=== PATIENT | male | born 1950 | race Caucasian/White ===

== ENCOUNTER 2024-08-02 10:38 | Outpatient (CLI) | payer MEDICARE, SELFPAY ==
--- NOTE | 2024-08-02 10:53 | ECG_ITS ---
Test Date: 2024-08-02 11:03:24 Measurements Intervals [place]io Rate: 77 P: 18 ID: 170 QRS: 19 QRSD: 101 T: 40 QT: 377 QTc: 427 Interpretive Statements SINUS RHYTHM WITH MARKED SINUS ARRHYTHMIA INCOMPLETE RIGHT BUNDLE BRANCH BLOCK BASELINE ARTIFACT- I, II, III, AVR, AVL, AVF BORDERLINE ECG No previous ECG available for comparison Electronically Signed On 08-02-2024 12:05:57 CONTACT LENS FLASHING PUNCHER by Reji Wei D.O.
[2024-08-02 11:31] LABS: Anion Gap 9 mmol/L (4-12); Blood Urea Nitrogen 23 mg/dL (9-20); Calcium 9.5 mg/dL (8.4-10.2); Carbon Dioxide 27 mmol/L (22-30); Chloride 102 mmol/L (98-107); Estimated Glomerular Filt Rate 54; Glucose 111 mg/dL (65-110); Potassium 4.4 mmol/L (3.4-5.0); Sodium 138 mmol/L (137-145)
== END 2024-08-02 10:39 | disposition home or self-care (01) ==
LOC: ANHSURGERY 10:43
PROVIDERS: Anesthesiology; PCP Internal Medicine; Visit Provider Surgery
DX: I10 Essential (primary) hypertension (principal); Z01.818 Encounter for other preprocedural examination; R94.31 Abnormal electrocardiogram [ECG] [EKG]
CPT/HCPCS: 36415; 80048; 93005

== ENCOUNTER 2024-08-08 00:28 | Day surgery (SDC) | payer MEDICARE, SELFPAY ==
--- NOTE | 2024-07-25 13:41 | PC.NURSE ---
Report to the Outpatient Waiting Room, entrance under the green pavilion located off [facility], at time __11 AM on date __08/08/24 . Planned Procedure Time: __1:00PM .? Time changes happen often and if your time is changed the preop area will call you the afternoon before. - You and your visitor will be asked to self-screen and do not enter if you have any COVID symptoms. Please call surgeon if you need to reschedule. - A mask is optional within the hospital at this time. MAY HAVE REGULAR DIET DAY BEFORE SURGERY. NOTHING TO EAT OR DRINK AFTER MIDNIGHT PER DR HOLDER Take only the following medications with a SIP of water on the morning of surgery: __GABAPENTIN,METOPROLOL DO NOT STOP ANY OF YOUR OTHER PRESCRIPTION MEDICATIONS PRIOR TO SURGERY EXCEPT THE FOLLOWING Medications to discontinue per physician __WIFE STATES HOLD PLAVIX 5 DAYS PRE OP PER DR HOLDER LAST DOSE 08/02/24 HOLD ALL VITAMINS 3 DAYS PRE OP .LAST DOSE08/04/24 MAY CONTINUE 81MG ASPIRIN PER DR HOLDER BUT DO NOT TAKE MORNING OF SURGERY Please no make-up, nail emirati, hairspray, perfume, deodorant, or body powder the day of surgery.? No jewelry (including any body piercings) or valuables the day of surgery, leave them at home.? Please take a shower or bath the night before, or the morning of, surgery with an antibacterial soap.? Wear comfortable, loose fitting clothing.? Children are encouraged to wear pajamas. - Jewelry must be removed prior to entering the operating room.? Rings and piercings that are not removed may be cut off. - The hospital will not accept responsibility for valuables.? - Please leave all valuables, including medications, at home the day of surgery. If you are going home after surgery, a licensed ice delivery driver must drive you home.? - NO public transportation without another adult if you receive anesthesia. - We recommend that an adult stay with you for 24 hours following discharge. - We also recommend that you do not drive, make important decision, drink alcoholic beverages, or take any drugs that were not prescribed by your health care provider for at least 24 hours after your discharge time. For Pediatric surgeries, we recommend two adults accompany the child home. Follow any additional instructions given to you from your surgeon. Telephone instructions given to __WIFE CONNIE and asked if any additional questions and then verbalized understanding. Patient advised to call surgeon office or pre surgery nurse liaison [phone] if any additional questions.
[2024-07-25 13:52] VITALS: BMI 27.4
[2024-08-08] VITALS (9 sets, daily range): BP systolic 124–158; BP diastolic 50–65; PULSE 54–78; RESP 12–18; TEMP 36.1–36.9; O2SAT 93–100; BMI 26.6
[2024-08-08] MEDS: ACETAMINOPHEN 500 MG TABLET 1000 MG PO (11:54)
[2024-08-08] MEDS: KETOROLAC 15 MG/ML VIAL (*BKC) IV PUSH (11:54)
--- NOTE | 2024-08-08 12:08 | WPDHPUPDATE1 ---
History and Physical Update Update Date/Time: 08/08/24 12:08 History and Physical has been reviewed, including an updated exam of the patient. There are NO changes in the patient's condition. Risks, benefits, and alternatives have been discussed and questions answered. Patient agrees to proceed with procedure.
--- NOTE | 2024-08-08 13:13 | WPDANESEPPF ---
Anes - Initial Pre Proc Eval Procedure: Operation Date: 08/08/24 13:00 Proposed Procedures p Rectal Examination Under Anesthesia, Internal and External Hemorrhoidectomy Times One Column - Gary Anderson DO Date/Time: 08/08/24 13:13 Surgeon: Gary Anderson DO Pre Op Diagnosis: grade 3 internal hemorrhoids Patient Data Age: 74 Gender: M Height: 1.7 m Weight: 77.2 kg Last Vital Signs Temp 36.9 C 08/08/24 11:05 Pulse 56 L 08/08/24 11:05 Resp 18 08/08/24 11:05 BP 133/55 L 08/08/24 11:05 Pulse Ox 96 08/08/24 11:05 O2 Del Method Room Air 08/08/24 11:05 Allergies Allergy/AdvReac Type Severity Reaction Status Date / Time adhesive tape Allergy Redness of Verified 08/08/24 09:10 Skin Home Medications Medication Instructions Recorded Confirmed Type aspirin 81 mg tablet,delayed 81 mg PO DAILY 07/15/24 07/25/24 History release atorvastatin 80 mg tablet 80 mg PO DAILY 07/15/24 07/25/24 History calcitriol 0.25 mcg capsule 0.25 mcg PO DAILY 07/15/24 07/25/24 History clopidogrel 75 mg tablet 75 mg PO DAILY 07/15/24 08/08/24 History furosemide 40 mg tablet 40 mg PO DAILY 07/15/24 07/25/24 History gabapentin 300 mg capsule 300 mg PO TID 07/15/24 07/25/24 History hydrocortisone 2.5 % topical cream 1 applic RECTAL DAILY PRN Itching 07/15/24 07/25/24 History with perineal applicator (Anusol-HC) losartan 50 mg tablet 50 mg PO DAILY 07/15/24 07/25/24 History metoprolol tartrate 25 mg tablet 12.5 mg PO BID 07/15/24 07/25/24 History trazodone 50 mg tablet 50 mg PO QHS PRN Insomnia 07/15/24 07/25/24 History acetaminophen 325 mg tablet 325 mg PO PRN PRN Pain 07/25/24 07/25/24 History (Tylenol) cyanocobalamin (vitamin B-12) 500 500 mcg PO DAILY 07/25/24 07/25/24 History mcg tablet ergocalciferol (vitamin D2) 1,250 50,000 unit PO WEEKLY 07/25/24 07/25/24 History mcg (50,000 unit) capsule Patient hx anesthesia problems: none Family hx anesthesia problems: none Results Review: All pre-operative results and documents have been reviewed as part of the pre-operative evaluation. [facility] Past Medical History Medical History (Updated 08/08/24 @ 13:14 by Freddie Castro MD) CAD (coronary artery disease) Grade III internal hemorrhoids Heart attack Hyperlipemia Hypertension Surgical History Surgical History Hx of coronary artery bypass graft 07/28/23 Dr French [facility] Family History Family History Sibling Cancer Heart disease Mother Hypertension Heart disease Father Heart disease Social History Social History Smoking packs per day: 2 Smoking cigarettes per day: 40.0 Years smoked: 40 Smoking pack-years: 80.00 Smoking status: Former smoker Tobacco type: cigarettes Smoking end date: 09/21/01 Alcohol intake: current Drinks per week: 1 Substance use: current Substance use type: marijuana Last use: 07/24/24 Current Housing: Decline to Answer Concerned About Future Housing: Decline to Answer Difficulty Paying Gas/Electric Bills: Decline to Answer Difficulty Paying for Meds: Decline to Answer Currently Unemployed: Decline to Answer Education: Decline to Answer Difficulty w/ Childcare or Family Care: Decline to Answer Living arrangements: with family Spiritual care concerns: No Anes - Eval Final PreProcedure Day of Procedure 08/08/24 13:13 Patient weight: normal Heart: regular rate and rhythm Lungs: clear to auscultation Airway: Mallampati scale class II and special considerations poor extension Neurological: alert and oriented Last oral intake: >/= 8 hours ASA classification: III Emergent: no Anesthetic plan: proceed Anesthesia type and monitoring: general LMA and standard monitoring Results Review: All pre-operative results and documents have been reviewed as part of the pre-operative evaluation. Informed Consent: The patient's anesthetic plan and its attendant risks and benefits were discussed with the patient/family/POA. Questions were solicited and answers provided to the satisfaction of the patient/family/POA.
[2024-08-08] MEDS: ceFAZolin 2 GM/D5W 50 ML 2 GM/50 ML BAG IVPB (13:35)
[2024-08-08] MEDS: BUPivacaine HCL 0.5% 10 ML AMP 30 ML INFILTRATE (14:07)
--- NOTE | 2024-08-08 14:31 | W.PM.PROC2 ---
Procedure Note - Detailed Date of Procedure 08/08/24 Pre-op Diagnosis grade 3 internal hemorrhoids Post-op Diagnosis Same Procedure Performed Internal and external hemorrhoidectomy x2 columns Surgeon Gary Anderson, DO Anesthesia General and Local (0.5% bupivacaine with epinephrine) Indications This is a 74-year-old man who presented with bleeding hemorrhoids. He had prolapsing hemorrhoids that were bleeding frequently. He had some mild external hemorrhoid tissue associated with prolapsing internal hemorrhoids. Discussions were made with the patient about treatment options and decision was made to proceed with internal and external hemorrhoidectomy. Findings Patient was found to have internal and external hemorrhoids in 2 locations. The left lateral location was the larger location that was identified initially in the office. He also had a right posterior internal and external hemorrhoid that was enlarged and prolapsing. Decision was made to proceed with internal and external hemorrhoidectomy x2 columns. The specimens were sent to the lab for pathology. Description of Procedure Procedure as well as risks, benefits, and alternatives were discussed with the patient. Written consent was obtained and placed in chart prior to procedure. Patient was brought back to surgical suite. He was placed supine on his hospital stretcher. Time-out was done to confirm patient and procedure. He was then intubated by the Anesthesia Department. He was then repositioned into prone marti-knife position. His perirectal area was prepped and draped in sterile fashion using Betadine prep. Digital rectal exam was initially performed. A Hill-Rodriguez anoscope was then inserted and the anal rectal canal was inspected. 0.5% bupivacaine with epinephrine was infiltrated locally around the perianal skin. Hemorrhoids were identified in the left lateral and right posterior positions. A Fansler anoscope was then inserted. The apex of the internal hemorrhoid bundle in the left lateral location was ligated initially using a 2 0 chromic [id number] suture. A triangular incision was then made on the anoderm including the external hemorrhoid using a 15 blade scalpel. The hemorrhoid tissue was carefully lifted free from the sphincter muscle using sharp dissection with a 15 blade scalpel. Electrocautery was then used for hemostasis. A curved Peon clamp was then placed across the hemorrhoid bundle and the hemorrhoid tissue was cut away using Metzenbaum scissors. The 2 0 chromic suture was then run across the rectal mucosa down to the anal verge across the clamp. The suture was then run back proximally to the apex stitch with running locking sutures and the stitch was then tied down in place. The area was then irrigated with sterile saline, and hemostasis along the anoderm was achieved with electrocautery. The anoderm was then reapproximated using 3 0 chromic simple interrupted sutures. I then repositioned the anoscope to the right posterior location. The apex of the internal hemorrhoid bundle in the right posterior location was ligated initially using a 2 0 chromic [id number] suture. A triangular incision was then made on the anoderm including the external hemorrhoid using a 15 blade scalpel. The hemorrhoid tissue was carefully lifted free from the sphincter muscle using sharp dissection with a 15 blade scalpel. Electrocautery was then used for hemostasis. A curved Peon clamp was then placed across the hemorrhoid bundle and the hemorrhoid tissue was cut away using Metzenbaum scissors. The 2 0 chromic suture was then run across the rectal mucosa down to the anal verge across the clamp. The suture was then run back proximally to the apex stitch with running locking sutures and the stitch was then tied down in place. The area was then irrigated with sterile saline, and hemostasis along the anoderm was achieved with electrocautery. The anoderm was then reapproximated using 3 0 chromic simple interrupted sutures. The Hill-Rodriguez anoscope was then reinserted and the anorectal canal was carefully inspected 1 more time circumferentially. No other abnormalities were identified, and hemostasis appeared adequate. Gelfoam gauze was then inserted into the anal canal. Fluff gauze, ABD pad, and mesh panties were applied. The patient was then awakened from anesthesia, extubated, and transferred to recovery. Estimated Blood Loss 10 Pathology Yes (Left lateral and right posterior hemorrhoids) Complications No immediate complications Condition Stable Disposition Same day [facility] Billing Surgery - Charge Forward: Surgery Billing
[2024-08-08] MEDS: LACTATED RINGERS 1,000 ML 30 ML IV CONT (14:34)
[2024-08-08] MEDS: oxyCODONE HCL (*CRX) 5 MG TAB IR PO (15:44)
== END 2024-08-08 16:32 | disposition home or self-care (01) ==
PROVIDERS: PCP Internal Medicine; Visit Provider Surgery
PROC: (CPT 46260; principal; 2024-08-08 13:00)
DX: K64.2 Third degree hemorrhoids (principal); K64.8 Other hemorrhoids; E78.5 Hyperlipidemia, unspecified; I10 Essential (primary) hypertension; I25.2 Old myocardial infarction; F12.90 Cannabis use, unspecified, uncomplicated; I25.10 Atherosclerotic heart disease of native coronary artery without angina pectoris; Z79.82 Long term (current) use of aspirin; Z79.02 Long term (current) use of antithrombotics/antiplatelets; Z98.890 Other specified postprocedural states; Z95.5 Presence of coronary angioplasty implant and graft; Z87.891 Personal history of nicotine dependence; Z80.9 Family history of malignant neoplasm, unspecified; Z82.49 Family history of ischemic heart disease and other diseases of the circulatory system
CPT/HCPCS: 46260; 88304; A9270; J0330; J0690; J1885; J2003; J2250; J2405; J2704; J3010; J7120

== ENCOUNTER 2024-09-23 08:43 | Outpatient (CLI) | payer MEDICARE, SELFPAY ==
[2024-09-23 09:31] LABS: Hematocrit 34.1 % (42.0-52.0); Hemoglobin 11.6 g/dL (14.0-18.0); Mean Corpuscular Hemoglobin 30.8 pg (26-34); Mean Corpuscular Volume 90.5 fl (80-100); Mean Platelet Volume 9.9 fl (7.4-10.4); Platelet Count Result 274 k/mm3 (150-375); Red Blood Count 3.77 M/mm3 (4.6-6.20); Red Cell Distribution Width 14.7 % (11.5-14.5); White Blood Count 9.7 K/mm3 (4.5-10.0)
[2024-09-23 10:04] LABS: Free T4 Free Thyroxine 1.05 ng/dL (0.78-2.19)
[2024-09-23 10:16] LABS: Alanine Aminotransferase 14 U/L (6-50); Albumin Level 4.6 g/dL (3.5-5.1); Alkaline Phosphatase 73 U/L (38-126); Anion Gap 7 mmol/L (4-12); Aspartate Amino Transferase 19 U/L (17-59); Bilirubin,Total 0.6 mg/dL (0.2-1.3); Blood Urea Nitrogen 23 mg/dL (9-20); Calcium 9.3 mg/dL (8.4-10.2); Carbon Dioxide 25 mmol/L (22-30); Chloride 105 mmol/L (98-107); Cholesterol 155 mg/dL (0-200); Estimated Glomerular Filt Rate 50; Glucose 97 mg/dL (65-110); HDL Direct 42 mg/dL; Potassium 4.6 mmol/L (3.4-5.0); Sodium 137 mmol/L (137-145); Triglycerides 103 mg/dL (<150)
[2024-09-23 10:18] LABS: Thyroid Stimulating Hormone Reflex 0.677 uIU/mL (0.465-4.68)
[2024-09-23 10:27] LABS: LDL Cholesterol Direct 71 mg/dL
[2024-09-23 10:56] LABS: Creatinine Urine 23.5 mg/dL
[2024-09-23 11:03] LABS: MALB Creatinine Ratio < 25.5 mg/g (0-30); Microalbumin Urine Random < 6.0 mg/L (0-16.7)
[2024-09-23 17:17] LABS: Hemoglobin A1C 6.1 % (<5.7)
== END 2024-09-23 08:44 | disposition home or self-care (01) ==
LOC: ANHLAB 08:45
PROVIDERS: PCP Internal Medicine; Visit Provider Internal Medicine
DX: R73.03 Prediabetes (principal); E78.5 Hyperlipidemia, unspecified
CPT/HCPCS: 36415; 80053; 80061; 82043; 83036; 84439; 84443; 85027

== ENCOUNTER 2024-11-29 08:25 | Outpatient (CLI) | payer MEDICARE, SELFPAY ==
--- OUTSIDE RECORDS SUMMARY | 2024-11-29 08:44 | XMS_ITS | Continuity of Care Document ---
Author Organization [facility] Address [address] [place] [address] [place] [address] Phone Care Team Providers Care Sales And Distribution Clerk Name Role Phone Modesto Jaimes DO Unavailable Unavailable Advance Directives Directive Yes / No Effective Date File Name No Information Encounters Encounter Description Practice Location Reason(s) For Visit Diagnoses Date Provider Providers Copied on Encounter [facility], [address], [place], [place], [id number], tel:[phone] [facility] ([facility]) No Information Fiona Dunne. [address] [place], [address], [place]. tel:[phone] Family History Family Member Type Diagnosis Age At Onset No Information Payers Payer name Insurance type Covered republican ID Authoriza tion(s) No Information Social History [...]
--- OUTSIDE RECORDS SUMMARY | 2024-11-29 08:44 | XMS_ITS | Data Portability ---
Author Organization [place] [facility], Main Office Address [address] [place] [address] Care Team Providers Care Commissioning Agent Name Role Phone DAPHNE LOCK Primary Care Provider KELLEE HOLDER General Surgeon DEEPIKA WU Seed Mill Superintendent MARCK MCKEE Neurosurgeon Assessment Encounter Date Assessment Date Assessment LastModified by Organization Details LastModified Time 09/01/2023 09/01/2023 12/23/2022: PSA 2.42 07/21/2023: Gluc 106, BUN 20, Alb 4.5, TP WNL LDL 116 HGB 12.9 Not available 09/01/2023 16:09:46 01/26/2024 01/26/2024 12/23/2022: PSA 2.42 07/21/2023: Gluc 106, BUN 20, Alb 4.5, TP WNL LDL 116 HGB 12.9 10/19/2023: BUN 22 Chol 248, TG 174, LDL 171 H/H 11.5/35.6 Not available 01/26/2024 16:42:28 06/16/2024 06/16/2024 12/23/2022: PSA 2.42 07/21/2023: Gluc 106, BUN 20, Alb 4.5, TP WNL LDL 116 HGB 12.9 10/19/2023: BUN 22 Chol 248, TG 174, LDL 171 H/H 11.5/35.6 01/27/2024: LDL 108 Dr Moore IJ BUN/Cr/GFR 21/1.48/47, Alb 4.6 H/H 11.2/34.3 A1C 6.4 Not available 06/16/2024 14:20:19 10/04/2024 10/04/2024 12/23/2022: PSA 2.42 07/21/2023: Gluc 106, BUN 20, Alb 4.5, TP WNL LDL 116 HGB 12.9 10/19/2023: BUN 22 Chol 248, TG 174, LDL 171 H/H 11.5/35.6 01/27/2024: LDL 108 Dr Oscar PEOPLES BUN/Cr/GFR 21/1.48/47, Alb 4.6 H/H 11.2/34.3 A1C 6.4 07/24/2025: A1C 6.1 BUN/Cr/GFR 23/1.40/50 H/H 11.6/34.1 09/23/2024: A1C 6.1 GFR 50 [email or web address] Not available 10/04/2024 10:15:01 Plan of Treatment Reminders Order Date Submit Date Provider Last Modified By Organization Details Last Modified Time Details Appointments Any 15 2024 09:45A Charles [email or web address] MD Not available Not available Not available Lab glycohemo globin, total, blood [email or web address] (Lab), [address] [place], [address], 10/04/2024 10:30:49 microalbu min, urine 2024 025 [email or web address] [facility] (Lab), [address] [place], [address], 10/17/2024 17:31:43 lipid panel, serum [email or web address] (Lab), [address] [place], [address], 10/04/2024 10:30:48 CBC w/ auto diff [email or web address] (Lab), [address] [place], [address], 10/04/2024 10:30:49 CMP, serum or plasma [address] (Lab), [address] [place], [address], 10/04/2024 10:30:49 TSH, serum or plasma [address] (Lab), [address] [place], [address], 10/04/2024 10:30:49 glycohemo globin, total, blood 2023 024 [facility] (Lab), [address] [place], [address], 06/20/2024 15:44:20 microalbu min, urine 2023 024 [facility] (Lab), [address] [place], [address], 06/20/2024 13:35:43 lipid panel, serum 2023 024 [facility] (Lab), [address] [place], [address], 06/20/2024 20:23:08 CBC w/ auto diff 2023 024 [facility] (Lab), [address] [place], [address], 06/20/2024 12:17:31 CMP, serum or plasma 2023 024 [facility] (Lab), [address] [place], [address], 06/20/2024 20:23:13 TSH, serum or plasma 2023 024 [facility] (Lab), [address] [place], [address], 06/20/2024 20:28:57 lipid panel, serum 2023 024 [facility] (Lab), [address] [place], [address], 01/27/2024 12:17:39 CBC w/ auto diff [email or web address] (Lab), [address] [place], [address], 07/28/2024 12:39:28 CMP, serum or plasma 2023 024 [facility] (Lab), [address] [place], [address], 01/28/2024 08:20:32 TSH, serum or plasma 2023 024 [facility] (Lab), [address] [place], [address], 01/27/2024 12:36:44 lipid panel, serum 2022 023 [facility] (Lab), [address] [place], [address], 10/19/2023 12:16:03 CBC w/ auto diff 2022 023 [facility] (Lab), [address] [place], [address], 10/19/2023 11:28:58 CMP, serum or plasma 2022 023 [facility] (Lab), [address] [place], [address], 10/19/2023 12:16:17 TSH, serum or plasma 2022 023 [facility] (Lab), [address] [place], [address], 10/19/2023 13:26:15 Referral diabetic ophthalmo logy referral - Please call patient to schedule. 2024 025 [email or web address] [facility], [address] , [place], [address], 11/10/2024 08:18:43 podiatris t referral - Please call patient to schedule. 2024 025 Stef FAUSTM, [address], [place], [address], 11/10/2024 08:18:43 cardiolog ist referral 2024 025 Deepika Wu MD, [address], [address], [place], [address], 10/04/2024 11:54:51 general surgeon referral - Please call patient to schedule. 2024 025 Kellee Holder DO, [address], [address], [place], [address], 10/04/2024 12:11:52 cardiolog ist referral 2023 024 [email or web address] Deepika Wu MD, [address], [address], [place], [address], 06/21/2024 08:10:40 diabetic ophthalmo logy referral - Please call patient to schedule. 2023 024 [email or web address] [facility], [address] , [place], [address], 10/04/2024 12:05:30 podiatris t referral - Please call patient to schedule. 2023 024 [email or web address] Stef Scruggs DPCharles, [address], [address], [place], [address], 10/04/2024 12:05:41 general surgeon referral - Please call patient to schedule. 2023 024 CHON Mejia MD, [address], [address], [place], [address], 07/17/2024 16:27:55 cardiolog ist referral 2023 024 cindy Wu MD, [address], [address], [place], [address], 02/24/2024 08:06:53 cardiolog ist referral 2022 023 cindy Wu MD, [address], [place], [address], 10/01/2023 12:11:35 Procedures None recorded. Surgeries None recorded. Imaging LDCT, chest, for lung cancer screening - Please call patient to schedule. To be performed on or around [address], [facility] [place] [address], [address], 10/05/2024 10:57:47 LDCT, chest, for lung cancer screening - Please call patient to schedule. To be performed on or around [address], [address], [address], 09/19/2024 15:29:11 US, abdominal aorta - no auth required 2023 024 [facility] ([facility]), [address], [place], [address], 07/28/2024 15:15:28 LDCT, chest, for lung cancer screening - no auth required 2022 023 [facility] ([facility]), [address] [place], [address], 09/09/2023 19:33:26 US, abdominal aorta - no auth required [email or web address] ([facility]), [address] [place], [address], 03/21/2024 08:12:45 Medication Orders Farxiga 5 mg tablet 2024 025 [email or web address] [facility] #[id number], [address], [place], [place], [id number], 10/19/2024 18:05:37 trazodone 50 mg tablet 2023 024 [id number], [address], [place], [place], [id number], 06/16/2024 14:21:09 Anusol-HC 2.5 % topical cream with perineal applicato r 2023 024 [facility][id number], [address], [place], [place], [id number], 06/16/2024 14:39:43 trazodone 50 mg tablet 2023 024 [facility][id number], [address], [place], [place], [id number], 01/26/2024 17:15:56 Patient TargetsNo targets recorded. Patient Instructions Encounter Date Encounter Id Patient Instructions Last Modified By Organization Details Last Modified Time 01/26/2024 [id number] dementia rating scale-2* [email or web address] 2 Not available 01/26/2024 18:18:26 Timed Up and Go test (TUG)* [email or web address] 2 Not available 01/26/2024 18:18:27 alcohol misuse* [email or web address] 2 Not available 01/26/2024 18:18:27 depression screening* [email or web address] 2 Not available 01/26/2024 18:18:27 multi-dimensiona l health assessment questionnaire* [email or web address] Not available 01/27/2024 13:52:09 advance care planning: care instructions [email or web address] 2 Not available 01/26/2024 18:18:27 advance directiv es: care instructions [email or web address] 2 Not available 01/26/2024 18:18:27 [place] Advance Directives [email or web address] 2 Not available 01/26/2024 18:18:27 Personalized a lt Plan and Screening Recommendations Advance Directives - Do you have one? No You have indicated that you are capable of preparing your advance care directive Advance Directives - Do we have your advance directive on file in your health record? Primary Prevention/Interven tion (prevents or decreases the chance of common diseases from occurring) Smoking Risk: Non Smoker Alcohol Misuse Screening: Negative Weight: Appropriate Overwei ght continue your current weight loss efforts try to lose 5% of your body weight Physical activity: Need more exercise/physical activity minimum of 10-20 minutes of activity that causes mild breathlessness/day Nutrition: Good Average Refer to attached handout Heart-Healthy Diet: After Your Visit Fall Risk (screened today): Low Refer to attached handout Preventing Falls: After your Visit Vaccines Pneumococcal: Ordered Recommended today Influenza: Your next one in the fall of this year Chronic Disease Risks Stroke: Low Risk Intermediate Risk Heart Attack: Low risk Intermediate Risk Clogging of the Arteries: Low risk Intermediate Risk Diabetes: Low Risk I have no recommendations Secondary Prevention/Interven tion (detects treatable diseases before they may cause symptoms, disability, or ) Prostate Cancer Screening: No PSA screening necessary Colon Cancer Screening: Colonoscopy Date Screening Last Performed: 06/25/2016 Eye Disease Screening: Ordered Recommended today Dementia Risk: Low I have no recommendations Depression Screening: Negative Not available 01/26/2024 17:48:05 11/23/2024 [id number] vocal cord dysfunction Not available 11/23/2024 12:09:24 the cords were clearly examined and both move normally. 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 Referring Physician: Daphne Lock Internal Medicine, Encounter Date: 06/16/2024 Hand Engraver Referral for Pred iabetes Please call patient to schedule. Referring Physician: Yakelin Flanagan Medicine, Encounter Date: 06/16/2024 General Surgeon Referral for Hemorrhoids Please call patient to schedule. 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 Referring Physician: Yakelin Flanagan, Encounter Date: 10/04/2024 Hand Engraver Referral for Pred iabetes Please call patient to schedule. Referring Physician: Yakelin Flanagan Medicine, Encounter Date: 10/04/2024 General Surgeon Referral for Hemorrhoids Please call patient to schedule. Referring Physician: Yakelin Flanagan Medicine, Encounter Date: 10/04/2024 Results Created Date Observation Date Name Description Value Unit Range Abnormal Flag Note LastModifiedBy Organization Detail LastModifiedTime 10/19/19 24 10/19/2023 CBC/C OMPLE TE BLD COUNT W/DIF F white blood cells 8.5 x10'3 /uL 4.2-10 .8 Not Available [facility] (Lab) [address] [place], [address], 10/19/2023 11:28:57 10/19/19 24 10/19/2023 CBC/C OMPLE TE BLD COUNT W/DIF F red blood cells 3.80 x10'6 /uL 4.10-5 .80 low Not Available [facility] (Lab) [address] [place], [address], 10/19/2023 11:28:57 10/19/19 24 10/19/2023 CBC/C OMPLE TE BLD COUNT W/DIF F hemoglobin 11.5 g/dL 13.2-1 7.0 low Not Available [facility] (Lab) [address] [place], [address], 10/19/2023 11:28:57 10/19/19 24 10/19/2023 CBC/C OMPLE TE BLD COUNT W/DIF F hematocrit 35.6 % 39.3-5 0.0 low Not Available [facility] (Lab) [address] [place], [address], 10/19/2023 11:28:57 10/19/19 24 10/19/2023 CBC/C OMPLE TE BLD COUNT W/DIF F mean red cell volume 93.7 fL 80.0-9 7.0 Not Available [facility] (Lab) [address] [place], [address], 10/19/2023 11:28:57 10/19/19 24 10/19/2023 CBC/C OMPLE TE BLD COUNT W/DIF F mean red cell hemoglobin 30.3 pg 27.0-3 3.0 Not Available [facility] (Lab) [address] [place], [address], 10/19/2023 11:28:57 10/19/19 24 10/19/2023 CBC/C OMPLE TE BLD COUNT W/DIF F mean RBC HGB concentratio n 32.3 g/dL 31.0-3 6.0 Not Available [facility] (Lab) [address] [place], [address], 10/19/2023 11:28:57 10/19/19 24 10/19/2023 CBC/C OMPLE TE BLD COUNT W/DIF F red cell distribution width 14.6 % 11.8-1 5.5 Not Available [facility] (Lab) [address] [place], [address], 10/19/2023 11:28:57 10/19/19 24 10/19/2023 CBC/C OMPLE TE BLD COUNT W/DIF F platelets 272 x10'3 /uL 150-40 0 Not Available [facility] (Lab) [address] [place], [address], 10/19/2023 11:28:57 10/19/19 24 10/19/2023 CBC/C OMPLE TE BLD COUNT W/DIF F mean platelet volume 10.0 fL 9.0-12 .4 Not Available [facility] (Lab) [address] [place], [address], 10/19/2023 11:28:57 10/19/19 24 10/19/2023 CBC/C OMPLE TE BLD COUNT W/DIF F neutrophils 51.8 % 39.0-7 2.0 Not Available [facility] (Lab) [address] [place], [address], 10/19/2023 11:28:57 10/19/19 24 10/19/2023 CBC/C OMPLE TE BLD COUNT W/DIF F lymphocytes 36.7 % 16.0-4 7.0 Not Available [facility] (Lab) [address] [place], [address], 10/19/2023 11:28:57 10/19/19 24 10/19/2023 CBC/C OMPLE TE BLD COUNT W/DIF F monocytes 8.0 % 5.0-12 .0 Not Available [facility] (Lab) [address] [place], [address], 10/19/2023 11:28:57 10/19/19 24 10/19/2023 CBC/C OMPLE TE BLD COUNT W/DIF F eosinophils 2.4 % 1.0-7. 0 Not Available [facility] (Lab) [address] [place], [address], 10/19/2023 11:28:57 10/19/19 24 10/19/2023 CBC/C OMPLE TE BLD COUNT W/DIF F basophils 0.6 % 0.0-2. 0 Not Available [facility] (Lab) [address] [place], [address], 10/19/2023 11:28:57 10/19/19 24 10/19/2023 CBC/C OMPLE TE BLD COUNT W/DIF F immature granulocytes 0.5 % 0.00-0 .50 Not Available [facility] (Lab) [address] [place], [address], 10/19/2023 11:28:57 10/19/19 24 10/19/2023 CBC/C OMPLE TE BLD COUNT W/DIF F neutrophils, absolute count 4.38 x10'3 /uL 1.5-8. 0 Not Available [facility] (Lab) [address] [place], [address], 10/19/2023 11:28:57 10/19/19 24 10/19/2023 CBC/C OMPLE TE BLD COUNT W/DIF F lymphocytes, absolute count 3.10 x10'3 /uL 1.07-3 .43 Not Available [facility] (Lab) [address] [place], [address], 10/19/2023 11:28:57 10/19/19 24 10/19/2023 CBC/C OMPLE TE BLD COUNT W/DIF F monocytes, absolute count 0.68 x10'3 /uL 0.29-0 .99 Not Available [facility] (Lab) [address] [place], [address], 10/19/2023 11:28:57 10/19/19 24 10/19/2023 CBC/C OMPLE TE BLD COUNT W/DIF F eosinophils, absolute count 0.20 x10'3 /uL 0.02-0 .53 Not Available [facility] (Lab) [address] [place], [address], 10/19/2023 11:28:57 10/19/19 24 10/19/2023 CBC/C OMPLE TE BLD COUNT W/DIF F basophils, absolute count 0.05 x10'3 /uL 0.01-0 .08 Not Available [facility] (Lab) [address] [place], [address], 10/19/2023 11:28:57 10/19/19 24 10/19/2023 CBC/C OMPLE TE BLD COUNT W/DIF F immature granulocytes ,absolute 0.04 x10'3 /uL 0.00-0 .05 Not Available [facility] (Lab) [address] [place], [address], 10/19/2023 11:28:57 10/19/19 24 10/19/2023 CBC/C OMPLE TE BLD COUNT W/DIF F nucleated red blood cells 0.0 % -0 Not Available [facility] (Lab) [address] [place], [address], 10/19/2023 11:28:57 10/19/19 24 10/19/2023 CBC/C OMPLE TE BLD COUNT W/DIF F NRBC# 0.00 x10'3 /uL Not Available [facility] (Lab) [address] [place], [address], 10/19/2023 11:28:57 10/19/1910/19/2023 LIPID PANEL cholesterol 248 mg/dL 140-19 9 high NIH JASON NSUS RECOM MENDA TION FOR TERENCE STERO L: ADULT CHILD LOW RISK: <200 <170 BORDE RLINE : <200- 239 ----- HIGH RISK: >240 >200 Not Available [facility] (Lab) [address] [place], [address], 10/19/2023 12:16:03 10/19/1910/19/2023 LIPID PANEL triglyceride s 174 mg/dL 0-150 high NIH JASON NSUS REPOR T RECOM MENDA TION FOR TRIGL YCERI BOGDAN: ADULT CHILD LOW RISK: <150 ----- BODER LINE: 150-1 99 ----- HIGH RISK: >200 ----- Not Available [facility] (Lab) [address] [place], [address], 10/19/2023 12:16:03 10/19/1910/19/2023 LIPID PANEL HDL cholesterol 42 mg/dL 40- Not Available [facility] (Lab) [address] [place], [address], 10/19/2023 12:16:03 10/19/19 24 10/19/2023 LIPID PANEL LDL cholesterol, calculated 171 mg/dL 0-130 high NIH JASON NSUS REPOR T RECOM MENDA TIONS FOR LDL: ADULT CHILD LOW RISK <130 <110 (OPTI MAL LDL) <100 ----- BORDE RLINE : 130-1 59 ----- HIGH RISK: >160 >130 A TRIGL YCERI DE RESUL T >400 INVAL IDATE S THE CALCU LATIO N FOR LDL FRACT IONAT ION - THE LDL RESUL T WILL NOT BE REPOR MIKE. Not Available [facility] (Lab) [address] [place], [address], 10/19/2023 12:16:03 10/19/19 24 10/19/2023 COMPR EHENS RODY METAB OLIC PANEL sodium 138 mmol/ L 137-14 5 Not Available [facility] (Lab) [address] [place], [address], 10/19/2023 12:16:17 10/19/19 24 10/19/2023 COMPR EHENS RODY METAB OLIC PANEL potassium 4.8 mmol/ L 3.5-5. 1 Not Available [facility] (Lab) [address] [place], [address], 10/19/2023 12:16:17 10/19/19 24 10/19/2023 COMPR EHENS RODY METAB OLIC PANEL chloride 104 mmol/ L 98-107 Not Available [facility] (Lab) [address] [place], [address], 10/19/2023 12:16:17 10/19/19 24 10/19/2023 COMPR EHENS RODY METAB OLIC PANEL carbon dioxide 26 mmol/ L 22-30 Not Available [facility] (Lab) [address] [place], [address], 10/19/2023 12:16:17 10/19/19 24 10/19/2023 COMPR EHENS RODY METAB OLIC PANEL anion gap 12.8 mmol/ L 14-22 low Not Available [facility] (Lab) [address] [place], [address], 10/19/2023 12:16:17 10/19/19 24 10/19/2023 COMPR EHENS RODY METAB OLIC PANEL glucose 97 mg/dL 70-99 Not Available [facility] (Lab) [address] [place], [address], 10/19/2023 12:16:17 10/19/19 24 10/19/2023 COMPR EHENS RODY METAB OLIC PANEL BUN 22 mg/dL 8-19 high Not Available [facility] (Lab) [address] [place], [address], 10/19/2023 12:16:17 10/19/1910/19/2023 COMPR EHENS RODY METAB OLIC PANEL creatinine 1.19 mg/dL 0.66-1 .25 Not Available [facility] (Lab) [address] [place], [address], 10/19/2023 12:16:17 10/19/19 24 10/19/2023 COMPR EHENS RODY METAB OLIC PANEL GFR 60 Refer ence Range : [place] ge GFR Healt hy Adult : >60 mL/mi n/1.7 3 m2 Chron ic Kidne y Disea se: 15-60 mL/mi n/1.7 3 m2 Kidne y Failu re: <15/m L/min /1.73 m2 www.n iddk. nih.g ov The MDRD study equat ion has not been valid ated in child leo <18 years of age; pregn ant women ; the elder ly >85 years of age; or in some racia l or ethni c subgr oups, such as Hiswa nics. Outsi de the valid ated vinicio eters , estim ated GFR is less accur ate, requi ring clini rabia judgm ent on a case- by-ca se basis . Clini rabia inter preta tion for other races and ages must be made by the clini ciara. The MDRD study equat ion has not been valid ated for the evalu ation of serum creat inine relat ed to nutri ben l statu s or medic ation usage . For perso ns <18 years of age, a pedia tric GFR calcu lator is avail able on the NKF websi te: https ://alexandria gamez.shawnee reza/pr dru roseal s/kdo qi/gf r_cal culat or Not Available [facility] (Lab) [address] [place], [address], 10/19/2023 12:16:17 10/19/19 24 10/19/2023 COMPR EHENS RODY METAB OLIC PANEL alkaline phosphatase 62 U/L 38-126 Not Available [facility] (Lab) [address] [place], [address], 10/19/2023 12:16:17 10/19/19 24 10/19/2023 COMPR EHENS RODY METAB OLIC PANEL alanine aminotransfe rase 11 U/L 0-50 Not Available [facility] (Lab) [address] [place], [address], 10/19/2023 12:16:17 10/19/19 24 10/19/2023 COMPR EHENS RODY METAB OLIC PANEL aspartate aminotransfe rase 20 U/L 15-46 Not Available [facility] (Lab) [address] [place], [address], 10/19/2023 12:16:17 10/19/19 24 10/19/2023 COMPR EHENS RODY METAB OLIC PANEL bilirubin, total 0.20 mg/dL 0.20-1 .30 Not Available [facility] (Lab) [address] [facility] [place], [address], 10/19/2023 12:16:17 10/19/19 24 10/19/2023 COMPR EHENS RODY METAB OLIC PANEL calcium 9.3 mg/dL 8.4-10 .2 Not Available [facility] (Lab) [address] [place], [address], 10/19/2023 12:16:17 10/19/19 24 10/19/2023 COMPR EHENS RODY METAB OLIC PANEL total protein 7.0 g/dL 6.3-8. 2 Not Available [facility] (Lab) [address] [facility] [place], [address], 10/19/2023 12:16:17 10/19/19 24 10/19/2023 COMPR EHENS RODY METAB OLIC PANEL albumin 4.2 g/dL 3.0-4. 4 Not Available [facility] (Lab) [address] [place], [address], 10/19/2023 12:16:17 10/19/19 24 10/19/2023 COMPR EHENS RODY METAB OLIC PANEL globulin 2.8 g/dL 2.6-4. 2 Not Available [facility] (Lab) [address] [place], [address], 10/19/2023 12:16:17 10/19/19 24 10/19/2023 COMPR EHENS RODY METAB OLIC PANEL A/G ratio 1.5 ratio 1.0-2. 0 Not Available [facility] (Lab) [address] [place], [address], 10/19/2023 12:16:17 10/19/19 24 10/19/2023 TSH W/REF SHAQUILLE FT4 TSH with reflex free T4 0.799 uIU/m L 0.465- 4.680 Not Available [facility] (Lab) [address] [place], [address], 10/19/2023 13:26:15 01/27/20 24 01/27/2024 LIPID PANEL cholesterol 176 mg/dL 140-19 9 NIH JASON NSUS RECOM MENDA TION FOR TERENCE STERO L: ADULT CHILD LOW RISK: <200 <170 BORDE RLINE : <200- 239 ----- HIGH RISK: >240 >200 Not Available [facility] (Lab) [address] [place], [address], 01/27/2024 12:17:39 01/27/20 24 01/27/2024 LIPID PANEL triglyceride s 142 mg/dL 0-150 NIH JASON NSUS REPOR T RECOM MENDA TION FOR TRIGL YCERI BOGDAN: ADULT CHILD LOW RISK: <150 ----- BODER LINE: 150-1 99 ----- HIGH RISK: >200 ----- Not Available [facility] (Lab) [address] [place], [address], 01/27/2024 12:17:39 01/27/20 24 01/27/2024 LIPID PANEL HDL cholesterol 40 mg/dL 40- Not Available [facility] (Lab) [address] [place], [address], 01/27/2024 12:17:39 01/27/20 24 01/27/2024 LIPID PANEL LDL cholesterol, calculated 108 mg/dL 0-130 NIH JASON NSUS REPOR T RECOM MENDA TIONS FOR LDL: ADULT CHILD LOW RISK <130 <110 (OPTI MAL LDL) <100 ----- BORDE RLINE : 130-1 59 ----- HIGH RISK: >160 >130 A TRIGL YCERI DE RESUL T >400 INVAL IDATE S THE CALCU LATIO N FOR LDL FRACT IONAT ION - THE LDL RESUL T WILL NOT BE REPOR MIKE. Not Available [facility] (Lab) [address] [place], [address], 01/27/2024 12:17:39 01/27/20 24 01/27/2024 TSH W/REF SHAQUILLE FT4 TSH with reflex free T4 0.542 uIU/m L 0.465- 4.680 Not Available [facility] (Lab) [address] [place], [address], 01/27/2024 12:36:44 06/20/20 24 06/20/2024 CBC/C OMPLE TE BLD COUNT W/DIF F white blood cells 8.1 x10'3 /uL 4.2-10 .8 Not Available [facility] (Lab) [address] [place], [address], 06/20/2024 12:17:31 06/20/20 24 06/20/2024 CBC/C OMPLE TE BLD COUNT W/DIF F red blood cells 3.75 x10'6 /uL 4.10-5 .80 low Not Available [facility] (Lab) [address] [place], [address], 06/20/2024 12:17:31 06/20/20 24 06/20/2024 CBC/C OMPLE TE BLD COUNT W/DIF F hemoglobin 11.7 g/dL 13.2-1 7.0 low Not Available [facility] (Lab) [address] [place], [address], 06/20/2024 12:17:31 06/20/20 24 06/20/2024 CBC/C OMPLE TE BLD COUNT W/DIF F hematocrit 34.4 % 39.3-5 0.0 low Not Available [facility] (Lab) [address] [place], [address], 06/20/2024 12:17:31 06/20/20 24 06/20/2024 CBC/C OMPLE TE BLD COUNT W/DIF F mean red cell volume 91.7 fL 80.0-9 7.0 Not Available [facility] (Lab) [address] [place], [address], 06/20/2024 12:17:31 06/20/20 24 06/20/2024 CBC/C OMPLE TE BLD COUNT W/DIF F mean red cell hemoglobin 31.2 pg 27.0-3 3.0 Not Available [facility] (Lab) [address] [place], [address], 06/20/2024 12:17:31 06/20/20 24 06/20/2024 CBC/C OMPLE TE BLD COUNT W/DIF F mean RBC HGB concentratio n 34.0 g/dL 31.0-3 6.0 Not Available [facility] (Lab) [address] [place], [address], 06/20/2024 12:17:31 06/20/20 24 06/20/2024 CBC/C OMPLE TE BLD COUNT W/DIF F red cell distribution width 13.8 % 11.8-1 5.5 Not Available [facility] (Lab) [address] [place], [address], 06/20/2024 12:17:31 06/20/20 24 06/20/2024 CBC/C OMPLE TE BLD COUNT W/DIF F platelets 275 x10'3 /uL 150-40 0 Not Available [facility] (Lab) [address] [place], [address], 06/20/2024 12:17:31 06/20/20 24 06/20/2024 CBC/C OMPLE TE BLD COUNT W/DIF F mean platelet volume 10.3 fL 9.0-12 .4 Not Available [facility] (Lab) [address] [place], [address], 06/20/2024 12:17:31 06/20/20 24 06/20/2024 CBC/C OMPLE TE BLD COUNT W/DIF F neutrophils 57.7 % 39.0-7 2.0 Not Available [facility] (Lab) [address] [place], [address], 06/20/2024 12:17:31 06/20/20 24 06/20/2024 CBC/C OMPLE TE BLD COUNT W/DIF F lymphocytes 29.5 % 16.0-4 7.0 Not Available [facility] (Lab) [address] [place], [address], 06/20/2024 12:17:31 06/20/20 24 06/20/2024 CBC/C OMPLE TE BLD COUNT W/DIF F monocytes 9.9 % 5.0-12 .0 Not Available [facility] (Lab) [address] [place], [address], 06/20/2024 12:17:31 06/20/20 24 06/20/2024 CBC/C OMPLE TE BLD COUNT W/DIF F eosinophils 2.2 % 1.0-7. 0 Not Available [facility] (Lab) [address] [place], [address], 06/20/2024 12:17:31 06/20/20 24 06/20/2024 CBC/C OMPLE TE BLD COUNT W/DIF F basophils 0.5 % 0.0-2. 0 Not Available [facility] (Lab) [address] [place], [address], 06/20/2024 12:17:31 06/20/20 24 06/20/2024 CBC/C OMPLE TE BLD COUNT W/DIF F immature granulocytes 0.2 % 0.00-0 .50 Not Available [facility] (Lab) [address] [place], [address], 06/20/2024 12:17:31 06/20/20 24 06/20/2024 CBC/C OMPLE TE BLD COUNT W/DIF F neutrophils, absolute count 4.66 x10'3 /uL 1.5-8. 0 Not Available [facility] (Lab) [address] [place], [address], 06/20/2024 12:17:31 06/20/20 24 06/20/2024 CBC/C OMPLE TE BLD COUNT W/DIF F lymphocytes, absolute count 2.39 x10'3 /uL 1.07-3 .43 Not Available [facility] (Lab) [address] [place], [address], 06/20/2024 12:17:31 06/20/20 24 06/20/2024 CBC/C OMPLE TE BLD COUNT W/DIF F monocytes, absolute count 0.80 x10'3 /uL 0.29-0 .99 Not Available [facility] (Lab) [address] [place], [address], 06/20/2024 12:17:31 06/20/20 24 06/20/2024 CBC/C OMPLE TE BLD COUNT W/DIF F eosinophils, absolute count 0.18 x10'3 /uL 0.02-0 .53 Not Available [facility] (Lab) [address] [place], [address], 06/20/2024 12:17:31 06/20/20 24 06/20/2024 CBC/C OMPLE TE BLD COUNT W/DIF F basophils, absolute count 0.04 x10'3 /uL 0.01-0 .08 Not Available [facility] (Lab) [address] [place], [address], 06/20/2024 12:17:31 06/20/20 24 06/20/2024 CBC/C OMPLE TE BLD COUNT W/DIF F immature granulocytes ,absolute 0.02 x10'3 /uL 0.00-0 .05 Not Available [facility] (Lab) [address] [place], [address], 06/20/2024 12:17:31 06/20/20 24 06/20/2024 CBC/C OMPLE TE BLD COUNT W/DIF F nucleated red blood cells 0.0 % -0 Not Available [facility] (Lab) [address] [place], [address], 06/20/2024 12:17:31 06/20/20 24 06/20/2024 CBC/C OMPLE TE BLD COUNT W/DIF F NRBC# 0.00 x10'3 /uL Not Available [facility] (Lab) [address] [place], [address], 06/20/2024 12:17:31 06/20/20 24 06/20/2024 MICRO ALBUM IN RANDO M URINE microalbumin , urine <6.0 mg/L 0.0-16 .6 Not Available [facility] (Lab) [address] [place], [address], 06/20/2024 13:35:43 06/20/20 06/20/2024 HEMOG LOBIN A1C HA1C 5.7 % 4.0-6. 0 Diabe nolvia Jimboe royer Crite nancy: <5.7% Consi stent with absen ce of diabe nolvia 5.7-6 .4% Consi stent with incre ased risk for diabe nolvia (pred iabet es) >OR=6 .5% Consi stent with diabe nolvia REFER ENCE: Diabe nolvia Care 2016, 39(Newsome ppl.1 ):s13 -s22 Not Available [facility] (Lab) [address] [place], [address], 06/20/2024 15:44:20 06/20/20 24 06/20/2024 LIPID PANEL cholesterol 138 mg/dL 140-19 9 low NIH JASON NSUS RECOM MENDA TION FOR TERENCE STERO L: ADULT CHILD LOW RISK: <200 <170 BORDE RLINE : <200- 239 ----- HIGH RISK: >240 >200 Not Available [facility] (Lab) [address] [place], [address], 06/20/2024 20:23:08 06/20/2006/20/2024 LIPID PANEL triglyceride s 138 mg/dL 0-150 NIH JASON NSUS REPOR T RECOM MENDA TION FOR TRIGL YCERI BOGDAN: ADULT CHILD LOW RISK: <150 ----- BODER LINE: 150-1 99 ----- HIGH RISK: >200 ----- Not Available [facility] (Lab) [address] [place], [address], 06/20/2024 20:23:08 06/20/20 24 06/20/2024 LIPID PANEL HDL cholesterol 33 mg/dL 40- low Not Available [facility] (Lab) [address] [place], [address], 06/20/2024 20:23:08 06/20/20 24 06/20/2024 LIPID PANEL LDL cholesterol, calculated 77 mg/dL 0-130 NIH JASON NSUS REPOR T RECOM MENDA TIONS FOR LDL: ADULT CHILD LOW RISK <130 <110 (OPTI MAL LDL) <100 ----- BORDE RLINE : 130-1 59 ----- HIGH RISK: >160 >130 A TRIGL YCERI DE RESUL T >400 INVAL IDATE S THE CALCU LATIO N FOR LDL FRACT IONAT ION - THE LDL RESUL T WILL NOT BE REPOR MIKE. Not Available [facility] (Lab) [address] [place], [address], 06/20/2024 20:23:08 06/20/20 24 06/20/2024 COMPR EHENS RODY METAB OLIC PANEL sodium 138 mmol/ L 137-14 5 Not Available [facility] (Lab) [address] [place], [address], 06/20/2024 20:23:13 06/20/20 24 06/20/2024 COMPR EHENS RODY METAB OLIC PANEL potassium 4.2 mmol/ L 3.5-5. 1 Not Available [facility] (Lab) [address] [place], [address], 06/20/2024 20:23:13 06/20/20 24 06/20/2024 COMPR EHENS RODY METAB OLIC PANEL chloride 104 mmol/ L 98-107 Not Available [facility] (Lab) [address] [place], [address], 06/20/2024 20:23:13 06/20/20 24 06/20/2024 COMPR EHENS RODY METAB OLIC PANEL carbon dioxide 25 mmol/ L 22-30 Not Available [facility] (Lab) [address] [place], [address], 06/20/2024 20:23:13 06/20/20 24 06/20/2024 COMPR EHENS RODY METAB OLIC PANEL anion gap 13.2 mmol/ L 14-22 low Not Available [facility] (Lab) [address] [place], [address], 06/20/2024 20:23:13 06/20/20 24 06/20/2024 COMPR EHENS RODY METAB OLIC PANEL glucose 84 mg/dL 70-99 Not Available [facility] (Lab) [address] [place], [address], 06/20/2024 20:23:13 06/20/20 24 06/20/2024 COMPR EHENS RODY METAB OLIC PANEL BUN 22 mg/dL 8-19 high Not Available [facility] (Lab) [address] [place], [address], 06/20/2024 20:23:13 06/20/20 24 06/20/2024 COMPR EHENS RODY METAB OLIC PANEL creatinine 1.29 mg/dL 0.66-1 .25 high Not Available [facility] (Lab) [address] [place], [address], 06/20/2024 20:23:13 06/20/20 24 06/20/2024 COMPR EHENS RODY METAB OLIC PANEL GFR 54 Refer ence Range : [place] ge GFR Healt hy Adult : >60 mL/mi n/1.7 3 m2 Chron ic Kidne y Disea se: 15-60 mL/mi n/1.7 3 m2 Kidne y Failu re: <15/m L/min /1.73 m2 www.n iddk. nih.g ov The MDRD study equat ion has not been valid ated in child leo <18 years of age; pregn ant women ; the elder ly >85 years of age; or in some racia l or ethni c subgr oups, such as Hispa nics. Outsi de the valid ated vinicio eters , estim ated GFR is less accur ate, requi ring clini rabia judgm ent on a case- by-ca se basis . Clini rabia inter preta tion for other races and ages must be made by the clini ciara. The MDRD study equat ion has not been valid ated for the evalu ation of serum creat inine relat ed to nutri ben l statu s or medic ation usage . For perso ns <18 years of age, a pedia tric GFR calcu lator is avail able on the [facility] websi te: https ://alexandria gamez.shawnee reza/naya roseal s/kdo qi/gf r_cal culat or Not Available [facility] (Lab) [address] [place], [address], 06/20/2024 20:23:13 06/20/20 24 06/20/2024 COMPR EHENS RODY METAB OLIC PANEL alkaline phosphatase 69 U/L 38-126 Not Available [facility] (Lab) [address] [place], [address], 06/20/2024 20:23:13 06/20/20 24 06/20/2024 COMPR EHENS RODY METAB OLIC PANEL alanine aminotransfe rase 19 U/L 0-50 Not Available [facility] (Lab) [address] [place], [address], 06/20/2024 20:23:13 06/20/20 24 06/20/2024 COMPR EHENS RODY METAB OLIC PANEL aspartate aminotransfe rase 23 U/L 15-46 Not Available [facility] (Lab) [address] [place], [address], 06/20/2024 20:23:13 06/20/20 24 06/20/2024 COMPR EHENS RODY METAB OLIC PANEL bilirubin, total 0.40 mg/dL 0.20-1 .30 Not Available [facility] (Lab) [address] [place], [address], 06/20/2024 20:23:13 06/20/20 24 06/20/2024 COMPR EHENS RODY METAB OLIC PANEL calcium 9.8 mg/dL 8.4-10 .2 Not Available [facility] (Lab) [address] [place], [address], 06/20/2024 20:23:13 06/20/20 24 06/20/2024 COMPR EHENS RODY METAB OLIC PANEL total protein 6.8 g/dL 6.3-8. 2 Not Available [facility] (Lab) [address] [place], [address], 06/20/2024 20:23:13 06/20/20 24 06/20/2024 COMPR EHENS RODY METAB OLIC PANEL albumin 4.4 g/dL 3.0-4. 4 Not Available [facility] (Lab) [address] [place], [address], 06/20/2024 20:23:13 06/20/20 24 06/20/2024 COMPR EHENS RODY METAB OLIC PANEL globulin 2.4 g/dL 2.6-4. 2 low Not Available [facility] (Lab) [address] [place], [address], 06/20/2024 20:23:13 06/20/20 24 06/20/2024 COMPR EHENS RODY METAB OLIC PANEL A/G ratio 1.8 ratio 1.0-2. 0 Not Available [facility] (Lab) [address] [place], [address], 06/20/2024 20:23:13 06/20/20 24 06/20/2024 TSH W/REF SHAQUILLE FT4 TSH with reflex free T4 0.970 uIU/m L 0.465- 4.680 Not Available [facility] (Lab) [address] [place], [address], 06/20/2024 20:28:57 09/09/20 23 09/09/2023 LDCT, chest , for lung cance r scree royer [facility] [address] [place] [address] Patien t Name: JULIO CESAR APODACA [facility] ion #: [id number] Sex: M : 1949 0 Dictat ed By: Niraj gillis Evans Attend ing Physic berenice: KRISHAN DIAZ Orderi Physic berenice: KRISHAN DIAZ Exam Date: 2022 14:39 PM Exam Name: CT LOW DOSE CNCR SCREEN ING Admitt ing Diagno sis(es ): CT Chest withou t intrav enous contra st INDICA TION: nicoti ne depend ence lung cancer screen ing TECHNI QUE: Multid etecto r spiral CT of the chest was perfor med from the lung apices to the upper abdome n. Axial, kent l and sagitt al multip lanar reform ats were perfor med. Radiat ion Dose : 1. Chest: CTDI volume is 1.7 mGy. Dose-l ength produc t is 67.2 mGy*cm The dose indica tors for CT are the volume Comput ed Tomogr aphy (CT) Dose Index (CTDIv ol) and the Dose Length Produc t (DLP), and are measur ed in units of mGy and mGy-cm , respec tively . These indica tors are not patien t dose, but values genera mike from the CT scanne r acquis ition factor s. The report includ es radiat ion exposu re data for exposu res receiv ed during this examin ation. ? Compar anne: None Findin gs: Lower neck: Unrema rkable Lungs: No airspa ce consol idatio n. No suspic ious pulmon joel nodule . Heart/ Vascul ar Struct ures: Cardio megaly . Kent ry artery calcif icatio ns. Vascul ar opacif icatio ns of the aorta. Lymph Nodes: No adenop athy Pleura : No pleura l effusi on or pneumo thorax Page 1 [facility] [address] [address] Patien t Name: JULIO CESAR APODACA Access ion #: [id number] Sex: M : 1949 0 Dictat ed By: Niraj gillis Evans Attend ing Physic berenice: STACIE PAYNE Physic berenice: KUNALKRISHAN DAWSON Exam Date: 2022 14:39 PM Exam Name: CT LOW DOSE CNCR SCREEN ING Admitt ing Diagno sis(es ): Muscul oskele eulogio: Degene rative change s of the spine Body wall: Sterno jerry Upper abdome n: Unrema rkable IMPRES RONNIE: No suspic ious pulmon joel nodule . Lung-R ADS Catego ry 1: Contin ue annual screen ing with LDCT Electr onical ly Signed by: Niraj Evans at 2022 18:32: 12 PM Page 2 [email or web address] [facility] (Imaging) [address] [place], [address], 10/05/2023 16:25:19 09/09/20 23 09/09/2023 LDCT, chest , for lung cance r scree royer No observ ation record ed. [email or web address] [facility] [address] [place], [address], 10/05/2023 16:25:20 02/16/20 24 02/16/2024 US, abdom inal aorta [facility] [address] [place] [address] Patien t Name: JULIO CESAR APODACA Access ion #: [id number] Sex: M : 1949 0 Dictat ed By: Vanessa coles Attend ing Physic berenice: KRISHAN DIAZ Orderpedro naik Physic berenice: KUNALKRISHAN DAWSON Exam Date: 2023 07:34 AM Exam Name: US AORTA Admitt ing Diagno sis(es ): CLINIC AL INFORM ATION: Screen ing for abdomi nal aortic aneury sm. 40 year histor y of smokin g. Quit smokin g many years ago. TECHNI QUE: Graysc mariano sonogr aphic imagin g of the abdomi nal aorta and common iliac arteri es was perfor med, assist ed by color Dopple r techni que. COMPAR ANNE: None. FINDIN GS: The proxim al aorta measur es 2.2 x 2.6 cm. The mid aorta measur es 1.7 x 2.0 cm. The distal aorta measur es 1.8 x 1.4 cm. The right common iliac artery measur es 0.7 x 1.0 cm. The left common iliac artery measur es 0.9 x 0.9 cm. There is modera te calcif ied plaque throug hout the abdomi nal aorta and common iliac arteri es. IMPRES RONNIE: No abdomi nal aortic aneury sm. Electr onical ly Signed by: Vanessa coles at 2023 09:10: 22 AM Page 1 [email or web address] [facility] ([facility]) [address] [place], [address], 07/28/2024 15:15:28 02/16/20 24 02/16/2024 imagi ng/di agnos tic resul t No observ ation record ed. [facility] [address] [place], [address], 02/16/2024 10:33:58 03/15/20 24 03/15/2024 imagi ng/di agnos tic resul t No observ ation record ed. [facility] [address], [place], [address], 03/15/2024 15:33:20 03/15/20 24 03/15/2024 imagi ng/di agnos tic resul t No observ ation record ed. [facility] [address], [place], [address], 03/15/2024 15:36:00 10/11/19 25 10/11/2024 imagi ng/di agnos tic resul t No observ ation record ed. [facility] [address], [place], [address], 10/11/2024 15:56:51 Result Notes None recorded. Problems Name Problem SNOMED Code Status Onset Date Resolution Date Notes Provider Name and Address Organization Details Recorded Time Periphera l arterial occlusive disease 275266208 Active 2022 Not Available [facility] 4 21:46:36 Cigarette smoker 73422610 Active 2022 Not Available [facility] 4 21:46:36 Hyperlipi demia 41209007 Active 2022 Not Available [facility] 4 21:46:36 Essential hypertens ion 47568094 Active 2022 Not Available [facility] 4 21:46:36 Neuropath y 195217326 Active 2022 Not Available [facility] 4 21:46:36 Anemia 655831653 Active 2022 Not Available [facility] 4 21:46:36 Gastroeso phageal reflux disease without esophagit is 107572605 Active 2022 Not Available [facility] 4 21:46:36 Coronary arteriosc lerosis 88751222 Active 2022 Not Available [facility] 4 21:46:36 Insomnia 911453007 Active 2023 Daphne gillis MD [address] [address], [place], [address] , [facility] [employer] [facility] 4 17:14:59 Erectile dysfuncti on 869830883 Active 2023 Daphne gillis MD [address] [address], [place], [address] , [employer] [place] [facility] [facility] 4 17:16:03 Prediabet es 881941492 Active 2023 Daphne gillis MD [address] [facility] [address], [place], [address] , [facility] [employer] [facility] [employer] [facility] 4 14:20:06 Spinal enthesopa thy 95053013 Active Not Available [facility] 4 21:46:36 Cervical spondylos is without myelopath y 423537550 Active Not Available [facility] 4 21:46:36 Low back pain 381468598 Active Not Available [employer] 4 21:46:36 Dyslipide jorge 512053830 Active 2017 Not Available [facility] 4 21:46:36 Hypertens rody disorder 49103915 Active 2019 Not Available [facility] 4 21:46:36 Foot pain 03224683 Active Not Available [facility] 4 21:46:36 Bleeding hemorrhoi ds 69221830 Active Not Available [facility] 4 21:46:36 Hemorrhoi ds 43168778 Active Not Available [facility] 4 21:46:36 Degenerat ion of intervert ebral disc 45453461 Active Not Available [facility] 4 21:46:36 Neck pain 38335113 Active 2021 Not Available [facility] 4 21:46:36 Periphera l arterial disease 157218933 Active 2020 fem-pop bypass [facility] Not Available [facility] 4 21:46:36 Vocal cord dysfuncti on 534912060 Active 2024 FRIEDA Carroll [employer] 5 15:48:54 Sensorine ural hearing loss 45745977 Active 2024 Douglas Eduardo MD [address] [place] [address], [address] , [employer] 5 12:09:22 Problem Notes None recorded. Procedures Surgical History Date Name Laterality Status Provider Name and Address Organization Details Recorded Time 024 Medicare Wellness CPT Code, subsequent completed Kennedy Moss LPN [employer] 01/26/2024 17:38:09 024 Advanced Care Planning completed Kennedy Moss LPN [employer] 01/26/2024 17:42:53 023 coronary artery bypass grafts x 3 completed FRIEDA Carroll [employer] 09/01/2023 16:00:42 Shoulder completed Not Available [facility] 11/19/2022 03:20:17 Back Surgeries completed Not Available [facility] 11/19/2022 03:20:17 Knee arthroscopy/surgery completed Not Available [facility] 11/19/2022 03:20:17 Skin Graft completed Not Available [facility] 11/19/2022 03:20:17 Neck Surgeries completed Not Available [facility] 11/19/2022 03:20:17 Excisions - Specify completed Not Available [facility] 11/19/2022 03:20:17 insertion of stent into femoral artery completed Not Available [facility] 11/19/2022 03:20:17 other completed Not Available [facility] 11/19/2022 03:20:17 Hemorrhoidectomy completed Aimee Thompson, [facility] [employer] 10/04/2024 09:51:16 Imaging Results Imaging Date Name Status LastModified by Organiz ation Details LastModified Time 09/09/2023 LDCT, chest, for lung cancer screening completed [address] (Imaging) [address] [place], [address], 10/05/2023 16:25:19 09/09/2023 LDCT, chest, for lung cancer screening completed [address] [place], [address], 10/05/2023 16:25:20 02/16/2024 US, abdominal aorta active [address] ([facility]) [address] [place], [address], 07/28/2024 15:15:28 02/16/2024 imaging/diagno stic result active [facility] [address] [place], [address], 02/16/2024 10:33:58 03/15/2024 imaging/diagno stic result active [facility] [address], [place], [address], 03/15/2024 15:33:20 03/15/2024 imaging/diagno stic result active [facility] [address], [place], [address], 03/15/2024 15:36:00 10/11/2024 imaging/diagno stic result active [facility] [address], [place], [address], 10/11/2024 15:56:51 Procedure Notes None recorded. Medical Equipment None Reported. Allergies Allergen ID Allergen Name Allergen Category Reaction Reaction Severity Criticality Documentation Date Start Date Code Code System Note Provider Name and Address Organization Details Recorded Time 6453 adhesive tape environme nt,medica tion rash Not available Not available 11/19/2022 61096 UNK Not Available formerly [facility] 03:39:21 Medications Name Sig Start Date Stop Date Status Note LastModified by Organization Details LastModified Time losartan 50 mg tablet Take 1 tablet every day by oral route for 90 days. active Not Available Not Available No t Available cyclobenz aprine 10 mg tablet 12/25 completed Not Available Not Available Not Available furosemid e 40 mg tablet Take 1 tablet every day by oral route for 90 days. active Not Available Not Available No t Available atorvasta tin 40 mg tablet TAKE 1 TABLET BY MOUTH EVERY DAY 01/25 completed Not Available Not Available Not Available atorvasta tin 80 mg tablet TAKE 1 TABLET BY MOUTH EVERY DAY active Not Available Not Available No t Available atorvasta tin 20 mg tablet TAKE 1 TABLET BY MOUTH EVERY DAY active Not Available Not Available No t Available trazodone 50 mg tablet Take 1 tablet every day by oral route as needed for 30 days. active Not Available Not Available No t Available atorvasta tin 10 mg tablet active Not Available Not Available Not Available amiodaron e 200 mg tablet Take 2 tablets every day by oral route for 27 days. 01/25 completed Not Available Not Available Not Available hydrocodo ne 5 mg-acetam inophen 325 mg tablet 08/21 completed Not Available Not Available Not Available meloxicam 15 mg tablet TAKE 1 TABLET BY MOUTH EVERY DAY 09/01 completed Not Available Not Available Not Available clopidogr el 75 mg tablet Take 1 tablet every day by oral route for 30 days. active Not Available Not Available No t Available hydrocodo ne 10 mg-acetam inophen 325 mg tablet 07/27 completed Not Available Not Available Not Available peg-elect rolyte solution 420 gram oral solution 04/26 completed Not Available Not Available Not Available aspirin 81 mg tablet,de layed release Take 1 tablet every day by oral route. 2021 active Not Available Not Available Not Avai lable tramadol 50 mg tablet 03/26 completed Not Available Not Available Not Available hydrocort isone 2.5 % topical cream with perineal applicato r APPLY A THIN LAYER TO THE AFFECTED AREA(S) BY TOPICAL ROUTE 2-4 TIMESDAI LY active Not Available Not Available No t Available potassium chloride ER 20 mEq tablet,ex tended release(p art/cryst ) Take 1 tablet every day by oral route for 30 days. 01/25 completed Not Available Not Available Not Available hydrocodo ne 7.5 mg-acetam inophen 325 mg tablet 06/25 completed Not Available Not Available Not Available lisinopri l 10 mg tablet TAKE 1 TABLET BY MOUTH EVERY DAY 10/[address] Moore started losartan Not Available Not Available Not Available promethaz ine 25 mg tablet 04/26 completed Not Available Not Available Not Available losartan 25 mg tablet 01/25 completed Not Available Not Available Not Available gabapenti n 300 mg capsule TAKE 1 CAPSULE BY MOUTH THREE TIMES DAILY 2023 active Not Available Not Available Not Avai lable omeprazol e 20 mg capsule,d elayed release Take 1 capsule every day by oral route as needed for 90 days. 01/25 completed Not Available Not Available Not Available etodolac 400 mg tablet Take 1 tablet twice a day by oral route. 05/27 completed Not Available Not Available Not Available lisinopri l 5 mg tablet Take 1 tablet every day by oral route. 07/26 completed Not Available Not Available Not Available ergocalci ferol (vitamin D2) 1,250 mcg (50,000 unit) capsule Take 1 capsule every week by oral route for 91 days. active Not Available Not Available No t Available Tylenol-C odeine #3 300 mg-30 mg tablet Take 1 tablet 3 times a day by oral route as needed. 04/26 completed Not Available Not Available Not Available lisinopri l 10 mg-hydroc hlorothia zide 12.5 mg tablet Take 1 tablet every day by oral route. active Not Available Not Available No t Available calcitrio l 0.25 mcg capsule Take 1 capsule every other day by oral route for 90 days. active Not Available Not Available No t Available Poly-Iron 150 Forte 150 mg-25 mcg-1 mg capsule Take 1 capsule every day by oral route. 06/25 completed Not Available Not Available Not Available cyclobenz aprine 5 mg tablet 03/23 completed Not Available Not Available Not Available metoprolo l tartrate 25 mg tablet Take 0.5 tablets twice a day by oral route for 90 days. active Not Available Not Available No t Available calcium 06/24 completed Not Available Not Available Not Available Vitamin D 2000 IU qd 08/21 completed Not Available Not Available Not Available Vitamin D3 one qd 06/16 completed Not Available Not Available Not Available Poly-Iron 150 Forte 08/21 completed Not Available Not Available Not Available hydrochlo rothiazid e 12.5 mg tablet active Not Available Not Available Not Available oxycodone 10 mg tablet 09/01 completed Not Available Not Available Not Available B12 10/09 completed Not Available Not Available Not Available Farxiga 5 mg tablet Take 1 tablet every day by oral route for 90 days. 10/04 completed Not Available Not Available Not Available Vitamin B12 one qd active Not Available Not Available Not Available ergocalci ferol (vitamin D2) 50 mcg (2,000 unit) capsule Take 1 capsule every day by oral route. 10/09 completed Not Available Not Available Not Available Vitals Date Recorded Body height Body mass index (BMI) Body weight Body temperature Heart rate Systolic blood pressure Diastolic blood pressure Provider Name and Address Organization Details Last Updated DateTime 3 170.18 cm 26.6 kg/m2 02715.7 g 97.5 [degF] 72 /min 120 mm[Hg] 60 mm[Hg] FRIEDA Carroll [place] - [facility] 3 16:06:31 Date Recorded Body height Body mass index (BMI) Body weight Body temperature Heart rate Systolic blood pressure Diastolic blood pressure Provider Name and Address Organization Details Last Updated DateTime 4 170.18 cm 28.2 kg/m2 62440.6 3 g 97.8 [degF] 72 /min 120 mm[Hg] 60 mm[Hg] Aimee Thompson Ziggy [facility] 4 16:26:43 Date Recorded Pain severity - 0-10 verbal numeric rating [Score] - Reported Provider Name and Address Organization Details Last Updated DateTime 01/26/2024 2 Kennedy Moss LPN [facility] 01/26/2024 17:38:27 Date Recorded Body height Body mass index (BMI) Body weight Body temperature Heart rate Oxygen saturation Oxygen saturation in Arterial blood by Pulse oximetry Systolic blood pressure Diastolic blood pressure Provider Name and Address Organization Details Last Updated DateTime 4 170.18 cm 26.9 kg/m2 34259.8 9 g 97.9 [degF] 59 /min 91 % 91 % 124 mm[Hg] 56 mm[Hg] Isamar Jacob MA [facility] 4 14:11:58 Date Recorded Body height Body mass index (BMI) Body weight Body temperature Heart rate Systolic blood pressure Diastolic blood pressure Provider Name and Address Organization Details Last Updated DateTime 5 170.18 cm 26.3 kg/m2 84549.5 2 g 97.3 [degF] 60 /min 122 mm[Hg] 60 mm[Hg] Aimee Thompson Ziggy [facility] 5 09:52:48 Date Recorded Body height Body mass index (BMI) Body weight Body temperature Provider Name and Address Organization Details Last Updated DateTime 11/23/2024 170.18 cm 26.1 kg/m2 41406.49 g 97.5 [degF] Deja Jackson RN [facility] 11/23/2024 11:56:50 Social History Question Answer Notes LastModified by Organization Details LastModified Time Tobacco Smoking Status Former Smoker quit November 2017 Not Available [facility] 11/19/2022 03:11:44 Do You Have An Advance Directive? No MIGRATION.0301 [id number] Information not available 11/19/2022 What Is Your Level Of Alcohol Consumption? Occasional MIGRATION.0301 101138 Information not available 11/19/2022 Are You Blind Or Do You Have Difficulty Seeing? No MIGRATION.0301 916750 Information not available 11/19/2022 What Is Your Level Of Caffeine Consumption? Moderate MIGRATION.0301 311109 Information not available 11/19/2022 How Much Tobacco Do You Chew? None MIGRATION.030 510973 Information not available 11/19/2022 In The 14 Days Before Symptom Onset, Have You Had Close Contact With A Laboratory-confi rmed COVID-19 While That Case Was Ill? No MIGRATION.030 352305 Information not available 11/19/2022 In The 14 Days Before Symptom Onset, Have You Had Close Contact With A Person Who Is Under Investigation For COVID-19 While That Person Was Ill? No MIGRATION.030 182510 Information not available 11/19/2022 Are You Currently Employed? No [email or web address] Information not available 01/26/2024 Are You Deaf Or Do You Have Serious Difficulty Hearing? Yes Hearing Loss Right Ear [email or web address] Information not available 01/26/2024 What Type Of Diet Are You Following? REGULAR MIGRATION.030 401387 Information not available 11/19/2022 Which Illicit Or Recreational Drugs Have You Used? Marijuana MIGRATION.030 734285 Information not available 11/19/2022 Do You Or Have You Ever Used E-cigarettes Or Vape? Never Used Electronic Cigarettes MIGRATION.030 458075 Information not available 11/19/2022 What Is The Highest Grade Or Level Of School You Have Completed Or The Highest Degree You Have Received? PA08614-3 MIGRATION.030 370681 Information not available 11/19/2022 What Is Your Occupation? Retired MIGRATION.030 300150 Information not available 11/19/2022 Have There Been Any Changes To Your Family Or Social Situation? No MIGRATION.030 763645 Information not available 11/19/2022 What Is The Fluoride Status Of Your Home? Unknown MIGRATION.030 114279 Information not available 11/19/2022 When Did You Quit Smoking? 1-5yearssincelastc igarette MIGRATION.030 001585 Information not available 11/19/2022 Are There Any Guns Present In Your Home? No MIGRATION.0301 455361 Information not available 11/19/2022 Do You Use Insect Repellent Routinely? No MIGRATION.0301 954163 Information not available 11/19/2022 Where Do You Live? SingleLevelHouse MIGRATION.0301 721466 Information not available 11/19/2022 Presence Of Domestic Violence No [email or web address] Information not available 01/26/2024 Guns Present In The Home? No [email or web address] Information not available 01/26/2024 Are You Able To Care For Yourself? Yes [email or web address] Information not available 01/26/2024 Are You Blind Or Do Yo Have Difficulty Seeing? No [email or web address] Information not available 01/26/2024 Are You Deaf Or Do You Have Serious Difficulty Hearing? Yes Hearing Loss Right Ear [email or web address] Information not available 01/26/2024 General Stress Level? Low Information not available 01/26/2024 Live Alone Of With Others? With Others Information not available 01/26/2024 Do You Have A Medical Power Of Trailer Body Assembler? No MIGRATION.0301 [id number] Information not available 11/19/2022 What Was The Date Of Your Most Recent Tobacco Screening? 06/16/2024 Information not available 06/16/2024 How Many Children Do You Have? 1 Information not available 06/16/2024 Have You Ever Been Counseled For Unhealthy Alcohol Use? No MIGRATION.0301 352229 Information not available 11/19/2022 Do You Have Any Pets? No MIGRATION.0301 770393 Information not available 11/19/2022 What Is Your Relationship Status? MIGRATION.0301 012102 Information not available 11/19/2022 Do You Use Your Seat Belt Or Car Seat Routinely? Yes MIGRATION.0301 689433 Information not available 11/19/2022 Do You Have Smoke And Carbon Monoxide Detectors In Your Home? Yes MIGRATION.0301 815002 Information not available 11/19/2022 Are You Passively Exposed To Smoke? No MIGRATION.0301 420328 Information not available 11/19/2022 Do You Or Have You Ever Used Smokeless Tobacco? Never Used Smokeless Tobacco MIGRATION.0301 319617 Information not available 11/19/2022 Are There Any Smokers In Your House? No MIGRATION.0301 718546 Information not available 11/19/2022 How Much Tobacco Do You Smoke? No MIGRATION.0301 967612 Information not available 11/19/2022 What Types Of Sporting Activities Do You Participate In? None MIGRATION.0301 916841 Information not available 11/19/2022 Do You Feel Stressed (tense, Restless, Nervous, Or Anxious, Or Unable To Sleep At Night)? [id number] MIGRATION.0301 962526 Information not available 11/19/2022 Do You Use Any Illicit Or Recreational Drugs? Yes MIGRATION.0301 806115 Information not available 11/19/2022 Do You Use Sunscreen Routinely? No MIGRATION.0301 994174 Information not available 11/19/2022 Has Tobacco Cessation Counseling Been Provided? No MIGRATION.0301 322119 Information not available 11/19/2022 Have You Recently Traveled Abroad? No MIGRATION.0301 158891 Information not available 11/19/2022 Have You Used IV Drugs? No MIGRATION.0301 318680 Information not available 11/19/2022 Do You Have Any Dietary Restrictions? No MIGRATION.0301 943559 Information not available 11/19/2022 Do You Or Have You Ever Used Any Other Forms Of Tobacco Or Nicotine? No MIGRATION.0301 427175 Information not available 11/19/2022 Sex: Male Functional Status Question Answer Note LastModified by [employer] Details LastModified Time Do you have difficulty walking or climbing stairs? Yes MIGRATION.8545752 026 Information not available 11/19/2022 Do you have transportation difficulties? No MIGRATION.8643571 026 Information not available 11/19/2022 Are you able to walk? YESWOREST MIGRATION.4024579 026 Information not available 11/19/2022 Do you have difficulty doing errands alone? No MIGRATION.1362864 026 Information not available 11/19/2022 Are you able to care for yourself? Yes MIGRATION.6702562 026 Information not available 11/19/2022 Do you have difficulty dressing or bathing? No MIGRATION.1399774 026 Information not available 11/19/2022 What is your exercise level? Occasional MIGRATION.1029674 026 Information not available 11/19/2022 Mental Status Question Answer Note LastModified by Organizat ion Details LastModified Time Do you have difficulty concentrating, remembering or making decisions? No MIGRATION.[id number] 6 Information not available 11/19/2022 Family History Relationship Description Onset Age of this Age Resolved Age Notes LastModified by Organization Details LastModified Time Mother Heart disease 71 MIGRATION.888 [id number] Not available 11/19/2022 03:20:21 Father Heart disease 56 MIGRATION.460 [id number] Not available 11/19/2022 03:20:21 Brother Suicide 65 MIGRATION.961 [id number] Not available 11/19/2022 03:20:21 Notes:NO ENT Medical History Condition Response NERVE DISEASE Y BLINDNESS N RHEUMATIC FEVER N KIDNEY STONES N BLADDER PROBLEMS N MRSA N OTHER # 1 N POLIO N LUNG DISEASE/DISORDER N COPD N RADIATION / CHEMOTHERAPY N Other # 2 N BLOOD DISEASES N SURGERY N EAR OR HEARING PROBLEMS N MUMPS N BOWEL PROBLEMS Y DEPRESSION (INCLUDING POST ) N STROKE/TIA N ULCERS N BENIGN PROSTATIC HYPERPLASIA N MEASLES N MYOCARDIAL INFARCTION N OBESITY N GERD/NAUSEA N ANEURYSM N URINARY/BLADDER/KIDNEY PROBLEMS N CORONARY ARTERY DISEASE (CAD) N ADDICTION CONCERNS N ENDOMETRIOSIS N Impotence N USE OF BLOOD THINNERS N SKIN PROBLEMS N GASTROINTESTINAL DISORDER N PERIPHERAL VASCULAR DISEASE N MUSCLE,JOINT OR BONE PROBLEMS N GASTROINTESTINAL BLEEDING N BLOOD CLOTS N ASTHMA N CATARACTS N ERECTILE DYSFUNCTION N VARICOSITIES N GI PROBLEMS N Low Testosterone N INFERTILITY N AIDS/HIV N CHEMOTHERAPY / RADIATION N LIVER DISEASE N MALE HYPOGONADISM N HYPERTENSION N Deficiency N ANXIETY DISORDER N BLOOD TRANSFUSION N ANEMIA/BLOOD DISORDER N CHRONIC EAR INFECTIONS N BRONCHITIS N TUBERCULOSIS N GLAUCOMA N FOOT PROBLEM N DIVERTICULITIS N SLEEP APNEA N CHICKENPOX N INFECTIOUS DISEASE N HEART ARRHYTHMIA N PROSTATE N INSOMNIA N HIGH CHOLESTEROL / HYPERLIPIDEMIA Y HYPERTHYROIDISM N EYE PROBLEMS N NEUROLOGICAL PROBLEMS N EDEMA N CHRONIC PAIN SYNDROME N HYPOTHYROIDISM N CAROTID BLOCKAGE N CONSTIPATION N BACK / NECK PROBLEMS Y ATHEROSCLEROSIS N BREAST PROBLEMS N DIALYSIS N ECZEMA N OSTEOPOROSIS N ARTHRITIS N APPENDICITIS N DIABETES, TYPE N BAD TEETH N ENT N HEARTBURN / REFLUX N AUTISM SPECTRUM DISORDER (ASD) N HEPATITIS / LIVER DISEASE N GOUT N SLEEP DISORDER N ALZHEIMER'S DISEASE N Brain Problems N HERPES N DEMENTIA N HEADACHES/MIGRAINES N SEIZURES/EPILEPSY N VASCULAR DISEASE N PACEMAKER N Blood Disorder N DIZZINESS N HEART DISEASE/HEART PROBLEMS N KIDNEY DISEASE N MULTIPLE SCLEROSIS N CARDIAC ARRHYTHMIA N CANCER: SPECIFY N ATRIAL FIBRILLATION N Gall Stones N PULMONARY EMBOLISM N AUTOIMMUNE DISEASE N Immunizations Vaccine Type Date Status Note Provider Nam e and Address Organization Details Recorded Time COVID-19, mRNA, LNP-S, PF, 100 mcg/0.5mL dose or 50 mcg/0.25mL dose 1 completed Not Available formerly [facility] 11/11/2023 21:46:37 COVID-19, mRNA, LNP-S, PF, 100 mcg/0.5mL dose or 50 mcg/0.25mL dose 1 completed Not Available formerly [facility] 11/11/2023 21:46:37 COVID-19, mRNA, LNP-S, PF, 100 mcg/0.5mL dose or 50 mcg/0.25mL dose 1 completed Not Available formerly [facility] 11/11/2023 21:46:37 Pneumococcal conjugate PCV20, polysaccharide [id number] conjugate, adjuvant, PF 3 completed Daphne Lock MD [address], [address], [place], [address], [employer] 07/21/2023 14:05:14 Influenza, high-dose, trivalent, PF 4 completed Daphne Lock MD [address], [address], [place], [address], [employer] 06/20/2024 18:23:04 Past Encounters Encounter ID Performer Location Encounter Start Date Encounter Closed Date Diagnosis/Indication Diagnosis SNOMED-CT Code Diagnosis ICD10 Code Diagnosis Note [id number] [facility] [address] [facility] [address] [place] [address] 12/25/2020 00:00:00 01/06/2021 10:46:34 [id number] [facility] [place] [address] [facility] [address] [place] [address] 06/25/2021 00:00:00 06/25/2021 21:51:49 [id number] [facility] [place] [address] [address] 12/24/2021 00:00:00 01/05/2022 15:40:27 [id number] [facility] Internal [facility] [address] [address] 06/24/2022 00:00:00 06/24/2022 14:32:13 [id number] Titus Torres MD [facility] [address] [facility] [address] [address] 12/23/2022 15:19:23 12/23/2022 15:55:59 Hypertensive disorder 06258239 I10 Screening for malignant neoplasm of prostate 701224986 Z12.5 Dyslipidemia 658443462 E 78.5 Peripheral arterial occlusive disease 237113629 I73.9 [id number] Daphne gillis MD [facility] [address] [facility] [address] 07/21/2023 11:58:33 07/21/2023 13:25:25 Screening - NAD 469593334 Z13.9 C-scope: Get this done, states that Dr Porras did do this and was told he needs another in 5 years, get the report Get yearly flu shotGet Tdap if not doneGet shingrix vaccine Declined the above, agreeable to do PCV #20Can do RSV vaccine RTC in 3 months, do labs, ER if worse, he did verbalize her understand ing of the above Cigarette smoker 2253901 7 F17.210 Quit in 2018Does wellGet LDCTGet [place] AAA Hyperlipidemia 40371368 E78.5 On ASAOn atorvastat in 40mg dailyGet labs Essential hypertension 64438306 I10 On lisinopril 10mg dailyGet labs Neuropathy 318044492 G62 .9 On gabapentin 300mg daily, does well on this Anemia 357159243 D64.9 Get labs Peripheral arterial occlusive disease 461730232 I73.[address] Robison in [place] Will refer to Dr Jazmin HAMILTON whom he has seen in the past Gastroesop hageal reflux disease without esophagitis 224669852 K21.9 Get on PPI, but take it only as needed, if not better will need to do EGD Administra tion of pneumococcal vaccine 38568273 Z23 [id number] MD IRMA [facility] [address] [facility] [facility] [address] [place] [address] 09/01/2023 15:56:30 09/01/2023 16:26:32 Screening - NAD 075848472 Z13.9 C-scope: Dr Porras 06/25/2016 , next in 10 years Get yearly flu shotGet Tdap if not doneGet shingrix vaccine Declined the above, agreeable to do PCV #20Can do RSV vaccine RTC in 3 months, do labs, ER if worse, he did verbalize her understand ing of the above Cigarette smoker 6708025 7 F17.210 Quit in 2018Does wellGet LDCTGet [place] AAA Hyperlipidemia 16250389 E78.5 On ASAOn atorvastat in 40mg dailyGet labs Essential hypertension 95822722 I10 On lisinopril 10mg dailyGet labs Neuropathy 965235752 G62 .9 On gabapentin 300mg daily, does well on this Anemia 896993979 D64.9 Get labs Peripheral arterial occlusive disease 585673960 I73.[address] Robison in [place] Will refer to Dr Jazmin MILLAN whom he has seen in the past Gastroesop hageal reflux disease without esophagitis 725617390 K21.9 Get on PPI, but take it only as needed, if not better will need to do EGD Coronary arteriosclerosis 19197532 I25.10 S/p CABGOn ASAOn amiodarone 200mg daily, will need to get TSH and FT4On plavixOn lasix 40mg dailyOn lisinopril 10mg dailyOn metoprolol 25mg 1/2 tab dailyOn K Er 20meq dailyKeep apt with JOY and he will see Dr French this 09/03/2023 [id number] Daphne gillis MD [facility] [address] [facility] [address] [place] [address] 01/26/2024 15:53:34 01/26/2024 17:17:55 Screening - NAD 322380154 Z13.9 C-scope: Dr Porras 06/25/2016 , next in 10 years Get yearly flu shotGet Tdap if not doneGet shingrix vaccineDec lined the above, agreeable to do PCV #20Can do RSV vaccine RTC in 3 months, do labs, ER if worse, he did verbalize her understand ing of the above Cigarette smoker 1995384 7 F17.210 LDCT 09/09/2023 : CAD, next in one year Quit in 2018Does well Get [place] AAA Hyperlipidemia 56585764 E78.5 On ASAOn atorvastat in 40mg dailyGet labs Essential hypertension 54428751 I10 Not on lisinopril 10mg dailyOn losartan 50mg dailyGet labs Neuropathy 457110127 G62 .9 On gabapentin 300mg daily, does well on this Anemia 174877728 D64.9 Get labs Peripheral arterial occlusive disease 151147569 I73.[address] Robison in [place] Will refer to Dr Jazmin MILLAN whom he has seen in the past [facility] Dr Wu 10/30/2023 : Next in 3 months Gastroesop hageal reflux disease without esophagitis 926738310 K21.9 Get on PPI, but take it only as needed, if not better will need to do EGD Coronary arteriosclerosis 15677818 I25.10 S/p CABGOn ASAOn amiodarone 200mg daily, will need to get TSH and FT4On plavixOn lasix 40mg dailyOn lisinopril 10mg dailyOn metoprolol 25mg 1/2 tab dailyOn K Er 20meq dailyKeep apt with [facility] and he will see Dr Manolo olivera 09/03/2023 Dr Wu 10/30/2023 : F/u in 3 months Insomnia 971367648 G47.0 0 Will get on trazodone 50mg daily PRNAll side effects explained to him and his wifeSleep hygeine explained to him Erectile dysfunction 860 085058 F52.[address] Wu if he can be on viagra Adult heal th examination 087543055 Z00.00 Screening for disorder 929975074 Z13.9 [id number] MD FERNANDO [facility] [address] [facility] [place] [address] 06/16/2024 13:52:12 06/16/2024 14:53:55 Screening - NAD 392995891 Z13.9 C-scope: Dr Porras 06/25/2016 , next in 10 years Get yearly flu shotGet Tdap if not doneGet shingrix vaccineDec lined the above, agreeable to do PCV #20Can do RSV vaccine RTC in 3 months, do labs, ER if worse, he did verbalize her understand ing of the above Cigarette smoker 4409969 7 F17.210 LDCT 09/09/2023 : CAD, next in one yearUS AAA: 02/16/2024 : NegQuit in 2018Does well Hyperlipidemia 30513369 E78.5 On ASAOn atorvastat in 40mg dailyGet labs Essential hypertension 19697288 I10 Not on lisinopril 10mg dailyOn losartan 50mg dailyGet labs Neuropathy 483691514 G62 .9 On gabapentin 300mg daily, does well on this Anemia 889723366 D64.9 Get labs Peripheral arterial occlusive disease 659136766 I73.9 [place] Carotid 03/15/2024 ECHO 03/15/2024 : Has seen Dr Robison in [place] Will refer to Dr Wu [facility] whom he has seen in the past [facility] Dr Wu 10/30/2023 : Next in 3 months Gastroesop hageal reflux disease without esophagitis 333217045 K21.9 Get on PPI, but take it only as needed, if not better will need to do EGD Coronary arteriosclerosis 01029224 I25.10 S/p CABGOn ASANot on amiodarone 200mg dailyOn plavixOn lasix 40mg dailyNot on lisinopril 10mg dailyOn losartan 50mg dailyOn metoprolol 25mg 1/2 tab dailyOn K Er 20meq dailyKeep apt with [facility] and he will see Dr Manolo olivera 09/03/2023 Dr Wu 10/30/2023 : F/u in 3 months Insomnia 025048233 G47.0 0 On trazodone 50mg daily PRNAll side effects explained to him and his wifeSleep hygeine explained to him Erectile dysfunction 860 580294 F52.[address] Wu if he can be on viagra Prediabetes 110555676 R7 3.03 Not on any medsGet labs Hemorrhoids 45218432 K64 .9 Can do anusol, also sitz baths with epsom salts, take fiber to prevent constipati on, refer to G surgery Administra tion of influenza vaccine 40056809 Z23 [id number] Daphne gillis MD [facility] [place] [address] [facility] [place] [address] 10/04/2024 09:36:39 10/04/2024 10:31:31 Screening - NAD 301830076 Z13.9 C-scope: Dr Porras 06/25/2016 , next in 10 years Get yearly flu shotGet Tdap if not doneGet shingrix vaccineDec lined the above, agreeable to do PCV #20Can do RSV vaccine RTC in 3 months, do labs, ER if worse, he did verbalize her understand ing of the above Cigarette smoker 2543957 7 F17.210 LDCT 09/09/2023 : CAD, next in one yearUS AAA: 02/16/2024 : NegQuit in 2018Does well Hyperlipidemia 91937991 E78.5 On ASAOn atorvastat in 40mg dailyGet labs Essential hypertension 37565350 I10 Not on lisinopril 10mg dailyOn losartan 50mg dailyOn metoprolol 25mg dailyGet labs Neuropathy 691577615 G62 .9 On gabapentin 300mg daily tid, does well on this Anemia 982588453 D64.9 Get labsMore iron Peripheral arterial occlusive disease 236620625 I73.9 [place] Carotid 03/15/2024 ECHO 03/15/2024 : Has seen Dr Robison in [place] Will refer to Dr Wu [facility] whom he has seen in the past [facility] Dr Wu next visit 01/2025 as per his history Gastroesop hageal reflux disease without esophagitis 193259970 K21.9 Get on PPI, but take it only as needed, if not better will need to do EGD Coronary arteriosclerosis 91092766 I25.10 S/p CABGOn ASANot on amiodarone 200mg dailyOn plavixOn lasix 40mg dailyNot on lisinopril 10mg dailyOn losartan 50mg dailyOn metoprolol 25mg 1/2 tab dailyOn K Er 20meq dailyKeep apt with [facility] and he will see Dr Manolo olivera 09/03/2023 Dr Wu 10/30/2023 : F/u in 3 months Insomnia 206685194 G47.0 0 On trazodone 50mg daily PRNAll side effects explained to him and his wifeStalya mocke explained to him Erectile dysfunction 860 521712 F52.[address] Wu if he can be on viagra Prediabetes 981606509 R7 3.03 Get on Farxiga 5mg daily, as has CKD so no metforminG et labs Hemorrhoids 30539778 K64 .9 Can do anusol, also sitz baths with epsom salts, take fiber to prevent constipati on, refer to G surgery [id number] Douglas Eduardo MD [facility] [place] [address] [place] [address] 11/23/2024 11:43:09 11/24/2024 15:45:05 Sensorineural hearing loss 34292107 H90.5 Health Concerns Section Related Observation LastModified by Organization Detai ls LastModified Time None Recorded Concern Status LastModified by Organization Details LastModified Time None Recorded Advance Directives Directive N: Payers Encounter Date Sequence Insurance Name Policy Number Policy [place] Covered Member ID [place] Member ID Guarantor Name 09/01/2023 1 [facility] (MEDICARE REPLACEMENT/A DVANTAGE - HMO) [id number] Julio Cesar Holcomb [id number] Julio Cesar Holcomb 01/26/2024 1 [facility] (MEDICARE REPLACEMENT/A DVANTAGE - HMO) [id number] Julio Cesar Holcomb [id number] Julio Cesar Holcomb 06/16/2024 1 [facility] (MEDICARE REPLACEMENT/A DVANTAGE - HMO) [id number] Julio Cesar Holcomb [id number] Julio Cesar Holcomb 10/04/2024 1 [facility] (MEDICARE REPLACEMENT/A DVANTAGE - HMO) [id number] Julio Cesar Holcomb [id number] Julio Cesar Holcomb 11/23/2024 1 [facility] (MEDICARE REPLACEMENT/A DVANTAGE - HMO) [id number] Julio Cesar Holcomb [id number] Julio Cesar Holcomb Notes Date Note Type Note Provider Name and Address Organization Details Recorded Time 09/01/2023 text/html OV 07/21/2023:Here to establish carePast PCP: Dr Torres Past Hx:HTNHLDPADNeuro pathyEx Smoker Reviewed social family and surgical history Here to discuss above and also get labs, he is here with his Violeta, he has noted some GERD like symptoms since he has been working out OV 09/01/2023: Here for his f/u apt, he is s/p CABG, now is doing very well, labs done on 07/21/2023, here with his Daphne Lock MD [address], [address], [place], [address], [employer] 09/01/2023 16:28:43 01/26/2024 text/html OV 07/21/2023:Here to establish carePast PCP: Dr Torres Past Hx:HTNHLChel pathyEx Smoker Reviewed social family and surgical history Here to discuss above and also get labs, he is here with his Violeta, he has noted some GERD like symptoms since he has been working out OV 09/01/2023: Here for his f/u apt, he is s/p CABG, now is doing very well, labs done on 07/21/2023, here with his OV 01/26/2024: Here for his routine apt, he is doing very well, here with his , needs to do labs, he is going to see Dr Oscar PEOPLES and is wanting ot do labs with his labs, he would like to get on a sleep aid and also has noted ED Daphne Lock MD [address], [address], [place], [address], [employer] 01/26/2024 18:19:13 06/16/2024 text/html OV 07/21/2023:Here to establish carePast PCP: Dr Torres Past Hx:HTNHLDPADNeuro pathyEx Smoker Reviewed social family and surgical history Here to discuss above and also get labs, he is here with his Violeta, he has noted some GERD like symptoms since he has been working out OV 09/01/2023: Here for his f/u apt, he is s/p CABG, now is doing very well, labs done on 07/21/2023, here with his OV 01/26/2024: Here for his routine apt, he is doing very well, here with his , needs to do labs, he is going to see Dr Oscar PEOPLES and is wanting ot do labs with his labs, he would like to get on a sleep aid and also has noted ED OV 06/16/2024: Here for his f/u apt, he is here with his and is doing well Daphne Lock MD [address], [address], [place], [address], [employer] 06/20/2024 18:24:55 10/04/2024 text/html OV 07/21/2023:Here to establish carePast PCP: Dr Torres Past Hx:HTNHLDPADNeuro pathyEx Smoker Reviewed social family and surgical history Here to discuss above and also get labs, he is here with his Violeta, he has noted some GERD like symptoms since he has been working out OV 09/01/2023: Here for his f/u apt, he is s/p CABG, now is doing very well, labs done on 07/21/2023, here with his OV 01/26/2024: Here for his routine apt, he is doing very well, here with his , needs to do labs, he is going to see Dr Oscar PEOPLES and is wanting ot do labs with his labs, he would like to get on a sleep aid and also has noted ED OV 06/16/2024: Here for his f/u apt, he is here with his and is doing well OV 10/04/2024: Here for his routine apt, he is doing well, is here with his Daphne Lock MD [address], [address], [place], [address], [employer] 10/19/2024 18:06:01 11/23/2024 text/html this patient has had anterior and posterior spinal fusion and is about to have a right carotid endarterectomy. He is here for vocal cord check. There is no history of hoarseness after his spinal surgery. Douglas Eduardo MD [address] [facility], [facility] [address], [place], [address], [place] [facility] 11/23/2024 12:09:57
--- OUTSIDE RECORDS SUMMARY | 2024-11-29 08:44 | XMS_ITS ---
Author Organization [facility] Address [address] [place] [address] Care Team Providers Care Sourcing Analyst Name Role Phone Shakir Moore Unavailable [phone] MEDICATIONS Medication SIG (Take, Route, Frequency, Duration) Notes Start Date End Date Status Losartan Potassium 25 MG 1 tablet Orally Once a day for 90 day(s) 09/11/2023 Active Vitamin D (Ergocalciferol) 1.25 MG (72650 UT) TAKE 1 CAPSULE BY MOUTH 1 TIME A WEEK for 91 Active Losartan Potassium 50 MG 1 tablet Orally Once a day for 90 11/20/2023 Active Lasix 40 MG 1 tablet Orally Once a day for 90 days Active Calcitriol 0.25 MCG TAKE ONE CAPSULE BY MOUTH EVERY OTHER DAY for 90 Active Encounters Encounter Location Date Provider Diagnosis [facility] [address] [facility] [address] [place] [address] 08/31/2024 Shakir Moore Chronic kidney disea se, stage 3a N18.31 ; Type 2 diabetes mellitus with hyperglycemia E11.65 ; Anxiety disorder, unspecified F41.9 ; Essential (primary) hypertension I10 ; Hyperlipidemia, unspecified E78.5 ; Heart failure, unspecified I50.9 and Atherosclerosis of renal artery I70.1 ASSESSMENTS Encounter Date Diagnosis Assessment Notes Treatment Notes Treatment Clinical Notes Section Notes 08/31/2024 Chronic kidney disease, stage 3a (ICD-10 - N18.31) 08/31/2024 Type 2 diabetes mellitus with hyperglycemia (ICD-10 - E11.65) 08/31/2024 Anxiety disorder, unspecified (ICD-10 - F41.9) 08/31/2024 Essential (primary) hypertension (ICD-10 - I10) 08/31/2024 Hyperlipidemia, unspecified (ICD-10 - E78.5) 08/31/2024 Heart failure, unspecified (ICD-10 - I50.9) 08/31/2024 Atherosclerosis of renal artery (ICD-10 - I70.1) PLAN OF TREATMENT Next Appt Details Provider Name:Shakir Oscar , 12/07/2024 02:00:00 PM, [address] [facility] [address], [place], [address], Progress Notes * Julio Cesar CAMPADOB:1950 (74 yo M)Acc No.[id number]:08/31/2024 Progress Notes Patient: Julio Cesar CAMPA Provider: MD MOLINA, F.A.C.P, F.A.S.N. :1950 Age:74 Y Sex:Male Date:08/31/2024 Address:[address] [place] [address] Subjective: * Chief Complaints: * * Medical History: * Medications: Taking Losartan Potassium 25 MG Tablet 1 tablet Orally Once a day , Taking Losartan Potassium 50 MG Tablet 1 tablet Orally Once a day , Taking Vitamin D (Ergocalciferol) 1.25 MG (71463 UT) Capsule TAKE 1 CAPSULE BY MOUTH 1 TIME A WEEK , Taking Calcitriol 0.25 MCG Capsule TAKE ONE CAPSULE BY MOUTH EVERY OTHER DAY , Taking Lasix 40 MG Tablet 1 tablet Orally Once a day Objective: Assessment: * Assessment: 1. Chronic kidney disease, stage 3a - N18.31 (Primary) 2. Type 2 diabetes mellitus with hyperglycemia - E11.65 3. Anxiety disorder, unspecified - F41.9 4. Essential (primary) hypertension - I10 5. Hyperlipidemia, unspecified - E78.5 6. Heart failure, unspecified - I50.9 7. Atherosclerosis of renal artery - I70.1 Plan: * Treatment: * Billing Information: * Visit Code: [id number] Office Visit, Est Pt., Level 4. * Procedure Codes: * Sign off status: Pending * Provider: MD MOLINA, Nikki.A.C.P, F.A.S.N. Date: 08/31/2024
--- OUTSIDE RECORDS SUMMARY | 2024-11-29 08:44 | XMS_ITS | CONTINUITY OF CARE DOCUMENT ---
Author Name missy louis Address Unknown Organization [facility] Address [address] [place] [address] Phone [phone] Care Team Providers Care Director Clinical Pharmacology Name Role Phone Jazmin GAONA, Kortney Glez Unavailable [phone] DAPHNE ALFONSO MD Unavailable DAPHNE ALFONSO MD Unavailable [phone] PROBLEMS Condition Status Date Provider Notes Carotid artery stenosis active Jennifer del real Preoperative cardiovascular evaluation active Sandra Claire Cardiology examination active Nisha Esteban i, NP CAD -s/p CABG active Kortney Wu MD Back pain active Kortney Wu MD Peripheral artery disease active Kortney Wu MD Tobacco abuse active Kortney Wu MD EKG active Kortney Wu MD Hypercholesterolemia active Kortney gillis MD ENCOUNTERS Date Type Provider Location Encounter Diag nosis - In-person encounter Office Visit Kortney Wu MD [facility] - In-person encounter Office Visit Kortney Wu MD [facility] Cardiology examination - In-person encounter Office Visit Kortney Wu MD [facility] - In-person encounter Office Visit Kortney Wu MD [facility] CAD -s/p CABG - In-person encounter Office Visit Kortney Wu MD [facility] EKGTobacco abusePeripheral artery diseaseBack pain - In-person encounter Office Visit Kortney Wu MD [facility] - In-person encounter Office Visit Kortney Wu MD [facility] Hypercholesterolemia VITAL SIGNS Date Observation Value Provider Body Mass Index (Ratio) 26.94 kg/m2 Nunu Wu MD blood pressure, diastolic 81 mm[Hg] Paige bergmanfloyd Rogers blood pressure, systolic 145 mm[Hg] [facility] saturation, oximetry 95 % Elizabethfloyd Rogers respiratory rate E&M 14 /min [facility] pulse rate 56 /min [facility] weight E&M 172 [lb_av] Elizabeth Rogers height E&M 67 [in_i] [facility] blood pressure, cuff size regular An reza Rogers Body Mass Index (Ratio) 27.69 kg/m2 Nunu Wu MD blood pressure, diastolic 82 mm[Hg] Fern nkLog blood pressure, systolic 158 mm[Hg] Sri kLog blood pressure, cuff size regular Odin bityara [place] blood pressure, diastolic 82 mm[Hg] Ta bitha [place] blood pressure, systolic 158 mm[Hg] Tab itha Issac oxygen saturation, oximetry 96 % Ameriac [place] respiratory rate E&M 12 /min America [place] pulse rate 85 /min America [place] weight E&M 176.8 [lb_av] America [place] height E&M 67 [in_i] America [place] Body Mass Index (Ratio) 28.35 kg/m2 Rosales ann [place] blood pressure, diastolic 76 mm[Hg] Li nkLogic blood pressure, systolic 158 mm[Hg] Sri kLogic blood pressure, cuff size regular Ja rret blood pressure, diastolic 76 mm[Hg] Ja rret blood pressure, systolic 158 mm[Hg] Jar ret pulse rate 60 /min Ivan y respiratory rate E&M 12 /min Ivan oxygen saturation, oximetry 96 % Ivan weight E&M 181 [lb_av] Ivan y height E&M 67 [in_i] Ivan y Body Mass Index (Ratio) 26.47 kg/m2 Nunu Wu MD blood pressure, diastolic 57 mm[Hg] Li nkLogic blood pressure, systolic 106 mm[Hg] Sri kLogic weight E&M 169 [lb_av] [facility] blood pressure, diastolic 57 mm[Hg] Victor Manuel [facility] blood pressure, systolic 106 mm[Hg] [facility], [facility]xim[facility] 95 % [facility] respiratory rate E&M 15 /min Julia Charles parmar pulse rate 51 /min [facility] height E&M 67 [in_i] [facility] Body Mass Index (Ratio) 29.44 kg/m2 Osman Fournier blood pressure, resting Yes Tons livingston Young oxygen saturation, oximetry 98 % Tonsha Young blood pressure, diastolic 94 mm[Hg] To nsha Young blood pressure, systolic 190 mm[Hg] Ton sha Young respiratory rate E&M 16 /min Tonsha Young pulse rate 64 /min [facility] weight E&M 188 [lb_av] [facility] height E&M 67 [in_i] [facility] Body [facility] Index (Ratio) 29.29 kg/m2 Nunu Wu MD weight E&M 187 [lb_av] Arely Varnerby blood pressure, diastolic 80 mm[Hg] Roger malik [place] blood pressure, systolic 150 mm[Hg] Rogeri stjigna Varnerby oxygen saturation, oximetry 96 % Arely Varnerby temperature site 76 Arely Varnerb y respiratory rate E&M 17 /min Arely [place] blood pressure, cuff size regular Roger Varnerby height E&M 67 [in_i] Arely Bonnie Body Mass Index (Ratio) 26.78 kg/m2 Jordan Plurad blood pressure, diastolic 86 mm[Hg] Da tyesha William blood pressure, systolic 148 mm[Hg] Dac ia William oxygen saturation, oximetry 97 % Lorene William respiratory rate E&M 16 /min Lorene V oss pulse rate 63 /min Lorene Wililam weight E&M 171 [lb_av] Lorene William height E&M 67 [in_i] Lorene William ALLERGIES Allergy Name Onset Date Reaction Criticality Status ADHESIVE TAPE High Criticality activ e HISTORY OF MEDICATION USE Medication Status Instructions Dates Provider Indications Com ments aspirin 81 mg tablet,delayed release (DR/EC) active Take 1 tablet by mouth once a day Nisha Santa NP furosemide 40 mg tablet active Take 1 tablet by mouth once a day Nisha Santa NP calcitriol 0.25 mcg capsule active Take 1 capsule once a week Kortney Wu MD losartan 25 mg tablet active TAKE 1 TABLET BY MOUTH EVERY DAY Shahla Hazel RN metoprolol tartrate 25 mg tablet active Take 1/2 tablet by mouth twice a day Shahla Hazel RN Plavix 75 mg tablet active TAKE 1 TABLET BY MOUTH EVERY DAY Shahla Hazel RN gabapentin 300 mg capsule active Take 1 tablet by mouth as needed Dulce Edward #60, 30 days supply, Filled 10/12/2018 atorvastatin 80 mg tablet active Take 1 tablet by mouth every evening Kortney Wu MD MELOXICAM 15 MG ORAL TABLET completed take one daily - Arely Nicole TRAMADOL HCL 50 MG ORAL TABLET completed take one every 12 hours as needed - Arely Nicole cyclobenzaprine 5 mg tablet completed Take 1 tablet by mouth as needed - Nisha Santa NP SOCIAL HISTORY Date Observation Value Provider personal history of marijuana use yes Kortney Wu MD drug use no Kortney gillis MD alcohol use, average drinks per day social Kortney Wu MD alcohol use yes Kortney gillis MD smoking, year quit 5 Kortney Wu MD number of years as a smoker 35 a Kortney Wu MD smoking history, tot al pack/day 1 Kortney Wu MD cigarette use yes Kortney murdock MD smoking status Former smoker Kortney aly MD personal history of marijuana use yes Nisha Santa NP drug use no Nisha Minerri MILADY alcohol use, average drinks per day social Nisha Santa NP alcohol use yes Nisha Santa NP smoking, year quit 5 Nisha Keith NP number of years as a smoker 35 a Nisha Santa NP smoking history, tot al pack/day 1 Nisha Santa NP cigarette use yes Nisha Santa NP smoking status Former smoker Nisha Isidra shepherd [employer] alcohol use, average drinks per day social Kortney Wu MD alcohol use yes Kortney gillis MD smoking, year quit 5 Kortney Wu MD number of years as a smoker 35 a Kortney Wu MD smoking history, tot al pack/day 1 Kortney Wu MD cigarette use yes Kortney murdock MD smoking status Former smoker Kortney aly MD smoking, year quit 5 [facility] alcohol use, average drinks per day social [facility] alcohol use yes [facility] smoking/tobacco cess ation, patient education and counseling yes [facility] number of years as a smoker 35 a [facility] smoking history, tot al pack/day 1 [facility] cigarette use yes [facility] smoking status Former smoker [facility] smoking/tobacco cess ation, patient education and counseling yes Kortney Wu MD smoking status Current every day smoker S elias Wu MD social history E&M S moking History: P atient currently smokes every day. P atient has been counseled to quit. Kortney Wu MD social history reviewed E&M revi ewed - no changes required Kortney Wu MD number of years as a smoker [facility], tot al pack/day 1 Tons Young cigarette use yes Tonsyara Young social history E&M S moking History: P atient currently smokes every day. P atient has been counseled to quit. Kortney Wu MD social history reviewed E&M revi ewed - no changes required Kortney Wu MD alcohol use, average drinks per day social Arely Nicole smoking/tobacco cess ation, patient education and counseling yes Arely Nicole alcohol use yes Arely Nicole number of years as a smoker 35 a Arely Nicole smoking history, tot al pack/day 1 Arely Nicole cigarette use yes Arely Nicole smoking status Current every day smoker Charlie Nicole number of grandchildren Kortney Wu MD smoking/tobacco cess ation, patient education and counseling yes Kortney Wu MD social history reviewed E&M revi ewed - no changes required Kortney Wu MD social history E&M S moking History: P son currently smokes every day. P atandi has been counseled to quit. Jordan Plurad alcohol use, average drinks per day social Lorene William alcohol use yes Lorene William number of years as a smoker 35 a Lorene William smoking history, tot al pack/day 1 Lorene William cigarette use yes Lorene William smoking status Current every day smoker D ackehinde William FUNCTIONAL STATUS Date Observation Value Provider HRA, CV Assess/Plan, Angina (inactive) Management Plan continue current therapy Nisha Santa NP HRA, CV Assess/Plan, Angina (inactive) Management Plan continue current therapy Kortney Wu MD HRA, CV Assess/Plan, Angina (inactive) Management Plan continue current therapy Kortney Wu MD FAMILY HISTORY Family Member Condition First Degree Blood Relative No Known Fam aurora History INSURANCE PROVIDERS Payer name Policy type / Coverage type [place] [employer] green party ID AARP MEDICARE ADVANTAGE HMO-POS HMO [id number] ADVANCE DIRECTIVES Name Date DISCUSSED - NO DECISION MADE TREATMENT PLAN Date Name Performer Cardiology:CONCLUSIO NS: 1 . 50 - 69% stenosis of the right ICA. 2 . <50% stenosis of the left ICA. [email or web address] CAROTID Study Dt:03-15-2024 Page 2 3 . Vertebral flow is antegrade bilaterally. Getting CT angio of neck Echo 03/15/24 CONCLUSIONS: 1 . Normal left ventricular systolic function. Normal left ventricular size. Mild concentric left ventricular hypertrophy. There is E to A wave reversal consistent with impaired LV relaxation. E/E': 5.6. Left ventricular ejection fraction is measured at 64 %. 2 . Normal right ventricular size. Normal right ventricular systolic function. 3 . There is non-specific thickening of the mitral valve leaflets. Mild mitral valve regurgitation. The MVA is 3.8 cm2. 4 . There is aortic valve sclerosis. Tri-leaflet aortic valve. Velocities, as well as gradients across the aortic valve are normal. No e vidence of aortic insufficiency. The BRO is 2.6 cm2. 5 . Normal appearing tricuspid valve leaflets. There is mild tricuspid regurgitation. The RA pressure is estimated at 5.0 mmHg. E stimated peak pulmonary artery systolic pressure is 30.0 mmHg. 6 . Technically difficult study, secondary to poor acoustic windows. E lectronically signed by Kortney Wu MD on 03/25/2024 at 5:13 PM Kortney Wu MD Cardiology: S TOPPED CIGS C ONTINUES WITH RUTHANN Kortney Wu MD Cardiology:Needs lip ids and LFTs at some point H is updated medication list for this problem includes: Atorvastatin 80 Mg Tablet (Atorvastatin) ..... Take 1 tablet by mouth every evening Kortney Wu MD Cardiology: L ast ov O n Amio post-op afib and Lopressor 12.5mg bid H e had Coronary artery bypass grafting x 3 (SNEED to LAD, saphenous vein graft sequential to ramus and distal obtuse m arginal branches) February 10, 2024 O VERALL DOING BETTER SINCE SURGERY Kortney Wu MD Cardiology: T his visit has been a part of the consistent, comprehensive, and ongoing management of the chronic medical condition(s) listed above for the patient. Last ov B ilateral iliofemoral disease, will need to be adressed in future GETS RIGHT LEG DISCOMFORT WITH LOWER BACK PAIN AND LEG PAIN ASSOC W/ NERVE DAMAGE C heck JAYY Kortney Wu MD Cardiology:STOPPED C IGS C ONTINUES WITH MARAJUANA Horacefranky Reyesmumtaz HENNING Cardiology: s /p c3-c6 laminetomy fusion. N oted improvement post spine surgery for lower back and back of neck. October 30, 2023 H e is having CP, reproducable tenderness. Get a CT to evaluate for rib fractures February 10, 2024 c ontinues to have off and on back pain Horacefranky Santa NP Cardiology: H is updated medication list for this problem includes: Atorvastatin 80 Mg Tablet (Atorvastatin) ..... Take 1 tablet by mouth every evening Horacefranky Santa NP Cardiology:Last ov O n Amio post-op afib and Lopressor 12.5mg bid H e had Coronary artery bypass grafting x 3 (SNEED to LAD, saphenous vein graft sequential to ramus and distal obtuse m arginal branches) February 10, 2024 O MADELIN DOING BETTER SINCE SURGERY Nisha Arina HENNING Cardiology: L ast ov B ilateral iliofemoral disease, will need to be adressed in future GETS RIGHT LEG DISCOMFORT WITH LOWER BACK PAIN AND LEG PAIN ASSOC W/ NERVE DAMAGE Nisha Santa NP Cardiology:Check lip id panel H is updated medication list for this problem includes: Atorvastatin 80 Mg Tablet (Atorvastatin) ..... Take 1 tablet by mouth every evening Kortney Wu MD Cardiology Kortney Wu MD Cardiology: O n Amio post-op afib and Lopressor 12.5mg bid H e had Coronary artery bypass grafting x 3 (SNEED to LAD, saphenous vein graft sequential to ramus and distal obtuse m arginal branches) Kortney Wu MD Cardiology: s /p c3-c6 laminetomy fusion. N oted improvement post spine surgery for lower back and back of neck. October 30, 2023 H e is having CP, reproducable tenderness. Get a CT to evaluate for rib fractures Kortney Wu MD Cardiology:Bilateral iliofemoral disease, will need to be adressed in future Kortney Wu MD Cardiology:Not smoking Kortney Wu MD Cardiology:Lipitor 40 Kortney Wu MD Cardiology:On Amio p ost-op afib and Lopressor 12.5mg bid H e had Coronary artery bypass grafting x 3 (SNEED to LAD, saphenous vein graft sequential to ramus and distal obtuse m arginal branches) Kortney Wu MD Cardiology:s/p c3-c6 laminetomy fusion. N oted improvement post spine surgery for lower back and back of neck. Kortney Wu MD Cardiology: H is updated medication list for this problem includes: Atorvastatin Calcium 20 Mg Oral Tablet (Atorvastatin calcium) ..... Take one daily Kortney Wu MD Cardiology:The patie nt denies episodes of chest pain nausea vomiting diaphoresis shortness of breath or [place] or pounding/palpitations or loss of consciousness or presyncopal events. EKG demonstrated no significant change compared to prior. We reviewed patient's prior noninvasive testing. Planning on having B/L vascular surgery. Will do pre op eval. Schedule for nuclear stress test and echocardiogram. Has not had any Carotid Eval. Kortney Wu MD Cardiology:Quit 2 years ago. Matt Wu MD Cardiology: P t. had nuclear stress test done, no ischemia. 05/11/18 Summary 1 . Normal myocardial perfusion imaging after vasodilator stress with Regadenoson. 2 . Normal left ventricular systolic function with a calculated ejection fraction of 68%. 3 . No obvious significant scintigraphic evidence of myocardial ischemia or scar. DEMETRA VENCES Study Dt:05/19/2018 Echo Conclusions: 1 . Normal left ventricular systolic function. Normal left ventricular size. Normal left ventricular wall t hickness. There is E to A wave reversal consistent with impaired LV relaxation. Left ventricular e jection fraction is estimated at 60 %. 2 . Normal right ventricular size. Normal right ventricular systolic function. 3 . The tricuspid valve is normal in appearance and function. There is trace physiologic tricuspid valve r egurgitation. IVC is normal in size with normal respiratory response. The RA pressure is estimated at 3 .0 mmHg. Unable to adequately assess the RVSP. 4 . There is non-specific thickening of the mitral valve leaflets. There is trace physiologic mitral valve r egurgitation. Upon review of noninvasive testing and recent exam the patient is an acceptable candidate for the planned surgical procedure recommend to maintain his blood pressure range of 110 to 140 mmHg and a heart rate of 60-80 B p.m.. It is okay to use IV beta blockers calcium channel blockers nitrates and afterload reducing agents to maintain the aforementioned hemodynamics parameters. Tele monitoring and EKG should be done if the patient has arrhythmia during procedure. Kortney Wu MD Cardiology follow up : H is updated medication list for this problem includes: Atorvastatin Calcium 20 Mg Oral Tablet (Atorvastatin calcium) ..... Take one daily Kortney Wu MD Cardiology follow up :Pt. had nuclear stress test done, no ischemia. Will obtain 2D echo today. O rders: E KG ([id number]) [phone] HIGH Complex ([id number]) Kortney Wu MD Date Name CT Angio, Carotids Carotid Duplex Bilat eral Complete Echo LIPID PANEL COMPREHENSIVE METABO LIC PANEL, W/EGFR CT Chest without con trast Complete Echo Cardiac Rehab Phase II, home based outpatient EKG Carotid Duplex Bilat eral Complete Echo Stress Regadenoson Complete Echo HISTORY OF PROCEDURES Procedure Date Procedure Name Provider Procedure Notes S tatus Complex e/m visit add on Kortney Wu MD completed EKG Kortney Wu MD compl eted EKG Kortney Wu MD compl eted Regadenoson, 4 units Kortney Wu MD completed Cardiolite, 2 units Kortney Wu MD completed SPECT Images Kortney Wu MD com pleted Stress EKG Kortney Wu MD compl eted EKG Kortney Wu MD compl eted EKG Kortney Wu MD compl eted EKG Kortney Wu MD compl eted Regadenoson, 4 units Hi Perla MD completed Cardiolite, 2 units Hi Perla MD completed SPECT Images Andres Moore MD complet ed Stress EKG Jayden Gilliland MD complete d
--- OUTSIDE RECORDS SUMMARY | 2024-11-29 08:44 | XMS_ITS ---
Author Organization [facility] Address [address] [place] [address] [place] [address] Care Team Providers Care Fire Management Specialist Name Role Phone Shakir Moore Unavailable [phone] MEDICATIONS Medication SIG (Take, Route, Frequency, Duration) Notes Start Date End Date Status Losartan Potassium 25 MG 1 tablet Orally Once a day for 90 day(s) 09/11/2023 Active Losartan Potassium 50 MG 1 tablet Orally Once a day for 90 11/20/2023 Active Calcitriol 0.25 MCG 1 capsule Orally radha ry other day for 90 09/11/2023 06/07/2024 Active Lasix 40 MG 1 tablet Orally Once a day for 90 days 11/20/2023 Active Vitamin D (Ergocalciferol) 1.25 MG (90496 UT) TAKE 1 CAPSULE BY MOUTH 1 TIME A WEEK for 91 Active Encounters Encounter Location Date Provider Diagnosis [facility] [address] [facility] [address] [place] [address] 05/04/2024 Shakir Moore Chronic kidney disea se, [...] PLAN OF TREATMENT Next Appt Details Provider Name:Shakirgary Moore , 12/07/2024 02:00:00 PM, [address], [place], [address], Progress Notes * Julio Cesar CAMPADOB:1950 (74 yo M)Acc No.[id number]:05/04/2024 Progress Notes Patient: Julio Cesar CAMPA Provider: MD MOLINA, Nikki.A.C.P, F.A.S.N. :1950 Age:74 Y Sex:Male Date:05/04/2024 Address:[address] [place] [address] Subjective: * Chief Complaints: * * Medical History: * Medications: Taking Calcitriol 0.25 MCG Capsule 1 capsule Orally every other day , stop date 06/07/2024, Taking Losartan Potassium 25 MG Tablet 1 tablet Orally Once a day , Taking Losartan Potassium 50 MG Tablet 1 tablet Orally Once a day , Taking Lasix 40 MG Tablet 1 tablet Orally Once a day , Taking Vitamin D (Ergocalciferol) 1.25 MG (34699 UT) Capsule TAKE 1 CAPSULE BY MOUTH 1 TIME A WEEK Objective: Assessment: * Assessment: 1. Chronic kidney disease, stage 3a - N18.31 (Primary) 2. Type 2 diabetes mellitus with hyperglycemia - E11.65 3. Anxiety disorder, unspecified - F41.9 4. Essential (primary) hypertension - I10 5. Hyperlipidemia, unspecified - E78.5 6. Heart failure, unspecified - I50.9 7. Atherosclerosis of renal artery - I70.1 Plan: * Treatment: * Billing Information: * Visit Code: 75253 Office Visit, Est Pt., Level 4. * Procedure Codes: * Sign off status: Pending * Provider: MD MOLINA, Nikki.Ziggy.C.P, F.A.S.N. Date: 05/04/2024
--- OUTSIDE RECORDS SUMMARY | 2024-11-29 08:44 | XMS_ITS | Patient Health Record ---
Author Organization [facility] Address [address] [place] [address] Care Team Providers Care Contract Sheltered Workshop Supervisor Name Role Phone Shakir Moore Unavailable [phone] REASON FOR REFERRAL No Information MEDICATIONS Medication SIG (Take, Route, Frequency, Duration) Notes Start Date End Date Status Losartan Potassium 25 MG 1 tablet Orally Once a day for 90 day(s) 09/11/2023 Active Calcitriol 0.25 MCG TAKE 1 CAPSULE BY [place] UTH EVERY OTHER DAY for 90 Active Vitamin D (Ergocalciferol) 1.25 MG (15060 UT) TAKE 1 CAPSULE BY MOUTH 1 TIME A WEEK for Active Losartan Potassium 50 MG 1 tablet Orally Once a day for 90 11/20/2023 Active Lasix 40 MG 1 tablet Orally Once a day for 90 days Active PROBLEMS Problem Type ICD Code Onset Dates Problem Status W/U Status Risk SNOMED Code Notes Problem Type 2 diabetes mellitus with hyperglycemia (E11.65) Active confirmed Hyperglycemia d ue to type 2 diabetes mellitus (910959810920032) Problem Hyperlipidemia, unspecified (E78.5) Active confirmed Hyperlipidemia (57608963) Problem Anxiety disorder, unspecified (F41.9) Active confirmed Anxiety disorde r (088644696) Problem Essential (primary) hypertension (I10) Active confirmed Essential hypertension (06900657) Problem Heart failure, unspecified (I50.9) Active confirmed Heart failure (43015475) Problem Atherosclerosis of renal artery (I70.1) Active confirmed Atherosclerosis of renal artery (38378228) Problem Chronic kidney disease, stage 3a (N18.31) Active confirmed Chronic kidney disease stage 3A (disorder) (475050288) Encounters Encounter Location Date Provider Diagnosis [place] [facility] [address] [facility] [address] [place] [address] 02/03/2024 Shakir Moore Chronic kidney disea se, stage 3a N18.31 ; Type 2 diabetes mellitus with hyperglycemia E11.65 ; Anxiety disorder, unspecified F41.9 ; Essential (primary) hypertension I10 ; Hyperlipidemia, unspecified E78.5 ; Heart failure, unspecified I50.9 and Atherosclerosis of renal artery I70.1 [facility] [address] [address] 05/04/2024 Shakir Moore Chronic kidney disea se, stage 3a N18.31 ; Type 2 diabetes mellitus with hyperglycemia E11.65 ; Anxiety disorder, unspecified F41.9 ; Essential (primary) hypertension I10 ; Hyperlipidemia, unspecified E78.5 ; Heart failure, unspecified I50.9 and Atherosclerosis of renal artery I70.1 [place] [facility] [address] [address] 08/03/2024 Shakir Moore [facility] [address] [address] 08/31/2024 Shakir Moore Chronic kidney disea se, stage 3a N18.31 ; Type 2 diabetes mellitus with hyperglycemia E11.65 ; Anxiety disorder, unspecified F41.9 ; Essential (primary) hypertension I10 ; Hyperlipidemia, unspecified E78.5 ; Heart failure, unspecified I50.9 and Atherosclerosis of renal artery I70.1 [facility] [address] [place] [address] 02/04/2024 Shakir Moore ASSESSMENTS Encounter Date Diagnosis Assessment Notes Treatment Notes Treatment Clinical Notes Section Notes 02/03/2024 Chronic kidney disease, stage 3a (ICD-10 - N18.31) 05/04/2024 Chronic kidney disease, stage 3a (ICD-10 - N18.31) 08/31/2024 Chronic kidney disease, stage 3a (ICD-10 - N18.31) 08/31/2024 Type 2 diabetes mellitus with hyperglycemia (ICD-10 - E11.65) 05/04/2024 Type 2 diabetes mellitus with hyperglycemia (ICD-10 - E11.65) 02/03/2024 Type 2 diabetes mellitus with hyperglycemia (ICD-10 - E11.65) 02/03/2024 Anxiety disorder, unspecified (ICD-10 - F41.9) 05/04/2024 Anxiety disorder, unspecified (ICD-10 - F41.9) 08/31/2024 Anxiety disorder, unspecified (ICD-10 - F41.9) 08/31/2024 Essential (primary) hypertension (ICD-10 - I10) 05/04/2024 Essential (primary) hypertension (ICD-10 - I10) 02/03/2024 Essential (primary) hypertension (ICD-10 - I10) 02/03/2024 Hyperlipidemia, unspecified (ICD-10 - E78.5) 05/04/2024 Hyperlipidemia, unspecified (ICD-10 - E78.5) 08/31/2024 Hyperlipidemia, unspecified (ICD-10 - E78.5) 05/04/2024 Heart failure, unspecified (ICD-10 - I50.9) 02/03/2024 Heart failure, unspecified (ICD-10 - I50.9) 08/31/2024 Heart failure, unspecified (ICD-10 - I50.9) 08/31/2024 Atherosclerosis of renal artery (ICD-10 - I70.1) 02/03/2024 Atherosclerosis of renal artery (ICD-10 - I70.1) 05/04/2024 Atherosclerosis of renal artery (ICD-10 - I70.1) PLAN OF TREATMENT Next Appt Details Provider Name:Shakir Moore , 12/07/2024 02:00:00 PM, [address], [facility] 15, [place], [address],
--- OUTSIDE RECORDS SUMMARY | 2024-11-29 08:44 | XMS_ITS ---
Author Organization [facility] Address [address] [place] [address] Care Team Providers Care Orthotist Or Prosthetist Name Role Phone Moore Shakir Unavailable [phone] Encounters Encounter Location Date Provider Diagnosis [place] [facility] 2043 [facility] 15 [place] [address] 08/03/2024 Shakir Moore PLAN OF TREATMENT Next Appt Details Provider Name:Shakir Moore , 12/07/2024 02:00:00 PM, [address]43 [facility], [facility] 15, [place], [address], Progress Notes * Julio Cesar CAMPADOB:1950 (74 yo M)Acc No.[id number]:08/03/2024 Progress Notes Patient: Julio Cesar CAMPA Provider: MD MOLINA, Nikki.Ziggy.C.P, F.A.S.N. :1950 Age:74 Y Sex:Male Date:08/03/2024 Address:[address] [place] [address] Subjective: * Chief Complaints: * * Medical History: Objective: Assessment: Plan: * Treatment: * Billing Information: * Visit Code: * Procedure Codes: * Sign off status: Pending * Provider: MD MOLINA, Nikki.Ziggy.C.P, F.A.S.N. Date: 08/03/2024
[2024-11-29 09:50] LABS: Alanine Aminotransferase 16 U/L (6-50); Albumin Level 4.8 g/dL (3.5-5.1); Alkaline Phosphatase 79 U/L (38-126); Anion Gap 13 mmol/L (4-12); Aspartate Amino Transferase 20 U/L (17-59); Bilirubin,Total 0.5 mg/dL (0.2-1.3); Blood Urea Nitrogen 29 mg/dL (9-20); Calcium 9.4 mg/dL (8.4-10.2); Carbon Dioxide 20 mmol/L (22-30); Chloride 106 mmol/L (98-107); Estimated Glomerular Filt Rate 56; Glucose 97 mg/dL (65-110); Potassium 4.1 mmol/L (3.4-5.0); Sodium 139 mmol/L (137-145); Uric Acid 7.9 mg/dL (3.5-8.5)
[2024-11-29 09:56] LABS: Add Urine Microscopic? NO; Appearance Urine Clear (Clear); Bilirubin Urine Negative (Negative); Blood Urine Negative (Negative); Color Urine Yellow (Yellow); Glucose Urine UA Negative (Negative); Ketones Urine Negative (Negative); Leukocyte Esterase Ur Negative LEU/UL (Negative); Nitrate Urine Negative (Negative); Protein Urine Negative (Negative); Specific Grav Ur 1.007 (1.001-1.035); Urobilinogen Urine 0.2 mg/dL (<2.0); pH Urine 6.5 (5.0-9.0)
[2024-11-29 10:00] LABS: Parathyroid Intact 41.8 pg/mL (14.5-75.2)
[2024-11-29 10:05] LABS: Creatinine Urine 18.6 mg/dL
[2024-11-29 10:18] LABS: Vitamin D 25 Hydroxy 75.9 ng/mL
[2024-11-29 10:20] LABS: Thyroid Stimulating Hormone 0.727 uIU/mL (0.465-4.680)
[2024-11-29 10:25] LABS: MALB Creatinine Ratio < 32.3 mg/g (0-30); Microalbumin Urine Random < 6.0 mg/L (0-16.7)
== END 2024-11-29 08:26 | disposition home or self-care (01) ==
PROVIDERS: PCP Internal Medicine; Visit Provider Specialist
DX: I12.9 Hypertensive chronic kidney disease with stage 1 through stage 4 chronic kidney disease, or unspecified chronic kidney disease (principal); N18.4 Chronic kidney disease, stage 4 (severe); E55.9 Vitamin D deficiency, unspecified; N39.0 Urinary tract infection, site not specified; R35.0 Frequency of micturition; R73.09 Other abnormal glucose; E78.41 Elevated Lipoprotein(a); E21.3 Hyperparathyroidism, unspecified; R94.6 Abnormal results of thyroid function studies
CPT/HCPCS: 36415; 80053; 81003; 82043; 82306; 83036; 83970; 84443; 84550

== ENCOUNTER 2025-02-07 10:30 | Outpatient (CLI) | payer MEDICARE, SELFPAY ==
--- OUTSIDE RECORDS SUMMARY | 2025-02-07 10:45 | XMS_ITS ---
Author Organization [facility] Address [address] [place] [address] Care Team Providers Care Landscape Management Technician Name Role Phone Moore Shakir Unavailable [phone] Encounters Encounter Location Date Provider Diagnosis [place] [facility] 2043 [facility] [address] [place] [id number] 08/03/2024 Shakir Moore PLAN OF TREATMENT Next Appt Details Provider Name:Shakir Moore , 03/15/2025 02:15:00 PM, 2043 [facility], [address], [place], [address], Progress Notes * Julio Cesar CAMPADOB:1950 (74 yo M)Acc No.[id number]:08/03/2024 Progress Notes Patient: Julio Cesar CAMPA Provider: MD MOLINA, Nikki.Ziggy.C.P, F.A.S.N. :1950 Age:74 Y Sex:Male Date:08/03/2024 Address:[address] [place] [address] Subjective: * Chief Complaints: * * Medical History: Objective: Assessment: Plan: * Treatment: * Billing Information: * Visit Code: * Procedure Codes: * Sign off status: Pending * Provider: MD MOLINA, Nikki.Ziggy.C.P, F.A.S.N. Date: 08/03/2024
--- OUTSIDE RECORDS SUMMARY | 2025-02-07 10:46 | XMS_ITS | Encounter Summary ---
Author Organization [facility] Healthcare Address [address] [place] [address] Care Team Providers Care Career Development Director Name Role Phone Titus Torres MD Primary Care Provider + [phone] Titus Torres MD Primary Care Provider + [phone] Irais oLck MD Primary Care Provide r Kortney Wu MD Unavailable [phone] Encounter Details Date Type Department Care Team (Late st Contact Info) Description 03/08/2020 Telephone [facility] [address] [place] [address] Annel Friedman, EDWARD Social History Tobacco Use Types Packs/Day Years Used Date Smoking Tobacco: Never Smokeless Tobacco: Never Sex and Gender Information Value Date Recorded Sex Assigned at Not on file 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
--- OUTSIDE RECORDS SUMMARY | 2025-02-07 10:46 | XMS_ITS ---
Author Organization [facility] Address [address] [place] [address] Care Team Providers Care Risk Control Representative Name Role Phone Shakir Moore Unavailable [phone] MEDICATIONS Medication SIG (Take, Route, Frequency, Duration) Notes Start Date End Date Status Losartan Potassium 25 MG 1 tablet Orally Once a day for 90 day(s) 09/11/2023 Active Vitamin D (Ergocalciferol) 1.25 MG (15651 UT) TAKE 1 CAPSULE BY MOUTH 1 TIME A WEEK for 91 Active Losartan Potassium 50 MG 1 tablet Orally Once a day for 90 11/20/2023 Active Lasix 40 MG 1 tablet Orally Once a day for 90 days Active Calcitriol 0.25 MCG TAKE ONE CAPSULE BY MOUTH EVERY OTHER DAY for 90 Active Encounters Encounter Location Date Provider Diagnosis [place] [facility] [address]43 [facility] 15 [place] [address] 08/31/2024 Shakir Moore Chronic kidney disea se, [...] Next Appt Details Provider Name:Shakir Oscar , 03/15/2025 02:15:00 PM, 2043 [facility] 15, [place], [place], [facility], Progress Notes * Julio Cesar CAMPADOB:1950 (74 yo M)Acc No.[id number]:08/31/2024 Progress Notes Patient: Julio Cesar CAMPA Provider: MD MOLINA, F.A.C.P, F.A.S.N. :1950 Age:74 Y Sex:Male Date:08/31/2024 Address:[address] [place] [address] Subjective: * Chief Complaints: * * Medical History: * Medications: Taking Losartan Potassium 25 MG Tablet 1 tablet Orally Once a day , Taking Losartan Potassium 50 MG Tablet 1 tablet Orally Once a day , Taking Vitamin D (Ergocalciferol) 1.25 MG (48704 UT) Capsule TAKE 1 CAPSULE BY MOUTH [...] Treatment: * Billing Information: * Visit Code: 25918 Office Visit, Est Pt., Level 4. * Procedure Codes: * Sign off status: Pending * Provider: MD MOLINA, Nikki.A.C.P, F.A.S.N. Date: 08/31/2024
--- OUTSIDE RECORDS SUMMARY | 2025-02-07 10:46 | XMS_ITS | Clinical Summary ---
Author Organization [facility] Address [address] [place] [address] Care Team Providers Care Wheel Filler Name Role Phone Irais Lock MD Primary Care Provide r Kortney Wu MD Unavailable [phone] Allergies Active Allergy Reactions Criticality Noted Date Comments Adhesive Rash Medium 03/13/2020 Medications gabapentin (NEURONTIN) 300 mg capsuleIndicati ons:Neuropathic Pain Take 1 capsule (300 mg total) by mouth nightly 0 Active aspirin 81 mg enteric coated tablet Take 1 tablet (81 mg total) by mouth every morning Active acetaminophen (TYLENOL) 325 mg tablet Take 2 tablets (650 mg total) by mouth every 6 (six) hours 3 Active clopidogreL (PLAVIX) 75 mg tablet Take 1 tablet (75 mg total) by mouth daily 30 tablet 1 3 Active Additional Information Patient taking differently:75 mg oralDaily with dinner, Reported on 12/30/2024 atorvastatin (LIPITOR) 80 mg tablet Take 1 tablet (80 mg total) by mouth daily with dinner 5 Active traZODone (DESYREL) 50 mg tablet Take 1 tablet (50 mg total) by mouth nightly as needed Active furosemide (LASIX) 40 mg tablet Take 1 tablet (40 mg total) by mouth every morning Active ergocalciferol (VITAMIN D) 50,000 unit capsule Take 1 capsule (50,000 Units total) by mouth once a week Active calcitRIOL (ROCALTROL) 0.25 mcg capsule Take 1 capsule (0.25 mcg total) by mouth every morning Active Active Problems Problem Noted Date Diagnosed Date Carotid stenosis, bilateral 11/16/2024 Carotid artery stenosis 09/30/2024 Prediabetes 06/16/2024 Insomnia 01/26/2024 Erectile dysfunction 01/26/2024 Coronary arteriosclerosis 08/31/2023 Atherosclerosis of coronary artery bypass graft(s) without angina pectoris 08/28/2023 Myocardial infarction acute 07/27/2023 Hyperlipidemia 07/21/2023 Neuropathy 07/21/2023 Gastroesophageal reflux disease without esophagi tis 07/21/2023 Anemia 07/21/2023 PVD (peripheral vascular disease) 07/31/2022 Assessment & Plan (07/31/2022 4:33 PM SIGNAL CIRCUIT DESIGNER): A patent bilateral common femoral artery to popliteal artery bypasses with normal ABIs. Continue ongoing surveillance and risk factor modification with ASA, Plavix, statin therapy. Will follow-up in 6 months with repeat duplex. Neck pain 12/24/2021 Hypertensive disorder 07/01/2020 Assessment & Plan (02/12/2023 4:25 PM CDT): Impression: Chronic stable hypertension. Plan: Continue lisinopril 10 mg. Assessment & Plan (07/31/2022 4:33 PM SIGNAL CIRCUIT DESIGNER): Lisinopril Assessment & Plan (07/22/2021 8:35 AM CDT): Followed by his PCP and controlled on his current medications. Assessment & Plan (12/19/2020 3:23 PM CDT): Impression: Stable chronic hypertension. Plan: Medications reviewed and recommend continuing daily antihypertensive regimen as directed by patient's primary care physician. Encounter for screening for cardiovascular disor ders 05/04/2020 Tobacco abuse 05/04/2020 Atherosclerosis of [place] of both lower extremities with intermittent claudication 04/20/2020 Assessment & Plan (02/12/2023 4:27 PM CDT): Impression: Patient is status post bilateral femoral popliteal bypass graft and stent placement to the left external iliac artery and left common femoral artery. Patient has stable non disabling claudication to bilateral lower extremities. He denies any ischemic rest pain or ulcerations to his lower extremity. Lower extremity arterial duplex reveals a patent bypass graft. Plan: Continue ongoing risk factor modifications. Patient to follow-up in 6 months for re-evaluation with lower extremity arterial duplex. Assessment & Plan (07/22/2021 8:41 AM CDT): Patient is doing well since his of bilateral lower extremity bypasses with no issues at this time. He is able to walk as far as he would like to go without any claudication symptoms. He said at times if he is doing a lot of work he will have some back pain but he knows he has degenerative disc disease and knows that it is from that. I will have him follow up in 1 year with repeat imaging. He can call sooner if there are any issues. Assessment & Plan (12/19/2020 3:49 PM CDT): Impression: Stable nondisabling claudication both lower extremities. Arterial duplex surveillance revealed widely patent bilateral fem-pop bypass with no progressive stenosis either lower extremity. No ischemic ulcerations or ischemic rest pain. Plan: Recommend ongoing risk factor modifications and follow-up in 6 months for re-evaluation and repeat lower extremity arterial duplex surveillance. Assessment & Plan (08/15/2020 2:08 PM SIGNAL CIRCUIT DESIGNER): Impression: Patient recover well status post bilateral fem-pop bypasses. Surgical incisions healed. His rest pain and disabling claudication has resolved. Plan: Patient follow-up in 1 month for re-evaluation and baseline bilateral lower extremity arterial duplex studies. Assessment & Plan (06/21/2020 10:23 AM CDT): Patient did well after his right lower extremity fem-pop bypass. He has no complaints on the right leg at this time. He is only complaining of short distance claudication of the left leg. Plan will be for left lower extremity femoral to popliteal artery bypass. Assessment & Plan (05/17/2020 10:16 AM CDT): Patient has SFA occlusions with reconstitution of the popliteal arteries bilaterally. He has very short distance claudication is not able to complete his activities of daily living. He has stopped smoking. He is going to undergo staged bilateral lower extremity bypasses. He seems to at least have a good enough vein on the right for bypass but will look the day of surgery to make sure. Plan will be for right lower extremity bypass 1st. Assessment & Plan (04/20/2020 9:44 AM CDT): Patient has peripheral arterial disease now with very short distance claudication and the inability to complete his activities of daily living. Given his low ABIs and short distance claudication plan will be for stage angiograms. His right leg is bothering him more than the left so we will start with the right leg angiogram with possible intervention. I discussed with him the risks, benefits and alternatives of the procedure which include but are not limited to: Bleeding, infection, damage to the vein, artery or nerve, need for larger procedure to repair a damage to vessel, possible kidney injury with the contrast given, and any risk with anesthesia. He understands and is willing to proceed. Spinal enthesopathy 04/17/2020 Low back pain 04/17/2020 Assessment & Plan (07/22/2021 8:41 AM CDT): Patient has chronic stable lower back pain. He says mostly it is controlled but if he is doing too much work then it starts bothering him. Assessment & Plan (05/17/2020 10:17 AM CDT): Patient does have low back pain from degenerative disc disease. He does however complain of very short distance claudication from his arterial disease. Assessment & Plan (04/20/2020 9:42 AM CDT): Patient has chronic low back pain and has had multiple surgeries for this however the pain in his legs is very likely due to his peripheral arterial disease. Degeneration of intervertebral disc 04/17/2020 Cervical spondylosis without myelopathy 04/17/20 20 Assessment & Plan (05/17/2020 10:16 AM CDT): Previously underwent cervical spine surgery and is doing well from that. Assessment & Plan (04/20/2020 9:42 AM CDT): Patient has had multiple procedures on his spine. Bleeding hemorrhoids 04/17/2020 Pain in both lower extremities 02/02/2020 Assessment & Plan (04/20/2020 9:41 AM CDT): The pain in his bilateral lower extremities is due to atherosclerosis. Plantar fasciitis 02/02/2020 Assessment & Plan (05/17/2020 10:17 AM CDT): Patient has plantar fasciitis but he says as long as he stretches and walks it does feel better. Hypercholesterolemia 05/19/2018 Assessment & Plan (07/31/2022 4:33 PM SIGNAL CIRCUIT DESIGNER): Lipitor Dyslipidemia 05/02/2018 Assessment & Plan (02/12/2023 4:25 PM CDT): Impression: Chronic stable dyslipidemia. Plan: Continue Lipitor 40 mg. Assessment & Plan (07/22/2021 8:41 AM CDT): Followed by his PCP and maintained on a statin. Assessment & Plan (12/19/2020 3:23 PM CDT): .Impression: Stable chronic hyperlipidemia. Plan: Medications reviewed I recommend continuing daily statin regimen as directed by patient's primary care physician. Assessment & Plan (05/17/2020 10:16 AM CDT): Followed by his PCP and currently maintained on a statin. Assessment & Plan (04/20/2020 9:42 AM CDT): Followed by his PCP and on a statin at this time. Resolved Problems Problem Noted Date Diagnosed Date Resolved Date Peripheral arterial occlusive disease 05/04/2020 12/19/2020 Assessment & Plan (09/13/2020 10:57 AM SIGNAL CIRCUIT DESIGNER): Patient is status post bilateral lower extremity bypasses and doing well from them. Incisions are well healed and his feet are warm and well perfused and he no longer has claudication symptoms. Plan will be for him to follow up in 3 months with repeat ABIs and duplex. Encounters Date Type Department Care Team Description 12/30/2024 7:34 AM CDT Anesthesia Event [facility] Operating Room [address] [place] [id number] Lorie Dillard Jr., MD Eldin, Ali S., MD 12/30/2024 7:30 AM CDT - 12/30/2024 11:00 AM CDT Surgery [facility] Operating Room [address] [place] [id number] Benny Hassan MD RIGHT CAROTID ENDARTERECTOMY 12/30/2024 5:52 AM CDT - 01/01/2025 1:31 PM CDT Hospital Encounter [facility] Cardiac Intensive [facility] [address] [place] [id number] Benny Hassan MD Bradycardia (Primary Dx); Carotid stenosis, bilateral Discharge Disposition: Discharge to home or self care 12/22/2024 Telephone [facility] [address] [place] [id number] ShannanRosina walker Shabbir 12/21/2024 9:45 AM CDT Pre-Admission Testing [facility] Pre Anesthesia Testing [address] [place] [id number] Preop testing (Primary Dx) from Last 3 Months Surgical History Surgery Date Site/Laterality Comments NECK SURGERY 2 rods and 10 screws posterior; 6 screws anterior; BACK SURGERY x3 VASCULAR SURGERY 04/26/2020 Left aif arteriogram, ext. iliac balloon lithotripsy and stent, common iliac artery stent FEMORAL ARTERY - POPLITEAL ARTERY BYPASS GRAFT 08/01/2020 Left LAMINECTOMY THORACIC SPINE W/ PLACEMENT SPINAL CORD STIMULATOR and then removed NASAL SINUS SURGERY x 2 HEMORRHOID SURGERY 09/21/2024 - 09/20/2025 Medical History Medical History Date Comments Dyslipidemia Coronary artery disease Hypertension Myocardial infarction (HCC) GERD (gastroesophageal reflux disease) ED (erectile dysfunction) Chronic low back pain Insomnia Carotid artery stenosis [employer] (hard of hearing) Hyperlipidemia Arthritis Family History Medical History Relation Name Comments Heart disease Father Heart disease Mother Relation Name Status Comments Father Mother Social History Tobacco Use Types Packs/Day Years Used Date Smoking Tobacco: Former Cigarettes 1 45 Q uit: 09/21/2017 Smokeless Tobacco: Never OASIS D0700: Social Isolation Answer Da te Recorded Frequency of experiencing loneliness or isolatio n Never 09/08/2023 OASIS A1250: Transportation Answer Date Recorded Lack of Transportation (Medical) No 09/08/2023 Lack of Transportation (Non-Medical) No 09/08/2023 Patient Unable or Declines to Respond No 09/08/2023 OASIS B1300: Health Literacy Answer Neftali e Recorded Frequency of needing help to read materials from doctor or pharmacy Never 09/08/2023 [facility] Utilities Answer Date Recorded In the past 12 months has th e electric, gas, oil, or water company threatened to shut off services in your home? No 07/28/2023 Social Connection and Isolat ion Panel [NHANES] Answer Date Recorded In a typical week, how many times do you talk on the phone with family, friends, or neighbors? More than three times a week 07/28/2023 How often do you get togethe r with friends or relatives? More than three times a week 07/28/2023 How often do you attend chur ch or synagogue services? Never 07/28/2023 Do you belong to any clubs o r organizations such as alevism groups, unions, fraternal or athletic groups, or school groups? No 07/28/2023 How often do you attend meet ings of the clubs or organizations you belong to? Never 07/28/2023 Are you , , di vorced, , never , or living with a partner? 07/28/2023 Overall Financial Resource Strain (CARDIA) Answe r Date Recorded How hard is it for you to pa y for the very basics like food, housing, medical care, and heating? Not very hard 07/28/2023 PHQ-2 Answer Date Recorded PHQ-2 Total Score 0 07/29/2023 Hunger Vital Sign Answer Date Recorded Within the past 12 months, y ou worried that your food would run out before you got the money to buy more. Never true 07/28/20 23 Within the past 12 months, t he food you bought just didn't last and you didn't have money to get more. Never true 07/28/2023 PRAPARE - Transportation Answer Date Re corded In the past 12 months, has l ack of transportation kept you from medical appointments or from getting medications? No 03/2023 In the past 12 months, has l ack of transportation kept you from meetings, work, or from getting things needed for daily living? No 07/28/2023 Housing Stability Vital Sign Answer Neftali e Recorded In the last 12 months, was t here a time when you were not able to pay the mortgage or rent on time? No 07/28/2023 In the last 12 months, how many places have you lived? 1 07/28/2023 In the last 12 months, was t here a time when you did not have a steady place to sleep or slept in a senior care (including now)? No 07/28/2023 Personal Safety Answer Date Recorded Have you ever been in or are you currently in a harmful physical or emotional relationship or is someone making you feel afraid or unsafe? Denies 12/30/2024 Sex and Gender Information Value Date Recorded Sex Assigned at Not on file Legal Sex Male 8:24 PM SIGNAL CIRCUIT DESIGNER Gender Identity Not on file Sexual Orientation Not on file Obstetrics History Last Filed Vital Signs Vital Sign Reading Time Taken Comments Blood Pressure 118/52 01/01/2025 12:00 PM CDT Pulse 49 01/01/2025 12:00 PM CDT Temperature 37.1 C (98.7 F) 01/01/2025 12:00 PM CDT Respiratory Rate 14 01/01/2025 12:00 PM CDT Oxygen Saturation 92% 01/01/2025 12:00 PM CDT Inhaled Oxygen Concentration - - Weight 76 kg (167 lb 8.8 oz) 01/01/2025 5:00 AM CDT Height 170.2 cm (5' 7.01 ) 12/31/2024 1:45 PM CD T Body Mass Index 26.24 12/31/2024 1:45 PM CDT Plan of Treatment Health Maintenance Due Date Last Done Comments Colon Cancer Screening-Colonoscopy 1950 Hepatitis C Screening 1950 DTaP/Tdap/Td Vaccine (1 - Tdap) 1961 Hepatitis B Screening 1968 Pneumococcal vaccine 65+ (1 of 2 - PCV) 1969 Zoster Vaccine (1 of 2) 2000 Abdominal Aortic Aneurysm (A AA) Screen 2015 Well Visit 65+ 2015 Covid-19 Vaccine ( season) 2024 07/30/2021, 01/22/2021, 12/25/2020 Depression Screening 07/27/2024 07/27/2023, 07/27/20 Lung Cancer Screening 10/12/2025 10/11/2024 Fall Risk Assessment 01/01/2026 01/01/2025 Influenza Vaccine Completed 06/16/2024 Medical Devices Implanted Type Area Film Vault Supervisor Device Identifier Shelf Expiration Date Model / Serial / Lot [employer] Distal Marker Radiology Stainless Steel Sterile Amgm-D - [id number] Implanted:Qty: 1 on 07/28/2023 by Joe French MD at [facility] N/A: Heart [employer] [id number] 12/20/2025 AMGM-D / / [employer] Distal Marker Radiology Stainless Steel Sterile Amgm-D - [id number] Implanted:Qty: 1 on 07/28/2023 by Joe French MD at [facility] N/A: Heart [employer] [id number] 12/20/2025 AMGM-D / / Description:Graft marker Procedures Procedure Name Priority Date/Time Associated Diagnosis Comments CRITICAL CARE Routine 01/01/2025 1:31 PM CDT Bradycardia EGFR Routine 01/01/2025 5:20 AM CDT DIFFERENTIAL AUTO Routine 01/01/2025 5:2 0 AM CDT BASIC METABOLIC PANEL Routine 01/01/2025 5:20 AM CDT CBC WITH AUTO DIFFERENTIAL Routine 01/01/2025 5:20 AM CDT EGFR STAT 12/31/2024 9:46 PM CDT RENAL FUNCTION PANEL STAT 12/31/2024 9:46 PM CDT MAGNESIUM STAT 12/31/2024 9:46 PM CDT CALCIUM,IONIZED, WHOLE BLOOD STAT 12/31/2024 9:46 PM CDT CRITICAL CARE Routine 12/31/2024 9:42 PM CDT Carotid stenosis, bilateral Bradycardia CRITICAL CARE Routine 12/31/2024 9:58 AM CDT Bradycardia ECG 12-LEAD STAT 12/31/2024 7:45 AM CDT EGFR Routine 12/31/2024 5:24 AM CDT BASIC METABOLIC PANEL Routine 12/31/2024 5:24 AM CDT DIFFERENTIAL AUTO Routine 12/31/2024 5:2 2 AM CDT CBC WITH AUTO DIFFERENTIAL Routine 12/31/2024 5:22 AM CDT CRITICAL CARE Routine 12/30/2024 8:17 PM CDT Carotid stenosis, bilateral CRITICAL CARE Routine 12/30/2024 5:39 PM CDT Bradycardia ECG 12-LEAD STAT 12/30/2024 2:02 PM CDT EGFR Routine 12/30/2024 1:58 PM CDT DIFFERENTIAL AUTO Routine 12/30/2024 1:5 8 PM CDT TYPE AND SCREEN STAT 12/30/2024 1:58 PM CDT LACTATE STAT 12/30/2024 1:58 PM CDT APTT STAT 12/30/2024 1:58 PM CDT PROTIME-INR STAT 12/30/2024 1:58 PM CDT BASIC METABOLIC PANEL Routine 12/30/2024 1:58 PM CDT CBC WITH AUTO DIFFERENTIAL Routine 12/30/2024 1:58 PM CDT POCT GLUCOSE DEVICE Routine 12/30/2024 1 :05 PM CDT SURGICAL PATHOLOGY Routine 12/30/2024 11 :56 AM CDT Carotid stenosis, bilateral VASCULAR SURGERY PROCEDURE Routine 12/30/2024 10:58 AM CDT Carotid stenosis, bilateral ANESTHESIA ARTERIAL LINE PLACEMENT Routine 12/30/2024 8:49 AM CDT PERIPHERAL LINE Routine 12/30/2024 8:48 AM CDT XR SPINE CERVICAL 1 VIEW IP Routine 12/30/2024 8:24 AM CDT FL FLUOROSCOPY < 1 HOUR IP Routine 12/30/2024 8:24 AM CDT POTASSIUM, WHOLE BLOOD STAT 12/30/2024 6:07 AM CDT EGFR Routine 12/21/2024 11:48 AM CDT Preop testing DIFFERENTIAL AUTO Routine 12/21/2024 11: 48 AM CDT Preop testing BASIC METABOLIC PANEL Routine 12/21/2024 11:48 AM CDT Preop testing CBC WITH AUTO DIFFERENTIAL Routine 12/21/2024 11:48 AM CDT Preop testing TYPE AND SCREEN Routine 12/21/2024 11:28 AM CDT Preop testing URINALYSIS AND REFLEX TO MICROSCOPIC AND CULTURE Routine 12/21/2024 11:28 AM CDT Preop testing ECG 12-LEAD Routine 12/21/2024 11:12 AM CDT Preop testing [address] LUNG CANCER SCREENING Schedule Routine, Read Routine (OP Routine) 10/11/2024 12:51 PM SIGNAL CIRCUIT DESIGNER Nicotine dependence, cigarettes, uncomplicated from Last 3 Months or Most Recently Relevant to Health Maintenance Results * Critical Care (01/01/2025 1:31 PM CDT) Narrative Satish Alvarado MD - 01/01/2025 1:31 PM CDT Satish Alvarado MD 01/01/2025 4:29 PM Critical Care Performed by: Satish Alvarado MD Authorized by: Satish Alvarado MD CRITICAL CARE: Team: NASRIN Shift: AM Level of Billing: Subsequent Hospital Visit Level 2 My time spent with this patient was 45 minutes: Critical Provider Statement: I have seen and examined the patient on this day of service. I have reviewed and confirmed the history, physical exam, laboratory, and radiographic data as documented in the ICU note. I have reviewed and discussed my treatment plan with the patient's team and other medical/market research consultant staff. This time was in addition to and separate from care provided by other practitioners on this day of service. Satish Alvarado MD IN CLINIC/BEDSIDE ORDER RALPH Final Result * (ABNORMAL) eGFR (01/01/2025 5:20 AM CDT) eGFR 59(L) >=60 mL/min/1. 73 m2 Comment: Interpretive Data Reference Interval Normal >/= 90 mL/min/1.73m2 Mildly decreased* 60 - 89 mL/min/1.73m2 Mildly to moderately decreased 45 - 59 mL/min/1.73m2 Moderately to severely decreased 30 - 44 mL/min/1.73m2 Severely decreased 15 - 29 mL/min/1.73m2 Kidney Failure < 15 mL/min/1.73m2 *Relative to young adult level Estimated glomerular filtration rate is determined by the 2020 CKD-EPI equation recommended by the National Kidney Foundation (A Unifying Approach to GFR Estimation: Recommendations of the NKF-ASK Task Force on Reassessing the Inclusion of Race in Diagnosing Kidney Disease, JASN 2020). The CKD-EPI equation should not be used for patients with unstable renal function and has not been validated in children and those over 70. Current interpretive data was last reviewed 2021. Blood 01/01/2025 5:20 AM CDT 01/01/2025 5:47 AM CDT us Benny Hassan MD LAB BLOOD ORDERABLES Final Res ult [facility] [id number] [address] Department [place] [address] * (ABNORMAL) Differential, auto (01/01/2025 5:20 AM CDT) Neutrophil abs 5.82 1.50 - 6.50 K/cumm Imm gran abs 0.04 0.00 - 0.10 K/cumm [facility] Lymphocyte abs 1.99 0.80 - 3.30 K/cumm [facility] Monocyte abs 1.02(H) 0.20 - 0.80 K/cumm [facility] Eosinophil abs 0.17 0.00 - 0.50 K/cumm [facility] Basophil abs 0.05 0.00 - 0.10 K/cumm [facility] Neutrophil pct 64.0 % [facility] Comment: Interpretive Data Percent cell count reference ranges are not reported, since discordance with absolute values may lead to misinterpretation of CBC data. Current Interpretive Data was last revised on 2017. Imm gran pct 0.4 % [facility] Comment: Interpretive Data Percent cell count reference ranges are not reported, since discordance with absolute values may lead to misinterpretation of CBC data. Current Interpretive Data was last revised on 2017. Lymphocyte pct 21.9 % [facility] Comment: Interpretive Data Percent cell count reference ranges are not reported, since discordance with absolute values may lead to misinterpretation of CBC data. Current Interpretive Data was last revised on 2017. Monocyte pct 11.2 % [facility] Comment: Interpretive Data Percent cell count reference ranges are not reported, since discordance with absolute values may lead to misinterpretation of CBC data. Current Interpretive Data was last revised on 2017. Eosinophil pct 1.9 % [facility] Comment: Interpretive Data Percent cell count reference ranges are not reported, since discordance with absolute values may lead to misinterpretation of CBC data. Current Interpretive Data was last revised on 2017. Basophil pct 0.6 % [facility] Comment: Interpretive Data Percent cell count reference ranges are not reported, since discordance with absolute values may lead to misinterpretation of CBC data. Current Interpretive Data was last revised on 2017. Blood 01/01/2025 5:20 AM CDT 01/01/2025 5:45 AM CDT us Benny Hassan MD LAB BLOOD ORDERABLES [facility] [id number] [address] Department [place] [address] * (ABNORMAL) CBC with auto differential (01/01/2025 5:20 AM CDT) WBC 9.09 3.80 - 9.90 K/cumm Hgb 8.6(L) 13.0 - 17.5 g/dL [facility] Hct 27.1(L) 38.9 - 50.3 % [facility] Plt 195 150 - 400 K/cumm [facility] MPV 10.5 9.1 - 12.3 fL [facility] RBC 2.91(L) 4.30 - 5.80 M/cumm [facility] MCV 93.1 81.3 - 96.4 fL [facility] MCH 29.6 27.1 - 33.3 pg [facility] MCHC 31.7(L) 32.3 - 35.7 g/dL [facility] RDW CV 14.8 11.1 - 14.9 % [facility] RDW SD 50.1(H) 35.7 - 48.1 fL [facility] NRBC abs 0.00 0.00 - 0.01 K/cumm [facility] Blood 01/01/2025 5:20 AM CDT 01/01/2025 5:45 AM CDT us Benny Hassan MD LAB BLOOD ORDERABLES Final Res ult [facility] [id number] [address] Department [place] [address] * Basic metabolic panel (01/01/2025 5:20 AM CDT) Sodium 139 135 - 145 mmol/L Potassium, pl 4.2 3.3 - 4.9 mmol/L [facility] Chloride 109 97 - 110 mmol/L [facility] CO2 23 22 - 32 mmol/L [facility] Anion gap 7 2 - 15 mmol/L [facility] BUN 22 6 - 25 mg/dL [facility] Creatinine 1.28 0.80 - 1.30 mg/dL [facility] Glucose 80 70 - 199 mg/dL [facility] Comment: Interpretive Data Fasting glucose >/= 126 mg/dl is diagnostic for diabetes. Fasting is defined as no caloric intake for at least 8 hours. Fasting glucose between 100 mg/dl to 125 mg/dl is diagnostic of prediabetes. In a patient with classic symptoms of hyperglycemia or hyperglycemic crisis, a random glucose >/= 200 mg/dl is diagnostic for diabetes. In the absence of unequivocal hyperglycemia, results should be confirmed by repeat testing. The classification and Diagnosis of Diabetes Diabetes Care 2021; 46: S19-S40. Current interpretive data was last revised 2022. Calcium 8.5 8.5 - 10.3 mg/dL [facility] Blood 01/01/2025 5:20 AM CDT 01/01/2025 5:47 AM CDT Benny Hassan MD LAB BLOOD ORDERABLES Final Res ult Performing Organization Address City/[facility]/ZIP Co de Phone Number DAO ROSENBERG [address] Department [place] [address] * (ABNORMAL) Calcium, ionized, whole blood (12/31/2024 9:46 PM CDT) Ca, ionized, bld 4.46(L) 4.50 - 5.10 mg/dL Blood 12/31/2024 9:46 PM CDT 12/31/2024 9:49 PM CDT Stephany Isabel MD LAB BLOOD ORDERABLES Brinda l Result Performing Organization Address City/[facility]/ZIP Co de Phone Number DAO ROSENBERG [address] [address] * (ABNORMAL) eGFR (12/31/2024 9:46 PM CDT) eGFR 59(L) >=60 mL/min/1. 73 m2 Comment: Interpretive Data Reference Interval Normal >/= 90 mL/min/1.73m2 Mildly decreased* 60 - 89 mL/min/1.73m2 Mildly to moderately decreased 45 - 59 mL/min/1.73m2 Moderately to severely decreased 30 - 44 mL/min/1.73m2 Severely decreased 15 - 29 mL/min/1.73m2 Kidney Failure < 15 mL/min/1.73m2 *Relative to young adult level Estimated glomerular filtration rate is determined by the 2020 CKD-EPI equation recommended by the National Kidney Foundation (A Unifying Approach to GFR Estimation: Recommendations of the NKF-ASK Task Force on Reassessing the Inclusion of Race in Diagnosing Kidney Disease, JASN 2020). The CKD-EPI equation should not be used for patients with unstable renal function and has not been validated in children and those over 70. Current interpretive data was last reviewed 2021. Blood 12/31/2024 9:46 PM CDT 12/31/2024 9:50 PM CDT Stephany Isabel MD LAB BLOOD ORDERABLES Brinda l Result DAO ROSENBERG [address] Department of [employer] [place], [place] [phone] * Magnesium (12/31/2024 9:46 PM CDT) Magnesium 2.2 1.4 - 2.5 mg/dL Blood 12/31/2024 9:46 PM CDT 12/31/2024 9:50 PM CDT Stephany Isabel MD LAB BLOOD ORDERABLES Brinda l Result Performing Organization Address City/[facility]/ZIP Co de Phone Number DAO ROSENBERG [address] [place] [address] * (ABNORMAL) Renal function panel (12/31/2024 9:46 PM CDT) Sodium 140 135 - 145 mmol/L Potassium, pl 4.8 3.3 - 4.9 mmol/L [facility] Comment:Hemolysis present. R esults may be affected. Chloride 108 97 - 110 mmol/L [facility] CO2 23 22 - 32 mmol/L [facility] Anion gap 9 2 - 15 mmol/L [facility] BUN 24 6 - 25 mg/dL [facility] Creatinine 1.27 0.80 - 1.30 mg/dL [facility] Glucose 92 70 - 199 mg/dL [facility] Comment: Interpretive Data Fasting glucose >/= 126 mg/dl is diagnostic for diabetes. Fasting is defined as no caloric intake for at least 8 hours. Fasting glucose between 100 mg/dl to 125 mg/dl is diagnostic of prediabetes. In a patient with classic symptoms of hyperglycemia or hyperglycemic crisis, a random glucose >/= 200 mg/dl is diagnostic for diabetes. In the absence of unequivocal hyperglycemia, results should be confirmed by repeat testing. The classification and Diagnosis of Diabetes Diabetes Care 2021; 46: S19-S40. Current interpretive data was last revised 2022. Calcium 8.4(L) 8.5 - 10.3 mg/dL [facility] Phosphorus, pl 3.2 2.3 - 4.5 mg/dL [facility] Albumin 3.4(L) 3.5 - 5.0 g/dL [facility] Blood 12/31/2024 9:46 PM CDT 12/31/2024 9:50 PM CDT Stephany Isabel MD LAB BLOOD ORDERABLES Brinda l Result Performing Organization Address City/[facility]/ZIP Co de Phone Number DAO ROSENBERG [address] [facility] [place], [place] [phone] * Critical Care (12/31/2024 9:42 PM CDT) Narrative Stephany Isabel MD - 12/31/2024 9:42 PM CDT Stephany Isabel MD 01/01/2025 6:06 AM Critical Care Performed by: Stephany Isabel MD Authorized by: Stephany Isabel MD CRITICAL CARE: Team: CHNE Shift: PM Level of Billing: Subsequent Hospital Visit Level 3 My time spent with this patient was 25 minutes: Critical Provider Statement: I have seen and examined the patient on this day of service. I have reviewed and confirmed the history, physical exam, laboratory, and radiographic data as documented in the ICU note. I have reviewed and discussed my treatment plan with the patient's team and other medical/market research consultant staff. This time was in addition to and separate from care provided by other practitioners on this day of service. Tachy/kandi arrhythmic event Acute electrolyte derangement This time was spent by me doing the following: Active repletion of electrolytes I spent time reviewing and interpreting data from bedside monitors, laboratory results, and imaging, I spent time discussing the management of this critically ill patient with consultants and the medical staff and I spent time documenting in the medical record Stephany Isabel MD IN CLINIC/BEDSIDE ORDERAB LES Final Result * Critical Care (12/31/2024 9:58 AM CDT) Narrative Satish Alvarado MD - 12/31/2024 9:58 AM CDT Satish Alvarado MD 01/01/2025 10:00 AM Critical Care Performed by: Satish lAvarado MD Authorized by: Satish Alvarado MD CRITICAL CARE: Team: MAYRA Shift: AM Level of Billing: Critical Care My time spent with this patient was 35 minutes: Critical Provider Statement: I have seen and examined the patient on this day of service. I have reviewed and confirmed the history, physical exam, laboratory and radiologic data as documented in the signed ICU note. I have reviewed and discussed my treatment plan with the ICU team and other medical/market research consultant staff, making frequent assessments and decisions regarding this patient's complex medical care. Critical Care time was exclusive of time spent performing separately billed procedures, treating other patients, and teaching. This time was in addition to and separate from critical care provided by other practitioners in my group on this day of service. Critical Care was necessary to treat or prevent imminent or life-threatening deterioration of the following conditions: Acute pain/acute postoperative pain Tachy/kandi arrhythmic event and Undifferentiated shock This time was spent by me doing the following: Serial bedside patient exams Acute pain control Initiation/active titration of vasoactive medications I spent time reviewing and interpreting data from bedside monitors, laboratory results, and imaging, I spent time discussing the management of this critically ill patient with consultants and the medical staff and I spent time documenting in the medical record Satish Alvarado MD IN CLINIC/BEDSIDE ORDER RALPH Final Result * ECG 12 lead (12/31/2024 7:45 AM CDT) 12/31/2024 7:45 AM CDT Narrative [facility] - 12/31/2024 9:27 AM CDT Vent Rate: 40 bpm RR Interval: 1481 msec ND Interval: 149 msec QRS Duration: 102 msec QT Interval: 507 msec QTC Interval: 439 msec P-R-T [place]: 137 - 144 - 131 degrees IMPRESSION: ECTOPIC ATRIAL BRADYCARDIA INCOMPLETE RIGHT BUNDLE BRANCH BLOCK [90+ ms QRS DURATION, TERMINAL R IN V1/V2, 40+ ms S IN I/aVL/V4/V5/V6] POSSIBLE RIGHT VENTRICULAR HYPERTROPHY [SOME/ALL OF: PROMINENT R IN V1, LATE TRANSITION, RAD, SIDRA, SSS] MINIMAL ST DEPRESSION [0.025+ mV ST DEPRESSION] CRITICAL TEST RESULT INTERPRETATION BASED ON A DEFAULT AGE OF 40 YEARS Electronically Signed By: Dr. Janene Moore [facility] Satish Alvarado MD ECG ORDERABLES Edited Result - Final [facility] * (ABNORMAL) eGFR (12/31/2024 5:24 AM CDT) eGFR 49(L) >=60 mL/min/1. 73 m2 Comment: Interpretive Data Reference Interval Normal >/= 90 mL/min/1.73m2 Mildly decreased* 60 - 89 mL/min/1.73m2 Mildly to moderately decreased 45 - 59 mL/min/1.73m2 Moderately to severely decreased 30 - 44 mL/min/1.73m2 Severely decreased 15 - 29 mL/min/1.73m2 Kidney Failure < 15 mL/min/1.73m2 *Relative to young adult level Estimated glomerular filtration rate is determined by the 2020 CKD-EPI equation recommended by the National Kidney Foundation (A Unifying Approach to GFR Estimation: Recommendations of the NKF-ASK Task Force on Reassessing the Inclusion of Race in Diagnosing Kidney Disease, JASN 2020). The CKD-EPI equation should not be used for patients with unstable renal function and has not been validated in children and those over 70. Current interpretive data was last reviewed 2021. Blood 12/31/2024 5:24 AM CDT 12/31/2024 5:24 AM CDT us Benny Hassan MD LAB BLOOD ORDERABLES Final Res ult [facility] [address] Department [place] [address] * (ABNORMAL) Basic metabolic panel (12/31/2024 5:24 AM CDT) Sodium 139 135 - 145 mmol/L Potassium, pl 4.3 3.3 - 4.9 mmol/L [facility] Chloride 108 97 - 110 mmol/L [facility] CO2 21(L) 22 - 32 mmol/L [facility] Anion gap 10 2 - 15 mmol/L [facility] BUN 25 6 - 25 mg/dL [facility] Creatinine 1.49(H) 0.80 - 1.30 mg/dL [facility] Glucose 121 70 - 199 mg/dL [facility] Comment: Interpretive Data Fasting glucose >/= 126 mg/dl is diagnostic for diabetes. Fasting is defined as no caloric intake for at least 8 hours. Fasting glucose between 100 mg/dl to 125 mg/dl is diagnostic of prediabetes. In a patient with classic symptoms of hyperglycemia or hyperglycemic crisis, a random glucose >/= 200 mg/dl is diagnostic for diabetes. In the absence of unequivocal hyperglycemia, results should be confirmed by repeat testing. The classification and Diagnosis of Diabetes Diabetes Care 202; 46: S19-S40. Current interpretive data was last revised 2022. Calcium 8.2(L) 8.5 - 10.3 mg/dL [facility] Blood 12/31/2024 5:24 AM CDT 12/31/2024 5:24 AM CDT us Benny Hassan MD LAB BLOOD ORDERABLES Final Res ult [facility] [address] Department [place] [address] * (ABNORMAL) Differential, auto (12/31/2024 5:22 AM CDT) Neutrophil abs 9.47(H) 1.50 - 6.50 K/cumm Imm gran abs 0.06 0.00 - 0.10 K/cumm [facility] Lymphocyte abs 2.45 0.80 - 3.30 K/cumm [facility] Monocyte abs 1.66(H) 0.20 - 0.80 K/cumm [facility] Eosinophil abs 0.03 0.00 - 0.50 K/cumm [facility] Basophil abs 0.04 0.00 - 0.10 K/cumm [facility] Neutrophil pct 69.1 % [facility] Comment: Interpretive Data Percent cell count reference ranges are not reported, since discordance with absolute values may lead to misinterpretation of CBC data. Current Interpretive Data was last revised on 2017. Imm gran pct 0.4 % [facility] Comment: Interpretive Data Percent cell count reference ranges are not reported, since discordance with absolute values may lead to misinterpretation of CBC data. Current Interpretive Data was last revised on 2017. Lymphocyte pct 17.9 % [facility] Comment: Interpretive Data Percent cell count reference ranges are not reported, since discordance with absolute values may lead to misinterpretation of CBC data. Current Interpretive Data was last revised on 2017. Monocyte pct 12.1 % [facility] Comment: Interpretive Data Percent cell count reference ranges are not reported, since discordance with absolute values may lead to misinterpretation of CBC data. Current Interpretive Data was last revised on 2017. Eosinophil pct 0.2 % [facility] Comment: Interpretive Data Percent cell count reference ranges are not reported, since discordance with absolute values may lead to misinterpretation of CBC data. Current Interpretive Data was last revised on 2017. Basophil pct 0.3 % [facility] Comment: Interpretive Data Percent cell count reference ranges are not reported, since discordance with absolute values may lead to misinterpretation of CBC data. Current Interpretive Data was last revised on 2017. Blood 12/31/2024 5:22 AM CDT 12/31/2024 5:22 AM CDT Benny Hassan MD LAB BLOOD ORDERABLES Final Res ult [facility] [address] Department [place] [address] * (ABNORMAL) CBC with auto differential (12/31/2024 5:22 AM CDT) WBC 13.71(H) 3.80 - 9.90 K/cumm Hgb 8.8(L) 13.0 - 17.5 g/dL [facility] Hct 26.9(L) 38.9 - 50.3 % [facility] Plt 206 150 - 400 K/cumm [facility] MPV 10.3 9.1 - 12.3 fL [facility] RBC 2.90(L) 4.30 - 5.80 M/cumm [facility] MCV 92.8 81.3 - 96.4 fL [facility] MCH 30.3 27.1 - 33.3 pg [facility] MCHC 32.7 32.3 - 35.7 g/dL [facility] RDW CV 14.7 11.1 - 14.9 % [facility] RDW SD 50.0(H) 35.7 - 48.1 fL [facility] NRBC abs 0.00 0.00 - 0.01 K/cumm [facility] Blood 12/31/2024 5:22 AM CDT 12/31/2024 5:22 AM CDT Benny Hassan MD LAB [place]LO[place] [address] [facility] Department [place] [address] * Critical Care (12/30/2024 8:17 PM CDT) Narrative Satish Alvarado MD - 12/30/2024 8:17 PM CDT Satish Alvarado MD 12/30/2024 11:07 PM Critical Care Performed by: Satish Alvarado MD Authorized by: Satish Alvarado MD CRITICAL CARE: Team: NASRIN Shift: PM Level of Billing: Critical Care My time spent with this patient was 45 minutes: Critical Provider Statement: I have seen and examined the patient on this day of service. I have reviewed and confirmed the history, physical exam, laboratory and radiologic data as documented in the signed ICU note. I have reviewed and discussed my treatment plan with the ICU team and other medical/market research consultant staff, making frequent assessments and decisions regarding this patient's complex medical care. Critical Care time was exclusive of time spent performing separately billed procedures, treating other patients, and teaching. This time was in addition to and separate from critical care provided by other practitioners in my group on this day of service. Critical Care was necessary to treat or prevent imminent or life-threatening deterioration of the following conditions: Acute pain/acute postoperative pain Vasoplegic shock and Tachy/kandi arrhythmic event This time was spent by me doing the following: Serial bedside patient exams and Resuscitation with fluids Initiation/active titration of vasoactive medications I spent time reviewing and interpreting data from bedside monitors, laboratory results, and imaging, I spent time discussing the management of this critically ill patient with consultants and the medical staff and I spent time documenting in the medical record Satish Alvarado MD IN CLINIC/BEDSIDE ORDER RALPH Edited Result - Final * Critical Care (12/30/2024 5:39 PM CDT) Narrative Titus Grant MD - 12/30/2024 5:39 PM CDT Titus Grant MD 01/01/2025 6:14 PM Critical Care Performed by: Titus Grant MD Authorized by: Titus Grant MD CRITICAL CARE: Team: NASRIN Shift: AM Level of Billing: Critical Care My time spent with this patient was 60 minutes: Critical Provider Statement: I have seen and examined the patient on this day of service. I have reviewed and confirmed the history, physical exam, laboratory and radiologic data as documented in the signed ICU note. I have reviewed and discussed my treatment plan with the ICU team and other medical/market research consultant staff, making frequent assessments and decisions regarding this patient's complex medical care. Critical Care time was exclusive of time spent performing separately billed procedures, treating other patients, and teaching. This time was in addition to and separate from critical care provided by other practitioners in my group on this day of service. Critical Care was necessary to treat or prevent imminent or life-threatening deterioration of the following conditions: Acute pain/acute postoperative pain Vasoplegic shock and Tachy/kandi arrhythmic event Acute electrolyte derangement This time was spent by me doing the following: Resuscitation with fluids, Serial bedside patient exams and Serial laboratory checks Frequent neurologic exams Initiation/active titration of vasoactive medications Active and frequent reassessment of respiratory status and oxygen requirements Active repletion of electrolytes I spent time reviewing and interpreting data from bedside monitors, laboratory results, and imaging and I spent time discussing the management of this critically ill patient with consultants and the medical staff Titus Grant MD IN CLINIC/BEDSIDE ORDERABLES Final Result * ECG 12 lead (12/30/2024 2:02 PM CDT) 12/30/2024 2:02 PM CDT Narrative [facility] - 12/30/2024 3:57 PM CDT Vent Rate: 46 bpm RR Interval: 1302 msec ND Interval: 156 msec QRS Duration: 93 msec QT Interval: 493 msec QTC Interval: 450 msec P-R-T [place]: 51 - 31 - 60 degrees IMPRESSION: SINUS BRADYCARDIA BORDERLINE ECG Electronically Signed By: Dr. Godfrey Darby us Benny Hassan MD ECG ORDERABLES Final Result [facility] * Lactate (12/30/2024 1:58 PM CDT) Lactate 1.1 0.7 - 2.0 mmol/L Blood 12/30/2024 1:58 PM CDT 12/30/2024 2:21 PM CDT us Benny Hassan MD LAB BLOOD ORDERABLES Final Res ult Performing Organization Address [facility] Co de Phone Number DAO ROSENBERG [address] [place] [address] * (ABNORMAL) eGFR (12/30/2024 1:58 PM CDT) eGFR 56(L) >=60 mL/min/1. 73 m2 Comment: Interpretive Data Reference Interval Normal >/= 90 mL/min/1.73m2 Mildly decreased* 60 - 89 mL/min/1.73m2 Mildly to moderately decreased 45 - 59 mL/min/1.73m2 Moderately to severely decreased 30 - 44 mL/min/1.73m2 Severely decreased 15 - 29 mL/min/1.73m2 Kidney Failure < 15 mL/min/1.73m2 *Relative to young adult level Estimated glomerular filtration rate is determined by the 2020 CKD-EPI equation recommended by the National Kidney Foundation (A Unifying Approach to GFR Estimation: Recommendations of the NKF-ASK Task Force on Reassessing the Inclusion of Race in Diagnosing Kidney Disease, JASN 2020). The CKD-EPI equation should not be used for patients with unstable renal function and has not been validated in children and those over 70. Current interpretive data was last reviewed 2021. Blood 12/30/2024 1:58 PM CDT 12/30/2024 2:33 PM CDT us Benny Hassan MD LAB BLOOD ORDERABLES Final Res ult Performing Organization Address City/[facility]/ZIP Co de Phone Number DAO ROSENBERG [address] Department of [employer] [place], [place] [phone] * (ABNORMAL) Differential, auto (12/30/2024 1:58 PM CDT) Neutrophil abs 10.94(H) 1.50 - 6.50 K/cumm Imm gran abs 0.05 0.00 - 0.10 K/cumm [facility] Lymphocyte abs 1.07 0.80 - 3.30 K/cumm [facility] Monocyte abs 0.37 0.20 - 0.80 K/cumm [facility] Eosinophil abs 0.01 0.00 - 0.50 K/cumm [facility] Basophil abs 0.02 0.00 - 0.10 K/cumm [facility] Neutrophil pct 87.7 % [facility] Comment: Interpretive Data Percent cell count reference ranges are not reported, since discordance with absolute values may lead to misinterpretation of CBC data. Current Interpretive Data was last revised on 2017. Imm gran pct 0.4 % [facility] Comment: Interpretive Data Percent cell count reference ranges are not reported, since discordance with absolute values may lead to misinterpretation of CBC data. Current Interpretive Data was last revised on 2017. Lymphocyte pct 8.6 % [facility] Comment: Interpretive Data Percent cell count reference ranges are not reported, since discordance with absolute values may lead to misinterpretation of CBC data. Current Interpretive Data was last revised on 2017. Monocyte pct 3.0 % [facility] Comment: Interpretive Data Percent cell count reference ranges are not reported, since discordance with absolute values may lead to misinterpretation of CBC data. Current Interpretive Data was last revised on 2017. Eosinophil pct 0.1 % [facility] Comment: Interpretive Data Percent cell count reference ranges are not reported, since discordance with absolute values may lead to misinterpretation of CBC data. Current Interpretive Data was last revised on 2017. Basophil pct 0.2 % [facility] Comment: Interpretive Data Percent cell count reference ranges are not reported, since discordance with absolute values may lead to misinterpretation of CBC data. Current Interpretive Data was last revised on 2017. Blood 12/30/2024 1:58 PM CDT 12/30/2024 2:22 PM CDT us Benny Hassan MD LAB BLOOD ORDERABLES Final Res ult DAO ROSENBERG [address] Department [place] [address] * (ABNORMAL) CBC with auto differential (12/30/2024 1:58 PM CDT) Pathologist [facility] WBC 12.46(H) 3.80 - 9.90 K/cumm Hgb 9.3(L) 13.0 - 17.5 g/dL [facility] Hct 27.8(L) 38.9 - 50.3 % [facility] Plt 206 150 - 400 K/cumm [facility] MPV 9.8 9.1 - 12.3 fL [facility] RBC 3.03(L) 4.30 - 5.80 M/cumm [facility] MCV 91.7 81.3 - 96.4 fL [facility] MCH 30.7 27.1 - 33.3 pg [facility] MCHC 33.5 32.3 - 35.7 g/dL [facility] RDW CV 14.5 11.1 - 14.9 % [facility] RDW SD 48.8(H) 35.7 - 48.1 fL [facility] NRBC abs 0.00 0.00 - 0.01 K/cumm [facility] Blood 12/30/2024 1:58 PM CDT 12/30/2024 2:22 PM CDT us Benny Hassan MD LAB BLOOD ORDERABLES Final Res ult [facility] [address] Department [place] [address] * aPTT (12/30/2024 1:58 PM CDT) Pathologist [facility] aPTT 32 28 - 38 sec Comment: Interpretive Data Heparin therapeutic range: 66.0 - 100.0 seconds. Range based on correlation with therapeutic heparin activity range of 0.3 - 0.7 Units/mL. Current interpretive data was last revised on 2023. Blood 12/30/2024 1:58 PM CDT 12/30/2024 2:21 PM CDT us Benny Hassan MD LAB BLOOD ORDERABLES Final Res ult Performing Organization Address [facility] Co de Phone Number DAO ROSENBERG [address] [facility] [place] [address] * Protime-INR (12/30/2024 1:58 PM CDT) PT 11.8 9.7 - 13.0 sec INR 1.09 0.90 - 1.20 [facility] Comment: Interpretive data Oral anticoagulant therapeutic ranges: Venous thromboembolism prophylaxis or treatment: 2.0-3.0 CARDIOLOGY Standard range: 2.0-3.0 High-intensity range: 2.5-3.5 Refer to indication-specific guidelines for appropriate target ranges for prosthetic heart valve replacement. Current interpretive data was last revised on 2019. Blood 12/30/2024 1:58 PM CDT 12/30/2024 2:21 PM CDT Benny Hassan MD LAB BLOOD ORDERABLES Final Res ult Performing Organization Address [facility] [facility] Co de Phone Number DAO [address] [place] [address] * Type and screen (12/30/2024 1:58 PM CDT) David, indirect Negative ABO Rh O Positive [facility] Blood 12/30/2024 1:58 PM CDT 12/30/2024 2:29 PM CDT Narrative DAO - 12/30/2024 3:12 PM CDT Has the patient had Daratumumab or Isatuximab in the past 6 months?->Unknown Benny Hassan MD LAB BLOOD BANK TEST ORDERABLES Final Result Performing Organization Address City/[facility] Co de Phone Number DAO [address] [facility] [place], [place] [id number] * (ABNORMAL) Basic metabolic panel (12/30/2024 1:58 PM CDT) Sodium 142 135 - 145 mmol/L Potassium, pl 4.7 3.3 - 4.9 mmol/L [facility] Chloride 109 97 - 110 mmol/L [facility] CH CO2 21(L) 22 - 32 mmol/L [facility] CH Anion gap 12 2 - 15 mmol/L [facility] CH BUN 20 6 - 25 mg/dL [facility] Creatinine 1.34(H) 0.80 - 1.30 mg/dL [facility] CH Glucose 104 70 - 199 mg/dL [facility] CH Comment: Interpretive Data Fasting glucose >/= 126 mg/dl is diagnostic for diabetes. Fasting is defined as no caloric intake for at least 8 hours. Fasting glucose between 100 mg/dl to 125 mg/dl is diagnostic of prediabetes. In a patient with classic symptoms of hyperglycemia or hyperglycemic crisis, a random glucose >/= 200 mg/dl is diagnostic for diabetes. In the absence of unequivocal hyperglycemia, results should be confirmed by repeat testing. The classification and Diagnosis of Diabetes Diabetes Care 2021; 46: S19-S40. Current interpretive data was last revised 2022. Calcium 8.2(L) 8.5 - 10.3 mg/dL [facility] Blood 12/30/2024 1:58 PM CDT 12/30/2024 2:21 PM CDT us Benny Hassan MD LAB BLOOD ORDERABLES Final Res ult Performing Organization Address [facility]/ZIP Co de Phone Number DAO SHAKIRA [address] [place] [address] * POCT glucose (12/30/2024 1:05 PM CDT) Glucose, POC 108 70 - 199 mg/dL POC Performer [phone] [facility] Blood 12/30/2024 1:05 PM CDT 12/30/2024 1:05 PM CDT Benny Hassan MD LAB POCT ORDERABLES - DEVICE F inal Result Performing Organization Address [facility]/ZIP Co de Phone Number DAO ROSENBERG [address] [place] [place] [address] * Surgical pathology (12/30/2024 11:56 AM CDT) Tissue (Artery, plaque Atherosclerotic) 12/30/2024 9:51 AM CDT Narrative PATHOLOGY CH - 01/03/2025 4:09 PM CDT EPIC results best viewed via link to PDF [facility] Department of Pathology [address] [place] [id number] Note to Patients: This report may contain a detailed description of human tissue sent by a health care provider to the laboratory for pathologic evaluation. The content of this report is essential for diagnosis and may provide important critical findings. This information may be unfamiliar to patients to review without a medical professional present. It is advised that the patient review this report in the presence of a health care provider who can answer questions and explain the details. Final Report Patient Name: DEMETRA HOLCOMB Address: [address] [place] [address] Gender: M : 1950 (Age: 74) Service: Surgery [id number] Patient Type: [facility] Taken: 12/30/2024 Received: 12/30/2024 Accessioned: 12/30/2024 Reported: 01/03/2025 Physician(s):Brigette Carrera MD Diagnosis: Artery, right carotid, endarterectomy: - Atherosclerosis with high-grade luminal occlusion, clinically carotid stenosis. Greg Casanova M.D. Report Electronically Reviewed and Signed Out By Greg Casanova M.D. 01/03/2025 16:09:15 Specimen(s) Received: A: Right carotid plaque Microscopic Description: Microscopic examination of the decalcified right carotid shows marked atherosclerotic change with high-grade luminal occlusion. Clinical History: Carotid stenosis, bilateral Procedure: right carotid endarterectomy Gross Description: The specimen is submitted in a single formalin filled container labeled DEMETRA HOLCOMB and right carotid plaque . It is a tubular segment, 2.3 cm in length. Sectioning shows a atherosclerotic material in the lumen. [facility] sections are submitted in 1 cassette following decalcification. Heidi Herring/Greg Casanova M.D. REPORT IMAGES AND SCANNED DOCUMENTS, IF INCLUDED, ONLY VIEWABLE IN PDF VERSION OF REPORT The performance characteristics of some immunohistochemical stains, fluorescence in-situ hybridization tests and immunophenotyping by flow cytometry cited in this report (if any) were determined by the Surgical Pathology Department at [facility] as part of an ongoing quality assurance monitor final program and in compliance with federally mandated regulations drawn from the Clinical Laboratory Improvement Act of 1988 (CLIA '88). Some of these tests rely on the use of analyte specific reagents and are subject to specific labeling requirements by the US Food and Drug Administration. Such diagnostic tests may only be performed in a facility that is certified by the Department of Health and Human Services as a high complexity laboratory under CLIA '88. The FDA has determined that such clearance or approval is not necessary. This test is used for clinical purposes. It should not be regarded as investigational or for research. Nevertheless, federal rules concerning the medical use of analyte specific reagents require that the following disclaimer be attached to the report: This test was developed and its performance characteristics determined by the Surgical Pathology Department [facility]. It has not been cleared or approved by the U. S. Food and Drug Administration. Note for decalcified specimens: This assay has not been validated on decalcified tissues. Results should be interpreted with caution given the possibility of false negativity on decalcified specimens Benny Hassan MD LAB PATHOLOGY ORDERABLES Final Result PATHOLOGY [address] [place] [address] * ENDARTERECTOMY - CAROTID (12/30/2024 10:58 AM CDT) Anatomical Region Laterality Modality X-Ray Angiograph y Narrative 12/30/2024 1:13 PM CDT Please see OpNote for result. Benny Hassan MD CV CARDIAC CATH PROCEDURES Fin al Result * Arterial Line (12/30/2024 8:49 AM CDT) Narrative Courtney Clark CRNA - 12/30/2024 8:49 AM CDT Courtney Clark CRNA 12/30/2024 8:49 AM Arterial Line Patient location: OR Indication: continuous blood pressure monitoring Ultrasound assisted: yes Staff: Placed by: JEMAL: Courtney Clark CRNA Procedure prep: Prep solution: chlorhexadine/alcohol Prep: provider hat/mask Arterial line: Catheter size: 20 gauge Arterial line catheter length: 1 1\2 Catheter type: wire-guided catheter Seldinger technique: yes Laterality: right Site: radial artery Line secured: tape and Tegaderm Results: good waveform and good blood return Number of attempts: 1 Assessment: Events: patient tolerated procedure well with no complications Lorie Dillard Jr., MD ANESTHESIA ORDER RALPH Final Result * Peripheral IV Catheter (12/30/2024 8:48 AM CDT) Narrative Courtney Clark CRNA - 12/30/2024 8:48 AM CDT Courtney Clark CRNA 12/30/2024 8:49 AM Peripheral IV Catheter Patient location: OR Staff: Placed by: JEMAL: Courtney Clark CRNA Preprocedure prep: Prep solution: alcohol PPE: gloves and provider hat/mask PIV line: Laterality: left Site: hand Catheter size: 18 g Technique: anatomical landmarks, direct visualization and palpatation Procedure details: good blood return and occlusive dressing applied Number of attempts: 1 Assessment: Events: patient tolerated procedure well with no complications Lorie Dillard Jr., MD ANESTHESIA ORDER RALPH Final Result * XR Spine Cervical 1 View (12/30/2024 8:24 AM CDT) Anatomical Region Laterality Modality Spine N/A Computed Radiogr aphy 12/31/2024 11:1 5 AM CDT Impressions 12/31/2024 11:15 AM CDT Intraoperative radiograph during right carotid endarterectomy. Anterior and posterior spinal fusion. Electronically signed by: Celestine Avila M.D. Narrative 12/31/2024 11:15 AM CDT EXAMINATION: XR SPINE CERVICAL 1 VIEW HISTORY: Right Carotid Endarterectomy Procedure Note Celestine Avila MD - 12/31/2024 EXAMINATION: XR SPINE CERVICAL 1 VIEW HISTORY: Right Carotid Endarterectomy IMPRESSION: Intraoperative radiograph during right carotid endarterectomy. Anterior and posterior spinal fusion. Electronically signed by: Celestine Avila M.D. Benny Hassan MD IMG XR PROCEDURES Final Result * FL Fluoroscopy < 1 Hour (12/30/2024 8:24 AM CDT) Narrative RAD_PACS_CH - 12/30/2024 8:25 AM CDT The images from this study are not interpreted by Radiology. Please refer to the physician's procedure / OR operative note. Benny Hassan MD IMG FLUOROSCOPY PROCEDURES Fin al Result Performing Organization Address [facility] Co de Phone Number RAD_PACS_CH * Potassium, whole blood (12/30/2024 6:07 AM CDT) Potassium, bld 4.1 3.3 - 4.9 mmol/L Comment: Interpretive Data This method is not able to assess for hemolysis, which may falsely increase potassium concentrations. If further testing is needed to evaluate this result, consider in-laboratory plasma potassium. Current Interpretive Data was last revised on 2022. Blood 12/30/2024 6:07 AM CDT 12/30/2024 6:35 AM CDT Yosef Mora YARN EXAMINER LAB BLOOD ORDERABLES Final Result Performing Organization Address City/[facility]/ZIP Co de Phone Number DAO [address] [place] [address] * (ABNORMAL) eGFR (12/21/2024 11:48 AM CDT) eGFR 57(L) >=60 mL/min/1. 73 m2 Comment: Interpretive Data Reference Interval Normal >/= 90 mL/min/1.73m2 Mildly decreased* 60 - 89 mL/min/1.73m2 Mildly to moderately decreased 45 - 59 mL/min/1.73m2 Moderately to severely decreased 30 - 44 mL/min/1.73m2 Severely decreased 15 - 29 mL/min/1.73m2 Kidney Failure < 15 mL/min/1.73m2 *Relative to young adult level Estimated glomerular filtration rate is determined by the 2020 CKD-EPI equation recommended by the National Kidney Foundation (A Unifying Approach to GFR Estimation: Recommendations of the NKF-ASK Task Force on Reassessing the Inclusion of Race in Diagnosing Kidney Disease, JASN 2020). The CKD-EPI equation should not be used for patients with unstable renal function and has not been validated in children and those over 70. Current interpretive data was last reviewed 2021. Blood 12/21/2024 11:4 8 AM CDT 12/21/2024 11:48 AM CDT us Brittani Hurst YARN EXAMINER LAB BLOOD ORDERABLES Final Res ult [facility] [address] Department [place] [address] * Differential, auto (12/21/2024 11:48 AM CDT) Neutrophil abs 5.47 1.50 - 6.50 K/cumm Imm gran abs 0.02 0.00 - 0.10 K/cumm [facility] Lymphocyte abs 2.41 0.80 - 3.30 K/cumm [facility] Monocyte abs 0.75 0.20 - 0.80 K/cumm [facility] Eosinophil abs 0.17 0.00 - 0.50 K/cumm [facility] Basophil abs 0.08 0.00 - 0.10 K/cumm [facility] Neutrophil pct 61.5 % DAO Comment: Interpretive Data Percent cell count reference ranges are not reported, since discordance with absolute values may lead to misinterpretation of CBC data. Current Interpretive Data was last revised on 2017. Imm gran pct 0.2 % DAO Comment: Interpretive Data Percent cell count reference ranges are not reported, since discordance with absolute values may lead to misinterpretation of CBC data. Current Interpretive Data was last revised on 2017. Lymphocyte pct 27.1 % [facility] Comment: Interpretive Data Percent cell count reference ranges are not reported, since discordance with absolute values may lead to misinterpretation of CBC data. Current Interpretive Data was last revised on 2017. Monocyte pct 8.4 % [facility] Comment: Interpretive Data Percent cell count reference ranges are not reported, since discordance with absolute values may lead to misinterpretation of CBC data. Current Interpretive Data was last revised on 2017. Eosinophil pct 1.9 % [facility] Comment: Interpretive Data Percent cell count reference ranges are not reported, since discordance with absolute values may lead to misinterpretation of CBC data. Current Interpretive Data was last revised on 2017. Basophil pct 0.9 % [facility] Comment: Interpretive Data Percent cell count reference ranges are not reported, since discordance with absolute values may lead to misinterpretation of CBC data. Current Interpretive Data was last revised on 2017. Blood 12/21/2024 11:4 8 AM CDT 12/21/2024 11:48 AM CDT us Brittani Hurst YARN EXAMINER LAB BLOOD ORDERABLES Final Res ult [facility] [address] Department [place] [address] * (ABNORMAL) CBC with auto differential (12/21/2024 11:48 AM CDT) WBC 8.90 3.80 - 9.90 K/cumm Hgb 12.0(L) 13.0 - 17.5 g/dL [facility] Hct 36.2(L) 38.9 - 50.3 % [facility] Plt 282 150 - 400 K/cumm [facility] MPV 10.2 9.1 - 12.3 fL [facility] RBC 3.95(L) 4.30 - 5.80 M/cumm [facility] MCV 91.6 81.3 - 96.4 fL [facility] MCH 30.4 27.1 - 33.3 pg [facility] MCHC 33.1 32.3 - 35.7 g/dL [facility] CH RDW CV 14.3 11.1 - 14.9 % [facility] CH RDW SD 48.4(H) 35.7 - 48.1 fL [facility] CH NRBC abs 0.00 0.00 - 0.01 K/cumm [facility] CH Blood 12/21/2024 11:4 8 AM CDT 12/21/2024 11:48 AM CDT Brittani Hurst YARN EXAMINER LAB BLOOD ORDERABLES Final Res ult [facility] [address] [address] Department [place] [address] * (ABNORMAL) Basic metabolic panel (12/21/2024 11:48 AM CDT) Sodium 140 135 - 145 mmol/L Potassium, pl 5.1(H) 3.3 - 4.9 mmol/L [facility] Chlor[facility] 102 97 - 110 mmol/L [facility] CO2 27 22 - 32 mmol/L [facility] CH Anion gap 11 2 - 15 mmol/L [facility] BUN 22 6 - 25 mg/dL [facility] Creatinine 1.32(H) 0.80 - 1.30 mg/dL [facility] CH Glucose 98 70 - 199 mg/dL [facility] Comment: Interpretive Data Fasting glucose >/= 126 mg/dl is diagnostic for diabetes. Fasting is defined as no caloric intake for at least 8 hours. Fasting glucose between 100 mg/dl to 125 mg/dl is diagnostic of prediabetes. In a patient with classic symptoms of hyperglycemia or hyperglycemic crisis, a random glucose >/= 200 mg/dl is diagnostic for diabetes. In the absence of unequivocal hyperglycemia, results should be confirmed by repeat testing. The classification and Diagnosis of Diabetes Diabetes Care 202; 46: S19-S40. Current interpretive data was last revised 2022. Calcium 9.7 8.5 - 10.3 mg/dL [facility] Blood 12/21/2024 11:4 8 AM CDT 12/21/2024 11:48 AM CDT Brittani Hurst NP LAB BLOOD ORDERABLES Final Res ult Performing Organization Address [facility] Co de Phone Number DAO ROSENBERG [address] [address] Department [place] [address] * Urinalysis reflex to microscopic and culture Urine, clean voided (12/21/2024 11:28 AM CDT) Color, ur Straw Yellow Clarity, ur Clear Clear [facility] CH Specific gravity, ur 1.008 1.003 - 1.030 [facility] CH pH, urine 6.5 [facility] CH Comment: Interpretive Data U rine pH is affected by diet, medications, systemic acid-base disturbances, and renal tubular function. pH may affect urinary stone formation. For example, urine pH below 6.0 may help reduce the tendency for calcium phosphate stones and pH greater than 6.0 may reduce the tendency for uric acid stone formation. Source: [facility] E-Sign Current Interpretive Data was last revised on 2017 Protein, ur ql Negative Negative [facility] CH Glucose, ur ql Negative Negative [facility] CH Ketones, ur Negative Negative [facility] CH Bilirubin, ur Negative Negative [facility] CH Blood, ur Negative Negative [facility] CH Urobilinogen, ur <2.0 <2.0 mg/dL [facility] Nitrite, ur Negative Negative [facility] CH Leukocyte esterase, ur Negative Negative [facility] CH UA reflex comment Reflex conditions for microscopic UA and culture not met. [facility] CH Urine, clean voided 12/21/2024 11:28 AM CDT 12/21/2024 12:30 PM CDT Brittani Hurst NP LAB MICROBIOLOGY - GENERAL ORD ERABLES Final Result DAO ROSENBERG [address] Department [place] [address] * Type and screen (12/21/2024 11:28 AM CDT) David, indirect Negative ABO Rh O Positive [facility] CH Blood 12/21/2024 11:2 8 AM CDT 12/21/2024 11:50 AM CDT Narrative [facility] - 12/21/2024 12:36 PM CDT Is this test being ordered in advance for a procedure?->Yes Expected date of procedure:->12/30/24 Has the patient been transfused in the past 3 months?->Unknown Brittani Hurst NP LAB BLOOD BANK TEST ORDERABLES Final Result Performing Organization Address [facility] Co de Phone Number DAO [address] [address] Department [place] [address] * ECG 12 lead (12/21/2024 11:12 AM CDT) 12/21/2024 11:1 2 AM CDT Narrative [facility] - 12/21/2024 3:00 PM CDT Vent Rate: 54 bpm RR Interval: 1094 msec ND Interval: 160 msec QRS Duration: 98 msec QT Interval: 435 msec QTC Interval: 422 msec P-R-T [place]: 33 - 35 - 56 degrees IMPRESSION: SINUS BRADYCARDIA BORDERLINE ECG Electronically Signed By: Dr. Janene Moore [facility] Brittani Hurst YARN EXAMINER ECG ORDERABLES Final Result Performing Organization Address [facility] Phone Number [employer] * CT Lung Cancer Screening (10/11/2024 12:51 PM SIGNAL CIRCUIT DESIGNER) Anatomical Region Laterality Modality Chest N/A Computed Tomogra phy 10/11/2024 2:53 PM SIGNAL CIRCUIT DESIGNER Impressions 10/11/2024 2:53 PM SIGNAL CIRCUIT DESIGNER 1. LungRADS Category 1 (negative) . Recommend Low dose Screening CT of chest in 12 months. 2. There are mild emphysematous changes in the lungs. 3. Status post median sternotomy. 4. Coronary artery disease and aortic atherosclerosis. 5. No change from previous. LungRADS Categories: 1 - Negative (no nodules, or only benign calcified or fat-containing nodules) 2 - Benign Appearance or Behavior (nodules with very low likelihood of becoming a clinically active cancer due to size or lack of growth) 3 - Probably Benign (probably benign findings-short term follow up suggested; includes nodules with a low likelihood of becoming a clinically active cancer) 4A,4B,4X - Suspicious (category 3 or 4 nodules with findings for which additional diagnostic testing and/or tissue sampling is recommended) S - Other (clinically significant or potentially clinically significant findings (non-lung cancer) C - Prior Lung Cancer (modifier for patients with a prior diagnosis of lung cancer who return to screening) Electronically signed by: Freddie Morales M.D. Narrative 10/11/2024 2:53 PM SIGNAL CIRCUIT DESIGNER EXAMINATION: Lung cancer screening CT of the Chest without intravenous contrast HISTORY: Lung Cancer Screening TECHNIQUE: Low radiation dose chest protocol. No intravenous contrast. Reconstructed slice width 1.[address] Dose Index 2.29 mGy. Dose-length product 76.3 mGy-cm. COMPARISON: 11/06/2023 FINDINGS: Lung nodules or findings of lung cancer: None Smoking related lung disease: emphysema Other findings: There are postsurgical changes from a median sternotomy. There is coronary artery calcification. There are atherosclerotic changes in the thoracic aorta. Procedure Note Freddie Morales MD - 10/11/2024 EXAMINATION: Lung cancer screening CT of the Chest without intravenous contrast HISTORY: Lung Cancer Screening TECHNIQUE: Low radiation dose chest protocol. No intravenous contrast. Reconstructed slice width 1.[address] Dose Index 2.29 mGy. Dose-length product 76.3 mGy-cm. COMPARISON: 11/06/2023 FINDINGS: Lung nodules or findings of lung cancer: None Smoking related lung disease: emphysema Other findings: There are postsurgical changes from a median sternotomy. There is coronary artery calcification. There are atherosclerotic changes in the thoracic aorta. IMPRESSION: 1. LungRADS Category 1 (negative) . Recommend Low dose Screening CT of chest in 12 months. 2. There are mild emphysematous changes in the lungs. 3. Status post median sternotomy. 4. Coronary artery disease and aortic atherosclerosis. 5. No change from previous. LungRADS Categories: 1 - Negative (no nodules, or only benign calcified or fat-containing nodules) 2 - Benign Appearance or Behavior (nodules with very low likelihood of becoming a clinically active cancer due to size or lack of growth) 3 - Probably Benign (probably benign findings-short term follow up suggested; includes nodules with a low likelihood of becoming a clinically active cancer) 4A,4B,4X - Suspicious (category 3 or 4 nodules with findings for which additional diagnostic testing and/or tissue sampling is recommended) S - Other (clinically significant or potentially clinically significant findings (non-lung cancer) C - Prior Lung Cancer (modifier for patients with a prior diagnosis of lung cancer who return to screening) Electronically signed by: Freddie Morales M.D. Irais Lock MD IMG CT PROCEDURES Fin al Result from Last 3 Months or Most Recently Relevant to Health Maintenance Insurance [employer] MEDICARE ADVANTAGE [facility] MEDIC[facility] Address: [address] [phone] [employer]HC MEDICARE ADVANTAGE [facility] MED[facility] Address: [place] [id number] [place] [address] [employer] MEDICARE ADVANTAGE [facility] MEDIC[facility] Address: [address] [address] Advance Directives For more information, please contact: [phone] * Full Code (Latest Code Status on File) Date Activated Date Inactivated Comments 12/30/2024 1:35 PM 01/01/2025 5:36 PM * Full Code Date Activated Date Inactivated Comments 07/27/2023 2:03 PM 08/06/2023 12:02 AM Care Teams Wheel Filler Relationship Specialty Start Date End Date Irais Lock MD [address] [address] PCP - General Internal Medicine 07/28/23 Kortney Wu MD [address] [place] [address] Consulting Physician Cardiology 01/01/25
--- OUTSIDE RECORDS SUMMARY | 2025-02-07 10:46 | XMS_ITS | Patient Health Record ---
Author Organization [facility] Address [address] [place] [address] Care Team Providers Care In House Counsel Name Role Phone Shakir Moore Unavailable [phone] REASON FOR REFERRAL No Information MEDICATIONS Medication SIG (Take, Route, Frequency, Duration) Notes Start Date End Date Status Losartan Potassium 25 MG 1 tablet Orally Once a day for 90 day(s) 09/11/2023 Active Vitamin D (Ergocalciferol) 1.25 MG (50506 UT) TAKE 1 CAPSULE BY MOUTH 1 TIME A WEEK for 91 Active Losartan Potassium 50 MG 1 tablet Orally Once a day for 90 11/20/2023 Active Lasix 40 MG 1 tablet Orally Once a day for 90 days Active Calcitriol 0.25 MCG TAKE 1 CAPSULE BY MO UT EVERY OTHER DAY for 90 Active PROBLEMS Problem Type ICD Code Onset Dates Problem Status W/U Status Risk SNOMED Code Notes Problem Type 2 diabetes mellitus with hyperglycemia (E11.65) Active confirmed Hyperglycemia d ue to type 2 diabetes mellitus (863043440702001) Problem Hyperlipidemia, unspecified (E78.5) Active confirmed Hyperlip idemia (73874375) Problem Disorder of mineral metabolism, 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 Disorder of mineral metabolism (16360541) Problem Anxiety disorder, unspecified (F41.9) Active confirmed Anxiety disorder (932785007) Problem Essential (primary) hypertension (I10) Active confirmed Essential hypertension (14827982) Problem Heart failure, unspecified (I50.9) Active confirmed Heart fa ilure (13674489) Problem Atherosclerosis of renal artery (I70.1) Active confirmed Atheros clerosis of renal artery (94471450) Problem Renal osteodystrophy (N25.0) Active confirmed Renal osteodyst rophy (06587139) Problem Secondary hyperparathyroidism of renal origin (N25.81) Active confirmed Secondary hyperparathyroidism of renal origin (52857564) Problem Proteinuria, unspecified (R80.9) Active confirmed Proteinu nancy (15345342) Problem Chronic kidney disease, stage 3a (N18.31) Active confirmed Chronic kidney disease stage 3A (disorder) (081728002) Problem CAD (coronary artery disease) (I25.10) Active confirmed Encounters Encounter Location Date Provider Diagnosis [facility] [address] [address] 05/04/2024 Shakir Moore Chronic kidney disea se, stage 3a N18.31 ; Type 2 diabetes mellitus with hyperglycemia E11.65 ; Anxiety disorder, unspecified F41.9 ; Essential (primary) hypertension I10 ; Hyperlipidemia, unspecified E78.5 ; Heart failure, unspecified I50.9 and Atherosclerosis of renal artery I70.1 [facility] [address] [place] [address] 08/03/2024 Shakir Moore [facility] [address] [address] 08/31/2024 Shakir Moore Chronic kidney disea se, stage 3a N18.31 ; Type 2 diabetes mellitus with hyperglycemia E11.65 ; Anxiety disorder, unspecified F41.9 ; Essential (primary) hypertension I10 ; Hyperlipidemia, unspecified E78.5 ; Heart failure, unspecified I50.9 and Atherosclerosis of renal artery I70.1 [facility] [address] [address] 12/07/2024 Shakir Moore Chronic kidney disea se, [...] metabolism, unspecified E83.9 and Proteinuria, unspecified R80.9 ASSESSMENTS Encounter Date Diagnosis Assessment Notes Treatment Notes Treatment Clinical Notes Section Notes 05/04/2024 Chronic kidney disea se, stage 3a (ICD-10 - N18.31) 08/31/2024 Chronic kidney disea se, stage 3a (ICD-10 - N18.31) 12/07/2024 Chronic kidney disea se, stage 3a (ICD-10 - N18.31) 12/07/2024 Type 2 diabetes mellitus with hyperglycemia (ICD-10 - E11.65) 08/31/2024 Type 2 diabetes mellitus with hyperglycemia (ICD-10 - E11.65) 05/04/2024 Type 2 diabetes mellitus with hyperglycemia (ICD-10 - E11.65) 05/04/2024 Anxiety disorder, unspecified (ICD-10 - F41.9) 08/31/2024 Anxiety disorder, unspecified (ICD-10 - F41.9) 12/07/2024 Anxiety disorder, unspecified (ICD-10 - F41.9) 12/07/2024 Essential (primary) hypertension (ICD-10 - I10) 08/31/2024 Essential (primary) hypertension (ICD-10 - I10) 05/04/2024 Essential (primary) hypertension (ICD-10 - I10) 05/04/2024 Hyperlipidemia, unspecified (ICD-10 - E78.5) 08/31/2024 Hyperlipidemia, unspecified (ICD-10 - E78.5) 12/07/2024 Hyperlipidemia, unspecified (ICD-10 - E78.5) 08/31/2024 Heart failure, unspecified (ICD-10 - I50.9) 12/07/2024 Heart failure, unspecified (ICD-10 - I50.9) 05/04/2024 Heart failure, unspecified (ICD-10 - I50.9) 05/04/2024 Atherosclerosis of renal artery (ICD-10 - I70.1) 12/07/2024 Atherosclerosis of renal artery (ICD-10 - I70.1) 08/31/2024 Atherosclerosis of renal artery (ICD-10 - I70.1) 12/07/2024 Renal osteodystrophy (ICD-10 - N25.0) 12/07/2024 Secondary hyperparathyroidism of renal origin (ICD-10 - N25.81) 12/07/2024 CAD (coronary artery disease) (ICD-10 - I25.10) 12/07/2024 Disorder of mineral metabolism, unspecified (ICD-10 - E83.9) 12/07/2024 Proteinuria, unspecified (ICD-10 - R80.9) PLAN OF TREATMENT Next Appt Details Provider Name:Shakir Moore 03/15/2025 02:15:00 PM, [address] [facility], [facility] [address], [place], [address],
--- OUTSIDE RECORDS SUMMARY | 2025-02-07 10:46 | XMS_ITS | Continuity of Care Document ---
Author Organization [facility] Address [address] [place] [address] [place] [address] Phone Care Team Providers Care [employer] Name Role Phone [place] Jaimes DO Unavailable Unavailable Advance Directives Directive Yes / No Effective Date File Name No Information Encounters Encounter Description Practice Location Reason(s) For Visit Diagnoses Date Provider Providers Copied on Encounter [facility], [address], [place], [place], [id number], tel:[phone] [facility] No Information Fiona Dunne. [address] [place], [address], [place]. tel:[phone] Family History Family Member Type Diagnosis Age [...]
--- OUTSIDE RECORDS SUMMARY | 2025-02-07 10:46 | XMS_ITS ---
Author Organization [facility] Address [address] [place] [address] Care Team Providers Care Business Office Associate Name Role Phone Oscar Shakir Unavailable [phone] PROBLEMS Problem Type ICD Code Onset Dates Problem Status W/U Status Risk SNOMED Code Notes Problem Renal osteodystrophy (N25.0) Active confirmed Renal osteodyst rophy (48653721) Problem Secondary hyperparathyroidism of renal origin (N25.81) Active confirmed Secondary hyperparathyroidism of renal origin (41425849) Problem CAD (coronary artery disease) (I25.10) Active confirmed Coronary a rtery disease (12995232) Problem Disorder of mineral metabolism, 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 :1950 Age:74 Y Sex:Male Date:12/07/2024 Address:[address] [place] [address] Subjective: * Chief Complaints: * * Medical History: Objective: Assessment: * Assessment: 1. Chronic kidney disease, stage 3a - N18.31 (Primary) 2. Type 2 diabetes mellitus with hyperglycemia - E11.65 3. Anxiety disorder, unspecified - F41.9 4. Essential (primary) hypertension - I10 5. Hyperlipidemia, unspecified - E78.5 6. Heart failure, unspecified - I50.9 7. Atherosclerosis of renal artery - I70.1 8. Renal osteodystrophy - N25.0 9. Secondary hyperparathyroidism of renal origin - N25.81 10. CAD (coronary artery disease) - I25.10 11. 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 Proteinuria, unspecified - R80.9 Plan: * Treatment: * Billing Information: * Visit Code: 88917 Office Visit, Est Pt., Level 5. * Procedure Codes: * Sign off status: Pending * Provider: MD MOLINA, F.A.C.P, F.A.S.N. Date: 12/07/2024
--- OUTSIDE RECORDS SUMMARY | 2025-02-07 10:46 | XMS_ITS | Data Portability ---
Author Organization [facility] [employer], Main Office Address [address] [place] [address] Care Team Providers Care Hotel Controller Name Role Phone DAPHNE LOCK Primary Care Provider [phone] KELLEE HOLDER General Surgeon DEEPIKA WU Purchasing/Receiving MARCK MCKEE Neurosurgeon Assessment Encounter Date Assessment [...] Modified Time Details Appointments Any 15 2024 10:45A Charles [email or web address] MD Not available Not available Not available Lab glycohemo globin, total, blood [email or web address] (Lab), [address] [place], [address], 10/04/2024 10:30:49 microalbu min, urine 2024 025 [email or web address] [facility] (Lab), [address] [place], [address], 10/17/2024 17:31:43 lipid panel, serum [email or web address] (Lab), [address] [place], [address], 10/04/2024 10:30:48 CBC w/ auto diff [email or web address] (Lab), [address] [place], [address], 10/04/2024 10:30:49 CMP, serum or plasma [address] (Lab), [address] [place], [address], 10/04/2024 10:30:49 TSH, serum or plasma [address] (Lab), [address] [place], [address], 10/04/2024 10:30:49 glycohemo globin, total, blood 2023 024 [facility] (Lab), [address] [place], [address], 06/20/2024 15:44:20 microalbu min, urine 2023 024 [facility] (Lab), [address] [place], [address], 06/20/2024 13:35:43 lipid panel, serum 2023 024 [facility] (Lab), [address] [place], [address], 06/20/2024 20:23:08 CBC w/ auto diff 2023 024 [facility] (Lab), [address] [place], [address], 06/20/2024 12:17:31 CMP, serum or plasma 2023 024 [facility] (Lab), [address] [place], [address], 06/20/2024 20:23:13 TSH, serum or plasma 2023 024 [facility] (Lab), [address] [place], [address], 06/20/2024 20:28:57 lipid panel, serum 2023 024 [facility] (Lab), [address] [place], [address], 01/27/2024 12:17:39 CBC w/ auto diff [email or web address] (Lab), [address] [place], [address], 07/28/2024 12:39:28 CMP, serum or plasma 2023 024 [facility] (Lab), [address] [place], [address], 01/28/2024 08:20:32 TSH, serum or plasma 2023 024 [facility] (Lab), [address] [place], [address], 01/27/2024 12:36:44 lipid panel, serum 2022 023 [facility] (Lab), [address] [place], [address], 10/19/2023 12:16:03 CBC w/ auto diff 2022 023 [facility] (Lab), [address] [place], [address], 10/19/2023 11:28:58 CMP, serum or plasma 2022 023 [facility] (Lab), [address] [place], [address], 10/19/2023 12:16:17 TSH, serum or plasma 2022 023 [facility] (Lab), [address] [place], [address], 10/19/2023 13:26:15 Referral diabetic ophthalmo logy referral - Please call patient to schedule. 2024 025 [facility], [address] , [place], [address], 11/10/2024 08:18:43 podiatris t referral - Please call patient to schedule. 2024 025 [email or web address] Stef FAUSTM, [address], [place], [address], 11/10/2024 08:18:43 cardiolog ist referral 2024 025 [email or web address] Deepika Wu MD, [address], [address], [place], [address], 10/04/2024 11:54:51 general surgeon referral - Please call patient to schedule. 2024 025 [email or web address] Kellee Holder DO, [address], [address], [place], [address], 10/04/2024 12:11:52 cardiolog ist referral 2023 024 [email or web address] Deepika Wu MD, [address], [place], [address], 06/21/2024 08:10:40 diabetic ophthalmo logy referral - Please call patient to schedule. 2023 024 [email or web address] [facility], [address] , [place], [address], 10/04/2024 12:05:30 podiatris t referral - Please call patient to schedule. 2023 024 [email or web address] Stef Scruggs DPCharles, [address], [address], [place], [address], 10/04/2024 12:05:41 general surgeon referral - Please call patient to schedule. 2023 024 CHON Mejia MD, [address], [address], [place], [address], 07/17/2024 16:27:55 cardiolog ist referral 2023 024 cindy Wu MD, [address], [place], [address], 02/24/2024 08:06:53 cardiolog ist referral 2022 023 cindy Wu MD, [address], [place], [address], 10/01/2023 12:11:35 Procedures None recorded. Surgeries None recorded. Imaging LDCT, chest, for lung cancer screening - Please call patient to schedule. To be performed on or around [address], [facility] [place] [address], [address], 10/05/2024 10:57:47 LDCT, chest, for lung cancer screening - Please call patient to schedule. To be performed on or around [address], [address], [place], [address], 09/19/2024 15:29:11 US, abdominal aorta - no auth required 2023 024 [facility] ([facility]), [address], [place], [address], 07/28/2024 15:15:28 LDCT, chest, for lung cancer screening - no auth required 2022 023 [facility] ([facility]), [address] [place], [address], 09/09/2023 19:33:26 US, abdominal aorta - no auth required [email or web address] ([facility]), [address] [place], [address], 03/21/2024 08:12:45 Medication Orders Farxiga 5 mg tablet 2024 025 [email or web address] [facility] #[id number], [address], [place], [place], [id number], 10/19/2024 18:05:37 trazodone 50 mg tablet 2023 024 [facility]01717, [address], [place], [place], [id number], 06/16/2024 14:21:09 Anusol-HC 2.5 % topical cream with perineal applicato r 2023 024 [facility]90027, [address], [place], [place], [id number], 06/16/2024 14:39:43 trazodone 50 mg tablet 2023 024 [facility] #[id number], [address], [place], [place], [id number], 01/26/2024 17:15:56 Patient TargetsNo targets recorded. Patient Instructions Encounter Date Encounter Id Patient Instructions Last Modified By Organization Details Last Modified Time 01/26/2024 [id number] dementia rating scale-2* [email or web address] 2 Not available 01/26/2024 18:18:26 Timed Up and Go test (TUG)* [email or web address] 2 Not available 01/26/2024 18:18:27 alcohol misuse* [email or web address] 2 Not available 01/26/2024 18:18:27 depression screening* [email or web address] 2 Not available 01/26/2024 18:18:27 multi-dimensiona l health assessment questionnaire* [email or web address] Not available 01/27/2024 13:52:09 advance care planning: care instructions [email or web address] 2 Not available 01/26/2024 18:18:27 advance directiv es: care instructions [email or web address] 2 Not available 01/26/2024 18:18:27 [place] Advance Directives [email or web address] 2 Not available 01/26/2024 [...] I have no recommendations Depression Screening: Negative [email or web address] Not available 01/26/2024 17:48:05 11/23/2024 [id number] vocal cord dysfunction Not available 11/23/2024 12:09:24 the cords were clearly examined and both move normally. There is no vocal cord paralysis Not available 11/23/2024 12:08:54 Reason for Referral Purchasing/Receiving Referral for Pe ripheral arterial occlusive disease Referring Physician: Daphne Lock Internal Medicine, Encounter Date: 09/01/2023 Purchasing/Receiving Referral for Pe ripheral arterial occlusive disease Referring Physician: Daphne Lock Internal Medicine, Encounter Date: 01/26/2024 Purchasing/Receiving Referral for Pe ripheral arterial occlusive disease Referring Physician: Daphne Lock Internal Medicine, Encounter Date: 06/16/2024 Diabetic Ophthalmology Refer ral for Prediabetes Please call patient to schedule. Referring Physician: Daphne Lock Internal Medicine, Encounter Date: 06/16/2024 Can Feeder Referral for Pred iabetes Please call patient to schedule. Referring Physician: Yakelin Flanagan Medicine, Encounter Date: 06/16/2024 General Surgeon Referral for Hemorrhoids Please call patient to schedule. Referring Physician: Daphne Lock Internal Medicine, Encounter Date: 06/16/2024 Purchasing/Receiving Referral for Pe ripheral arterial occlusive disease Referring Physician: Yakelin Flanagan Medicine, Encounter Date: 10/04/2024 Diabetic Ophthalmology Refer ral for Prediabetes Please call patient to schedule. Referring Physician: Yakelin Flanagan, Encounter Date: 10/04/2024 Can Feeder Referral for Pred iabetes Please call patient to schedule. Referring Physician: Yakelin Flanagan Medicine, Encounter Date: 10/04/2024 General Surgeon Referral for Hemorrhoids Please call patient to schedule. Referring Physician: Yaklein Flanagan Medicine, Encounter Date: 10/04/2024 Results Created Date Observation Date Name Description Value Unit Range Abnormal Flag Note LastModifiedBy Organization Detail LastModifiedTime 10/19/19 24 10/19/2023 CBC/C OMPLE TE BLD COUNT W/DIF F white blood cells 8.5 x10'3 /uL 4.2-10 .8 Not Available [facility] (Lab) [address] [place], [address], 10/19/2023 11:28:57 10/19/19 24 10/19/2023 CBC/C OMPLE TE BLD COUNT W/DIF F red blood cells 3.80 x10'6 /uL 4.10-5 .80 low Not Available [facility] (Lab) [address] [place], [address], 10/19/2023 11:28:57 10/19/19 24 10/19/2023 CBC/C OMPLE TE BLD COUNT W/DIF F hemoglobin 11.5 g/dL 13.2-1 7.0 low Not Available [facility] (Lab) [address] [place], [address], 10/19/2023 11:28:57 10/19/19 24 10/19/2023 CBC/C OMPLE TE BLD COUNT W/DIF F hematocrit 35.6 % 39.3-5 0.0 low Not Available [facility] (Lab) [address] [place], [address], 10/19/2023 11:28:57 10/19/19 24 10/19/2023 CBC/C OMPLE TE BLD COUNT W/DIF F mean red cell volume 93.7 fL 80.0-9 7.0 Not Available [facility] (Lab) [address] [place], [address], 10/19/2023 11:28:57 10/19/19 24 10/19/2023 CBC/C OMPLE TE BLD COUNT W/DIF F mean red cell hemoglobin 30.3 pg 27.0-3 3.0 Not Available [facility] (Lab) [address] [place], [address], 10/19/2023 11:28:57 10/19/19 24 10/19/2023 CBC/C OMPLE TE BLD COUNT W/DIF F mean RBC HGB concentratio n 32.3 g/dL 31.0-3 6.0 Not Available [facility] (Lab) [address] [place], [address], 10/19/2023 11:28:57 10/19/19 24 10/19/2023 CBC/C OMPLE TE BLD COUNT W/DIF F red cell distribution width 14.6 % 11.8-1 5.5 Not Available [facility] (Lab) [address] [place], [address], 10/19/2023 11:28:57 10/19/19 24 10/19/2023 CBC/C OMPLE TE BLD COUNT W/DIF F platelets 272 x10'3 /uL 150-40 0 Not Available [facility] (Lab) [address] [place], [address], 10/19/2023 11:28:57 10/19/19 24 10/19/2023 CBC/C OMPLE TE BLD COUNT W/DIF F mean platelet volume 10.0 fL 9.0-12 .4 Not Available [facility] (Lab) [address] [place], [address], 10/19/2023 11:28:57 10/19/19 24 10/19/2023 CBC/C OMPLE TE BLD COUNT W/DIF F neutrophils 51.8 % 39.0-7 2.0 Not Available [facility] (Lab) [address] [place], [address], 10/19/2023 11:28:57 10/19/19 24 10/19/2023 CBC/C OMPLE TE BLD COUNT W/DIF F lymphocytes 36.7 % 16.0-4 7.0 Not Available [facility] (Lab) [address] [place], [address], 10/19/2023 11:28:57 10/19/19 24 10/19/2023 CBC/C OMPLE TE BLD COUNT W/DIF F monocytes 8.0 % 5.0-12 .0 Not Available [facility] (Lab) [address] [place], [address], 10/19/2023 11:28:57 10/19/19 24 10/19/2023 CBC/C OMPLE TE BLD COUNT W/DIF F eosinophils 2.4 % 1.0-7. 0 Not Available [facility] (Lab) [address] [place], [address], 10/19/2023 11:28:57 10/19/19 24 10/19/2023 CBC/C OMPLE TE BLD COUNT W/DIF F basophils 0.6 % 0.0-2. 0 Not Available [facility] (Lab) [address] [place], [address], 10/19/2023 11:28:57 10/19/19 24 10/19/2023 CBC/C OMPLE TE BLD COUNT W/DIF F immature granulocytes 0.5 % 0.00-0 .50 Not Available [facility] (Lab) [address] [place], [address], 10/19/2023 11:28:57 10/19/19 24 10/19/2023 CBC/C OMPLE TE BLD COUNT W/DIF F neutrophils, absolute count 4.38 x10'3 /uL 1.5-8. 0 Not Available [facility] (Lab) [address] [place], [address], 10/19/2023 11:28:57 10/19/19 24 10/19/2023 CBC/C OMPLE TE BLD COUNT W/DIF F lymphocytes, absolute count 3.10 x10'3 /uL 1.07-3 .43 Not Available [facility] (Lab) [address] [place], [address], 10/19/2023 11:28:57 10/19/19 24 10/19/2023 CBC/C OMPLE TE BLD COUNT W/DIF F monocytes, absolute count 0.68 x10'3 /uL 0.29-0 .99 Not Available [facility] (Lab) [address] [place], [address], 10/19/2023 11:28:57 10/19/19 24 10/19/2023 CBC/C OMPLE TE BLD COUNT W/DIF F eosinophils, absolute count 0.20 x10'3 /uL 0.02-0 .53 Not Available [facility] (Lab) [address] [place], [address], 10/19/2023 11:28:57 10/19/19 24 10/19/2023 CBC/C OMPLE TE BLD COUNT W/DIF F basophils, absolute count 0.05 x10'3 /uL 0.01-0 .08 Not Available [facility] (Lab) [address] [place], [address], 10/19/2023 11:28:57 10/19/19 24 10/19/2023 CBC/C OMPLE TE BLD COUNT W/DIF F immature granulocytes ,absolute 0.04 x10'3 /uL 0.00-0 .05 Not Available [facility] (Lab) [address] [place], [address], 10/19/2023 11:28:57 10/19/19 24 10/19/2023 CBC/C OMPLE TE BLD COUNT W/DIF F nucleated red blood cells 0.0 % -0 Not Available [facility] (Lab) [address] [place], [address], 10/19/2023 11:28:57 10/19/19 24 10/19/2023 CBC/C OMPLE TE BLD COUNT W/DIF F NRBC# 0.00 x10'3 /uL Not Available [facility] (Lab) [address] [place], [address], 10/19/2023 11:28:57 10/19/1910/19/2023 LIPID PANEL cholesterol 248 mg/dL 140-19 9 high NIH JASON NSUS RECOM MENDA TION FOR TERENCE STERO L: ADULT CHILD LOW RISK: <200 <170 BORDE RLINE : <200- 239 ----- HIGH RISK: >240 >200 Not Available [facility] (Lab) [address] [place], [address], 10/19/2023 12:16:03 10/19/1910/19/2023 LIPID PANEL triglyceride s 174 mg/dL 0-150 high NIH JASON NSUS REPOR T RECOM MENDA TION FOR TRIGL YCERI BOGDAN: ADULT CHILD LOW RISK: <150 ----- BODER LINE: 150-1 99 ----- HIGH RISK: >200 ----- Not Available [facility] (Lab) [address] [place], [address], 10/19/2023 12:16:03 10/19/1910/19/2023 LIPID PANEL HDL cholesterol 42 mg/dL 40- Not Available [facility] (Lab) [address] [place], [address], 10/19/2023 12:16:03 10/19/19 24 10/19/2023 LIPID PANEL [...] WILL NOT BE REPOR MIKE. Not Available [facility] (Lab) [address] [place], [address], 10/19/2023 12:16:03 10/19/19 24 10/19/2023 COMPR EHENS RODY METAB OLIC PANEL sodium 138 mmol/ L 137-14 5 Not Available [facility] (Lab) [address] [place], [address], 10/19/2023 12:16:17 10/19/19 24 10/19/2023 COMPR EHENS RODY METAB OLIC PANEL potassium 4.8 mmol/ L 3.5-5. 1 Not Available [facility] (Lab) [address] [place], [address], 10/19/2023 12:16:17 10/19/19 24 10/19/2023 COMPR EHENS RODY METAB OLIC PANEL chloride 104 mmol/ L 98-107 Not Available [facility] (Lab) [address] [place], [address], 10/19/2023 12:16:17 10/19/19 24 10/19/2023 COMPR EHENS RODY METAB OLIC PANEL carbon dioxide 26 mmol/ L 22-30 Not Available [facility] (Lab) [address] [place], [address], 10/19/2023 12:16:17 10/19/19 24 10/19/2023 COMPR EHENS RODY METAB OLIC PANEL anion gap 12.8 mmol/ L 14-22 low Not Available [facility] (Lab) [address] [place], [address], 10/19/2023 12:16:17 10/19/19 24 10/19/2023 COMPR EHENS RODY METAB OLIC PANEL glucose 97 mg/dL 70-99 Not Available [facility] (Lab) [address] [place], [address], 10/19/2023 12:16:17 10/19/19 24 10/19/2023 COMPR EHENS RODY METAB OLIC PANEL BUN 22 mg/dL 8-19 high Not Available [facility] (Lab) [address] [place], [address], 10/19/2023 12:16:17 10/19/1910/19/2023 COMPR EHENS RODY METAB OLIC PANEL creatinine 1.19 mg/dL 0.66-1 .25 Not Available [facility] (Lab) [address] [place], [address], 10/19/2023 12:16:17 10/19/19 24 10/19/2023 COMPR EHENS RODY METAB OLIC PANEL GFR 60 Refer ence Range : [place] ge GFR Healt hy Adult : >60 [...] or ethni c subgr oups, such as Histn nics. Outsi de the valid ated vinicio [...] s/kdo qi/gf r_cal culat or Not Available [facility] (Lab) [address] [place], [address], 10/19/2023 12:16:17 10/19/19 24 10/19/2023 COMPR EHENS RODY METAB OLIC PANEL alkaline phosphatase 62 U/L 38-126 Not Available [facility] (Lab) [address] [place], [address], 10/19/2023 12:16:17 10/19/19 24 10/19/2023 COMPR EHENS RODY METAB OLIC PANEL alanine aminotransfe rase 11 U/L 0-50 Not Available [facility] (Lab) [address] [place], [address], 10/19/2023 12:16:17 10/19/19 24 10/19/2023 COMPR EHENS RODY METAB OLIC PANEL aspartate aminotransfe rase 20 U/L 15-46 Not Available [facility] (Lab) [address] [place], [address], 10/19/2023 12:16:17 10/19/19 24 10/19/2023 COMPR EHENS RODY METAB OLIC PANEL bilirubin, total 0.20 mg/dL 0.20-1 .30 Not Available [facility] (Lab) [address] [facility] [place], [address], 10/19/2023 12:16:17 10/19/19 24 10/19/2023 COMPR EHENS RODY METAB OLIC PANEL calcium 9.3 mg/dL 8.4-10 .2 Not Available [facility] (Lab) [address] [place], [address], 10/19/2023 12:16:17 10/19/19 24 10/19/2023 COMPR EHENS RODY METAB OLIC PANEL total protein 7.0 g/dL 6.3-8. 2 Not Available [facility] (Lab) [address] [facility] [place], [address], 10/19/2023 12:16:17 10/19/19 24 10/19/2023 COMPR EHENS RODY METAB OLIC PANEL albumin 4.2 g/dL 3.0-4. 4 Not Available [facility] (Lab) [address] [place], [address], 10/19/2023 12:16:17 10/19/19 24 10/19/2023 COMPR EHENS RODY METAB OLIC PANEL globulin 2.8 g/dL 2.6-4. 2 Not Available [facility] (Lab) [address] [place], [address], 10/19/2023 12:16:17 10/19/19 24 10/19/2023 COMPR EHENS RODY METAB OLIC PANEL A/G ratio 1.5 ratio 1.0-2. 0 Not Available [facility] (Lab) [address] [place], [address], 10/19/2023 12:16:17 10/19/19 24 10/19/2023 TSH W/REF SHAQUILLE FT4 TSH with reflex free T4 0.799 uIU/m L 0.465- 4.680 Not Available [facility] (Lab) [address] [place], [address], 10/19/2023 13:26:15 01/27/20 24 01/27/2024 LIPID PANEL cholesterol 176 mg/dL 140-19 9 NIH JASON NSUS RECOM MENDA TION FOR TERENCE STERO L: ADULT CHILD LOW RISK: <200 <170 BORDE RLINE : <200- 239 ----- HIGH RISK: >240 >200 Not Available [facility] (Lab) [address] [place], [address], 01/27/2024 12:17:39 01/27/20 24 01/27/2024 LIPID PANEL triglyceride s 142 mg/dL 0-150 NIH JASON NSUS REPOR T RECOM MENDA TION FOR TRIGL YCERI BOGDAN: ADULT CHILD LOW RISK: <150 ----- BODER LINE: 150-1 99 ----- HIGH RISK: >200 ----- Not Available [facility] (Lab) [address] [place], [address], 01/27/2024 12:17:39 01/27/20 24 01/27/2024 LIPID PANEL HDL cholesterol 40 mg/dL 40- Not Available [facility] (Lab) [address] [place], [address], 01/27/2024 12:17:39 01/27/20 24 01/27/2024 LIPID PANEL [...] WILL NOT BE REPOR MIKE. Not Available [facility] (Lab) [address] [place], [address], 01/27/2024 12:17:39 01/27/20 24 01/27/2024 TSH W/REF SHAQUILLE FT4 TSH with reflex free T4 0.542 uIU/m L 0.465- 4.680 Not Available [facility] (Lab) [address] [place], [address], 01/27/2024 12:36:44 06/20/20 24 06/20/2024 CBC/C OMPLE TE BLD COUNT W/DIF F white blood cells 8.1 x10'3 /uL 4.2-10 .8 Not Available [facility] (Lab) [address] [place], [address], 06/20/2024 12:17:31 06/20/20 24 06/20/2024 CBC/C OMPLE TE BLD COUNT W/DIF F red blood cells 3.75 x10'6 /uL 4.10-5 .80 low Not Available [facility] (Lab) [address] [place], [address], 06/20/2024 12:17:31 06/20/20 24 06/20/2024 CBC/C OMPLE TE BLD COUNT W/DIF F hemoglobin 11.7 g/dL 13.2-1 7.0 low Not Available [facility] (Lab) [address] [place], [address], 06/20/2024 12:17:31 06/20/20 24 06/20/2024 CBC/C OMPLE TE BLD COUNT W/DIF F hematocrit 34.4 % 39.3-5 0.0 low Not Available [facility] (Lab) [address] [place], [address], 06/20/2024 12:17:31 06/20/20 24 06/20/2024 CBC/C OMPLE TE BLD COUNT W/DIF F mean red cell volume 91.7 fL 80.0-9 7.0 Not Available [facility] (Lab) [address] [place], [address], 06/20/2024 12:17:31 06/20/20 24 06/20/2024 CBC/C OMPLE TE BLD COUNT W/DIF F mean red cell hemoglobin 31.2 pg 27.0-3 3.0 Not Available [facility] (Lab) [address] [place], [address], 06/20/2024 12:17:31 06/20/20 24 06/20/2024 CBC/C OMPLE TE BLD COUNT W/DIF F mean RBC HGB concentratio n 34.0 g/dL 31.0-3 6.0 Not Available [facility] (Lab) [address] [place], [address], 06/20/2024 12:17:31 06/20/20 24 06/20/2024 CBC/C OMPLE TE BLD COUNT W/DIF F red cell distribution width 13.8 % 11.8-1 5.5 Not Available [facility] (Lab) [address] [place], [address], 06/20/2024 12:17:31 06/20/20 24 06/20/2024 CBC/C OMPLE TE BLD COUNT W/DIF F platelets 275 x10'3 /uL 150-40 0 Not Available [facility] (Lab) [address] [place], [address], 06/20/2024 12:17:31 06/20/20 24 06/20/2024 CBC/C OMPLE TE BLD COUNT W/DIF F mean platelet volume 10.3 fL 9.0-12 .4 Not Available [facility] (Lab) [address] [place], [address], 06/20/2024 12:17:31 06/20/20 24 06/20/2024 CBC/C OMPLE TE BLD COUNT W/DIF F neutrophils 57.7 % 39.0-7 2.0 Not Available [facility] (Lab) [address] [place], [address], 06/20/2024 12:17:31 06/20/20 24 06/20/2024 CBC/C OMPLE TE BLD COUNT W/DIF F lymphocytes 29.5 % 16.0-4 7.0 Not Available [facility] (Lab) [address] [place], [address], 06/20/2024 12:17:31 06/20/20 24 06/20/2024 CBC/C OMPLE TE BLD COUNT W/DIF F monocytes 9.9 % 5.0-12 .0 Not Available [facility] (Lab) [address] [place], [address], 06/20/2024 12:17:31 06/20/20 24 06/20/2024 CBC/C OMPLE TE BLD COUNT W/DIF F eosinophils 2.2 % 1.0-7. 0 Not Available [facility] (Lab) [address] [place], [address], 06/20/2024 12:17:31 06/20/20 24 06/20/2024 CBC/C OMPLE TE BLD COUNT W/DIF F basophils 0.5 % 0.0-2. 0 Not Available [facility] (Lab) [address] [place], [address], 06/20/2024 12:17:31 06/20/20 24 06/20/2024 CBC/C OMPLE TE BLD COUNT W/DIF F immature granulocytes 0.2 % 0.00-0 .50 Not Available [facility] (Lab) [address] [place], [address], 06/20/2024 12:17:31 06/20/20 24 06/20/2024 CBC/C OMPLE TE BLD COUNT W/DIF F neutrophils, absolute count 4.66 x10'3 /uL 1.5-8. 0 Not Available [facility] (Lab) [address] [place], [address], 06/20/2024 12:17:31 06/20/20 24 06/20/2024 CBC/C OMPLE TE BLD COUNT W/DIF F lymphocytes, absolute count 2.39 x10'3 /uL 1.07-3 .43 Not Available [facility] (Lab) [address] [place], [address], 06/20/2024 12:17:31 06/20/20 24 06/20/2024 CBC/C OMPLE TE BLD COUNT W/DIF F monocytes, absolute count 0.80 x10'3 /uL 0.29-0 .99 Not Available [facility] (Lab) [address] [place], [address], 06/20/2024 12:17:31 06/20/20 24 06/20/2024 CBC/C OMPLE TE BLD COUNT W/DIF F eosinophils, absolute count 0.18 x10'3 /uL 0.02-0 .53 Not Available [facility] (Lab) [address] [place], [address], 06/20/2024 12:17:31 06/20/20 24 06/20/2024 CBC/C OMPLE TE BLD COUNT W/DIF F basophils, absolute count 0.04 x10'3 /uL 0.01-0 .08 Not Available [facility] (Lab) [address] [place], [address], 06/20/2024 12:17:31 06/20/20 24 06/20/2024 CBC/C OMPLE TE BLD COUNT W/DIF F immature granulocytes ,absolute 0.02 x10'3 /uL 0.00-0 .05 Not Available [facility] (Lab) [address] [place], [address], 06/20/2024 12:17:31 06/20/20 24 06/20/2024 CBC/C OMPLE TE BLD COUNT W/DIF F nucleated red blood cells 0.0 % -0 Not Available [facility] (Lab) [address] [place], [address], 06/20/2024 12:17:31 06/20/20 24 06/20/2024 CBC/C OMPLE TE BLD COUNT W/DIF F NRBC# 0.00 x10'3 /uL Not Available [facility] (Lab) [address] [place], [address], 06/20/2024 12:17:31 06/20/20 24 06/20/2024 MICRO ALBUM IN RANDO M URINE microalbumin , urine <6.0 mg/L 0.0-16 .6 Not Available [facility] (Lab) [address] [place], [address], 06/20/2024 13:35:43 06/20/20 06/20/2024 HEMOG LOBIN A1C HA1C 5.7 % 4.0-6. 0 Diabe nolvia Jimboe royer Crite nancy: <5.7% Consi stent with absen ce of diabe nolvia 5.7-6 .4% Consi stent with incre ased risk for diabe nolvia (pred iabet es) >OR=6 .5% Consi stent with diabe nolvia REFER ENCE: Diabe nolvia Care 2016, 39(Newsome ppl.1 ):s13 -s22 Not Available [facility] (Lab) [address] [place], [address], 06/20/2024 15:44:20 06/20/20 24 06/20/2024 LIPID PANEL cholesterol 138 mg/dL 140-19 9 low NIH JASON NSUS RECOM MENDA TION FOR TERENCE STERO L: ADULT CHILD LOW RISK: <200 <170 BORDE RLINE : <200- 239 ----- HIGH RISK: >240 >200 Not Available [facility] (Lab) [address] [place], [address], 06/20/2024 20:23:08 06/20/2006/20/2024 LIPID PANEL triglyceride s 138 mg/dL 0-150 NIH JASON NSUS REPOR T RECOM MENDA TION FOR TRIGL YCERI BOGDAN: ADULT CHILD LOW RISK: <150 ----- BODER LINE: 150-1 99 ----- HIGH RISK: >200 ----- Not Available [facility] (Lab) [address] [place], [address], 06/20/2024 20:23:08 06/20/20 24 06/20/2024 LIPID PANEL HDL cholesterol 33 mg/dL 40- low Not Available [facility] (Lab) [address] [place], [address], 06/20/2024 20:23:08 06/20/20 24 06/20/2024 LIPID PANEL [...] WILL NOT BE REPOR MIKE. Not Available [facility] (Lab) [address] [place], [address], 06/20/2024 20:23:08 06/20/20 24 06/20/2024 COMPR EHENS RODY METAB OLIC PANEL sodium 138 mmol/ L 137-14 5 Not Available [facility] (Lab) [address] [place], [address], 06/20/2024 20:23:13 06/20/20 24 06/20/2024 COMPR EHENS RODY METAB OLIC PANEL potassium 4.2 mmol/ L 3.5-5. 1 Not Available [facility] (Lab) [address] [place], [address], 06/20/2024 20:23:13 06/20/20 24 06/20/2024 COMPR EHENS RODY METAB OLIC PANEL chloride 104 mmol/ L 98-107 Not Available [facility] (Lab) [address] [place], [address], 06/20/2024 20:23:13 06/20/20 24 06/20/2024 COMPR EHENS RODY METAB OLIC PANEL carbon dioxide 25 mmol/ L 22-30 Not Available [facility] (Lab) [address] [place], [address], 06/20/2024 20:23:13 06/20/20 24 06/20/2024 COMPR EHENS RODY METAB OLIC PANEL anion gap 13.2 mmol/ L 14-22 low Not Available [facility] (Lab) [address] [place], [address], 06/20/2024 20:23:13 06/20/20 24 06/20/2024 COMPR EHENS RODY METAB OLIC PANEL glucose 84 mg/dL 70-99 Not Available [facility] (Lab) [address] [place], [address], 06/20/2024 20:23:13 06/20/20 24 06/20/2024 COMPR EHENS RODY METAB OLIC PANEL BUN 22 mg/dL 8-19 high Not Available [facility] (Lab) [address] [place], [address], 06/20/2024 20:23:13 06/20/20 24 06/20/2024 COMPR EHENS RODY METAB OLIC PANEL creatinine 1.29 mg/dL 0.66-1 .25 high Not Available [facility] (Lab) [address] [place], [address], 06/20/2024 20:23:13 06/20/20 24 06/20/2024 COMPR EHENS RODY METAB OLIC PANEL GFR 54 Refer ence Range : [place] ge GFR Healt hy Adult : >60 [...] calcu lator is avail able on the [facility] websi te: [email or web address] :[email or web address] [email or web address]/gf r_cal culat or Not Available [facility] (Lab) [address] [place], [address], 06/20/2024 20:23:13 06/20/20 24 06/20/2024 COMPR EHENS RODY METAB OLIC PANEL alkaline phosphatase 69 U/L 38-126 Not Available [facility] (Lab) [address] [place], [address], 06/20/2024 20:23:13 06/20/20 24 06/20/2024 COMPR EHENS RODY METAB OLIC PANEL alanine aminotransfe rase 19 U/L 0-50 Not Available [facility] (Lab) [address] [place], [address], 06/20/2024 20:23:13 06/20/20 24 06/20/2024 COMPR EHENS RODY METAB OLIC PANEL aspartate aminotransfe rase 23 U/L 15-46 Not Available [facility] (Lab) [address] [place], [address], 06/20/2024 20:23:13 06/20/20 24 06/20/2024 COMPR EHENS RODY METAB OLIC PANEL bilirubin, total 0.40 mg/dL 0.20-1 .30 Not Available [facility] (Lab) [address] [place], [address], 06/20/2024 20:23:13 06/20/20 24 06/20/2024 COMPR EHENS RODY METAB OLIC PANEL calcium 9.8 mg/dL 8.4-10 .2 Not Available [facility] (Lab) [address] [place], [address], 06/20/2024 20:23:13 06/20/20 24 06/20/2024 COMPR EHENS RODY METAB OLIC PANEL total protein 6.8 g/dL 6.3-8. 2 Not Available [facility] (Lab) [address] [place], [address], 06/20/2024 20:23:13 06/20/20 24 06/20/2024 COMPR EHENS RODY METAB OLIC PANEL albumin 4.4 g/dL 3.0-4. 4 Not Available [facility] (Lab) [address] [place], [address], 06/20/2024 20:23:13 06/20/20 24 06/20/2024 COMPR EHENS RODY METAB OLIC PANEL globulin 2.4 g/dL 2.6-4. 2 low Not Available [facility] (Lab) [address] [place], [address], 06/20/2024 20:23:13 06/20/20 24 06/20/2024 COMPR EHENS RODY METAB OLIC PANEL A/G ratio 1.8 ratio 1.0-2. 0 Not Available [facility] (Lab) [address] [place], [address], 06/20/2024 20:23:13 06/20/20 24 06/20/2024 TSH W/REF SHAQUILLE FT4 TSH with reflex free T4 0.970 uIU/m L 0.465- 4.680 Not Available [facility] (Lab) [address] [place], [address], 06/20/2024 20:28:57 09/09/20 23 09/09/2023 LDCT, chest , for lung cance r scree royer [facility] [address] [place] [address] Patien t Name: JULIO CESAR APODACA [facility] ion #: [id number] Sex: M : 1949 0 Dictat [...] 1 [facility] [address] [address] Patien t Name: JULIO CESAR APODACA Access ion #: [id number] Sex: M : 1949 0 Dictat [...] at 2022 18:32: 12 PM Page 2 [email or web address] [facility] (Imaging) [address] [place], [address], 10/05/2023 16:25:19 09/09/20 23 09/09/2023 LDCT, chest , for lung cance r scree royer No observ ation record ed. [email or web address] [facility] [address] [place], [address], 10/05/2023 16:25:20 02/16/20 24 02/16/2024 US, abdom inal aorta [facility] [address] [place] [address] Patien t Name: JULIO CESAR APODACA Access ion #: [id number] Sex: M : 1949 0 Dictat [...] at 2023 09:10: 22 AM Page 1 [facility] ([facility]) [address] [place], [address], 07/28/2024 15:15:28 02/16/20 24 02/16/2024 imagi ng/di agnos tic resul t No observ ation record ed. [facility] [address] [place], [address], 02/16/2024 10:33:58 03/15/20 24 03/15/2024 imagi ng/di agnos tic resul t No observ ation record ed. [facility] [address], [place], [address], 03/15/2024 15:33:20 03/15/20 24 03/15/2024 imagi ng/di agnos tic resul t No observ ation record ed. [facility] [address], [place], [address], 03/15/2024 15:36:00 10/11/19 25 10/11/2024 imagi ng/di agnos tic resul t No observ ation record ed. [facility] [address], [place], [address], 10/11/2024 15:56:51 Result Notes None recorded. Problems Name Problem SNOMED Code Status Onset Date Resolution Date Notes Provider Name and Address Organization Details Recorded Time Periphera l arterial occlusive disease 329582170 Active 2022 Not Available [facility] 4 21:46:36 Cigarette smoker 56523747 Active 2022 Not Available [facility] 4 21:46:36 Hyperlipi demia 16247082 Active 2022 Not Available [facility] 4 21:46:36 Essential hypertens ion 93570692 Active 2022 Not Available [facility] 4 21:46:36 Neuropath y 996988188 Active 2022 Not Available [facility] 4 21:46:36 Anemia 244792391 Active 2022 Not Available [facility] 4 21:46:36 Gastroeso phageal reflux disease without esophagit is 678690602 Active 2022 Not Available [facility] 4 21:46:36 Coronary arteriosc lerosis 65470843 Active 2022 Not Available [facility] 4 21:46:36 Insomnia 567697187 Active 2023 Daphne gillis MD [address] [address], [place], [address] , [facility] [employer] [facility] 4 17:14:59 Erectile dysfuncti on 892040885 Active 2023 Daphne gillis MD [address] [address], [place], [address] , [employer] [facility] [employer] [facility] 4 17:16:03 Prediabet es 396166753 Active 2023 Daphne gillis MD [address] [facility] [address], [place], [address] , [facility] [employer] [facility] [employer] [facility] 4 14:20:06 Spinal enthesopa thy 51852879 Active Not Available [facility] 4 21:46:36 Cervical spondylos is without myelopath y 724492774 Active Not Available [facility] 4 21:46:36 Low back pain 314482931 Active Not Available [employer] 4 21:46:36 Dyslipide jorge 547966262 Active 2017 Not Available [facility] 4 21:46:36 Hypertens rody disorder 36847224 Active 2019 Not Available [facility] 4 21:46:36 Foot pain 44795400 Active Not Available [facility] 4 21:46:36 Bleeding hemorrhoi ds 13028982 Active Not Available [facility] 4 21:46:36 Hemorrhoi ds 80227363 Active Not Available [facility] 4 21:46:36 Degenerat ion of intervert ebral disc 99706332 Active Not Available [facility] 4 21:46:36 Neck pain 08196724 Active 2021 Not Available [facility] 4 21:46:36 Periphera l arterial disease 196375410 Active 2020 fem-pop bypass [facility] Not Available [facility] 4 21:46:36 Vocal cord dysfuncti on 959817968 Active 2024 FRIEDA Carroll [employer] 5 15:48:54 Sensorine ural hearing loss 58835826 Active 2024 Douglas Eduardo MD [address] [place] [address], [address] , [facility] 5 12:09:22 Problem Notes None recorded. Procedures Surgical History Date Name Laterality Status Provider Name and Address Organization Details Recorded Time 024 Medicare Wellness CPT Code, subsequent completed Kennedy Moss LPN [facility] 01/26/2024 17:38:09 024 Advanced Care Planning completed Kennedy Moss LPN [facility] 01/26/2024 17:42:53 023 coronary artery bypass grafts x 3 completed FRIEDA Carroll 1,2,3 [employer] 09/01/2023 16:00:42 Shoulder completed Not Available [facility] 11/19/2022 03:20:17 Back Surgeries completed Not Available [facility] 11/19/2022 03:20:17 Knee arthroscopy/surgery completed Not Available [facility] 11/19/2022 03:20:17 Skin Graft completed Not Available [facility] 11/19/2022 03:20:17 Neck Surgeries completed Not Available [facility] 11/19/2022 03:20:17 Excisions - Specify completed Not Available [facility] 11/19/2022 03:20:17 insertion of stent into femoral artery completed Not Available [facility] 11/19/2022 03:20:17 other completed Not Available [facility] 11/19/2022 03:20:17 Hemorrhoidectomy completed Aimee Thompson, [facility] [employer] 10/04/2024 09:51:16 Imaging Results Imaging Date Name Status LastModified by Organiz ation Details LastModified Time 09/09/2023 LDCT, chest, for lung cancer screening completed [address] (Imaging) [address] [place], [address], 10/05/2023 16:25:19 09/09/2023 LDCT, chest, for lung cancer screening completed [address] [place], [address], 10/05/2023 16:25:20 02/16/2024 US, abdominal aorta active [address] ([employer] Sched[employer]) [address] [place], [address], 07/28/2024 15:15:28 02/16/2024 imaging/diagno stic result active [facility] [address] [place], [address], 02/16/2024 10:33:58 03/15/2024 imaging/diagno stic result active [facility] [address], [place], [address], 03/15/2024 15:33:20 03/15/2024 imaging/diagno stic result active [facility] [address], [place], [address], 03/15/2024 15:36:00 10/11/2024 imaging/diagno stic result active [facility] [address], [place], [address], 10/11/2024 15:56:51 Procedure Notes None recorded. Medical Equipment None Reported. Allergies Allergen ID Allergen Name Allergen Category Reaction Reaction Severity Criticality Documentation Date Start Date Code Code System Note Provider Name and Address Organization Details Recorded Time 6453 adhesive tape environme nt,medica tion rash Not available Not available 11/19/2022 33793 UNK Not Available [facility] 03:39:21 Medications Name Sig Start Date Stop [...] Updated DateTime 3 170.18 cm 26.6 kg/m2 00313.7 g 97.5 [degF] 72 /min 120 mm[Hg] 60 mm[Hg] FRIEDA Carroll [place] - [place] [employer] 3 16:06:31 Date Recorded Body height Body mass index (BMI) Body weight Body temperature Heart rate Systolic blood pressure Diastolic blood pressure Provider Name and Address Organization Details Last Updated DateTime 4 170.18 cm 28.2 kg/m2 90882.6 3 g 97.8 [degF] 72 /min 120 mm[Hg] 60 mm[Hg] Aimee Thompson Z[employer] [facility] [employer] [facility] 4 16:26:43 Date Recorded Body height Body mass index (BMI) Body weight Body temperature Heart rate Oxygen saturation Oxygen saturation in Arterial blood by Pulse oximetry Systolic blood pressure Diastolic blood pressure Provider Name and Address Organization Details Last Updated DateTime 4 170.18 cm 26.9 kg/m2 62438.8 9 g 97.9 [degF] 59 /min 91 % 91 % 124 mm[Hg] 56 mm[Hg] Isamar Jacob MA [facility] [employer] 4 14:11:58 Date Recorded Body height Body mass index (BMI) Body weight Body temperature Heart rate Systolic blood pressure Diastolic blood pressure Provider Name and Address Organization Details Last Updated DateTime 5 170.18 cm 26.3 kg/m2 66285.5 2 g 97.3 [degF] 60 /min 122 mm[Hg] 60 mm[Hg] Aimee Thompson [employer] [facility] [employer] [facility] 5 09:52:48 Date Recorded Body height Body mass index (BMI) Body weight Body temperature Provider Name and Address Organization Details Last Updated DateTime 11/23/2024 170.18 cm 26.1 kg/m2 07072.49 g 97.5 [degF] Deja Jackson RN [facility] [email or web address] [facility] 11/23/2024 11:56:50 Social History Question Answer Notes LastModified by Organization Details LastModified Time Tobacco Smoking Status Former Smoker quit November 2017 Not Available [facility] 11/19/2022 03:11:44 Do You Have An Advance Directive? No MIGRATION.[id number] Information not available 11/19/2022 Are You Blind Or Do You Have Difficulty Seeing? No MIGRATION.22991027 Information not available 11/19/2022 What Is Your Level Of Caffeine Consumption? Moderate MIGRATION.300026 Information not available 11/19/2022 How Much Tobacco Do You Chew? None MIGRATION.0301 646124 Information not available 11/19/2022 In The 14 Days Before Symptom Onset, Have You Had Close Contact With A Laboratory-confi rmed COVID-19 While That Case Was Ill? No MIGRATION.030 725587 Information not available 11/19/2022 In The 14 Days Before Symptom Onset, Have You Had Close Contact With A Person Who Is Under Investigation For COVID-19 While That Person Was Ill? No MIGRATION.0301 176442 Information not available 11/19/2022 Are You Deaf Or Do You Have Serious Difficulty Hearing? Yes Hearing Loss Right Ear [email or web address] Information not available 01/26/2024 What Type Of Diet Are You Following? REGULAR MIGRATION.0301 332472 Information not available 11/19/2022 Which Illicit Or Recreational Drugs Have You Used? Marijuana MIGRATION.030 978741 Information not available 11/19/2022 What Is The Highest Grade Or Level Of School You Have Completed Or The Highest Degree You Have Received? EE54665-5 MIGRATION.030 026286 Information not available 11/19/2022 Have There Been Any Changes To Your Family Or Social Situation? No MIGRATION.0301 319091 Information not available 11/19/2022 What Is The Fluoride Status Of Your Home? Unknown MIGRATION.0301 861927 Information not available 11/19/2022 When Did You Quit Smoking? 1-5yearssincelastc igarette MIGRATION.0301 372009 Information not available 11/19/2022 Are There Any Guns Present In Your Home? No MIGRATION.0301 307317 Information not available 11/19/2022 Do You Use Insect Repellent Routinely? No MIGRATION.0301 198822 Information not available 11/19/2022 Where Do You Live? SingleLevelHouse MIGRATION.0301 731255 Information not available 11/19/2022 Presence Of Domestic Violence No Information not available 01/26/2024 Guns Present In The Home? No [email or web address] Information not available 01/26/2024 Are You Able To Care For Yourself? Yes [email or web address] Information not available 01/26/2024 Are You Blind Or Do Yo Have Difficulty Seeing? No [email or web address] Information not available 01/26/2024 Are You Deaf Or Do You Have Serious Difficulty Hearing? Yes Hearing Loss Right Ear Information not available 01/26/2024 General Stress Level? Low Information not available 01/26/2024 Live Alone Of With Others? With Others [email or web address] Information not available 01/26/2024 Do You Have A Medical Power Of Home Economics Teacher? No MIGRATION.0301 347277 Information not available 11/19/2022 What Was The Date Of Your Most Recent Tobacco Screening? 06/16/2024 Information not available 06/16/2024 How Many Children Do You Have? 1 Information not available 06/16/2024 Have You Ever Been Counseled For Unhealthy Alcohol Use? No MIGRATION.0301 546819 Information not available 11/19/2022 Do You Have Any Pets? No MIGRATION.0301 990625 Information not available 11/19/2022 What Is Your Relationship Status? MIGRATION.0301 556084 Information not available 11/19/2022 Do You Use Your Seat Belt Or Car Seat Routinely? Yes MIGRATION.0301 662662 Information not available 11/19/2022 Do You Have Smoke And Carbon Monoxide Detectors In Your Home? Yes MIGRATION.0301 575748 Information not available 11/19/2022 Are You Passively Exposed To Smoke? No MIGRATION.0301 011760 Information not available 11/19/2022 Are There Any Smokers In Your House? No MIGRATION.0301 595258 Information not available 11/19/2022 How Much Tobacco Do You Smoke? No MIGRATION.0301 942441 Information not available 11/19/2022 What Types Of Sporting Activities Do You Participate In? None MIGRATION.0301 612551 Information not available 11/19/2022 Do You Use Sunscreen Routinely? No MIGRATION.0301 392408 Information not available 11/19/2022 Has Tobacco Cessation Counseling Been Provided? No MIGRATION.0301 557709 Information not available 11/19/2022 Have You Recently Traveled Abroad? No MIGRATION.0301 293026 Information not available 11/19/2022 Have You Used IV Drugs? No MIGRATION.0301 782161 Information not available 11/19/2022 Do You Have Difficulty Walking Or Climbing Stairs? Yes MIGRATION.0301 885919 Information not available 11/19/2022 Do You Have Any Dietary Restrictions? No MIGRATION.0301 759127 Information not available 11/19/2022 Sex: Male Functional Status Question Answer Note LastModified by Organizat ion Details LastModified Time Do you or have you ever used smokeless tobacco? Never used smokeless tobacco MIGRATION.095644 2192 Information not available 11/19/2022 Are you currently employed? No [email or web address] Information not available 01/26/2024 Do you have transportation difficulties? No MIGRATION.113543 0210 Information not available 11/19/2022 Are you able to care for yourself? Yes MIGRATION.172605 8001 Information not available 11/19/2022 Do you have difficulty dressing or bathing? No MIGRATION.575522 5797 Information not available 11/19/2022 Do you or have you ever used e-cigarettes or vape? Never used electronic cigarettes MIGRATION.611845 7704 Information not available 11/19/2022 What is your exercise level? Occasional MIGRATION.176741 0875 Information not available 11/19/2022 Do you use any illicit or recreational drugs? Yes MIGRATION.892787 4945 Information not available 11/19/2022 Do you or have you ever used any other forms of tobacco or nicotine? No MIGRATION.175539 8574 Information not available 11/19/2022 What is your level of alcohol consumption? Occasional MIGRATION.431884 1650 Information not available 11/19/2022 Are you able to walk? YESWOREST MIGRATION.966270 2640 Information not available 11/19/2022 Do you have difficulty doing errands alone? No MIGRATION.169102 1362 Information not available 11/19/2022 What is your occupation? retired MIGRATION.901235 2049 Information not available 11/19/2022 Mental Status Question Answer Note LastModified by Organizat ion Details LastModified Time Do you feel stressed (tense, restless, nervous, or anxious, or unable to sleep at night)? SS8855-8 MIGRATION.62969423 26 Information not available 11/19/2022 Do you have difficulty concentrating, remembering or making decisions? No MIGRATION.10381313 26 Information not available 11/19/2022 Family History Relationship Description Onset Age of this Age Resolved Age Notes LastModified by Organization Details LastModified Time Mother Heart disease 71 MIGRATION.856 [id number] Not available 11/19/2022 03:20:21 Father Heart disease 56 MIGRATION.517 0640428 Not available 11/19/2022 03:20:21 Brother Suicide 65 MIGRATION.782 8949456 Not available 11/19/2022 03:20:21 Notes:NO ENT Medical History Condition Response NERVE DISEASE Y BLINDNESS N RHEUMATIC FEVER N KIDNEY STONES N BLADDER PROBLEMS N MRSA N OTHER # 1 N POLIO N LUNG DISEASE/DISORDER N RADIATION / CHEMOTHERAPY N COPD N Other # 2 N BLOOD DISEASES [...] 50 mcg/0.25mL dose 1 completed Not Available [facility] 11/11/2023 21:46:37 COVID-19, mRNA, LNP-S, PF, 100 mcg/0.5mL dose or 50 mcg/0.25mL dose 1 completed Not Available [facility] 11/11/2023 21:46:37 COVID-19, mRNA, LNP-S, PF, 100 mcg/0.5mL dose or 50 mcg/0.25mL dose 1 completed Not Available [facility] 11/11/2023 21:46:37 Pneumococcal conjugate PCV20, polysaccharide FCH846 conjugate, adjuvant, PF 3 completed Daphne Lock MD [address], [place], [address], [facility] 07/21/2023 14:05:14 Influenza, high-dose, trivalent, PF 4 completed Daphne Lock MD [address], [place], [address], [facility] 06/20/2024 18:23:04 Past Encounters Encounter ID Performer Location Encounter Start Date Encounter Closed Date Diagnosis/Indication Diagnosis SNOMED-CT Code Diagnosis ICD10 Code Diagnosis Note [id number] Titus Torres MD [facility] Internal Med [facility] [address] [address] 12/25/2020 00:00:00 01/06/2021 10:46:34 [id number] Titus Torres MD [facility] Internal Med [facility] [address] [address] 06/25/2021 00:00:00 06/25/2021 21:51:49 [id number] Titus Torres MD [facility] Internal Med [facility] [address] [address] 12/24/2021 00:00:00 01/05/2022 15:40:27 [id number] Titus Torres MD [facility] Internal Med [facility] [address] [address] 06/24/2022 00:00:00 06/24/2022 14:32:13 [id number] Titus Torres MD [facility] Internal Med [facility] [address] [place] [address] 12/23/2022 15:19:23 12/23/2022 15:55:59 Hypertensive disorder 83072217 I10 Screening for malignant neoplasm of prostate 086052858 Z12.5 Dyslipidemia 528836393 E 78.5 Peripheral arterial occlusive disease 934258664 I73.9 [id number] Daphne gillis MD [facility] Internal Med [facility] [address] [place] [address] 07/21/2023 11:58:33 07/21/2023 13:25:25 Screening - NAD 855700666 Z13.9 C-scope: Get this done, states that [...] understand ing of the above Cigarette smoker 2664244 7 F17.210 Quit in 2018Does wellGet LDCTGet US AAA Hyperlipidemia 22935772 E78.5 On ASAOn atorvastat in 40mg dailyGet labs Essential hypertension 94909724 I10 On lisinopril 10mg dailyGet labs Neuropathy 663482759 G62 .9 On gabapentin 300mg daily, does well on this Anemia 453467427 D64.9 Get labs Peripheral arterial occlusive disease 673637516 I73.[address] [place] Will refer to Dr Jazmin HAMILTON whom he has seen in the past Gastroesop hageal reflux disease without esophagitis 876799925 K21.9 Get on PPI, but take it only as needed, if not better will need to do EGD Administra tion of pneumococcal vaccine [id number] Z23 [id number] Daphne gillis MD [facility] Internal Med [facility] [address] [facility] [address] [place] [address] 09/01/2023 15:56:30 09/01/2023 16:26:32 Screening - NAD [id number] Z13.9 C-scope: Dr Porras 06/25/2016 , next in 10 years Get yearly flu shotGet Tdap if not doneGet shingrix vaccine Declined the above, agreeable to do PCV #20Can do RSV vaccine RTC in 3 months, do labs, ER if worse, he did verbalize her understand ing of the above Cigarette smoker 9855984 7 F17.210 Quit in 2018Does wellGet LDCTGet US AAA Hyperlipidemia 21586419 E78.5 On ASAOn atorvastat in 40mg dailyGet labs Essential hypertension 98207945 I10 On lisinopril 10mg dailyGet labs Neuropathy 111875280 G62 .9 On gabapentin 300mg daily, does well on this Anemia 369964637 D64.9 Get labs Peripheral arterial occlusive disease 516021440 I73.[address] [place] Will refer to Dr Jazmin MILLAN whom he has seen in the past Gastroesop hageal reflux disease without esophagitis 791176209 K21.9 Get on PPI, but take it only as needed, if not better will need to do EGD Coronary arteriosclerosis 23331107 I25.10 S/p CABGOn ASAOn amiodarone 200mg daily, will need to get TSH and FT4On plavixOn lasix 40mg dailyOn lisinopril 10mg dailyOn metoprolol 25mg 1/2 tab dailyOn K Er 20meq dailyKeep apt with [facility] and he will see Dr Manolo olivera 09/03/2023 [id number] Daphne gillis MD [facility] Internal Med [facility] [address] [facility] [address] [place] [address] 01/26/2024 15:53:34 01/26/2024 17:17:55 Screening - NAD [id number] Z13.9 C-scope: Dr Porras 06/25/2016 , next in 10 years Get yearly flu shotGet Tdap if not doneGet shingrix vaccineDec lined the above, agreeable to do PCV #20Can do RSV vaccine RTC in 3 months, do labs, ER if worse, he did verbalize her understand ing of the above Cigarette smoker 0094950 7 F17.210 LDCT 09/09/2023 : CAD, next in one year Quit in 2018Does well Get US AAA Hyperlipidemia 71950976 E78.5 On ASAOn atorvastat in 40mg dailyGet labs Essential hypertension 05208208 I10 Not on lisinopril 10mg dailyOn losartan 50mg dailyGet labs Neuropathy 317722326 G62 .9 On gabapentin 300mg daily, does well on this Anemia 368075159 D64.9 Get labs Peripheral arterial occlusive disease 065084555 I73.[address] [place] Will refer to Dr Wu [facility] whom he has seen in the past [facility] Dr Wu 10/30/2023 : Next in 3 months Gastroesop hageal reflux disease without esophagitis 042241506 K21.9 Get on PPI, but take it only as needed, if not better will need to do EGD Coronary arteriosclerosis 98009892 I25.10 S/p CABGOn ASAOn amiodarone 200mg daily, will need to get TSH and FT4On plavixOn lasix 40mg dailyOn lisinopril 10mg dailyOn metoprolol 25mg 1/2 tab dailyOn K Er 20meq dailyKeep apt with [facility] and he will see Dr Manolo olivera 09/03/2023 Dr Wu 10/30/2023 : F/u in 3 months Insomnia 711079373 G47.0 0 Will get on trazodone 50mg daily PRNAll side effects explained to him and his wifeSleep hygeine explained to him Erectile dysfunction 860 482185 F52.[address] Wu if he can be on viagra Adult heal th examination 009913263 Z00.00 Screening for disorder 568210349 Z13.9 [id number] Daphne gillis MD [facility] Internal Med [address] [facility] [place] [address] 06/16/2024 13:52:12 06/16/2024 14:53:55 Screening - NAD [id number] Z13.9 C-scope: Dr Porras 06/25/2016 , next in 10 years Get yearly flu shotGet Tdap if not doneGet shingrix vaccineDec lined the above, agreeable to do PCV #20Can do RSV vaccine RTC in 3 months, do labs, ER if worse, he did verbalize her understand ing of the above Cigarette smoker 9048757 7 F17.210 LDCT 09/09/2023 : CAD, next in one yearUS AAA: 02/16/2024 : NegQuit in 2018Does well Hyperlipidemia 24370372 E78.5 On ASAOn atorvastat in 40mg dailyGet labs Essential hypertension 00514124 I10 Not on lisinopril 10mg dailyOn losartan 50mg dailyGet labs Neuropathy 658398379 G62 .9 On gabapentin 300mg daily, does well on this Anemia 693381395 D64.9 Get labs Peripheral arterial occlusive disease 518444833 I73.9 [place] Carotid 03/15/2024 ECHO 03/15/2024 : Has [place] Dr Robison [place] Will refer to Dr Jazmin HAMILTON whom he has seen in the past [facility] Dr Wu 10/30/2023 : Next in 3 months Gastroesop hageal reflux disease without esophagitis 192509794 K21.9 Get on PPI, but take it only as needed, if not better will need to do EGD Coronary arteriosclerosis 35852504 I25.10 S/p CABGOn ASANot on amiodarone 200mg dailyOn plavixOn lasix 40mg dailyNot on lisinopril 10mg dailyOn losartan 50mg dailyOn metoprolol 25mg 1/2 tab dailyOn K Er 20meq dailyKeep apt with [facility] and he will see Dr Manolo olivera 09/03/2023 Dr Wu 10/30/2023 : F/u in 3 months Insomnia 012329758 G47.0 0 On trazodone 50mg daily PRNAll side effects explained to him and his wifeSleep hygeine explained to him Erectile dysfunction 860 528901 F52.[address] Wu if he can be on viagra Prediabetes 475775760 R7 3.03 Not on any medsGet labs Hemorrhoids 71214974 K64 .9 Can do anusol, also sitz baths with epsom salts, take fiber to prevent constipati on, refer to [facility] surgery Administra tion of influenza vaccine 40707803 Z23 [id number] Daphne gillis MD [facility] Internal Med [facility] [address] [facility] [address] [place] [address] 10/04/2024 09:36:39 10/04/2024 10:31:31 Screening - NAD 053485118 Z13.9 C-scope: Dr Porras 06/25/2016 , next in 10 years Get yearly flu shotGet Tdap if not doneGet shingrix vaccineDec lined the above, agreeable to do PCV #20Can do RSV vaccine RTC in 3 months, do labs, ER if worse, he did verbalize her understand ing of the above Cigarette smoker 5922271 7 F17.210 LDCT 09/09/2023 : CAD, next in one yearUS AAA: 02/16/2024 : NegQuit in 2018Does well Hyperlipidemia 77516634 E78.5 On ASAOn atorvastat in 40mg dailyGet labs Essential hypertension 43070750 I10 Not on lisinopril 10mg dailyOn losartan 50mg dailyOn metoprolol 25mg dailyGet labs Neuropathy 007821296 G62 .9 On gabapentin 300mg daily tid, does well on this Anemia 499398095 D64.9 Get labsMore iron Peripheral arterial occlusive disease 318009489 I73.9 [place] Carotid 03/15/2024 ECHO 03/15/2024 : [place] Dr Robison [place] Will refer to Dr Wu [facility] whom he has seen in the past [facility] Dr Wu next visit 01/2025 as per his history Gastroesop hageal reflux disease without esophagitis 417458947 K21.9 Get on PPI, but take it only as needed, if not better will need to do EGD Coronary arteriosclerosis 75381381 I25.10 S/p CABGOn ASANot on amiodarone 200mg dailyOn plavixOn lasix 40mg dailyNot on lisinopril 10mg dailyOn losartan 50mg dailyOn metoprolol 25mg 1/2 tab dailyOn K Er 20meq dailyKeep apt with [facility] and he will see Dr Manolo olivera 09/03/2023 Dr Wu 10/30/2023 : F/u in 3 months Insomnia 193435840 G47.0 0 On trazodone 50mg daily PRNAll side effects explained to him and his wifeSleesau hygeine explained to him Erectile dysfunction 040 079979 F52.[address] Wu if he can be on viagra Prediabetes 262803687 R7 3.03 Get on Farxiga 5mg daily, as has CKD so no metforminG et labs Hemorrhoids 89033251 K64 .9 Can do anusol, also sitz baths with epsom salts, take fiber to prevent constipati on, refer to G surgery [id number] Douglas Eduardo MD [facility] [address] [place] [address] 11/23/2024 11:43:09 11/24/2024 15:45:05 Sensorineural hearing loss 02722090 H90.5 Health Concerns Section Related Observation LastModified by Organization Detai ls LastModified Time None Recorded Concern Status LastModified by Organization Details LastModified Time None Recorded Advance Directives Directive N: Payers Encounter Date Sequence Insurance Name Policy Number Policy [place] Covered Member ID [place] Member ID Guarantor Name 09/01/2023 1 [facility] (MEDICARE REPLACEMENT/A DVANTAGE - HMO) [id number] Julio Cesar Holcomb [id number] Julio Cesar Holcomb 01/26/2024 1 [facility] (MEDICARE REPLACEMENT/A DVANTAGE - HMO) [id number] Julio Cesar Holcomb [id number] Julio Cesar Holcomb 06/16/2024 1 [facility] (MEDICARE REPLACEMENT/A DVANTAGE - HMO) [id number] Julio Cesar Holcomb [id number] Julio Cesar Holcomb 10/04/2024 1 [facility] (MEDICARE REPLACEMENT/A DVANTAGE - HMO) [id number] Julio Cesar Holcomb [id number] Julio Cesar Holcomb 11/23/2024 1 [facility] (MEDICARE REPLACEMENT/A DVANTAGE - HMO) [id number] Julio Cesar Holcomb [id number] Julio Cesar Holcomb Notes Date Note Type [...] here with his Daphne Lock MD [address] [facility], [place], [address], [facility] [email or web address] [facility] 09/01/2023 16:28:43 01/26/2024 text/html OV 07/21/2023:Here to establish carePast PCP: Dr Torres Past Hx:Antony dukeyEross Smoker Reviewed social family and surgical history [...] has noted ED Daphne Lock MD [address] [facility], [place], [address], [facility] [email or web address] [facility] 01/26/2024 18:19:13 06/16/2024 text/html OV 07/21/2023:Here to establish carePast PCP: Dr Torres Past Hx:CRISTOPHERHLChel dukeyEross Smoker Reviewed social family and surgical history [...] doing well Daphne Lock MD [address], [address], [place], [address], 1,2,3 [employer] 06/20/2024 18:24:55 10/04/2024 text/html OV 07/21/2023:Here to [...] with his Daphne Lock MD [address], [address], [place], [address], [employer] 10/19/2024 18:06:01 11/23/2024 text/html this patient has had anterior and posterior spinal fusion and is about to have a right carotid endarterectomy. He is here for vocal cord check. There is no history of hoarseness after his spinal surgery. Douglas Eduardo MD [address], [address], [place], [address], [employer] 11/23/2024 12:09:57
--- OUTSIDE RECORDS SUMMARY | 2025-02-07 10:47 | XMS_ITS | Referral Summary ---
Author Organization [facility] B Address [address] [place] [address] Care Team Providers Care Web Content & Social Media Manager Name Role Phone Irais Lock MD Primary Care Provide r Kortney Wu MD Unavailable Encounters Date Type Department Care Team Description 12/30/2024 5:52 AM CDT - 01/01/2025 1:31 PM CDT Hospital Encounter [facility] Cardiac Intensive Care [address] [place] [address] Benny Hassan MD Bradycardia (Primary Dx); Carotid stenosis, bilateral Discharge Disposition: Discharge to home or self care 12/30/2024 7:30 AM CDT - 12/30/2024 11:00 AM CDT Surgery [facility] Operating Room [address] [place] [id number] Benny Hassan MD RIGHT CAROTID ENDARTERECTOMY 12/30/2024 7:34 AM CDT Anesthesia Event [facility] Operating Room [address] [place] [address] Lorie Dillard Jr., MD Eldin, Ali S., MD 12/22/2024 Telephone [facility] [address] [place] [id number] Rosina Campbell 12/21/2024 9:45 AM CDT Pre-Admission Testing [facility] Pre Anesthesia Testing [address] [place] [address] Preop testing (Primary Dx) from Last 3 Months Allergies Active Allergy Reactions Criticality Noted Date [...] 07/31/2022 Assessment & Plan (07/31/2022 4:33 PM DRIVER/REFUSE COLLECTOR): A patent bilateral common femoral artery to popliteal artery bypasses with normal ABIs. Continue ongoing surveillance and risk factor modification with ASA, Plavix, statin therapy. Will follow-up in 6 months with repeat duplex. Neck pain 12/24/2021 Hypertensive disorder 07/01/2020 Assessment & Plan (02/12/2023 4:25 PM CDT): Impression: Chronic stable hypertension. Plan: Continue lisinopril 10 mg. Assessment & Plan (07/31/2022 4:33 PM DRIVER/REFUSE COLLECTOR): Lisinopril Assessment & Plan (07/22/2021 8:35 AM CDT): Followed by his PCP and controlled on his current medications. Assessment & Plan (12/19/2020 3:23 PM CDT): Impression: Stable chronic hypertension. Plan: Medications reviewed and recommend continuing daily antihypertensive regimen as directed by patient's primary care physician. Encounter for screening for cardiovascular disor ders 05/04/2020 Tobacco abuse 05/04/2020 Atherosclerosis of cheesh-na ar angelito of both lower extremities with [...] surveillance. Assessment & Plan (08/15/2020 2:08 PM DRIVER/REFUSE COLLECTOR): Impression: Patient recover well status post bilateral [...] 05/19/2018 Assessment & Plan (07/31/2022 4:33 PM DRIVER/REFUSE COLLECTOR): Lipitor Dyslipidemia 05/02/2018 Assessment & Plan (02/12/2023 [...] 12/19/2020 Assessment & Plan (09/13/2020 10:57 AM DRIVER/REFUSE COLLECTOR): Patient is status post bilateral lower extremity bypasses and doing well from them. Incisions are well healed and his feet are warm and well perfused and he no longer has claudication symptoms. Plan will be for him to follow up in 3 months with repeat ABIs and duplex. Social History Tobacco Use Types Packs/Day Years [...] materials from doctor or pharmacy Never 09/08/2023 [facility] Utilities Answer Date Recorded In the past 12 months has th e [employer], oil, or [employer] threatened to shut off services in your [...] often do you attend chur ch or worship services? Never 07/28/2023 Do you belong to any clubs o r organizations such as holiness groups, unions, fraternal or athletic groups, or [...] on file Legal Sex Male 8:24 PM DRIVER/REFUSE COLLECTOR Gender Identity Not on file Sexual Orientation Not on file Last Filed Vital Signs Vital Sign Reading [...] 12/31/2024 1:45 PM CDT Plan of Treatment Not on file Medical Devices Implanted Type Area Guide Changer Device Identifier Shelf Expiration Date Model / Serial / Lot [employer] Distal Marker Radiology Stainless Steel Sterile Amgm-D - [id number] Implanted:Qty: 1 on 07/28/2023 by Joe French MD at [facility] N/A: Heart [employer] [id number] 12/20/2025 AMGM-D / / [employer] Distal Marker Radiology Stainless Steel Sterile Amgm-D - [id number] Implanted:Qty: 1 on 07/28/2023 by Joe French MD at [facility] N/A: Heart [employer] [id number] 12/20/2025 AMGM-D / / Description:Graft marker Procedures [...] Read Routine (OP Routine) 10/11/2024 12:51 PM DRIVER/REFUSE COLLECTOR Nicotine dependence, cigarettes, uncomplicated from Last 3 [...] plan with the patient's team and other medical/customer consultant staff. This time was in addition to and separate from care provided by other practitioners on this day of service. us Satish Alvarado MD IN CLINIC/BEDSIDE ORDER RALPH [...] MD LAB BLOOD ORDERABLES Final Res ult [facility] [address] Department [place] [address] * (ABNORMAL) Differential, auto (01/01/2025 5:20 AM CDT) Neutrophil abs 5.82 1.50 - 6.50 K/cumm Imm gran abs 0.04 0.00 - 0.10 K/cumm [facility] Lymphocyte abs 1.99 0.80 - 3.30 K/cumm [facility] Monocyte abs 1.02(H) 0.20 - 0.80 K/cumm [facility] Eosinophil abs 0.17 0.00 - 0.50 K/cumm [facility] Basophil abs 0.05 0.00 - 0.10 K/cumm [facility] Neutrophil pct 64.0 % [facility] Comment: Interpretive Data Percent cell count reference ranges are not reported, since discordance with absolute values may lead to misinterpretation of CBC data. Current Interpretive Data was last revised on 2017. Imm gran pct 0.4 % [facility] Comment: Interpretive Data Percent cell count reference ranges are not reported, since discordance with absolute values may lead to misinterpretation of CBC data. Current Interpretive Data was last revised on 2017. Lymphocyte pct 21.9 % [facility] Comment: Interpretive Data Percent cell count reference ranges are not reported, since discordance with absolute values may lead to misinterpretation of CBC data. Current Interpretive Data was last revised on 2017. Monocyte pct 11.2 % [facility] Comment: Interpretive Data Percent cell count reference ranges are not reported, since discordance with absolute values may lead to misinterpretation of CBC data. Current Interpretive Data was last revised on 2017. Eosinophil pct 1.9 % [facility] Comment: Interpretive Data Percent cell count reference ranges are not reported, since discordance with absolute values may lead to misinterpretation of CBC data. Current Interpretive Data was last revised on 2017. Basophil pct 0.6 % [facility] Comment: Interpretive Data Percent cell count reference ranges are not reported, since discordance with absolute values may lead to misinterpretation of CBC data. Current Interpretive Data was last revised on 2017. Blood 01/01/2025 5:20 AM CDT 01/01/2025 5:45 AM CDT us Benny Hassan MD LAB BLOOD ORDERABLES Final Res ult [facility] [address] Department [place] [address] * (ABNORMAL) CBC with auto differential (01/01/2025 5:20 AM CDT) WBC 9.09 3.80 - 9.90 K/cumm Hgb 8.6(L) 13.0 - 17.5 g/dL [facility] Hct 27.1(L) 38.9 - 50.3 % [facility] Plt 195 150 - 400 K/cumm [facility] MPV 10.5 9.1 - 12.3 fL [facility] RBC 2.91(L) 4.30 - 5.80 M/cumm [facility] MCV 93.1 81.3 - 96.4 fL [facility] MCH 29.6 27.1 - 33.3 pg [facility] CH MCHC 31.7(L) 32.3 - 35.7 g/dL [facility] RDW CV 14.8 11.1 - 14.9 % [facility] RDW SD 50.1(H) 35.7 - 48.1 fL [facility] NRBC abs 0.00 0.00 - 0.01 K/cumm [facility] Blood 01/01/2025 5:20 AM CDT 01/01/2025 5:45 AM CDT Benny Hassan MD LAB BLOOD ORDERABLES Final Res ult [facility] [address] Department [place] [address] * Basic metabolic panel (01/01/2025 5:20 AM CDT) Sodium 139 135 - 145 mmol/L Potassium, pl 4.2 3.3 - 4.9 mmol/L [facility] Chloride 109 97 - 110 mmol/L [facility] CO2 23 22 - 32 mmol/L [facility] Anion gap 7 2 - 15 mmol/L [facility] BUN 22 6 - 25 mg/dL [facility] Creatinine 1.28 0.80 - 1.30 mg/dL [facility] Glucose 80 70 - 199 mg/dL [facility] Comment: Interpretive Data Fasting glucose >/= 126 [...] 2022. Calcium 8.5 8.5 - 10.3 mg/dL [facility] Blood 01/01/2025 5:20 AM CDT 01/01/2025 5:47 AM CDT Benny Hassan MD LAB BLOOD ORDERABLES Final Res ult [facility] [place] [address] [place] [address] * (ABNORMAL) Calcium, ionized, whole blood (12/31/2024 9:46 PM CDT) Ca, ionized, bld 4.46(L) 4.50 - 5.10 mg/dL Blood 12/31/2024 9:46 PM CDT 12/31/2024 9:49 PM CDT Stephany Isabel MD LAB BLOOD ORDERABLES Brinda l Result Performing Organization Address [facility] Co de Phone Number [facility] [place] [address] Department of [employer] [place], [place] [id number] * (ABNORMAL) eGFR (12/31/2024 9:46 PM CDT) [...] ORDERABLES Brinda l Result Performing Organization Address City/[facility]/ZIP Co de Phone Number [facility] [place] [address] [place] [address] * Magnesium (12/31/2024 9:46 PM CDT) Magnesium 2.2 1.4 - 2.5 mg/dL Blood 12/31/2024 9:46 PM CDT 12/31/2024 9:50 PM CDT Stephany Isabel MD LAB BLOOD ORDERABLES Brinda harvey Result Performing Organization Address [facility] de Phone Number DAO [place] [address] [place] [address] * (ABNORMAL) Renal function panel (12/31/2024 9:46 PM CDT) Pathologist [facility] Sodium 140 135 - 145 mmol/L Potassium, pl 4.8 3.3 - 4.9 mmol/L [facility] Comment:Hemolysis present. R esults may be affected. Chloride 108 97 - 110 mmol/L [facility] CO2 23 22 - 32 mmol/L [facility] Anion gap 9 2 - 15 mmol/L [facility] BUN 24 6 - 25 mg/dL [facility] Creatinine 1.27 0.80 - 1.30 mg/dL [facility] Glucose 92 70 - 199 mg/dL [facility] Comment: Interpretive Data Fasting glucose >/= 126 [...] 2022. Calcium 8.4(L) 8.5 - 10.3 mg/dL [facility] Phosphorus, pl 3.2 2.3 - 4.5 mg/dL [facility] Albumin 3.4(L) 3.5 - 5.0 g/dL [facility] Blood 12/31/2024 9:46 PM CDT 12/31/2024 9:50 PM CDT Stephany Isabel MD LAB BLOOD ORDERABLES Brinda l Result [facility] [address] Department [place] [address] * Critical Care (12/31/2024 9:42 PM CDT) Narrative Stephany Isabel MD - 12/31/2024 9:42 PM CDT Stephany Isabel MD 01/01/2025 6:06 AM Critical Care Performed by: Stephany Isabel MD Authorized by: Stephany Isabel MD CRITICAL CARE: Team: NASRIN Shift: PM Level of Billing: Subsequent Hospital [...] plan with the patient's team and other medical/customer consultant staff. This time was in addition [...] 10:00 AM Critical Care Performed by: Satish Alvarado MD [...] plan with the ICU team and other medical/customer consultant staff, making frequent assessments and decisions [...] spent time documenting in the medical record us Satish Alvarado MD IN CLINIC/BEDSIDE ORDER RALPH Final Result * ECG 12 lead (12/31/2024 7:45 AM CDT) 12/31/2024 7:45 AM CDT Narrative [facility] - 12/31/2024 9:27 AM CDT Vent Rate: 40 bpm RR Interval: 1481 msec [place] Interval: 149 msec QRS Duration: 102 msec QT Interval: 507 msec QTC Interval: 439 msec P-R-T [place]: 137 - 144 - 131 degrees IMPRESSION: [...] YEARS Electronically Signed By: Dr. Janene Moore [facility] us Satish Alvarado MD ECG ORDERABLES Edited Result - Final [facility] * (ABNORMAL) eGFR (12/31/2024 5:24 AM CDT) [...] MD LAB BLOOD ORDERABLES Final Res ult [facility] [address] Department [place] [address] * (ABNORMAL) Basic metabolic panel (12/31/2024 5:24 AM CDT) Sodium 139 135 - 145 mmol/L Potassium, pl 4.3 3.3 - 4.9 mmol/L [facility] Chloride 108 97 - 110 mmol/L [facility] CO2 21(L) 22 - 32 mmol/L [facility] Anion gap 10 2 - 15 mmol/L [facility] BUN 25 6 - 25 mg/dL [facility] Creatinine 1.49(H) 0.80 - 1.30 mg/dL [facility] Glucose 121 70 - 199 mg/dL [facility] Comment: Interpretive Data Fasting glucose >/= 126 [...] 2022. Calcium 8.2(L) 8.5 - 10.3 mg/dL [facility] Blood 12/31/2024 5:24 AM CDT 12/31/2024 5:24 AM CDT Benny Hassan MD LAB BLOOD ORDERABLES Final Res ult [facility] [address] Department [place] [address] * (ABNORMAL) Differential, auto (12/31/2024 5:22 AM CDT) Neutrophil abs 9.47(H) 1.50 - 6.50 K/cumm Imm gran abs 0.06 0.00 - 0.10 K/cumm [facility] Lymphocyte abs 2.45 0.80 - 3.30 K/cumm [facility] Monocyte abs 1.66(H) 0.20 - 0.80 K/cumm [facility] Eosinophil abs 0.03 0.00 - 0.50 K/cumm [facility] Basophil abs 0.04 0.00 - 0.10 K/cumm [facility] Neutrophil pct 69.1 % [facility] Comment: Interpretive Data Percent cell count reference ranges are not reported, since discordance with absolute values may lead to misinterpretation of CBC data. Current Interpretive Data was last revised on 2017. Imm gran pct 0.4 % [facility] Comment: Interpretive Data Percent cell count reference ranges are not reported, since discordance with absolute values may lead to misinterpretation of CBC data. Current Interpretive Data was last revised on 2017. Lymphocyte pct 17.9 % [facility] Comment: Interpretive Data Percent cell count reference ranges are not reported, since discordance with absolute values may lead to misinterpretation of CBC data. Current Interpretive Data was last revised on 2017. Monocyte pct 12.1 % [facility] Comment: Interpretive Data Percent cell count reference ranges are not reported, since discordance with absolute values may lead to misinterpretation of CBC data. Current Interpretive Data was last revised on 2017. Eosinophil pct 0.2 % [facility] Comment: Interpretive Data Percent cell count reference ranges are not reported, since discordance with absolute values may lead to misinterpretation of CBC data. Current Interpretive Data was last revised on 2017. Basophil pct 0.3 % [facility] Comment: Interpretive Data Percent cell count reference ranges are not reported, since discordance with absolute values may lead to misinterpretation of CBC data. Current Interpretive Data was last revised on 2017. Blood 12/31/2024 5:22 AM CDT 12/31/2024 5:22 AM CDT us Benny Hassan MD LAB BLOOD ORDERABLES Final Res ult [facility] [address] Department [place] [address] * (ABNORMAL) CBC with auto differential (12/31/2024 5:22 AM CDT) WBC 13.71(H) 3.80 - 9.90 K/cumm Hgb 8.8(L) 13.0 - 17.5 g/dL [facility] Hct 26.9(L) 38.9 - 50.3 % [facility] Plt 206 150 - 400 K/cumm [facility] MPV 10.3 9.1 - 12.3 fL [facility] RBC 2.90(L) 4.30 - 5.80 M/cumm [facility] MCV 92.8 81.3 - 96.4 fL [facility] MCH 30.3 27.1 - 33.3 pg [facility] MCHC 32.7 32.3 - 35.7 g/dL [facility] RDW CV 14.7 11.1 - 14.9 % [facility] RDW SD 50.0(H) 35.7 - 48.1 fL [facility] NRBC abs 0.00 0.00 - 0.01 K/cumm [facility] Blood 12/31/2024 5:22 AM CDT 12/31/2024 5:22 AM CDT us Benny Hassan MD LAB BLOOD ORDERABLES Final Res ult [facility] [address] Department [place] [address] * Critical Care (12/30/2024 8:17 PM CDT) Narrative Satish Alvarado MD - 12/30/2024 8:17 PM CDT Satish Alvarado MD 12/30/2024 11:07 PM Critical Care Performed by: Satish Alvarado MD Authorized by: Satish Alvarado MD CRITICAL CARE: Team: CHNE Shift: PM Level of Billing: Critical Care [...] plan with the ICU team and other medical/customer consultant staff, making frequent assessments and decisions [...] spent time documenting in the medical record us Satish Alvarado MD IN CLINIC/BEDSIDE ORDER RALPH [...] plan with the ICU team and other medical/customer consultant staff, making frequent assessments and decisions [...] patient with consultants and the medical staff us Titus Grant MD IN CLINIC/BEDSIDE ORDERABLES Final Result * ECG 12 lead (12/30/2024 2:02 PM CDT) 12/30/2024 2:02 PM CDT Narrative [facility] - 12/30/2024 3:57 PM CDT Vent Rate: 46 bpm RR Interval: 1302 msec [place] Interval: 156 msec QRS Duration: 93 msec QT Interval: 493 msec QTC Interval: 450 msec P-R-T [place]: 51 - 31 - 60 degrees IMPRESSION: SINUS BRADYCARDIA BORDERLINE ECG Electronically Signed By: Dr. Godfrey Darby Benny Hassan MD ECG ORDERABLES Final Result [facility] * Lactate (12/30/2024 1:58 PM CDT) Lactate 1.1 0.7 - 2.0 mmol/L Blood 12/30/2024 1:58 PM CDT 12/30/2024 2:21 PM CDT us Benny Hassan MD LAB BLOOD ORDERABLES Final Res ult Performing Organization Address City/[facility] Co de Phone Number [facility] [address] Department [place] [address] * (ABNORMAL) eGFR (12/30/2024 1:58 PM CDT) [...] MD LAB BLOOD ORDERABLES Final Res ult [facility] [address] Department [place] [address] * (ABNORMAL) Differential, auto (12/30/2024 1:58 PM CDT) Neutrophil abs 10.94(H) 1.50 - 6.50 K/cumm Imm gran abs 0.05 0.00 - 0.10 K/cumm [facility] Lymphocyte abs 1.07 0.80 - 3.30 K/cumm [facility] Monocyte abs 0.37 0.20 - 0.80 K/cumm [facility] Eosinophil abs 0.01 0.00 - 0.50 K/cumm [facility] Basophil abs 0.02 0.00 - 0.10 K/cumm [facility] Neutrophil pct 87.7 % [facility] Comment: Interpretive Data Percent cell count reference ranges are not reported, since discordance with absolute values may lead to misinterpretation of CBC data. Current Interpretive Data was last revised on 2017. Imm gran pct 0.4 % [facility] Comment: Interpretive Data Percent cell count reference ranges are not reported, since discordance with absolute values may lead to misinterpretation of CBC data. Current Interpretive Data was last revised on 2017. Lymphocyte pct 8.6 % [facility] Comment: Interpretive Data Percent cell count reference ranges are not reported, since discordance with absolute values may lead to misinterpretation of CBC data. Current Interpretive Data was last revised on 2017. Monocyte pct 3.0 % [facility] Comment: Interpretive Data Percent cell count reference ranges are not reported, since discordance with absolute values may lead to misinterpretation of CBC data. Current Interpretive Data was last revised on 2017. Eosinophil pct 0.1 % [facility] Comment: Interpretive Data Percent cell count reference ranges are not reported, since discordance with absolute values may lead to misinterpretation of CBC data. Current Interpretive Data was last revised on 2017. Basophil pct 0.2 % [facility] Comment: Interpretive Data Percent cell count reference ranges are not reported, since discordance with absolute values may lead to misinterpretation of CBC data. Current Interpretive Data was last revised on 2017. Blood 12/30/2024 1:58 PM CDT 12/30/2024 2:22 PM CDT Benny Hassan MD LAB BLOOD ORDERABLES Final Res ult Performing Organization Address [facility] Co de Phone Number [facility] [place] [address] [place] [address] * (ABNORMAL) CBC with auto differential (12/30/2024 1:58 PM CDT) WBC 12.46(H) 3.80 - 9.90 K/cumm Hgb 9.3(L) 13.0 - 17.5 g/dL [facility] Hct 27.8(L) 38.9 - 50.3 % [facility] Plt 206 150 - 400 K/cumm [facility] MPV 9.8 9.1 - 12.3 fL [facility] RBC 3.03(L) 4.30 - 5.80 M/cumm [facility] MCV 91.7 81.3 - 96.4 fL [facility] MCH 30.7 27.1 - 33.3 pg [facility] MCHC 33.5 32.3 - 35.7 g/dL [facility] RDW CV 14.5 11.1 - 14.9 % [facility] RDW SD 48.8(H) 35.7 - 48.1 fL [facility] NRBC abs 0.00 0.00 - 0.01 K/cumm [facility] Blood 12/30/2024 1:58 PM CDT 12/30/2024 2:22 PM CDT us Benny Hassan MD LAB BLOOD ORDERABLES Final Res ult Performing Organization Address [facility] Co de Phone Number DAO [place] [address] Department [place] [address] * aPTT (12/30/2024 1:58 PM CDT) aPTT 32 28 - 38 sec Comment: Interpretive Data Heparin therapeutic range: 66.0 - 100.0 seconds. Range based on correlation with therapeutic heparin activity range of 0.3 - 0.7 Units/mL. Current interpretive data was last revised on 2023. Blood 12/30/2024 1:58 PM CDT 12/30/2024 2:21 PM CDT Benny Hassan MD LAB BLOOD ORDERABLES Final Res ult Performing Organization Address [facility] Co de Phone Number DAO SHAKIRA [address] [employer] [place] [address] * Protime-INR (12/30/2024 1:58 PM CDT) PT 11.8 9.7 - 13.0 sec INR 1.09 0.90 - 1.20 DAO Comment: Interpretive data Oral anticoagulant therapeutic ranges: Venous thromboembolism prophylaxis or treatment: 2.0-3.0 CARDIOLOGY Standard range: 2.0-3.0 High-intensity range: 2.5-3.5 Refer to indication-specific guidelines for appropriate target ranges for prosthetic heart valve replacement. Current interpretive data was last revised on 2019. Blood 12/30/2024 1:58 PM CDT 12/30/2024 2:21 PM CDT Benny Hassan MD LAB BLOOD ORDERABLES Final Res ult Performing Organization Address [facility] Co de Phone Number DAO [address] [employer] [place] [address] * Type and screen (12/30/2024 1:58 PM CDT) David, indirect Negative ABO Rh O Positive DAO Blood 12/30/2024 1:58 PM CDT 12/30/2024 2:29 PM CDT Narrative [facility] - 12/30/2024 3:12 PM CDT Has the patient had Daratumumab or Isatuximab in the past 6 months?->Unknown Benny Hassan MD LAB BLOOD BANK TEST ORDERABLES Final Result Performing Organization Address [facility]/ZIP Co de Phone Number [facility] [address] Department [place] [address] * (ABNORMAL) Basic metabolic panel (12/30/2024 1:58 PM CDT) [facility] Sodium 142 135 - 145 mmol/L Potassium, pl 4.7 3.3 - 4.9 mmol/L [facility] Chloride 109 97 - 110 mmol/L [facility] CO2 21(L) 22 - 32 mmol/L [facility] Anion gap 12 2 - 15 mmol/L [facility] BUN 20 6 - 25 mg/dL [facility] Creatinine 1.34(H) 0.80 - 1.30 mg/dL [facility] Glucose 104 70 - 199 mg/dL [facility] Comment: Interpretive Data Fasting glucose >/= 126 [...] 2022. Calcium 8.2(L) 8.5 - 10.3 mg/dL [facility] Blood 12/30/2024 1:58 PM CDT 12/30/2024 2:21 PM CDT Benny Hassan MD LAB BLOOD ORDERABLES Final Res ult Performing Organization Address [facility]/ZIP Co de Phone Number [facility] [address] Department [place] [address] * POCT glucose (12/30/2024 1:05 PM CDT) Glucose, POC 108 70 - 199 mg/dL POC Performer [phone] DAO Blood 12/30/2024 1:05 PM CDT 12/30/2024 1:05 PM CDT Benny Hassan MD LAB POCT ORDERABLES - DEVICE F inal Result Performing Organization Address City/State/[facility] Co de Phone Number [facility] [id number] [place] [address] [place] [address] * Surgical pathology (12/30/2024 11:56 AM CDT) Tissue (Artery, plaque Atherosclerotic) 12/30/2024 9:51 AM CDT Narrative PATHOLOGY - 01/03/2025 4:09 PM CDT EPIC results best viewed via link to PDF [facility] Department of Pathology [address] [place], [place] [id number] Note to Patients: This report may contain [...] Final Report Patient Name: DEMETRA HOLCOMB Address: [address] [place] [address] Gender: M : 1950 (Age: 74) Service: Surgery Location: OR Hospital #: [id number] Patient Type: [facility] Taken: 12/30/2024 Received: 12/30/2024 Accessioned: 12/30/2024 Reported: [...] shows a atherosclerotic material in the lumen. Adzing And Boring Machine Helper sections are submitted in 1 cassette following decalcification. Heidi Herring/Greg Casanova M.D. REPORT IMAGES AND SCANNED DOCUMENTS, IF INCLUDED, ONLY VIEWABLE IN PDF VERSION OF REPORT The performance characteristics of some immunohistochemical stains, fluorescence in-situ hybridization tests and immunophenotyping by flow cytometry cited in this report (if any) were determined by the Surgical Pathology Department at [facility] as part of an ongoing quality assurance monitor body program and in compliance with federally mandated [...] characteristics determined by the Surgical Pathology Department [facility]. It has not been cleared or approved by the U. S. Food and Drug Administration. Note for decalcified specimens: This assay has not been validated on decalcified tissues. Results should be interpreted with caution given the possibility of false negativity on decalcified specimens Benny Hassan MD LAB PATHOLOGY ORDERABLES Final Result PATHOLOGY [address] [place] [address] * ENDARTERECTOMY - CAROTID (12/30/2024 10:58 AM CDT) Anatomical Region Laterality Modality X-Ray Angiograph y Narrative 12/30/2024 1:13 PM CDT Please see OpNote for result. Benny Hassan MD CV CARDIAC CATH PROCEDURES Fin al Result * Arterial Line (12/30/2024 8:49 AM CDT) Courtney Barrientos CRNA - 12/30/2024 8:49 AM CDT Courtney [...] Peripheral IV Catheter (12/30/2024 8:48 AM CDT) Courtney Barrientos CRNA - 12/30/2024 8:48 AM CDT Courtney [...] MD IMG FLUOROSCOPY PROCEDURES Fin al Result RAD_PACS_CH * Potassium, whole blood (12/30/2024 6:07 [...] 6:07 AM CDT 12/30/2024 6:35 AM CDT us Yosef Mora HAT BRIM AND CROWN LAMINATING OPERATOR LAB BLOOD ORDERABLES Final Result DAO ROSENBERG [address] [place] [address] * (ABNORMAL) eGFR (12/21/2024 11:48 AM [...] CDT 12/21/2024 11:48 AM CDT Brittani Hurst HAT BRIM AND CROWN LAMINATING OPERATOR LAB BLOOD ORDERABLES Final Res ult DAO ROSENBERG [address] [place] [address] * Differential, auto (12/21/2024 11:48 AM CDT) Neutrophil abs 5.47 1.50 - 6.50 K/cumm Imm gran abs 0.02 0.00 - 0.10 K/cumm CERN[facility] Lymphocyte abs 2.41 0.80 - 3.30 K/cumm [facility] Monocyte abs 0.75 0.20 - 0.80 K/cumm [facility] Eosinophil abs 0.17 0.00 - 0.50 K/cumm [facility] Basophil abs 0.08 0.00 - 0.10 K/cumm [facility] Neutrophil pct 61.5 % [facility] Comment: Interpretive Data Percent cell count reference ranges are not reported, since discordance with absolute values may lead to misinterpretation of CBC data. Current Interpretive Data was last revised on 2017. Imm gran pct 0.2 % [facility] Comment: Interpretive Data Percent cell count reference ranges are not reported, since discordance with absolute values may lead to misinterpretation of CBC data. Current Interpretive Data was last revised on 2017. Lymphocyte pct 27.1 % [facility] Comment: Interpretive Data Percent cell count reference ranges are not reported, since discordance with absolute values may lead to misinterpretation of CBC data. Current Interpretive Data was last revised on 2017. Monocyte pct 8.4 % [facility] Comment: Interpretive Data Percent cell count reference ranges are not reported, since discordance with absolute values may lead to misinterpretation of CBC data. Current Interpretive Data was last revised on 2017. Eosinophil pct 1.9 % [facility] Comment: Interpretive Data Percent cell count reference ranges are not reported, since discordance with absolute values may lead to misinterpretation of CBC data. Current Interpretive Data was last revised on 2017. Basophil pct 0.9 % [facility] Comment: Interpretive Data Percent cell count reference ranges are not reported, since discordance with absolute values may lead to misinterpretation of CBC data. Current Interpretive Data was last revised on 2017. Blood 12/21/2024 11:4 8 AM CDT 12/21/2024 11:48 AM CDT us Brittani Hurst HAT BRIM AND CROWN LAMINATING OPERATOR LAB BLOOD ORDERABLES Final Res ult DAO ROSENBERG [address] Department [place] [address] * (ABNORMAL) CBC with auto differential (12/21/2024 11:48 AM CDT) WBC 8.90 3.80 - 9.90 K/cumm Hgb 12.0(L) 13.0 - 17.5 g/dL C[facility]ER CH Hct 36.2(L) 38.9 - 50.3 % [facility] CH Plt 282 150 - 400 K/cumm [facility] CH MPV 10.2 9.1 - 12.3 fL [facility] RBC 3.95(L) 4.30 - 5.80 M/cumm [facility] CH MCV 91.6 81.3 - 96.4 fL [facility] MCH 30.4 27.1 - 33.3 pg [facility] MCHC 33.1 32.3 - 35.7 g/dL [facility] CH RDW CV 14.3 11.1 - 14.9 % [facility] CH RDW SD 48.4(H) 35.7 - 48.1 fL [facility] NRBC abs 0.00 0.00 - 0.01 K/cumm [facility] Blood 12/21/2024 11:4 8 AM CDT 12/21/2024 11:48 AM CDT us Brittani Hurst HAT BRIM AND CROWN LAMINATING OPERATOR LAB BLOOD ORDERABLES Final Res ult [facility] [address] Department [place] [address] * (ABNORMAL) Basic metabolic panel (12/21/2024 11:48 AM CDT) Sodium 140 135 - 145 mmol/L Potassium, pl 5.1(H) 3.3 - 4.9 mmol/L [facility] Chloride 102 97 - 110 mmol/L [facility] CO2 27 22 - 32 mmol/L [facility] Anion gap 11 2 - 15 mmol/L [facility] BUN 22 6 - 25 mg/dL [facility] Creatinine 1.32(H) 0.80 - 1.30 mg/dL [facility] Glucose 98 70 - 199 mg/dL [facility] Comment: Interpretive Data Fasting glucose >/= 126 [...] Calcium 9.7 8.5 - 10.3 mg/dL C[facility] CH Blood 12/21/2024 11:4 8 AM CDT 12/21/2024 11:48 AM CDT Brittani Hurst HAT BRIM AND CROWN LAMINATING OPERATOR LAB BLOOD ORDERABLES Final Res ult [facility] [address] Department [place] [address] * Urinalysis reflex to microscopic [...] tendency for uric acid stone formation. Source: [facility] Current Interpretive Data was last revised on [...] MICROBIOLOGY - GENERAL ORD ERABLES Final Result Performing Organization Address [facility] Co de Phone Number DAO ROSENBERG [address] [facility] [place] [address] * Type and screen (12/21/2024 11:28 AM CDT) David, indirect Negative ABO Rh O Positive [facility] Blood 12/21/2024 11:2 8 AM CDT 12/21/2024 11:50 AM CDT Narrative [facility] - 12/21/2024 12:36 PM CDT Is this test being ordered in advance for a procedure?->Yes Expected date of procedure:->12/30/24 Has the patient been transfused in the past 3 months?->Unknown Brittani Hurst NP LAB BLOOD BANK TEST ORDERABLES Final Result Performing Organization Address [facility] Phone Number DAO ROSENBERG [address] [place] [address] * ECG 12 lead (12/21/2024 11:12 AM CDT) 12/21/2024 11:1 2 AM CDT Narrative [facility] - 12/21/2024 3:00 PM CDT Vent Rate: 54 bpm RR Interval: 1094 msec [place] Interval: 160 msec QRS Duration: 98 msec QT Interval: 435 msec QTC Interval: 422 msec P-R-T [place]: 33 - 35 - 56 degrees IMPRESSION: SINUS BRADYCARDIA BORDERLINE ECG Electronically Signed By: Dr. Janene Moore [facility] Brittani Hurst NP ECG ORDERABLES Final Result Performing Organization Address [facility] Co de Phone Number [facility] [email or web address] [facility] * CT Lung Cancer Screening (10/11/2024 12:51 PM DRIVER/REFUSE COLLECTOR) Anatomical Region Laterality Modality Chest N/A Computed Tomogra phy 10/11/2024 2:53 PM DRIVER/REFUSE COLLECTOR Impressions 10/11/2024 2:53 PM DRIVER/REFUSE COLLECTOR 1. LungRADS Category 1 (negative) . Recommend [...] Freddie Morales M.D. Narrative 10/11/2024 2:53 PM DRIVER/REFUSE COLLECTOR EXAMINATION: Lung cancer screening CT of the [...] Most Recently Relevant to Health Maintenance Insurance MEDICARE ADVANTAGE [facility] MEDICARE ADVANTAGE [facility] MEDICARE ADVANTAGE Advance Directives For more information, please contact: [phone] * Full Code (Latest Code Status on File) Date Activated Date Inactivated Comments 12/30/2024 1:35 PM 01/01/2025 5:36 PM * Full Code Date Activated Date Inactivated Comments 07/27/2023 2:03 PM 08/06/2023 12:02 AM Care Teams Web Content & Social Media Manager Relationship Specialty Start Date End Date Irais Lock MD [address] [facility] [address] [place] [address] PCP - General Internal Medicine 07/28/23 Kortney Wu MD [address] [place] [address] Consulting Physician Cardiology 01/01/25
--- OUTSIDE RECORDS SUMMARY | 2025-02-07 10:47 | XMS_ITS | CONTINUITY OF CARE DOCUMENT ---
Author Name missy louis Address Unknown Organization [facility] Address [address] [place] [address] Phone [phone] Care Team Providers Care Grizzly Worker Name Role Phone Jazmin GAONA, Kortney Glez Unavailable [phone] Mo GAONA, Benny Unavailable [phone] KADEN GAONA, DAPHNE Unavailable PROBLEMS Condition Status Date Provider Notes Carotid artery stenosis active Jennifer del real Preoperative cardiovascular evaluation active Sandra Claire Hypercholesterolemia active Kortney gillis MD EKG active Kortney Wu MD Tobacco abuse active Kortney Wu MD Peripheral artery disease active Kortney Wu MD Back pain active Kortney Wu MD CAD -s/p CABG active Kortney Wu MD Cardiology examination active Nisha Esteban i, NP ENCOUNTERS Date Type Provider Location Encounter Diag nosis - In-person encounter Office Visit Kortney Wu MD [place] - In-person encounter Office Visit Kortney Wu MD [place] Cardiology examination - In-person encounter Office Visit Kortney Wu MD [place] [facility] - In-person encounter Office Visit Kortney Wu MD [place] [facility] CAD -s/p CABG - In-person encounter Office Visit Kortney Wu MD [place] EKGTobacco abusePeripheral artery diseaseBack pain - In-person encounter Office Visit Kortney Wu MD [place] - In-person encounter Office Visit Kortney Wu MD [facility] Hypercholesterolemia VITAL SIGNS Date Observation Value Provider Body Mass Index (Ratio) 26.94 kg/m2 Nunu Wu MD blood pressure, diastolic 81 mm[Hg] Paige bergmanfloyd Rogers blood pressure, systolic 145 mm[Hg] Concepcion villatoro Rogers oxygen saturation, oximetry 95 % Elizabethfloyd Rogers respiratory rate E&M 14 /min Elizabethfloyd Rogers pulse rate 56 /min Elizabeth Rogers weight E&M 172 [lb_av] Elizabeth Rogers height E&M 67 [in_i] Elizabeth Rogers blood pressure, cuff size regular An reza Rogers Body Mass Index (Ratio) 27.69 kg/m2 Nunu Wu MD blood pressure, diastolic 82 mm[Hg] Li nkLog blood pressure, systolic 158 mm[Hg] Sri kLog blood pressure, cuff size regular Odin garridoyara Davenport blood pressure, diastolic 82 mm[Hg] Ta bitha Davenport blood pressure, systolic 158 mm[Hg] Tab itha [place]en[place] oxygen saturation, oximetry 96 % America Davenport respiratory rate E&M 12 /min America Davenport pulse rate 85 /min America Dav[place] weight E&M 176.8 [lb_av] America Davenport height E&M 67 [in_i] America Davenport Body Mass Index (Ratio) 28.35 kg/m2 Rosales ann Octavio blood pressure, diastolic 76 mm[Hg] Li nkLogic [...] Ivan y height E&M 67 [in_i] Ivan [facility] y Body Mass Index (Ratio) 26.47 kg/m2 Nunu Wu MD blood pressure, diastolic 57 mm[Hg] Li nkLogic blood pressure, systolic 106 mm[Hg] Sri kLogic weight E&M 169 [lb_av] [facility] blood pressure, diastolic 57 mm[Hg] Victor Manuel [facility] blood pressure, systolic 106 mm[Hg] Conner [facility] oxygen saturation, oximetry 95 % [facility] respiratory rate E&M 15 /min Julia parmar pulse rate 51 /min [facility] height E&M 67 [in_i] Julia Davenport Body Mass Index (Ratio) 29.44 kg/m2 Osman Fournier blood pressure, resting Yes Tons livingston Young oxygen saturation, oximetry 98 % Tonsha Young blood pressure, diastolic 94 mm[Hg] To nsha Young blood pressure, systolic 190 mm[Hg] Ton sha Young respiratory rate E&M 16 /min Tonsha Young pulse rate 64 /min Tonsha Young weight E&M 188 [lb_av] [facility] height E&M 67 [in_i] [facility] Body [facility] Index (Ratio) 29.29 kg/m2 Nunu Wu MD weight E&M 187 [lb_av] Arely Varnerby blood pressure, diastolic 80 mm[Hg] Roger Varnerby blood pressure, systolic 150 mm[Hg] Kri stjigna Varnerby oxygen saturation, oximetry 96 % Arely Varnerby temperature site 76 Arely Holland y respiratory rate E&M 17 /min Arely Bonnie blood pressure, cuff size regular Roger Nicole height E&M 67 [in_i] Arely Elwell Body Mass Index (Ratio) 26.78 kg/m2 Jordan Plurad blood pressure, diastolic 86 mm[Hg] Da tyesha William blood pressure, systolic 148 mm[Hg] Dac ia William oxygen saturation, oximetry 97 % Lorene William respiratory rate E&M 16 /min Lorene V oss pulse rate 63 /min Lorene William weight E&M 171 [lb_av] Lorene William height [...] Nisha Santa NP drug use no Nisha Santa NP alcohol use, average drinks per day social Nisha Santa NP alcohol use yes Nisha Santa NP smoking, year quit 5 Nisha Keith NP number of years as a smoker 35 a Nisha Santa NP smoking history, tot al pack/day 1 Nisha Santa NP cigarette use yes Nisha Santa NP smoking status Former smoker Nisha Miner joao RESIDENTIAL SUPERVISOR alcohol use, average drinks per day social Kortney Wu MD alcohol use yes Kortney gillis MD smoking, year quit 5 Kortney Wu MD number of years as a smoker 35 a Kortney Wu MD smoking history, tot al pack/day 1 Kortney Wu MD cigarette use yes Kortney murdock MD smoking status Former smoker Kortney aly MD smoking, year quit 5 [facility] alcohol use, average drinks per day social [facility] alcohol use yes [facility] smoking/tobacco cess ation, patient education and counseling yes [facility] number of years as a smoker 35 a [facility] smoking history, tot al pack/day 1 [facility] cigarette use yes [facility] smoking status Former smoker [facility] smoking/tobacco cess ation, patient education and counseling [...] of years as a smoker 35 a Awaisyara Young smoking history, tot al pack/day 1 Tonsha Young cigarette use yes Tonsyara Young social [...] smoking status Current every day smoker D acia William FUNCTIONAL STATUS Date Observation Value Provider [...] Payer name Policy type / Coverage type [place] red green party ID AARP MEDICARE ADVANTAGE ST 0 003 (HMO POS) Medicare [id number] ADVANCE DIRECTIVES Name Date DISCUSSED - NO DECISION MADE TREATMENT PLAN Date Name Performer Cardiology:Cervical right internal carotid stenosis of 70% by NASCET criteria w ith calcified plaque he had surgery on RIght neck wiht MCKEE at [facility] and is stable on ASA PLAVIX his visit has been a part of the consistent, comprehensive, and ongoing management of the chronic medical condition(s) listed above for the patient. Kortney Wu MD Cardiology: L ast ov O n Amio post-op afib and Lopressor 12.5mg bid H e had Coronary artery bypass grafting x 3 (SNEED to LAD, saphenous vein graft sequential to ramus and distal obtuse m arginal branches) February 10, 2024 O VERALL DOING BETTER SINCE SURGERY January 31, 2025 T his visit has been a part of the consistent, comprehensive, and ongoing management of the chronic medical condition(s) listed above for the patient. Kortney Wu MD Cardiology:CONCLUSIO NS: 1 . 50 - 69% stenosis of the right ICA. 2 . <50% stenosis of the left ICA. [id number].Evolver CAROTID Study Dt:03-15-2024 Page 2 3 . [...] S TOPPED CIGS C ONTINUES WITH RUTHANN Wu MD Cardiology:Needs lip ids and LFTs at some point H is updated medication list for this problem includes: Atorvastatin 80 Mg Tablet (Atorvastatin) ..... Take 1 tablet by mouth every evening Kortney Wu MD Cardiology: L ast ov O n Amio post-op afib and Lopressor 12.5mg bid H e had Coronary artery bypass grafting x 3 (NSEED to LAD, saphenous vein graft sequential to ramus and distal obtuse m arginal branches) February 10, 2024 O MADELIN DOING BETTER SINCE SURGERY Kortney Wu MD [...] MD Cardiology:STOPPED C IGS C ONTINUES WITH MARSATHYA Santa NP Cardiology: s /p c3-c6 laminetomy fusion. N oted improvement post spine surgery for lower back and back of neck. October 30, 2023 H e is having CP, reproducable tenderness. Get a CT to evaluate for rib fractures February 10, 2024 c ontinues to have off and on back pain Nisha Santa NP Cardiology: H is updated medication list for this problem includes: Atorvastatin 80 Mg Tablet (Atorvastatin) ..... Take 1 tablet by mouth every evening Nisha Santa NP Cardiology:Last ov O n Amio post-op afib and Lopressor 12.5mg bid H e had Coronary artery bypass grafting x 3 (SNEED to LAD, saphenous vein graft sequential to ramus and distal obtuse m arginal branches) February 10, 2024 O MADELIN DOING BETTER SINCE SURGERY Nisha Santa NP Cardiology: L ast ov B ilateral iliofemoral [...] 2D echo today. O rders: E KG ([id number]) 9 9205 HIGH Complex (CPT-22034) Kortney Wu MD Date Name Arterial Duplex Bi-L ower EX CT Angio, Carotids Carotid Duplex Bilat eral [...] completed EKG Kortney Wu MD compl eted Complex e/m visit add on Kortney Wu [...]
[2025-02-07 11:08] LABS: Basophils Percent Auto 0.5 % (0.2-1.2); Eosinophils Absolute Auto 0.2 K/mm3 (0-0.3); Eosinophils Percent Auto 2.5 % (0-4.4); Hematocrit 33.8 % (42.0-52.0); Immature Granulocyte Absolute 0.02 K/mm3 (0.00-0.031); Immature Granulocyte Percent A 0.3 % (0-0.5); Lymphocytes Absolute Auto 1.98 K/mm3 (0.9-3.2); Mean Corpuscular HGB Conc 32.5 g/dl (32-36); Mean Corpuscular Hemoglobin 29.8 pg (26-34); Mean Corpuscular Volume 91.6 fl (80-100); Mean Platelet Volume 9.9 fl (7.4-10.4); Monocytes Absolute Auto 0.7 K/mm3 (0.1-0.6); Neutrophils Percent Auto 62.7 % (45.5-73.1); Platelet Count Result 260 k/mm3 (150-375); Red Blood Count 3.69 M/mm3 (4.6-6.20); Red Cell Distribution Width 14.9 % (11.5-14.5); White Blood Count 7.9 K/mm3 (4.5-10.0)
[2025-02-07 11:31] LABS: Alanine Aminotransferase 20 U/L (6-50); Albumin Level 4.4 g/dL (3.5-5.1); Alkaline Phosphatase 65 U/L (38-126); Anion Gap 10 mmol/L (4-12); Aspartate Amino Transferase 29 U/L (17-59); Bilirubin,Total 0.3 mg/dL (0.2-1.3); Blood Urea Nitrogen 21 mg/dL (9-20); Calcium 9.1 mg/dL (8.4-10.2); Carbon Dioxide 23 mmol/L (22-30); Chloride 107 mmol/L (98-107); Cholesterol 153 mg/dL (0-200); Estimated Glomerular Filt Rate 58; Glucose 125 mg/dL (65-110); HDL Direct 45 mg/dL; Potassium 3.7 mmol/L (3.4-5.0); Sodium 140 mmol/L (137-145); Triglycerides 132 mg/dL (<150)
[2025-02-07 11:42] LABS: LDL Cholesterol Direct 68 mg/dL
[2025-02-07 11:49] LABS: Free T4 Free Thyroxine 1.07 ng/dL (0.78-2.19)
[2025-02-07 11:55] LABS: Thyroid Stimulating Hormone 0.472 uIU/mL (0.465-4.680)
[2025-02-07 11:56] LABS: Hemoglobin A1C 5.6 % (<5.7)
[2025-02-07 12:36] LABS: MALB Creatinine Ratio 18.9 mg/g (0-30); Microalbumin Urine Random 53.8 mg/L (0-16.7)
== END 2025-02-07 10:31 | disposition home or self-care (01) ==
LOC: ANHLAB 10:33
PROVIDERS: PCP Internal Medicine; Visit Provider Internal Medicine
DX: E78.5 Hyperlipidemia, unspecified (principal); R73.03 Prediabetes
CPT/HCPCS: 36415; 80053; 80061; 82043; 83036; 84439; 84443; 85025

== ENCOUNTER 2025-03-07 06:56 | Outpatient (CLI) | payer MEDICARE, SELFPAY ==
--- OUTSIDE RECORDS SUMMARY | 2025-03-07 07:02 | XMS_ITS | Encounter Summary ---
Author Organization [facility] Address [address] [place] [address] Care Team Providers Care Optical Designer Name Role Phone Titus Torres MD Primary Care Provider [phone] Titus Torres MD Primary Care Provider [phone] Irais Lock MD Primary Care Provide r Kortney Wu MD Unavailable [phone] Encounter Details Date Type Department Care Team (Late st Contact Info) Description 03/08/2020 Telephone [facility] [address] [place] [id number] Annel Friedman, EDWARD Social History Tobacco Use Types Packs/Day Years Used Date Smoking Tobacco: Never Smokeless Tobacco: Never Sex and Gender Information Value Date Recorded Sex Assigned at Not on file Legal Sex 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
--- OUTSIDE RECORDS SUMMARY | 2025-03-07 07:02 | XMS_ITS ---
Author Organization [facility] Address [address] [address] [place] [address] Care Team Providers Care Premium Card Cancellation Clerk Name Role Phone OscarDamonShakir Unavailable [phone] Problems Problem Type SNOMED Code ICD Code Onset Dates Problem Status W/U Status Risk Notes Problem Renal osteodystrophy (17749297) Renal osteodystrophy (N25.0) Active confirmed Problem Secondary hyperparathyroidism of renal origin (20594628) Secondary hyperparathyroidism of renal origin (N25.81) Active confirmed Problem Coronary artery disease (99136363) CAD (coronary artery disease) (I25.10) Active confirmed Problem 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, 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 :1950 A ge:74 Y S ex:Male Date:12/07/2024 Address:[address] [place] [address] Subjective: * Chief Complaints: * * Medical [...] Treatment: * Billing Information: * Visit Code: 12541 Office Visit, Est Pt., Level 5. * Procedure Codes: * Electronic signature of Levi Moore MD on 03/07/2025 at 07:02 AM CDT Sign off status: Pending * Provider: Harpreet GREGG MD, F.A.C.P, F.A.S.N. Date: 0 12/07/2024 Generated for Printing/Faxing/eTransmitting on: 0 03/07/2025 07:02 AM CDT
--- OUTSIDE RECORDS SUMMARY | 2025-03-07 07:02 | XMS_ITS ---
Author Organization [facility] Address [address] [place] [address] Care Team Providers Care Junior Sales Assistant Name Role Phone Edis Moorejit Unavailable [phone] Encounters Encounter Location Date Provider Diagnosis [place] [facility] [address] [facility] [address] [place] [address] 08/03/2024 Shakir Moore Plan Of Treatment Next Appt Details Provider Name:Shakir Oscar , 03/15/2025 02:15:00 PM, [address] [facility], [facility] [address], [place], [address], Progress Notes * Julio Cesar HOCLOMBDOB:1950 (74 yo M)Acc No.[id number]:08/03/2024 Progress Notes Patient: Julio Cesar VENCES Provider: Harpreet GREGG MD, Nikki.Ziggy.C.P, F.A.S.N. :1950 A ge:74 Y S ex:Male Date:08/03/2024 Address:[address] [place] [address] Subjective: * Chief Complaints: * * Medical History: Objective: * Vitals: Assessment: Plan: * Treatment: * Billing Information: * Visit Code: * Procedure Codes: * Electronic signature of Levi Moore MD on 03/07/2025 at 07:01 AM CDT Sign off status: Pending * Provider: Harpreet GREGG MD, Nikki.Ziggy.C.P, F.A.S.N. Date: 10/03/2023 Generated for Printing/Faxing/eTransmitting on: 0 03/07/2025 07:01 AM CDT
--- OUTSIDE RECORDS SUMMARY | 2025-03-07 07:02 | XMS_ITS | Continuity of Care Document ---
Author Organization [facility] Address [address] [place] [address] [place] [address] Phone Care Team Providers Care Ice Cream Machine Operator Name Role Phone Modesto Jaimes DO Unavailable Unavailable Advance Directives Directive Yes / No Effective Date File Name No Information Encounters Encounter Description Practice Location Reason(s) For Visit Diagnoses Date Provider Providers Copied on Encounter [facility], [address], [place], [place], [id number], tel:[phone] [facility] No Information Fiona Dunne. [address] [place], [address], [place]. tel:[phone] Family History Family Member Type Diagnosis Age At Onset No Information Payers Payer name Insurance type Covered constitution party ID Authoriza tion(s) No Information Social History [...]
--- OUTSIDE RECORDS SUMMARY | 2025-03-07 07:02 | XMS_ITS | Data Portability ---
Author Organization [place] [facility], Main Office Address [address] [place] [address] Care Team Providers Care Licensed Physical Therapist Name Role Phone TORRI LOCK Primary Care Provider GARY HOLDER General Surgeon DEEPIKA WU Christmas Tree Grower MARCK MCKEE Neurosurgeon Assessment Encounter Date Assessment Date Assessment LastModified by Organization Details LastModified Time 01/26/2024 01/26/2024 12/23/2022: PSA 2.42 07/21/2023: Gluc [...] H/H 11.6/34.1 09/23/2024: A1C 6.1 GFR 50 [email or web address] Not available 10/04/2024 10:15:01 02/14/2025 02/14/2025 12/23/2022: PSA 2.42 07/21/2023: Gluc 106, BUN 20, Alb 4.5, TP WNL LDL 116 HGB 12.9 10/19/2023: BUN 22 Chol 248, TG 174, LDL 171 H/H 11.5/35.6 01/27/2024: LDL 108 Dr Moore IJ BUN/Cr/GFR /1.48/47, Alb 4.6 H/H 11.2/34.3 A1C 6.4 07/24/2025: A1C 6.1 BUN/Cr/GFR 23/1.40/50 H/H 11.6/34.1 09/23/2024: A1C 6.1 GFR 50 02/07/2025: A1C 5.6 BUN/GFR 21/58, Gluc 125 H/H 33.8 Urine random: 53.8 45 minutes spent with the patient and his , reviewed his d/c summary from his R CEA done by Dr Kingston, labs reviewed and referral provided [email or web address] Not available 02/14/2025 11:26:53 Plan of Treatment Reminders Order Date Submit Date Provider Last Modified By Organization Details Last Modified Time Details Appointments Any 15 2024 11:00A M Torri [email or web address] MD Not available Not available Not available Lab glycohemo globin, total, blood 2024 025 [email or web address] [facility] (Lab), [address] [place], [address], 02/14/2025 11:26:44 microalbu min, urine [address] (Lab), [address] [place], [address], 02/14/2025 11:26:44 lipid panel, serum [address] (Lab), [address] [place], [address], 02/14/2025 11:26:43 CBC w/ auto diff [address] (Lab), [address] [place], [address], 02/14/2025 11:26:43 CMP, serum or plasma [address] (Lab), [address] [place], [address], 02/14/2025 11:26:43 TSH, serum or plasma [address] (Lab), [address] [place], [address], 02/14/2025 11:26:44 glycohemo globin, total, blood [address] (Lab), [address] [place], [address], 10/04/2024 10:30:49 microalbu min, urine [address] (Lab), [address] [place], [address], 10/17/2024 17:31:43 lipid panel, serum [address] (Lab), [address] [place], [address], 10/04/2024 10:30:48 CBC w/ auto diff [address] (Lab), [address] [place], [address], 10/04/2024 10:30:49 CMP, serum or plasma [address] (Lab), [address] [place], [address], 10/04/2024 10:30:49 TSH, serum or plasma [address] (Lab), [address] [place], [address], 10/04/2024 10:30:49 glycohemo globin, total, blood 2023 024 [facility] (Lab), [address] [place], [address], 06/20/2024 15:44:20 microalbu min, urine 2023 024 [facility] (Lab), [address] [place], [address], 06/20/2024 13:35:43 lipid panel, serum 2023 024 [facility] (Lab), [address] [place], [address], 06/20/2024 20:23:08 CBC w/ auto diff 2023 024 [facility] (Lab), [address] [place], [address], 06/20/2024 12:17:31 CMP, serum or plasma 2023 024 [facility] (Lab), [address] [place], [address], 06/20/2024 20:23:13 TSH, serum or plasma 2023 024 [facility] (Lab), [address] [place], [address], 06/20/2024 20:28:57 lipid panel, serum 2023 024 [facility] (Lab), [address] [place], [address], 01/27/2024 12:17:39 CBC w/ auto diff [address] (Lab), [address] [place], [address], 07/28/2024 12:39:28 CMP, serum or plasma 2023 024 [facility] (Lab), [address] [place], [address], 01/28/2024 08:20:32 TSH, serum or plasma 2023 024 [facility] (Lab), [address] [place], [address], 01/27/2024 12:36:44 Referral nephrolog ist referral - Please call patient to schedule an appointme nt. Thank you. 2024 025 Kimberlee-Resub adam-Revert Shakir Moore MD (Nephrology, [address], [address], [place], [address], 02/17/2025 13:37:12 diabetic ophthalmo logy referral - Please call patient to schedule an appointme nt. Thank you. 2024 025 [facility], [address], [place], [address], 02/14/2025 21:00:46 podiatris t referral - Please call patient to schedule an appointme nt. Thank you. 2024 025 [email or web address] Stef Scruggs DPM, [address], [address], [place], [address], 02/14/2025 20:08:22 cardiolog ist referral - Please call patient to schedule an appointme nt. Thank you. 2024 025 DAVID Wu MD, [address], [address], [place], [address], 02/17/2025 13:30:27 general surgeon referral - Please call patient to schedule an appointme nt. Thank you. 2024 025 ATHOC Holder DO, [address], [address], [place], [address], 02/17/2025 14:25:21 diabetic ophthalmo logy referral - Please call patient to schedule. 2024 025 [email or web address] [facility], [address], [place], [address], 11/10/2024 08:18:43 podiatris t referral - Please call patient to schedule. 2024 025 [email or web address] Stef Scruggs DPM, [address], [address], [place], [address], 11/10/2024 08:18:43 cardiolog ist referral 2024 025 [email or web address] Deepika Wu MD, [address], [place], [address], 10/04/2024 11:54:51 general surgeon referral - Please call patient to schedule. 2024 025 [email or web address] Gary Holder DO, [address], [address], [place], [address], 10/04/2024 12:11:52 cardiolog ist referral 2023 024 [email or web address] Deepika Wu MD, [address], [address], [place], [address], 06/21/2024 08:10:40 diabetic ophthalmo logy referral - Please call patient to schedule. 2023 024 [facility], [address], [place], [address], 10/04/2024 12:05:30 podiatris t referral - Please call patient to schedule. 2023 024 [email or web address] Stef Scruggs DPM, [address], [address], [place], [address], 10/04/2024 12:05:41 general surgeon referral - Please call patient to schedule. 2023 024 CHON Mejia MD, [address], [address], [place], [address], 07/17/2024 16:27:55 cardiolog ist referral 2023 024 [email or web address] Deepika Wu MD, [address], [place], [address], 02/24/2024 08:06:53 Procedures None recorded. Surgeries None recorded. Imaging LDCT, chest, for lung cancer screening - Please call patient to schedule. 2024 025 [facility], [address], [place], [address], 02/14/2025 14:20:45 LDCT, chest, for lung cancer screening - Please call patient to schedule. To be performed on or around [address] [facility], [address], [place], [address], 10/05/2024 10:57:47 LDCT, chest, for lung cancer screening - Please call patient to schedule. To be performed on or around 4 [address] [facility], [address], [place], [address], 09/19/2024 15:29:11 US, abdominal aorta - no auth required 2023 024 [facility] ([facility]), [address] [place], [address], 07/28/2024 15:15:28 Medication Orders Farxiga 5 mg tablet [email or web address] [id number], [address], [place], [place], [id number], 10/19/2024 18:05:37 trazodone 50 mg tablet 2023 024 [facility] #[id number], [address], [place], [place], [id number], 06/16/2024 14:21:09 Anusol-HC 2.5 % topical cream with perineal applicato r 2023 024 [facility] #[id number], [address], [place], [place], [id number], 06/16/2024 14:39:43 trazodone 50 mg tablet 2023 024 [facility] #[id number], [address], [place], [place], [id number], 01/26/2024 17:15:56 Patient TargetsNo targets recorded. Patient Instructions Encounter Date Encounter Id Patient Instructions Last Modified By Organization Details Last Modified Time 01/26/2024 [id number] dementia rating scale-2* [email or web address] Not available 01/26/2024 18:18:26 Timed Up and Go test (TUG)* [email or web address] Not available 01/26/2024 18:18:27 alcohol misuse* [email or web address] Not available 01/26/2024 18:18:27 depression screening* [email or web address] Not available 01/26/2024 18:18:27 multi-dimensiona l health assessment questionnaire* [email or web address] Not available 01/27/2024 13:52:09 advance care planning: care instructions [email or web address] Not available 01/26/2024 18:18:27 advance directiv es: care instructions [email or web address] Not available 01/26/2024 18:18:27 [place] Advance Directives [email or web address] Not available 01/26/2024 18:18:27 Personalized [facility] lt Plan and Screening Recommendations Advance Directives - Do you have one? No You have indicated that you are capable of preparing your advance care directive Advance Directives - Do we have your advance directive on file in your health record? Primary Prevention/Interven tion (prevents or decreases the chance of common diseases from occurring) Smoking Risk: Non Smoker Former smoker Alcohol Misuse Screening: Negative No reccomendations Weight: Overweight try to lose 5% of your body weight Physical activity: Need more exercise/physical activity minimum of 10-20 minutes of activity that causes mild breathlessness/day Nutrition: Average Refer to attached handout Heart-Healthy Diet: After Your Visit Fall Risk (screened today): Low Refer to attached handout Preventing Falls: After your Visit Vaccines Pneumococcal: Recommended today Influenza: Your next one in the fall of this year Chronic Disease Risks Stroke: Intermediate Risk Eat heart healthy diet Heart Attack: Intermediate Risk Eat heart healthy diet Clogging of the Arteries: Intermediate Risk Eat heart healthy diet Diabetes: Low Risk I have no recommendations Secondary Prevention/Interven tion (detects treatable diseases before they may cause symptoms, disability, or ) Prostate Cancer Screening: No PSA screening necessary Colon Cancer Screening: Colonoscopy Date Screening Last Performed: 06/25/2016 Eye Disease Screening: Recommended today Dementia Risk: Low I have no recommendations Depression Screening: Negative I have no recommendations [email or web address] Not available 01/26/2024 17:48:05 11/23/2024 [id number] vocal cord dysfunction Not available 11/23/2024 12:09:24 the cords were clearly examined and both move normally. 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 Referring Physician: Yakelin Flanagan Medicine, Encounter Date: 06/16/2024 Staffing Program Manager Referral for Pred iabetes Please call patient to schedule. Referring Physician: Yakelin Flanagan Medicine, Encounter Date: 06/16/2024 General Surgeon Referral for Hemorrhoids Please call patient to schedule. Referring Physician: Yakelin Flanagan Medicine, Encounter Date: 06/16/2024 Christmas Tree Grower Referral for Pe ripheral arterial occlusive disease Referring Physician: Yakelin Flanagan Medicine, Encounter Date: 10/04/2024 Diabetic Ophthalmology Refer ral for Prediabetes Please call patient to schedule. Referring Physician: Yakelin Flanagan Medicine, Encounter Date: 10/04/2024 Staffing Program Manager Referral for Pred iabetes Please call patient to schedule. Referring Physician: Yakelin Flanagan Medicine, Encounter Date: 10/04/2024 General Surgeon Referral for Hemorrhoids Please call patient to schedule. Referring Physician: Yakelin Flanagan Medicine, Encounter Date: 10/04/2024 Christmas Tree Grower Referral for Pe ripheral arterial occlusive disease Please call patient to schedule an appointment. Thank you. Referring Physician: Torri Lock Internal Medicine, Encounter Date: 02/14/2025 Diabetic Ophthalmology Refer ral for Prediabetes Please call patient to schedule an appointment. Thank you. Referring Physician: Torri Lock Internal Medicine, Encounter Date: 02/14/2025 Staffing Program Manager Referral for Pred iabetes Please call patient to schedule an appointment. Thank you. Referring Physician: Torri Lock, Internal Medicine, Encounter Date: 02/14/2025 General Surgeon Referral for Hemorrhoids Please call patient to schedule an appointment. Thank you. Referring Physician: Torri Lock Internal Medicine, Encounter Date: 02/14/2025 Gold Charmer Referral for Ch ronic kidney disease Please call patient to schedule an appointment. Thank you. Referring Physician: Torri Lock, Internal Medicine, Encounter Date: 02/14/2025 Results Created Date Observation Date Name Description Value Unit Range Abnormal Flag Note LastModifiedBy Organization Detail LastModifiedTime 01/27/20 24 01/27/2024 LIPID PANEL cholesterol 176 mg/dL 140-19 9 [facility] JASON NSUS RECOM MENDA TION FOR TERENCE STERO L: ADULT CHILD LOW RISK: <200 <170 BORDE RLINE : <200- 239 ----- HIGH RISK: >240 >200 Not Available [facility] (Lab) [address] [place], [address], 01/27/2024 12:17:39 01/27/20 24 01/27/2024 LIPID PANEL triglyceride s 142 mg/dL 0-150 [facility] JASON NSUS REPOR T RECOM MENDA TION FOR TRIGL YCERI BOGDAN: ADULT CHILD LOW RISK: <150 ----- BODER LINE: 150-1 99 ----- HIGH RISK: >200 ----- Not Available [facility] (Lab) [address] [place], [address], 01/27/2024 12:17:39 01/27/20 24 01/27/2024 LIPID PANEL HDL cholesterol 40 mg/dL 40- Not Available [facility] (Lab) [address] [place], [address], 01/27/2024 12:17:39 01/27/20 24 01/27/2024 LIPID PANEL [...] LDL RESUL T WILL NOT BE REPOR SCOTT. Not Available [facility] (Lab) [address] [place], [address], 01/27/2024 12:17:39 01/27/20 24 01/27/2024 TSH W/REF SHAQUILLE FT4 TSH with reflex free T4 0.542 uIU/m L 0.465- 4.680 Not Available [facility] (Lab) [address] [place], [address], 01/27/2024 12:36:44 06/20/20 24 06/20/2024 CBC/C OMPLE TE BLD COUNT W/DIF F white blood cells 8.1 x10'3 /uL 4.2-10 .8 Not Available [facility] (Lab) [address] [place], [address], 06/20/2024 12:17:31 06/20/20 24 06/20/2024 CBC/C OMPLE TE BLD COUNT W/DIF F red blood cells 3.75 x10'6 /uL 4.10-5 .80 low Not Available [facility] (Lab) [address] [place], [address], 06/20/2024 12:17:31 06/20/20 24 06/20/2024 CBC/C OMPLE TE BLD COUNT W/DIF F hemoglobin 11.7 g/dL 13.2-1 7.0 low Not Available [facility] (Lab) [address] [place], [address], 06/20/2024 12:17:31 06/20/20 24 06/20/2024 CBC/C OMPLE TE BLD COUNT W/DIF F hematocrit 34.4 % 39.3-5 0.0 low Not Available [facility] (Lab) [address] [place], [address], 06/20/2024 12:17:31 06/20/20 24 06/20/2024 CBC/C OMPLE TE BLD COUNT W/DIF F mean red cell volume 91.7 fL 80.0-9 7.0 Not Available [facility] (Lab) [address] [place], [address], 06/20/2024 12:17:31 06/20/20 24 06/20/2024 CBC/C OMPLE TE BLD COUNT W/DIF F mean red cell hemoglobin 31.2 pg 27.0-3 3.0 Not Available [facility] (Lab) [address] [place], [address], 06/20/2024 12:17:31 06/20/20 24 06/20/2024 CBC/C OMPLE TE BLD COUNT W/DIF F mean RBC HGB concentratio n 34.0 g/dL 31.0-3 6.0 Not Available [facility] (Lab) [address] [place], [address], 06/20/2024 12:17:31 06/20/20 24 06/20/2024 CBC/C OMPLE TE BLD COUNT W/DIF F red cell distribution width 13.8 % 11.8-1 5.5 Not Available [facility] (Lab) [address] [place], [address], 06/20/2024 12:17:31 06/20/20 24 06/20/2024 CBC/C OMPLE TE BLD COUNT W/DIF F platelets 275 x10'3 /uL 150-40 0 Not Available [facility] (Lab) [address] [place], [address], 06/20/2024 12:17:31 06/20/20 24 06/20/2024 CBC/C OMPLE TE BLD COUNT W/DIF F mean platelet volume 10.3 fL 9.0-12 .4 Not Available [facility] (Lab) [address] [place], [address], 06/20/2024 12:17:31 06/20/20 24 06/20/2024 CBC/C OMPLE TE BLD COUNT W/DIF F neutrophils 57.7 % 39.0-7 2.0 Not Available [facility] (Lab) [address] [place], [address], 06/20/2024 12:17:31 06/20/20 24 06/20/2024 CBC/C OMPLE TE BLD COUNT W/DIF F lymphocytes 29.5 % 16.0-4 7.0 Not Available [facility] (Lab) [address] [place], [address], 06/20/2024 12:17:31 06/20/20 24 06/20/2024 CBC/C OMPLE TE BLD COUNT W/DIF F monocytes 9.9 % 5.0-12 .0 Not Available [facility] (Lab) [address] [place], [address], 06/20/2024 12:17:31 06/20/20 24 06/20/2024 CBC/C OMPLE TE BLD COUNT W/DIF F eosinophils 2.2 % 1.0-7. 0 Not Available [facility] (Lab) [address] [place], [address], 06/20/2024 12:17:31 06/20/20 24 06/20/2024 CBC/C OMPLE TE BLD COUNT W/DIF F basophils 0.5 % 0.0-2. 0 Not Available [facility] (Lab) [address] [place], [address], 06/20/2024 12:17:31 06/20/20 24 06/20/2024 CBC/C OMPLE TE BLD COUNT W/DIF F immature granulocytes 0.2 % 0.00-0 .50 Not Available [facility] (Lab) [address] [place], [address], 06/20/2024 12:17:31 06/20/20 24 06/20/2024 CBC/C OMPLE TE BLD COUNT W/DIF F neutrophils, absolute count 4.66 x10'3 /uL 1.5-8. 0 Not Available [facility] (Lab) [address] [place], [address], 06/20/2024 12:17:31 06/20/20 24 06/20/2024 CBC/C OMPLE TE BLD COUNT W/DIF F lymphocytes, absolute count 2.39 x10'3 /uL 1.07-3 .43 Not Available [facility] (Lab) [address] [place], [address], 06/20/2024 12:17:31 06/20/20 24 06/20/2024 CBC/C OMPLE TE BLD COUNT W/DIF F monocytes, absolute count 0.80 x10'3 /uL 0.29-0 .99 Not Available [facility] (Lab) [address] [place], [address], 06/20/2024 12:17:31 06/20/20 24 06/20/2024 CBC/C OMPLE TE BLD COUNT W/DIF F eosinophils, absolute count 0.18 x10'3 /uL 0.02-0 .53 Not Available [facility] (Lab) [address] [place], [address], 06/20/2024 12:17:31 06/20/20 24 06/20/2024 CBC/C OMPLE TE BLD COUNT W/DIF F basophils, absolute count 0.04 x10'3 /uL 0.01-0 .08 Not Available [facility] (Lab) [address] [place], [address], 06/20/2024 12:17:31 06/20/20 24 06/20/2024 CBC/C OMPLE TE BLD COUNT W/DIF F immature granulocytes ,absolute 0.02 x10'3 /uL 0.00-0 .05 Not Available [facility] (Lab) [address] [place], [address], 06/20/2024 12:17:31 06/20/20 24 06/20/2024 CBC/C OMPLE TE BLD COUNT W/DIF F nucleated red blood cells 0.0 % -0 Not Available [facility] (Lab) [address] [place], [address], 06/20/2024 12:17:31 06/20/20 24 06/20/2024 CBC/C OMPLE TE BLD COUNT W/DIF F NRBC# 0.00 x10'3 /uL Not Available [facility] (Lab) [address] [place], [address], 06/20/2024 12:17:31 06/20/20 24 06/20/2024 MICRO ALBUM IN RANDO M URINE microalbumin , urine <6.0 mg/L 0.0-16 .6 Not Available [facility] (Lab) [address] [place], [address], 06/20/2024 13:35:43 06/20/20 24 06/20/2024 HEMOG LOBIN A1C HA1C 5.7 % 4.0-6. 0 Diabe nolvia Kaylin linton Crite nancy: <5.7% Consi stent with absen ce of diabe nolvia 5.7-6 .4% Consi stent with incre ased risk for diabe nolvia (pred iabet es) >OR=6 .5% Consi stent with diabe nolvia REFER ENCE: Diabe nolvia Care 2016, 39(Newsome ppl.1 ):s13 -s22 Not Available [facility] (Lab) [address] [place], [address], 06/20/2024 15:44:20 06/20/20 24 06/20/2024 LIPID PANEL cholesterol 138 mg/dL 140-19 9 low NIH JASON NSUS RECOM MENDA TION FOR TERENCE STERO L: ADULT CHILD LOW RISK: <200 <170 BORDE RLINE : <200- 239 ----- HIGH RISK: >240 >200 Not Available [facility] (Lab) [address] [place], [address], 06/20/2024 20:23:08 06/20/20 24 06/20/2024 LIPID PANEL triglyceride s 138 mg/dL 0-150 NIH JASON NSUS REPOR T RECOM MENDA TION FOR TRIGL YCERI BOGDAN: ADULT CHILD LOW RISK: <150 ----- BODER LINE: 150-1 99 ----- HIGH RISK: >200 ----- Not Available [facility] (Lab) [address] [place], [address], 06/20/2024 20:23:08 06/20/20 24 06/20/2024 LIPID PANEL HDL cholesterol 33 mg/dL 40- low Not Available [facility] (Lab) [address] [place], [address], 06/20/2024 20:23:08 06/20/20 24 06/20/2024 LIPID PANEL LDL cholesterol, calculated 77 mg/dL 0-130 NIH JASON NSUS REPOR T RECOM MENDA TIONS FOR LDL: ADULT CHILD LOW RISK <130 <110 (OPTI MAL LDL) <100 ----- SHOLA RLINE : 130-1 59 ----- HIGH RISK: >160 >130 A TRIGL YCERI DE RESUL T >400 INVAL IDATE S THE CALCU LATIO N FOR LDL FRACT IONAT ION - THE LDL RESUL T WILL NOT BE REPOR SCOTT. Not Available [facility] (Lab) [address] [place], [address], 06/20/2024 20:23:08 06/20/20 24 06/20/2024 COMPR EHENS RODY METAB OLIC PANEL sodium 138 mmol/ L 137-14 5 Not Available [facility] (Lab) [address] [place], [address], 06/20/2024 20:23:13 06/20/20 24 06/20/2024 COMPR EHENS RODY METAB OLIC PANEL potassium 4.2 mmol/ L 3.5-5. 1 Not Available [facility] (Lab) [address] [place], [address], 06/20/2024 20:23:13 06/20/20 24 06/20/2024 COMPR EHENS RODY METAB OLIC PANEL chloride 104 mmol/ L 98-107 Not Available [facility] (Lab) [address] [place], [address], 06/20/2024 20:23:13 06/20/20 24 06/20/2024 COMPR EHENS RODY METAB OLIC PANEL carbon dioxide 25 mmol/ L 22-30 Not Available [facility] (Lab) [address] [place], [address], 06/20/2024 20:23:13 06/20/20 24 06/20/2024 COMPR EHENS RODY METAB OLIC PANEL anion gap 13.2 mmol/ L 14-22 low Not Available [facility] (Lab) [address] [place], [address], 06/20/2024 20:23:13 06/20/20 24 06/20/2024 COMPR EHENS RODY METAB OLIC PANEL glucose 84 mg/dL 70-99 Not Available [facility] (Lab) [address] [place], [address], 06/20/2024 20:23:13 06/20/20 24 06/20/2024 COMPR EHENS RODY METAB OLIC PANEL BUN 22 mg/dL 8-19 high Not Available [facility] (Lab) [address] [place], [address], 06/20/2024 20:23:13 06/20/20 24 06/20/2024 COMPR EHENS RODY METAB OLIC PANEL creatinine 1.29 mg/dL 0.66-1 .25 high Not Available [facility] (Lab) [address] [place], [address], 06/20/2024 20:23:13 06/20/20 24 06/20/2024 COMPR EHENS RODY METAB OLIC PANEL GFR 54 Refer ence Range : [place] ge GFR Healt hy Adult : >60 [...] or ethni c subgr oups, such as Hisia nics. Outsi de the valid ated vinicio [...] calcu lator is avail able on the [facility] websi te: [email or web address] :[email or web address] w.nina [email or web address] juaquin/pr ofess ional s/kdo qi/gf r_cal culat or Not Available [facility] (Lab) [address] [place], [address], 06/20/2024 20:23:13 06/20/20 24 06/20/2024 COMPR EHENS RODY METAB OLIC PANEL alkaline phosphatase 69 U/L 38-126 Not Available [facility] (Lab) [address] [place], [address], 06/20/2024 20:23:13 06/20/20 24 06/20/2024 COMPR EHENS RODY METAB OLIC PANEL alanine aminotransfe rase 19 U/L 0-50 Not Available [facility] (Lab) [address] [place], [address], 06/20/2024 20:23:13 06/20/20 24 06/20/2024 COMPR EHENS RODY METAB OLIC PANEL aspartate aminotransfe rase 23 U/L 15-46 Not Available [facility] (Lab) [address] [place], [address], 06/20/2024 20:23:13 06/20/20 24 06/20/2024 COMPR EHENS RODY METAB OLIC PANEL bilirubin, total 0.40 mg/dL 0.20-1 .30 Not Available [facility] [facility] (Lab) [address] [place], [address], 06/20/2024 20:23:13 06/20/20 24 06/20/2024 COMPR EHENS RODY METAB OLIC PANEL calcium 9.8 mg/dL 8.4-10 .2 Not Available [facility] (Lab) [address] [place], [address], 06/20/2024 20:23:13 06/20/20 24 06/20/2024 COMPR EHENS RODY METAB OLIC PANEL total protein 6.8 g/dL 6.3-8. 2 Not Available [facility] (Lab) [address] [place], [address], 06/20/2024 20:23:13 06/20/20 24 06/20/2024 COMPR EHENS RODY METAB OLIC PANEL albumin 4.4 g/dL 3.0-4. 4 Not Available [facility] (Lab) [address] [place], [address], 06/20/2024 20:23:13 06/20/20 24 06/20/2024 COMPR EHENS RODY METAB OLIC PANEL globulin 2.4 g/dL 2.6-4. 2 low Not Available [facility] (Lab) [address] [place], [address], 06/20/2024 20:23:13 06/20/20 24 06/20/2024 COMPR EHENS RODY METAB OLIC PANEL A/G ratio 1.8 ratio 1.0-2. 0 Not Available [facility] (Lab) [address] [place], [address], 06/20/2024 20:23:13 06/20/20 24 06/20/2024 TSH W/REF SHAQUILEL FT4 TSH with reflex free T4 0.970 uIU/m L 0.465- 4.680 Not Available [facility] (Lab) [address] [place], [address], 06/20/2024 20:28:57 02/16/20 24 02/16/2024 US, abdom inal aorta [facility] [address] [place] [address] Patien t Name: ELIZABETH DEMETRA CACERES ion #: [id number] Sex: M : 1949 0 Dictat ed By: Vanessa coles Attend ing Physic berenice: KRISHAN DIAZ Orderi ng Physic berenice: KUNALKRISHAN DAWSON Exam Date: 2023 [...] by color Dopple r techni que. COMPAR ALLI: None. FINDIN GS: The proxim al aorta [...] at 2023 09:10: 22 AM Page [email or web address] [place] [address] ([employer]) [address] [place], [address], 07/28/2024 15:15:28 02/16/20 24 02/16/2024 imagi ng/di agnos tic resul t No observ ation record ed. [facility] [address] [place], [address], 02/16/2024 10:33:58 03/15/20 24 03/15/2024 imagi ng/di agnos tic resul t No observ ation record ed. [facility] [address], [place], [address], 03/15/2024 15:33:20 03/15/20 24 03/15/2024 imagi ng/di agnos tic resul t No observ ation record ed. [facility] [address], [place], [address], 03/15/2024 15:36:00 10/11/19 25 10/11/2024 imagi ng/di agnos tic resul t No observ ation record ed. [facility] [address], [place], [address], 10/11/2024 15:56:51 03/01/20 25 03/01/2025 US, doppl er, arter ial No observ ation record ed. [email or web address] [facility] [address], [place], [address], 03/02/2025 12:27:23 Result Notes None recorded. Problems Name Problem SNOMED Code Status Onset Date Resolution Date Notes Provider Name and Address Organization Details Recorded Time Periphera l arterial occlusive disease 729734270 Active 2022 Not Available [employer] 4 21:46:36 Cigarette smoker 01290225 Active 2022 Not Available [employer] 4 21:46:36 Hyperlipi demia 16609561 Active 2022 Not Available [facility] 4 21:46:36 Essential hypertens ion 95327146 Active 2022 Not Available [facility] 4 21:46:36 Neuropath y 106001726 Active 2022 Not Available [employer] 4 21:46:36 Anemia 898034963 Active 2022 Not Available [employer] 4 21:46:36 Gastroeso phageal reflux disease without esophagit is 741836527 Active 2022 Not Available [employer] 4 21:46:36 Coronary arteriosc lerosis 57576707 Active 2022 Not Available [employer] 21:46:36 Insomnia 748007642 Active 2023 Torri gillis MD [address], [place], [address] , [facility] 4 17:14:59 Erectile dysfuncti on 406082621 Active 2023 Torri gillis MD [address], [place], [address] , [facility] 4 17:16:03 Prediabet es 040617728 Active 2023 Torri gillis MD [address], [place], [address] , [facility] 4 14:20:06 Spinal enthesopa thy 18666711 Active Not Available [facility] 4 21:46:36 Cervical spondylos is without myelopath y 800197584 Active Not Available [facility] 4 21:46:36 Low back pain 642050425 Active Not Available [facility] 4 21:46:36 Dyslipide jorge 084223698 Active 2017 Not Available [facility] 4 21:46:36 Hypertens rody disorder 50472509 Active 2019 Not Available [facility] 4 21:46:36 Foot pain 10083146 Active Not Available [facility] 4 21:46:36 Bleeding hemorrhoi ds 71015746 Active Not Available [facility] 4 21:46:36 Hemorrhoi ds 02299486 Active Not Available [facility] 4 21:46:36 Degenerat ion of intervert ebral disc 62238703 Active Not Available [facility] 4 21:46:36 Neck pain 72556841 Active 2021 Not Available [facility] 4 21:46:36 Periphera l arterial disease 060209141 Active 2020 fem-pop bypass Janis Tan Not Available [facility] 4 21:46:36 Vocal cord dysfuncti on 921514496 Active 2024 FRIEDA Carroll null, [place] [facility] 5 15:48:54 Sensorine ural hearing loss 07133310 Active 2024 Douglas Eduardo MD [address] [facility], [place], [address] , [place] [facility] [place] [facility] 5 12:09:22 Right carotid artery stenosis 01844675527 9100 Active 2024 Torri gillis MD [address] [facility], [place], [address] , [facility] 5 10:51:05 Chronic kidney disease 417109828 Active 2024 Torri gillis MD [address] [facility], [facility] [address], [place], [address] , [facility] 10:54:53 Problem Notes None recorded. Procedures Surgical History Date Name Laterality Status Provider Name and Address Organization Details Recorded Time 025 operation on carotid artery completed FRIEDA Carroll [place] [facility] 02/14/2025 10:40:40 024 Medicare Wellness CPT Code, subsequent completed Kennedy Moss LPN [place] [facility] 01/26/2024 17:38:09 024 Advanced Care Planning completed Kennedy Moss LPN [place] [facility] 01/26/2024 17:42:53 023 coronary artery bypass grafts x 3 completed FRIEDA Carroll [place] [facility] 09/01/2023 16:00:42 Shoulder completed Not Available [facility] 11/19/2022 03:20:17 Back Surgeries completed Not Available [facility] 11/19/2022 03:20:17 Knee arthroscopy/surgery completed Not Available [facility] 11/19/2022 03:20:17 Skin Graft completed Not Available [facility] 11/19/2022 03:20:17 Neck Surgeries completed Not Available [facility] 11/19/2022 03:20:17 Excisions - Specify completed Not Available [facility] 11/19/2022 03:20:17 insertion of stent into femoral artery completed Not Available [facility] 11/19/2022 03:20:17 other completed Not Available [facility] 11/19/2022 03:20:17 Hemorrhoidectomy completed FRIEDA Carroll [place] - [facility] 10/04/2024 09:51:16 Imaging Results None recorded. Procedure Notes None recorded. Medical Equipment None Reported. Allergies Allergen ID Allergen Name Allergen Category Reaction Reaction Severity Criticality Documentation Date Start Date Code Code System Note Provider Name and Address Organization Details Recorded Time 6453 adhesive tape environme nt,medica tion rash Not available Not available 11/19/2022 77874 UNK Not Available [facility] 03:39:21 Medications Name Sig Start Date Stop Date Status Note LastModified by Organization Details LastModified Time losartan 50 mg tablet Take 1 tablet every day by oral route for 90 days. 02/14 completed stopped by hosp Not Available Not Available Not Available cyclobenz aprine 10 mg tablet 12/25 [...] TAKE 1 TABLET BY MOUTH EVERY DAY 2024 active Not Available Not Available Not Avai lable atorvasta tin 20 mg tablet TAKE 1 [...] day by oral route for 90 days. 02/14 completed stopped in hosp Not Available Not Available Not Available calcium 06/24 completed Not Available Not [...] Updated DateTime 5 170.18 cm 26.3 kg/m2 71338.5 2 g 97.3 [degF] 60 /min 122 mm[Hg] 60 mm[Hg] FRIEDA Carroll [place] [facility] [employer] [facility] 5 09:52:48 Date Recorded Body height Body mass index (BMI) Body weight Body temperature Provider Name and Address Organization Details Last Updated DateTime 11/23/2024 170.18 cm 26.1 kg/m2 48329.49 g 97.5 [degF] Deja Jackson RN [facility] [employer] [facility] 11/23/2024 11:56:50 Date Recorded Body height Body mass index (BMI) Body weight Body temperature Heart rate Systolic blood pressure Diastolic blood pressure Provider Name and Address Organization Details Last Updated DateTime 4 170.18 cm 28.2 kg/m2 59961.6 3 g 97.8 [degF] 72 /min 120 mm[Hg] 60 mm[Hg] Aimee Thompson Ziggy PA [employer] [facility] [employer] 4 16:26:43 Date Recorded Body height Body mass index (BMI) Body weight Body temperature Heart rate Systolic blood pressure Diastolic blood pressure Provider Name and Address Organization Details Last Updated DateTime 5 170.18 cm 26.3 kg/m2 49115.5 2 g 97.3 [degF] 60 /min 122 mm[Hg] 60 mm[Hg] Aimee Thompson Ziggy PA [employer] [facility] [employer] 5 10:42:34 Date Recorded Body height Body mass index (BMI) Body weight Body temperature Heart rate Oxygen saturation Oxygen saturation in Arterial blood by Pulse oximetry Systolic blood pressure Diastolic blood pressure Provider Name and Address Organization Details Last Updated DateTime 4 170.18 cm 26.9 kg/m2 95980.8 9 g 97.9 [degF] 59 /min 91 % 91 % 124 mm[Hg] 56 mm[Hg] Isamar Jacob MA [facility] [employer] 4 14:11:58 Social History Question Answer Notes LastModified by Organization Details LastModified Time Tobacco Smoking Status Former Smoker quit November 2017 Not Available [facility] 11/19/2022 03:11:44 Do You Have An Advance Directive? No MIGRATION.300 134385 Information not available 11/19/2022 Are You Blind Or Do You Have Difficulty Seeing? No MIGRATION.22991027 Information not available 11/19/2022 What Is Your Level Of Caffeine Consumption? Moderate MIGRATION.0301 703879 Information not available 11/19/2022 How Much Tobacco Do You Chew? None MIGRATION.030 407713 Information not available 11/19/2022 In The 14 Days Before Symptom Onset, Have You Had Close Contact With A Laboratory-confi rmed COVID-19 While That Case Was Ill? No MIGRATION.030 988514 Information not available 11/19/2022 In The 14 Days Before Symptom Onset, Have You Had Close Contact With A Person Who Is Under Investigation For COVID-19 While That Person Was Ill? No MIGRATION.030 365948 Information not available 11/19/2022 Are You Deaf Or Do You Have Serious Difficulty Hearing? Yes Hearing Loss Right Ear [email or web address] Information not available 01/26/2024 What Type Of Diet Are You Following? REGULAR MIGRATION.030 501987 Information not available 11/19/2022 Which Illicit Or Recreational Drugs Have You Used? Marijuana MIGRATION.300 272530 Information not available 11/19/2022 What Is The Highest Grade Or Level Of School You Have Completed Or The Highest Degree You Have Received? [id number] MIGRATION.030 219877 Information not available 11/19/2022 Have There Been Any Changes To Your Family Or Social Situation? No MIGRATION.030 587773 Information not available 11/19/2022 What Is The Fluoride Status Of Your Home? Unknown MIGRATION.030 235307 Information not available 11/19/2022 When Did You Quit Smoking? 6-10yearssincelast cigarette [email or web address] Information not available 02/14/2025 Are There Any Guns Present In Your Home? No MIGRATION.030 327050 Information not available 11/19/2022 Do You Use Insect Repellent Routinely? No MIGRATION.030 943289 Information not available 11/19/2022 Where Do You Live? SingleLevelHouse MIGRATION.030 856874 Information not available 11/19/2022 Presence Of Domestic Violence No [email or web address] Information not available 01/26/2024 Guns Present In The Home? No [email or web address] Information not available 01/26/2024 Are You Able To Care For Yourself? Yes [email or web address] Information not available 01/26/2024 Are You Blind Or Do Yo Have Difficulty Seeing? No [email or web address] Information not available 01/26/2024 Are You Deaf Or Do You Have Serious Difficulty Hearing? Yes Hearing Loss Right Ear [email or web address] Information not available 01/26/2024 General Stress Level? Low [email or web address] Information not available 01/26/2024 Live Alone Of With Others? With Others [email or web address] Information not available 01/26/2024 Do You Have A Medical Power Of Service Promoter Salesperson? No MIGRATION.0301 462834 Information not available 11/19/2022 What Was The Date Of Your Most Recent Tobacco Screening? 02/14/2025 [email or web address] Information not available 02/14/2025 How Many Children Do You Have? 1 [email or web address] Information not available 06/16/2024 What Is Your Current Pack Years? 30ormorepackyears [email or web address] Information not available 02/14/2025 Have You Ever Been Counseled For Unhealthy Alcohol Use? No MIGRATION.0301 140935 Information not available 11/19/2022 Do You Have Any Pets? No MIGRATION.0301 834609 Information not available 11/19/2022 What Is Your Relationship Status? MIGRATION.0301 467754 Information not available 11/19/2022 Do You Use Your Seat Belt Or Car Seat Routinely? Yes MIGRATION.0301 708975 Information not available 11/19/2022 Do You Have Smoke And Carbon Monoxide Detectors In Your Home? Yes MIGRATION.0301 818377 Information not available 11/19/2022 Are You Passively Exposed To Smoke? No MIGRATION.0301 623110 Information not available 11/19/2022 Are There Any Smokers In Your House? No MIGRATION.0301 140363 Information not available 11/19/2022 How Much Tobacco Do You Smoke? No Was 1ppd [email or web address] Information not available 02/14/2025 What Types Of Sporting Activities Do You Participate In? None MIGRATION.0301 142798 Information not available 11/19/2022 Do You Use Sunscreen Routinely? No MIGRATION.0301 852732 Information not available 11/19/2022 Has Tobacco Cessation Counseling Been Provided? No MIGRATION.0301 454060 Information not available 11/19/2022 How Many Years Have You Smoked Tobacco? 35 Information not available 02/14/2025 Have You Recently Traveled Abroad? No MIGRATION.0301 619972 Information not available 11/19/2022 Have You Used IV Drugs? No MIGRATION.0301 218526 Information not available 11/19/2022 Do You Have Difficulty Walking Or Climbing Stairs? Yes MIGRATION.0301 939020 Information not available 11/19/2022 Do You Have Any Dietary Restrictions? No MIGRATION.0301 422525 Information not available 11/19/2022 Sex: Male Functional Status Question Answer Note LastModified by Organizat ion Details LastModified Time Do you or have you ever used smokeless tobacco? Never used smokeless tobacco MIGRATION.137043 1431 Information not available 11/19/2022 Are you currently employed? No [email or web address] Information not available 01/26/2024 Do you have transportation difficulties? No MIGRATION.061820 6473 Information not available 11/19/2022 Are you able to care for yourself? Yes MIGRATION.396170 2940 Information not available 11/19/2022 Do you have difficulty dressing or bathing? No MIGRATION.997612 4247 Information not available 11/19/2022 Do you or have you ever used e-cigarettes or vape? Never used electronic cigarettes MIGRATION.917147 9038 Information not available 11/19/2022 What is your exercise level? Occasional MIGRATION.379435 4663 Information not available 11/19/2022 Do you use any illicit or recreational drugs? Yes MIGRATION.099600 3473 Information not available 11/19/2022 Do you or have you ever used any other forms of tobacco or nicotine? No MIGRATION.566003 2707 Information not available 11/19/2022 What is your level of alcohol consumption? Occasional MIGRATION.711662 6112 Information not available 11/19/2022 Are you able to walk? YESWOREST MIGRATION.971541 9556 Information not available 11/19/2022 Do you have difficulty doing errands alone? No MIGRATION.612210 3416 Information not available 11/19/2022 What is your occupation? retired MIGRATION.472768 1546 Information not available 11/19/2022 Mental Status Question Answer Note LastModified by Organizat ion Details LastModified Time Do you feel stressed (tense, restless, nervous, or anxious, or unable to sleep at night)? DU7224-8 MIGRATION.18032896 26 Information not available 11/19/2022 Do you have difficulty concentrating, remembering or making decisions? No MIGRATION.78634521 26 Information not available 11/19/2022 Family History Relationship Description Onset Age of this Age Resolved Age Notes LastModified by Organization Details LastModified Time Mother Heart disease 71 MIGRATION.694 0744866 Not available 11/19/2022 03:20:21 Father Heart disease 56 MIGRATION.079 2725001 Not available 11/19/2022 03:20:21 Brother Suicide 65 MIGRATION.651 5947996 Not available 11/19/2022 03:20:21 Notes:NO ENT Medical History Condition Response BLINDNESS N NERVE DISEASE Y RHEUMATIC FEVER N BLADDER PROBLEMS N KIDNEY STONES N MRSA N OTHER # 1 N POLIO N LUNG DISEASE/DISORDER N RADIATION / CHEMOTHERAPY N COPD N Other # 2 N BLOOD DISEASES N SURGERY N EAR OR HEARING PROBLEMS N MUMPS N DEPRESSION (INCLUDING POST ) N BOWEL PROBLEMS Y STROKE/TIA N ULCERS N BENIGN PROSTATIC HYPERPLASIA N MEASLES N MYOCARDIAL INFARCTION N OBESITY N GERD/NAUSEA N ANEURYSM N URINARY/BLADDER/KIDNEY PROBLEMS N CORONARY ARTERY DISEASE (CAD) N ADDICTION CONCERNS N Impotence N ENDOMETRIOSIS N USE OF BLOOD THINNERS N SKIN [...] APNEA N CHICKENPOX N INFECTIOUS DISEASE N PROSTATE N HEART ARRHYTHMIA N INSOMNIA N HIGH CHOLESTEROL / HYPERLIPIDEMIA Y EYE PROBLEMS N HYPERTHYROIDISM N NEUROLOGICAL PROBLEMS N EDEMA N CHRONIC [...] N ALZHEIMER'S DISEASE N Brain Problems N DEMENTIA N HERPES N SEIZURES/EPILEPSY N HEADACHES/MIGRAINES N VASCULAR DISEASE N PACEMAKER N Blood Disorder N DIZZINESS N HEART DISEASE/HEART PROBLEMS N KIDNEY DISEASE N MULTIPLE SCLEROSIS N CANCER: SPECIFY N CARDIAC ARRHYTHMIA N ATRIAL FIBRILLATION N Gall Stones N PULMONARY EMBOLISM N AUTOIMMUNE DISEASE N Immunizations Vaccine Type Date Status Note Provider Nam e and Address Organization Details Recorded Time COVID-19, mRNA, LNP-S, PF, 100 mcg/0.5mL dose or 50 mcg/0.25mL dose 1 completed Aimee Thompson RMA null, [facility] [employer] [facility] 02/14/2025 10:36:26 zoster recombinant 4 completed Aimee Thompson RMA null, [facility] 02/14/2025 10:39:32 zoster recombinant 3 completed Aimee Thompson RMA null, [facility] 02/14/2025 10:39:32 Pneumococcal conjugate PCV20, polysaccharide [id number] conjugate, adjuvant, PF 3 completed Aimee Thompson RMA null, [facility] 02/14/2025 10:39:33 RSV, bivalent, protein subunit RSVpreF, diluent reconstituted, 0.5 mL, PF 3 completed Aimee Thompson RMA beau, [facility] 02/14/2025 10:39:33 COVID-19, mRNA, LNP-S, PF, 100 mcg/0.5mL dose or 50 mcg/0.25mL dose 1 completed Not Available [facility] 11/11/2023 21:46:37 COVID-19, mRNA, LNP-S, PF, 100 mcg/0.5mL dose or 50 mcg/0.25mL dose 1 completed Aimee Thompson RMA null, [facility] 02/14/2025 10:36:26 COVID-19, mRNA, LNP-S, PF, 100 mcg/0.5mL dose or 50 mcg/0.25mL dose 1 completed Aimee Thompson RMA null, [facility] 02/14/2025 10:36:26 Influenza, high-dose, trivalent, PF 4 completed Torri Lock MD [facility] [address] [address], [place], [address], [facility] [employer] [facility] 06/20/2024 18:23:04 Past Encounters Encounter ID Performer Location Encounter Start Date Encounter Closed Date Diagnosis/Indication Diagnosis SNOMED-CT Code Diagnosis ICD10 Code Diagnosis Note [id number] Titus Torres MD [facility] Internal Med [facility] [address] [place] [address] 1 12/25/2020 00:00:00 01/06/2021 10:46:34 [id number] Titus Torres MD [facility] Internal Med [facility] [address] [place], [place] [address]e., [place] [address] 06/25/2021 00:00:00 06/25/2021 21:51:49 [id number] Titus Torres MD [facility] Internal Med [facility] [address] [facility] [place] [address] 12/24/2021 00:00:00 01/05/2022 15:40:27 [id number] Titus Torres MD [facility] Internal Med [facility] [address] [facility] [place] [address] 06/24/2022 00:00:00 06/24/2022 14:32:13 [id number] Titus Torres MD [facility] Internal Med [facility] [address] [facility] [place] [address] 1 12/23/2022 15:19:23 12/23/2022 15:55:59 Hypertensive disorder 71730783 I10 Screening for malignant neoplasm of prostate 598294846 Z12.5 Dyslipidemia 173238112 E 78.5 Peripheral arterial occlusive disease 776278329 I73.9 [id number] Torri gillis MD [facility] Internal Med [facility] [address] [place] [address] Ave., [place] [address] 07/21/2023 11:58:33 07/21/2023 13:25:25 Screening - NAD 864052195 Z13.9 C-scope: Get this done, states that [...] understand ing of the above Cigarette smoker 4475181 7 F17.210 Quit in 2018Does wellGet LDCTGet US AAA Hyperlipidemia 84209843 E78.5 On ASAOn atorvastat in 40mg dailyGet labs Essential hypertension 18309424 I10 On lisinopril 10mg dailyGet labs Neuropathy 835319307 G62 .9 On gabapentin 300mg daily, does well on this Anemia 729267672 D64.9 Get labs Peripheral arterial occlusive disease 697824601 I73.[address] Robison in [place] Will refer to Dr Jazmin MILLAN whom he has seen in the past Gastroesop hageal reflux disease without esophagitis 868382582 K21.9 Get on PPI, but take it only as needed, if not better will need to do EGD Administra tion of pneumococcal vaccine 48862018 Z23 [id number] Torri gillis MD [facility] Internal Med [facility] [address] [facility] [place] [address] 09/01/2023 15:56:30 09/01/2023 16:26:32 Screening - NAD 656822472 Z13.9 C-scope: Dr Porras 06/25/2016 , next in 10 years Get yearly flu shotGet Tdap if not doneGet shingrix vaccine Declined the above, agreeable to do PCV #20Can do RSV vaccine RTC in 3 months, do labs, ER if worse, he did verbalize her understand ing of the above Cigarette smoker 1414461 7 F17.210 Quit in 2018Do wellGet LDCTGet AAA Hyperlipidemia 81223430 E78.5 On ASAOn atorvastat in 40mg dailyGet labs Essential hypertension 04940089 I10 On lisinopril 10mg dailyGet labs Neuropathy 189501665 G62 .9 On gabapentin 300mg daily, does well on this Anemia 023596507 D64.9 Get labs Peripheral arterial occlusive disease 255681614 I73.[address] Robison in [place] Will refer to Dr Jazmin MILLAN whom he has seen in the past Gastroesop hageal reflux disease without esophagitis 395186516 K21.9 Get on PPI, but take it only as needed, if not better will need to do EGD Coronary arteriosclerosis 81641497 I25.10 S/p CABGOn ASAOn amiodarone 200mg daily, will need to get TSH and FT4On plavixOn lasix 40mg dailyOn lisinopril 10mg dailyOn metoprolol 25mg 1/2 tab dailyOn K Er 20meq dailyKeep apt with [facility] and he will see Dr Manolo olivera 09/03/2023 [id number] Torri gillis MD [facility] Internal [facility] [address] [facility], [place] [address] 01/26/2024 15:53:34 01/26/2024 17:17:55 Screening - NAD [id number] Z13.9 C-scope: Dr Porras 06/25/2016 , next in 10 years Get yearly flu shotGet Tdap if not doneGet shingrix vaccineDec lined the above, agreeable to do PCV #20Can do RSV vaccine RTC in 3 months, do labs, ER if worse, he did verbalize her understand ing of the above Cigarette smoker 3091086 7 F17.210 LDCT 09/09/2023 : CAD, next in one year Quit in 2018Does well Get US AAA Hyperlipidemia 81583563 E78.5 On ASAOn atorvastat in 40mg dailyGet labs Essential hypertension 66143395 I10 Not on lisinopril 10mg dailyOn losartan 50mg dailyGet labs Neuropathy 605107347 G62 .9 On gabapentin 300mg daily, does well on this Anemia 922096762 D64.9 Get labs Peripheral arterial occlusive disease 374657730 I73.[address] Robison in [place] Will refer to Dr Jazmin MILLAN whom he has seen in the past [facility] Dr Wu 10/30/2023 : Next in 3 months Gastroesop hageal reflux disease without esophagitis 226642409 K21.9 Get on PPI, but take it only as needed, if not better will need to do EGD Coronary arteriosclerosis 34741259 I25.10 S/p CABGOn ASAOn amiodarone 200mg daily, will need to get TSH and FT4On plavixOn lasix 40mg dailyOn lisinopril 10mg dailyOn metoprolol 25mg 1/2 tab dailyOn K Er 20meq dailyKeep apt with [facility] and he will see Dr Manolo olivera 09/03/2023 Dr Wu 10/30/2023 : F/u in 3 months Insomnia 837956550 G47.0 0 Will get on trazodone 50mg daily PRNAll side effects explained to him and his wifeStalya salas explained to him Erectile dysfunction 860 341241 F52.[address] Wu if he can be on viagra Adult heal th examination 064056603 Z00.00 Screening for disorder 773422606 Z13.9 [id number] Torri gillis MD [facility] [address] [facility], [address] [place] [address] 06/16/2024 13:52:12 06/16/2024 14:53:55 Screening - NAD 443944961 Z13.9 C-scope: Dr Porras 06/25/2016 , next in 10 years Get yearly flu shotGet Tdap if not doneGet shingrix vaccineDec lined the above, agreeable to do PCV #20Can do RSV vaccine RTC in 3 months, do labs, ER if worse, he did verbalize her understand ing of the above Cigarette smoker 5804747 7 F17.210 LDCT 09/09/2023 : CAD, next in one yearUS AAA: 02/16/2024 : NegQuit in 2018Does well Hyperlipidemia 12984755 E78.5 On ASAOn atorvastat in 40mg dailyGet labs Essential hypertension 67537739 I10 Not on lisinopril 10mg dailyOn losartan 50mg dailyGet labs Neuropathy 415295529 G62 .9 On gabapentin 300mg daily, does well on this Anemia 835477969 D64.9 Get labs Peripheral arterial occlusive disease 222237363 I73.9 [place] Carotid 03/15/2024 ECHO 03/15/2024 : Has seen Dr Robison in [place] Will refer to Dr Jazmin MILLAN whom he has seen in the past [facility] Wu 10/30/2023 : Next in 3 months Gastroesop hageal reflux disease without esophagitis 845508623 K21.9 Get on PPI, but take it only as needed, if not better will need to do EGD Coronary arteriosclerosis 07951578 I25.10 S/p CABGOn ASANot on amiodarone 200mg dailyOn plavixOn lasix 40mg dailyNot on lisinopril 10mg dailyOn losartan 50mg dailyOn metoprolol 25mg 1/2 tab dailyOn K Er 20meq dailyKeep apt with [facility] and he will see Dr French this 09/03/2023 Dr Wu 10/30/2023 : F/u in 3 months Insomnia 783810098 G47.0 0 On trazodone 50mg daily PRNAll side effects explained to him and his wifeSleep hygeine explained to him Erectile dysfunction 860 053071 F52.[address] Wu if he can be on viagra Prediabetes 857770283 R7 3.03 Not on any medsGet labs Hemorrhoids 25181146 K64 .9 Can do anusol, also sitz baths with epsom salts, take fiber to prevent constipati on, refer to G surgery Administra tion of influenza vaccine 85564399 Z23 [id number] Torri gillis MD [facility] Internal [facility] [address] [facility], [address] [place] [address] 10/04/2024 09:36:39 10/04/2024 10:31:31 Screening - NAD 066018685 Z13.9 C-scope: Dr Porras 06/25/2016 , next in 10 years Get yearly flu shotGet Tdap if not doneGet shingrix vaccineDec lined the above, agreeable to do PCV #20Can do RSV vaccine RTC in 3 months, do labs, ER if worse, he did verbalize her understand ing of the above Cigarette smoker 9976872 7 F17.210 LDCT 09/09/2023 : CAD, next in one yearUS AAA: 02/16/2024 : NegQuit in 2018Does well Hyperlipidemia 86834220 E78.5 On ASAOn atorvastat in 40mg dailyGet labs Essential hypertension 15726524 I10 Not on lisinopril 10mg dailyOn losartan 50mg dailyOn metoprolol 25mg dailyGet labs Neuropathy 076452570 G62 .9 On gabapentin 300mg daily tid, does well on this Anemia 166284851 D64.9 Get labsMore iron Peripheral arterial occlusive disease 932609319 I73.9 [place] Carotid 03/15/2024 ECHO 03/15/2024 : Has seen Dr Robison in [place] Will refer to Dr Wu [facility] whom he has seen in the past [facility] Dr Wu next visit 01/2025 as per his history Gastroesop hageal reflux disease without esophagitis 801289432 K21.9 Get on PPI, but take it only as needed, if not better will need to do EGD Coronary arteriosclerosis 80606610 I25.10 S/p CABGOn ASANot on amiodarone 200mg dailyOn plavixOn lasix 40mg dailyNot on lisinopril 10mg dailyOn losartan 50mg dailyOn metoprolol 25mg 1/2 tab dailyOn K Er 20meq dailyKeep apt with [facility] and he will see Dr French this 09/03/2023 Dr Wu 10/30/2023 : F/u in 3 months Insomnia 555236629 G47.0 0 On trazodone 50mg daily PRNAll side effects explained to him and his wifeSleep hygeine explained to him Erectile dysfunction 860 927229 F52.[address] Wu if he can be on viagra Prediabetes 245053896 R7 3.03 Get on Farxiga 5mg daily, as has CKD so no metforminG et labs Hemorrhoids 21799797 K64 .9 Can do anusol, also sitz baths with epsom salts, take fiber to prevent constipati on, refer to G surgery [id number] Douglas Eduardo MD [facility] [place] [address] [place] [address] 11/23/2024 11:43:09 11/24/2024 15:45:05 Sensorineural hearing loss 09973884 H90.5 [id number] Torri gillis MD [facility] Internal Med [facility] [address] [facility], [address] [place] [address] 02/14/2025 10:28:55 02/14/2025 11:27:56 Screening - NAD 721907803 Z13.9 C-scope: Dr Porras 06/25/2016 , next in 10 years Get yearly flu shotGet Tdap if not doneGet shingrix vaccineDec lined the above, agreeable to do PCV #20Can do RSV vaccine RTC in 3 months, do labs, ER if worse, he did verbalize her understand ing of the above Cigarette smoker 3553775 7 F17.210 LDCT 09/09/2023 : CAD, next in one yearUS AAA: 02/16/2024 : NegQuit in 2018Does well Hyperlipidemia 87587565 E78.5 On ASAOn atorvastat in 40mg dailyGet labs Essential hypertension 25214641 I10 Not on lisinopril 10mg dailyNot taking losartan 50mg dailyNot on metoprolol 25mg dailyOn lasixNeeds to see cardiology Get labs Neuropathy 768356347 G62 .9 On gabapentin 300mg daily tid, does well on this Anemia 783873875 D64.9 Get labsMore iron Peripheral arterial occlusive disease 578876739 I73.9 [place] Carotid 03/15/2024 ECHO 03/15/2024 : Has seen Dr Robison in [place] Will refer to Dr Wu [facility] whom he has seen in the past [facility] Dr Wu next visit 01/2025 as per his history Gastroesop hageal reflux disease without esophagitis 045650043 K21.9 Get on PPI, but take it only as needed, if not better will need to do EGD Coronary arteriosclerosis 75520563 I25.10 S/p CABGOn ASANot on amiodarone 200mg dailyOn plavixOn lasix 40mg dailyNot on lisinopril 10mg dailyNot on losartan 50mg dailyNot on metoprolol 25mg 1/2 tab dailyNot on K Er 20meq dailyKeep apt with [facility] Dr Wu 10/30/2023 : F/u in 3 months Insomnia 725550429 G47.0 0 On trazodone 50mg daily PRNAll side effects explained to him and his wifeSleep hygeine explained to him Erectile dysfunction 860 235426 F52.[address] Wu if he can be on viagra Prediabetes 972886427 R7 3.03 Not taking Farxiga 5mg dailyGet labs Hemorrhoids 70561700 K64 .9 Can do anusol, also sitz baths with epsom salts, take fiber to prevent constipati on, refer to G surgery Right vaughan tid artery stenosis 3847320453 73239 I65.21 On ASAOn plavix S/p surgery Dr Mckee 01/03/2025 , does well now, needs to see Dr Jazmin Solis ki dney disease 853646281 N18.9 Needs to see nephrology Health Concerns Section Related Observation LastModified by Organization Detai ls LastModified Time None Recorded Concern Status LastModified by Organization Details LastModified Time None Recorded Advance Directives Directive N: Payers Insurance Date Sequence Insurance Name Policy Number Policy [place] Covered Member ID [place] Member ID Guarantor Name 02/14/2025 1 [place] (MEDICARE REPLACEMENT/A DVANTAGE - HMO) [id number] Demetra Holcomb [id number] Demetra Holcomb Notes Date Note Type Note Provider Name and Address Organization Details Recorded Time 01/26/2024 text/html OV 07/21/2023:Here to establish carePast PCP: Dr Torres Past Hx:Antony pathyEx Smoker Reviewed social family and surgical [...] sleep aid and also has noted ED Torri Lock MD [address] [facility], [address], [place], [address], [facility] [employer] 01/26/2024 18:19:13 06/16/2024 text/html OV 07/21/2023:Here to establish carePast PCP: Dr Torres Past Hx:Antony pathyEx Smoker Reviewed social family and surgical [...] here with his and is doing well Torri Lock MD [address], [address], [place], [address], [employer] 06/20/2024 18:24:55 10/04/2024 text/html OV 07/21/2023:Here to [...] is doing well, is here with his Torri Lock MD [address], [address], [place], [address], [employer] 10/19/2024 18:06:01 11/23/2024 text/html this patient has had anterior and posterior spinal fusion and is about to have a right carotid endarterectomy. He is here for vocal cord check. There is no history of hoarseness after his spinal surgery. Douglas Eduardo MD [address], [address], [place], [address], [employer] 11/23/2024 12:09:57 02/14/2025 text/html OV 07/21/2023:Here to establish carePast PCP: [...] is doing well, is here with his OV 02/14/2025: Here for his f/u apt, he is here with his , states that he did get his surgery for carotid artery Murtsherly Lock MD [address], [address], [place], [address], [employer] 02/14/2025 11:36:33
--- OUTSIDE RECORDS SUMMARY | 2025-03-07 07:02 | XMS_ITS ---
Author Organization [facility] Office Address [address] [place] [address] Care Team Providers Care Newspaper Distributor Supervisor Name Role Phone Shakir Moore Unavailable [phone] Medications Medication SIG (Take, Route, Frequency, Duration) Notes Start Date End Date Status Losartan Potassium 25 MG 1 tablet Orally Once a day for 90 day(s) 09/11/2023 Active Vitamin D (Ergocalciferol) 1.25 MG (29496 UT) TAKE 1 CAPSULE BY MOUTH 1 TIME A WEEK for 91 Active Losartan Potassium 50 MG 1 tablet Orally Once a day for 90 11/20/2023 Active Lasix 40 MG 1 tablet Orally Once a day for 90 days Active Calcitriol 0.25 MCG TAKE ONE CAPSULE BY MOUTH EVERY OTHER DAY for 90 Active Encounters Encounter Location Date Provider Diagnosis [place] [facility] [address] [facility] [address] [place] [address] 08/31/2024 Shakir Moore Chronic kidney disea se, [...] Name:Shakir Oscar , 03/15/2025 02:15:00 PM, [address] [facility] [address], [place], [address], Progress Notes * Julio Cesar HOLCOMBDOB:1950 (74 yo M)Acc No.[id number]:08/31/2024 Progress Notes Patient: Julio Cesar VENCES Provider: Harpreet GREGG MD, F.Ziggy.C.P, F.A.S.N. :1950 A ge:74 Y S ex:Male Date:08/31/2024 Address:[address] [place], [place] [phone] Subjective: * Chief Complaints: * * Medical History: * Medications: T aking Losartan Potassium 25 MG Tablet 1 tablet Orally Once a day , Taking Losartan Potassium 50 MG Tablet 1 tablet Orally Once a day , Taking Vitamin D (Ergocalciferol) 1.25 MG (41062 UT) Capsule TAKE 1 CAPSULE BY MOUTH [...] Treatment: * Billing Information: * Visit Code: 94092 Office Visit, Est Pt., Level 4. * Procedure Codes: * Electronic signature of Levi Moore MD on 03/07/2025 at 07:02 AM CDT Sign off status: Pending * Provider: Harpreet GREGG MD, Nikki.Ziggy.C.P, F.A.S.N. Date: 11/01/2023 Generated for Printing/Faxing/eTransmitting on: 0 03/07/2025 07:02 AM CDT
--- OUTSIDE RECORDS SUMMARY | 2025-03-07 07:02 | XMS_ITS | Patient Health Record ---
Author Organization [facility] Office Address [address] [place] [address] Care Team Providers Care Sheet Rock Nailer Name Role Phone Shakir Moore Unavailable [phone] Reason For Referral No Information Medications Medication SIG (Take, Route, Frequency, Duration) Notes Start Date End Date Status Losartan Potassium 25 MG 1 tablet Orally Once a day for 90 day(s) 09/11/2023 Active Vitamin D (Ergocalciferol) 1.25 MG (40152 UT) TAKE 1 CAPSULE BY MOUTH 1 TIME A WEEK for 91 Active Losartan Potassium 50 MG 1 tablet Orally Once a day for 90 11/20/2023 Active Lasix 40 MG 1 tablet Orally Once a day for 90 days Active Calcitriol 0.25 MCG TAKE 1 CAPSULE BY MO UT EVERY OTHER DAY for 90 Active Problems Problem Type SNOMED Code ICD Code Onset Dates Problem Status W/U Status Risk Notes Problem Hyperglycemia due to type 2 diabetes mellitus (346150746534887) Type 2 diabetes mellitus with hyperglycemia (E11.65) Active confirmed Problem Hyperlipidemia (98772723) Hyperlipidemia, unspecified (E78.5) Active confirmed Problem Disorder of mineral metabolism (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, 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 Problem Anxiety disorder (722817724) Anxiety disorder, unspecified (F41.9) Active confirmed Problem Essential hypertension (22774032) Essential (primary) hypertension (I10) Active confirmed Problem Heart failure (56802073) Heart failure, unspecified (I50.9) Active confirmed Problem Atherosclerosis of renal artery (95579774) Atherosclerosis of renal artery (I70.1) Active confirmed Problem Renal osteodystrophy (91731890) Renal osteodystrophy (N25.0) Active confirmed Problem Secondary hyperparathyroidism of renal origin (54714730) Secondary hyperparathyroidism of renal origin (N25.81) Active confirmed Problem Proteinuria (87559192) Proteinuria, unspecified (R80.9) Active confirmed Problem Chronic kidney disease stage 3A (disorder) (557079624) Chronic kidney disease, stage 3a (N18.31) Active confirmed Problem Coronary artery disease (63446428) CAD (coronary artery disease) (I25.10) Active confirmed Encounters Encounter Location Date Provider Diagnosis [facility] [address] [place] [address] 05/04/2024 Shakir Moore Chronic kidney disea se, stage 3a N18.31 ; Type 2 diabetes mellitus with hyperglycemia E11.65 ; Anxiety disorder, unspecified F41.9 ; Essential (primary) hypertension I10 ; Hyperlipidemia, unspecified E78.5 ; Heart failure, unspecified I50.9 and Atherosclerosis of renal artery I70.1 [facility] [address] [place] [address] 08/31/2024 Shakir Moore Chronic kidney disea se, stage 3a N18.31 ; Type 2 diabetes mellitus with hyperglycemia E11.65 ; Anxiety disorder, unspecified F41.9 ; Essential (primary) hypertension I10 ; Hyperlipidemia, unspecified E78.5 ; Heart failure, unspecified I50.9 and Atherosclerosis of renal artery I70.1 [facility] [address] [address] 12/07/2024 Shakir Moore Chronic kidney disea se, [...] Name:Shakir Moore , 03/15/2025 02:15:00 PM, [address], [address],
--- OUTSIDE RECORDS SUMMARY | 2025-03-07 07:03 | XMS_ITS | Clinical Summary ---
Author Organization [facility] [address] Address [address] [place] [address] Care Team Providers Care Church Official Name Role Phone Irais Lock MD Primary Care Provide r Kortney Wu MD Unavailable [phone] Allergies Active Allergy Reactions Criticality Noted Date [...] 07/31/2022 Assessment & Plan (07/31/2022 4:33 PM DRILLING ENGINEERING MANAGER): A patent bilateral common femoral artery to popliteal artery bypasses with normal ABIs. Continue ongoing surveillance and risk factor modification with ASA, Plavix, statin therapy. Will follow-up in 6 months with repeat duplex. Neck pain 12/24/2021 Hypertensive disorder 07/01/2020 Assessment & Plan (02/12/2023 4:25 PM CDT): Impression: Chronic stable hypertension. Plan: Continue lisinopril 10 mg. Assessment & Plan (07/31/2022 4:33 PM DRILLING ENGINEERING MANAGER): Lisinopril Assessment & Plan (07/22/2021 8:35 AM CDT): Followed by his PCP and controlled on his current medications. Assessment & Plan (12/19/2020 3:23 PM CDT): Impression: Stable chronic hypertension. Plan: Medications reviewed and recommend continuing daily antihypertensive regimen as directed by patient's primary care physician. Encounter for screening for cardiovascular disor ders 05/04/2020 Tobacco abuse 05/04/2020 Atherosclerosis of [place] of both lower extremities with [...] surveillance. Assessment & Plan (08/15/2020 2:08 PM DRILLING ENGINEERING MANAGER): Impression: Patient recover well status post bilateral [...] 05/19/2018 Assessment & Plan (07/31/2022 4:33 PM DRILLING ENGINEERING MANAGER): Lipitor Dyslipidemia 05/02/2018 Assessment & Plan (02/12/2023 [...] 12/19/2020 Assessment & Plan (09/13/2020 10:57 AM DRILLING ENGINEERING MANAGER): Patient is status post bilateral lower extremity bypasses and doing well from them. Incisions are well healed and his feet are warm and well perfused and he no longer has claudication symptoms. Plan will be for him to follow up in 3 months with repeat ABIs and duplex. Encounters Date Type Department Care Team Description 12/30/2024 7:34 AM CDT Anesthesia Event [facility] Operating Room [address] [place] [address] Lorie Dillard Jr., MD Eldin, Ali S., MD 12/30/2024 7:30 AM CDT - 12/30/2024 11:00 AM CDT Surgery [facility] Operating Room [address] [place] [address] Benny Hassan MD RIGHT CAROTID ENDARTERECTOMY 12/30/2024 5:52 AM CDT - 01/01/2025 1:31 PM CDT Hospital Encounter [facility] Cardiac Intensive Care [address] [place] [address] Benny Hassan MD Bradycardia (Primary Dx); Carotid stenosis, bilateral Discharge Disposition: Discharge to home or self care 12/22/2024 Telephone [facility] Pain Management Center [address] [place] [address] ShannanRosina walker Shabbir 12/21/2024 9:45 AM CDT Pre-Admission Testing [facility] Pre Anesthesia Testing [address] [place] [address] Preop testing (Primary Dx) from Last 3 [...] low back pain Insomnia Carotid artery stenosis [place] (hard of hearing) Hyperlipidemia Arthritis Family History [...] materials from doctor or pharmacy Never 09/08/2023 [facility] Utilities Answer Date Recorded In the [...] often do you attend chur ch or latter-day services? Never 07/28/2023 Do you belong to any clubs o r organizations such as lutheran groups, unions, fraternal or athletic groups, or [...] place to sleep or slept in a [place] facility (including now)? No 07/28/2023 Personal Safety Answer Date Recorded Have you ever been in or are you currently in a harmful physical or emotional relationship or is someone making you feel afraid or unsafe? Denies 12/30/2024 Sex and Gender Information Value Date Recorded Sex Assigned at Not on file Legal Sex Male 8:24 PM DRILLING ENGINEERING MANAGER Gender Identity Not on file Sexual Orientation [...] 5:00 AM CDT Height 170.2 cm (5' 7.01) 12/31/2024 1:45 PM CD T Body Mass [...] Completed 06/16/2024 Medical Devices Implanted Type Area Manager Of Marketing Device Identifier Shelf Expiration Date Model / Serial / Lot [employer] Distal Marker Radiology Stainless Steel Sterile Amgm-D - [id number] Implanted:Qty: 1 on 07/28/2023 by Joe French MD at [facility] N/A: Heart [employer] [id number] 12/20/2025 AMGM-D / / [employer] Distal Marker Radiology Stainless Steel Sterile Amgm-D - [id number] Implanted:Qty: 1 on 07/28/2023 by Joe French MD at [facility] N/A: Heart [employer] [id number] 12/20/2025 AMGM-D / / Description:Graft marker Procedures [...] Read Routine (OP Routine) 10/11/2024 12:51 PM DRILLING ENGINEERING MANAGER Nicotine dependence, cigarettes, uncomplicated from Last 3 Months or Most Recently Relevant to Health Maintenance Results * Critical Care (01/01/2025 1:31 PM CDT) Narrative Satish Alvraado MD - 01/01/2025 1:31 PM CDT Satish [...] plan with the patient's team and other medical/disaster recovery consultant staff. This time was in addition [...] MD LAB BLOOD ORDERABLES Final Res ult [facility] [address] [address] [place] [address] * (ABNORMAL) Differential, auto (01/01/2025 5:20 AM CDT) Neutrophil abs 5.82 1.50 - 6.50 K/cumm Imm gran abs 0.04 0.00 - 0.10 K/cumm [facility] Lymphocyte abs 1.99 0.80 - 3.30 K/cumm [facility] Monocyte abs 1.02(H) 0.20 - 0.80 K/cumm [facility] Eosinophil abs 0.17 0.00 - 0.50 K/cumm [facility] Basophil abs 0.05 0.00 - 0.10 K/cumm [facility] Neutrophil pct 64.0 % [facility] Comment: Interpretive Data Percent cell count reference ranges are not reported, since discordance with absolute values may lead to misinterpretation of CBC data. Current Interpretive Data was last revised on 2017. Imm gran pct 0.4 % [facility] Comment: Interpretive Data Percent cell count reference ranges are not reported, since discordance with absolute values may lead to misinterpretation of CBC data. Current Interpretive Data was last revised on 2017. Lymphocyte pct 21.9 % [facility] Comment: Interpretive Data Percent cell count reference ranges are not reported, since discordance with absolute values may lead to misinterpretation of CBC data. Current Interpretive Data was last revised on 2017. Monocyte pct 11.2 % [facility] Comment: Interpretive Data Percent cell count [...] revised on 2017. Basophil pct 0.6 % [facility] Comment: Interpretive Data Percent cell count reference ranges are not reported, since discordance with absolute values may lead to misinterpretation of CBC data. Current Interpretive Data was last revised on 2017. Blood 01/01/2025 5:20 AM CDT 01/01/2025 5:45 AM CDT us Benny Hassan MD LAB BLOOD ORDERABLES Final Res [facility] [address] [address] Department [place] [address] * (ABNORMAL) CBC with auto differential (01/01/2025 5:20 AM CDT) WBC 9.09 3.80 - 9.90 K/cumm Hgb 8.6(L) 13.0 - 17.5 g/dL [facility] Hct 27.1(L) 38.9 - 50.3 % [facility] Plt 195 150 - 400 K/cumm [facility] MPV 10.5 9.1 - 12.[address] [facility] RBC 2.91(L) 4.30 - 5.80 M/cumm [facility] MCV 93.1 81.3 - 96.[address] [facility] MCH 29.6 27.1 - 33.[address] [facility] MCHC 31.7(L) 32.3 - 35.7 g/dL [facility] RDW CV 14.8 11.1 - 14.9 % [facility] RDW SD 50.1(H) 35.7 - 48.[address] [facility] NRBC abs 0.00 0.00 - 0.01 K/cumm [facility] Blood 01/01/2025 5:20 AM CDT 01/01/2025 5:45 AM CDT us Benny Hassan MD LAB BLOOD ORDERABLES Final Res ult [facility] [address] [address] Department [place] [address] * Basic metabolic panel (01/01/2025 5:20 AM CDT) Sodium 139 135 - 145 mmol/L Potassium, pl 4.2 3.3 - 4.9 mmol/L [facility] Chloride 109 97 - 110 mmol/L [facility] CO2 23 22 - 32 mmol/L [facility] Anion gap 7 2 - 15 mmol/L [facility] BUN 22 6 - 25 mg/dL [facility] Creatinine 1.28 0.80 - 1.30 mg/dL [facility] Glucose 80 70 - 199 mg/dL [facility] Comment: Interpretive Data Fasting glucose >/= [...] 2022. Calcium 8.5 8.5 - 10.3 mg/dL [facility] Blood 01/01/2025 5:20 AM CDT 01/01/2025 5:47 AM CDT Benny Hassan MD LAB BLOOD ORDERABLES Final Res ult Performing Organization Address City/[facility]/ZIP Co de Phone Number DAO ROSENBERG [address] Department [place] [address] * (ABNORMAL) Calcium, ionized, whole blood (12/31/2024 9:46 PM CDT) Ca, ionized, bld 4.46(L) 4.50 - 5.10 mg/dL Blood 12/31/2024 9:46 PM CDT 12/31/2024 9:49 PM CDT Stephany Isabel MD LAB BLOOD ORDERABLES Brinda l Result Performing Organization Address City/[facility]/ZIP Co de Phone Number DAO [place] [address] [place] [address] * (ABNORMAL) eGFR (12/31/2024 9:46 PM CDT) [...] BLOOD ORDERABLES Brinda l Result [facility] [place] [address] Department of [employer] [place], [place] [phone] * Magnesium (12/31/2024 9:46 PM CDT) Magnesium 2.2 1.4 - 2.5 mg/dL Blood 12/31/2024 9:46 PM CDT 12/31/2024 9:50 PM CDT Stephany Isabel MD LAB BLOOD ORDERABLES Brinda l Result Performing Organization Address City/[facility]/ZIP Co de Phone Number DAO ROSENBERG [address] [place] [address] * (ABNORMAL) Renal function panel (12/31/2024 9:46 [...] ORDERABLES Brinda l Result Performing Organization Address City/[facility]/ZIP Co de Phone Number DAO ROSENBERG [address] [employer] [place], [place] [phone] * Critical Care (12/31/2024 9:42 PM CDT) [...] plan with the patient's team and other medical/disaster recovery consultant staff. This time was in addition [...] plan with the ICU team and other medical/disaster recovery consultant staff, making frequent assessments and decisions [...] CDT) 12/31/2024 7:45 AM CDT Narrative [facility] - 12/31/2024 9:27 AM CDT Vent Rate: 40 bpm RR Interval: 1481 msec MD Interval: 149 msec QRS Duration: 102 msec QT Interval: 507 msec QTC Interval: 439 msec P-R-T [place]: 137 - 144 - 131 degrees IMPRESSION: [...] YEARS Electronically Signed By: Dr. Janene Moore [facility] Satish Alvarado MD ECG ORDERABLES Edited Result - Final [facility] [employer] [facility] * (ABNORMAL) eGFR (12/31/2024 5:24 AM CDT) [...] MD LAB BLOOD ORDERABLES Final Res ult [facility] [address] [address] Department [place] [address] * (ABNORMAL) Basic metabolic panel (12/31/2024 5:24 AM CDT) Sodium 139 135 - 145 mmol/L Potassium, pl 4.3 3.3 - 4.9 mmol/L [facility] Chloride 108 97 - 110 mmol/L [facility] CO2 21(L) 22 - 32 mmol/L [facility] Anion gap 10 2 - 15 mmol/L [facility] BUN 25 6 - 25 mg/dL [facility] Creatinine 1.49(H) 0.80 - 1.30 mg/dL [facility] Glucose 121 70 - 199 mg/dL [facility] Comment: Interpretive Data Fasting glucose >/= [...] 2022. Calcium 8.2(L) 8.5 - 10.3 mg/dL [facility] Blood 12/31/2024 5:24 AM CDT 12/31/2024 5:24 AM CDT us Benny Hassan MD LAB BLOOD ORDERABLES Final Res ult [facility] [address] [address] Department [place] [address] * (ABNORMAL) Differential, auto (12/31/2024 5:22 AM CDT) Neutrophil abs 9.47(H) 1.50 - 6.50 K/cumm Imm gran abs 0.06 0.00 - 0.10 K/cumm [facility] Lymphocyte abs 2.45 0.80 - 3.30 K/cumm [facility] Monocyte abs 1.66(H) 0.20 - 0.80 K/cumm [facility] Eosinophil abs 0.03 0.00 - 0.50 K/cumm [facility] Basophil abs 0.04 0.00 - 0.10 K/cumm [facility] Neutrophil pct 69.1 % [facility] Comment: Interpretive Data Percent cell count reference ranges are not reported, since discordance with absolute values may lead to misinterpretation of CBC data. Current Interpretive Data was last revised on 2017. Imm gran pct 0.4 % [facility] Comment: Interpretive Data Percent cell count reference ranges are not reported, since discordance with absolute values may lead to misinterpretation of CBC data. Current Interpretive Data was last revised on 2017. Lymphocyte pct 17.9 % [facility] Comment: Interpretive Data Percent cell count reference ranges are not reported, since discordance with absolute values may lead to misinterpretation of CBC data. Current Interpretive Data was last revised on 2017. Monocyte pct 12.1 % [facility] Comment: Interpretive Data Percent cell count reference ranges are not reported, since discordance with absolute values may lead to misinterpretation of CBC data. Current Interpretive Data was last revised on 2017. Eosinophil pct 0.2 % [facility] Comment: Interpretive Data Percent cell count reference ranges are not reported, since discordance with absolute values may lead to misinterpretation of CBC data. Current Interpretive Data was last revised on 2017. Basophil pct 0.3 % [facility] Comment: Interpretive Data Percent cell count reference ranges are not reported, since discordance with absolute values may lead to misinterpretation of CBC data. Current Interpretive Data was last revised on 2017. Blood 12/31/2024 5:22 AM CDT 12/31/2024 5:22 AM CDT Benny Hassan MD LAB BLOOD ORDERABLES Final Res ult [facility] [address] [address] Department [place] [address] * (ABNORMAL) CBC with auto differential (12/31/2024 5:22 AM CDT) WBC 13.71(H) 3.80 - 9.90 K/cumm Hgb 8.8(L) 13.0 - 17.5 g/dL [facility] Hct 26.9(L) 38.9 - 50.3 % [facility] Plt 206 150 - 400 K/cumm [facility] MPV 10.3 9.1 - 12.[address] [facility] RBC 2.90(L) 4.30 - 5.80 M/cumm [facility] MCV 92.8 81.3 - 96.[address] [facility] MCH 30.3 27.1 - 33.[address] [facility] MCHC 32.7 32.3 - 35.7 g/dL [facility] RDW CV 14.7 11.1 - 14.9 % [facility] RDW SD 50.0(H) 35.7 - 48.[address] [facility] NRBC abs 0.00 0.00 - 0.01 K/cumm [facility] Blood 12/31/2024 5:22 AM CDT 12/31/2024 5:22 AM CDT Benny Hassan MD [place] [address] [address] [place] [address] * Critical Care (12/30/2024 8:17 PM CDT) [...] plan with the ICU team and other medical/disaster recovery consultant staff, making frequent assessments and decisions [...] plan with the ICU team and other medical/disaster recovery consultant staff, making frequent assessments and decisions [...] CDT) 12/30/2024 2:02 PM CDT Narrative [facility] - 12/30/2024 3:57 PM CDT Vent Rate: 46 bpm RR Interval: 1302 msec MD Interval: 156 msec QRS Duration: 93 msec QT Interval: 493 msec QTC Interval: 450 msec P-R-T [place]: 51 - 31 - 60 degrees IMPRESSION: SINUS BRADYCARDIA BORDERLINE ECG Electronically Signed By: Dr. Godfrey Darby us Benny Hassan MD ECG ORDERABLES Final Result [facility] * Lactate (12/30/2024 1:58 PM CDT) Lactate 1.1 0.7 - 2.0 mmol/L Blood 12/30/2024 1:58 PM CDT 12/30/2024 2:21 PM CDT us Benny Hassan MD LAB BLOOD ORDERABLES Final Res ult Performing Organization Address [facility] Co de Phone Number DAO ROSENBERG [address] [place] [address] * (ABNORMAL) eGFR (12/30/2024 1:58 [...] ORDERABLES Final Res ult Performing Organization Address City/[facility]/ZIP Co de Phone Number DAO ROSENBERG [address] [address] Department of [employer] [place], [place] [phone] * (ABNORMAL) Differential, auto (12/30/2024 1:58 PM CDT) Neutrophil abs 10.94(H) 1.50 - 6.50 K/cumm Imm gran abs 0.05 0.00 - 0.10 K/cumm [facility] Lymphocyte abs 1.07 0.80 - 3.30 K/cumm [facility] Monocyte abs 0.37 0.20 - 0.80 K/cumm [facility] Eosinophil abs 0.01 0.00 - 0.50 K/cumm [facility] Basophil abs 0.02 0.00 - 0.10 K/cumm [facility] Neutrophil pct 87.7 % [facility] Comment: Interpretive Data Percent cell count reference ranges are not reported, since discordance with absolute values may lead to misinterpretation of CBC data. Current Interpretive Data was last revised on 2017. Imm gran pct 0.4 % [facility] Comment: Interpretive Data Percent cell count reference ranges are not reported, since discordance with absolute values may lead to misinterpretation of CBC data. Current Interpretive Data was last revised on 2017. Lymphocyte pct 8.6 % [facility] Comment: Interpretive Data Percent cell count reference ranges are not reported, since discordance with absolute values may lead to misinterpretation of CBC data. Current Interpretive Data was last revised on 2017. Monocyte pct 3.0 % [facility] Comment: Interpretive Data Percent cell count reference ranges are not reported, since discordance with absolute values may lead to misinterpretation of CBC data. Current Interpretive Data was last revised on 2017. Eosinophil pct 0.1 % [facility] Comment: Interpretive Data Percent cell count reference ranges are not reported, since discordance with absolute values may lead to misinterpretation of CBC data. Current Interpretive Data was last revised on 2017. Basophil pct 0.2 % [facility] Comment: Interpretive Data Percent cell count reference ranges are not reported, since discordance with absolute values may lead to misinterpretation of CBC data. Current Interpretive Data was last revised on 2017. Blood 12/30/2024 1:58 PM CDT 12/30/2024 2:22 PM CDT us Benny Hassan MD LAB BLOOD ORDERABLES Final Res ult [facility] [place] [address] [address] Department [place] [address] * (ABNORMAL) CBC with auto differential (12/30/2024 1:58 PM CDT) Pathologist [facility] WBC 12.46(H) 3.80 - 9.90 K/cumm Hgb 9.3(L) 13.0 - 17.5 g/dL [facility] Hct 27.8(L) 38.9 - 50.3 % [facility] Plt 206 150 - 400 K/cumm [facility] MPV 9.8 9.1 - 12.[address] [facility] RBC 3.03(L) 4.30 - 5.80 M/cumm [facility] MCV 91.7 81.3 - 96.4 fL [facility] MCH 30.7 27.1 - 33.3 pg [facility] MCHC 33.5 32.3 - 35.7 g/dL [facility] RDW CV 14.5 11.1 - 14.9 % [facility] RDW SD 48.8(H) 35.7 - 48.[address] [facility] NRBC abs 0.00 0.00 - 0.01 K/cumm [facility] Blood 12/30/2024 1:58 PM CDT 12/30/2024 2:22 PM CDT us Benny Hassan MD LAB BLOOD ORDERABLES Final Res ult [facility] [address] [address] Department [place] [address] * aPTT (12/30/2024 1:58 PM CDT) Pathologist [facility] aPTT 32 28 - 38 sec Comment: Interpretive Data Heparin therapeutic range: 66.0 - 100.0 seconds. Range based on correlation with therapeutic heparin activity range of 0.3 - 0.7 Units/mL. Current interpretive data was last revised on 2023. Blood 12/30/2024 1:58 PM CDT 12/30/2024 2:21 PM CDT us Benny Hassan MD LAB BLOOD ORDERABLES Final Res ult Performing Organization Address [facility] Co de Phone Number DAO ROSENBERG [address] [address] [facility] [place] [address] * Protime-INR (12/30/2024 1:58 PM CDT) PT 11.8 9.7 - 13.0 sec INR 1.09 0.90 - 1.[address] [facility] Comment: Interpretive data Oral anticoagulant therapeutic ranges: Venous thromboembolism prophylaxis or treatment: 2.0-3.0 CARDIOLOGY Standard range: 2.0-3.0 High-intensity range: 2.5-3.5 Refer to indication-specific guidelines for appropriate target ranges for prosthetic heart valve replacement. Current interpretive data was last revised on 2019. Blood 12/30/2024 1:58 PM CDT 12/30/2024 2:21 PM CDT Benny Hassan MD LAB BLOOD ORDERABLES Final Res ult Performing Organization Address [facility] Co de Phone Number DAO [address] [place] [address] * Type and screen (12/30/2024 1:58 PM CDT) David, indirect Negative ABO Rh O Positive [facility] Blood 12/30/2024 1:58 PM CDT 12/30/2024 2:29 PM CDT Narrative [facility] - 12/30/2024 3:12 PM CDT Has the patient had Daratumumab or Isatuximab in the past 6 months?->Unknown Benny Hassan MD LAB BLOOD BANK TEST ORDERABLES Final Result Performing Organization Address City/[facility] Co de Phone Number DAO [address] [address] [facility] [employer] [place], [place] [phone] * (ABNORMAL) Basic metabolic panel (12/30/2024 1:58 [...] 2022. Calcium 8.2(L) 8.5 - 10.3 mg/dL [facility] Blood 12/30/2024 1:58 PM CDT 12/30/2024 2:21 PM CDT us Benny Hassan MD LAB BLOOD ORDERABLES Final Res ult Performing Organization Address [facility]/ZIP Co de Phone Number DAO SAHKIRA [address] [place] [place] [address] * POCT glucose (12/30/2024 1:05 PM CDT) Glucose, POC 108 70 - 199 mg/dL POC Performer [phone] [facility] Blood 12/30/2024 1:05 PM CDT 12/30/2024 1:05 PM CDT Benny Hassan MD LAB POCT ORDERABLES - DEVICE F inal Result Performing Organization Address [facility]/ZIP Co de Phone Number DAO ROSENBERG [address] [place] [address] * Surgical pathology (12/30/2024 11:56 AM CDT) Tissue (Artery, plaque Atherosclerotic) 12/30/2024 9:51 AM CDT Narrative PATHOLOGY [facility] - 01/03/2025 4:09 PM CDT EPIC results best viewed via link to PDF [facility] Department of Pathology [address] [place] [phone] Note to Patients: This report may contain [...] Final Report Patient Name: DEMETRA HOLCOMB Address: [address] [place] [address] Gender: M : 1950 (Age: 74) Service: Surgery Location: OR [facility] #: [id number] Patient Type: [facility] Taken: 12/30/2024 Received: 12/30/2024 Accessioned: 12/30/2024 Reported: [...] container labeled DEMETRA HOLCOMB and right carotid plaque. It is a tubular segment, 2.3 cm in length. Sectioning shows a atherosclerotic material in the lumen. [facility] sections are submitted in 1 cassette following decalcification. Heidi Herring/Greg Casanova M.D. REPORT IMAGES AND SCANNED DOCUMENTS, IF INCLUDED, ONLY VIEWABLE IN PDF VERSION OF REPORT The performance characteristics of some immunohistochemical stains, fluorescence in-situ hybridization tests and immunophenotyping by flow cytometry cited in this report (if any) were determined by the Surgical Pathology Department at [facility] as part of an ongoing senior software quality analyst program and in compliance with federally mandated [...] characteristics determined by the Surgical Pathology Department [facility]. It has not been cleared or approved by the U. S. Food and Drug Administration. Note for decalcified specimens: This assay has not been validated on decalcified tissues. Results should be interpreted with caution given the possibility of false negativity on decalcified specimens Benny Hassan MD LAB PATHOLOGY ORDERABLES Final Result PATHOLOGY [address] [place] [address] * ENDARTERECTOMY - CAROTID (12/30/2024 10:58 AM [...] PROCEDURES Fin al Result Performing Organization Address [facility] Co de Phone Number [email or web address] * Potassium, [...] CDT 12/30/2024 6:35 AM CDT Yosef Mora ENGINEERING PSYCHOLOGIST LAB BLOOD ORDERABLES Final Result Performing Organization Address City/[facility]/ZIP Co de Phone Number DAO [address] [address] [place] [address] * (ABNORMAL) eGFR (12/21/2024 11:48 AM [...] 12/21/2024 11:48 AM CDT us Brittani Hurst ENGINEERING PSYCHOLOGIST LAB BLOOD ORDERABLES Final Res ult [facility] [address] [address] Department [place] [address] * Differential, auto (12/21/2024 11:48 AM CDT) Neutrophil abs 5.47 1.50 - 6.50 K/cumm Imm gran abs 0.02 0.00 - 0.10 K/cumm [facility] Lymphocyte abs 2.41 0.80 - 3.30 K/cumm [facility] Monocyte abs 0.75 0.20 - 0.80 K/cumm [facility] Eosinophil abs 0.17 0.00 - 0.50 K/cumm [facility] Basophil abs 0.08 0.00 - 0.10 K/cumm [facility] Neutrophil pct 61.5 % ADO Comment: Interpretive Data Percent cell count reference [...] revised on 2017. Lymphocyte pct 27.1 % [facility] Comment: Interpretive Data Percent cell count reference ranges are not reported, since discordance with absolute values may lead to misinterpretation of CBC data. Current Interpretive Data was last revised on 2017. Monocyte pct 8.4 % [facility] Comment: Interpretive Data Percent cell count reference ranges are not reported, since discordance with absolute values may lead to misinterpretation of CBC data. Current Interpretive Data was last revised on 2017. Eosinophil pct 1.9 % [facility] Comment: Interpretive Data Percent cell count reference ranges are not reported, since discordance with absolute values may lead to misinterpretation of CBC data. Current Interpretive Data was last revised on 2017. Basophil pct 0.9 % [facility] Comment: Interpretive Data Percent cell count reference ranges are not reported, since discordance with absolute values may lead to misinterpretation of CBC data. Current Interpretive Data was last revised on 2017. Blood 12/21/2024 11:4 8 AM CDT 12/21/2024 11:48 AM CDT us Brittani Hurst ENGINEERING PSYCHOLOGIST LAB BLOOD ORDERABLES Final Res ult [facility] [address] [address] Department [place] [address] * (ABNORMAL) CBC with auto differential (12/21/2024 11:48 AM CDT) WBC 8.90 3.80 - 9.90 K/cumm Hgb 12.0(L) 13.0 - 17.5 g/dL [facility] Hct 36.2(L) 38.9 - 50.3 % [facility] Plt 282 150 - 400 K/cumm [facility] MPV 10.2 9.1 - 12.[address] [facility] RBC 3.95(L) 4.30 - 5.80 M/cumm [facility] MCV 91.6 81.3 - 96.[address] [facility] MCH 30.4 27.1 - 33.[address] [facility] MCHC 33.1 32.3 - 35.7 g/dL [facility] CV 14.3 11.1 - 14.9 % [facility] RDW SD 48.4(H) 35.7 - 48.1 fL [facility] NRBC abs 0.00 0.00 - 0.01 K/cumm [facility] Blood 12/21/2024 11:4 8 AM CDT 12/21/2024 11:48 AM CDT Brittani Hurst ENGINEERING PSYCHOLOGIST LAB BLOOD ORDERABLES Final Res ult [facility] [address] [address] Department [place] [address] * (ABNORMAL) Basic metabolic panel (12/21/2024 11:48 AM CDT) Sodium 140 135 - 145 mmol/L Potassium, pl 5.1(H) 3.3 - 4.9 mmol/L [facility] Chloride 102 97 - 110 mmol/L [facility] CO2 27 22 - 32 mmol/L [facility] Anion gap 11 2 - 15 mmol/L [facility] BUN 22 6 - 25 mg/dL [facility] Creatinine 1.32(H) 0.80 - 1.30 mg/dL [facility] Glucose 98 70 - 199 mg/dL [facility] Comment: Interpretive Data Fasting glucose [...] ORDERABLES Final Res ult Performing Organization Address [facility] Co de Phone Number DAO ROSENBERG [address] [address] [place] [address] * Urinalysis reflex to microscopic [...] tendency for uric acid stone formation. Source: [facility] [employer] Current Interpretive Data was last revised on [...] GENERAL ORD ERABLES Final Result DAO ROSENBERG [address] [address] [place] [address] * Type and screen (12/21/2024 11:28 AM [...] TEST ORDERABLES Final Result Performing Organization Address [facility] Co de Phone Number DAO [address] [address] [place] [address] * ECG 12 lead (12/21/2024 11:12 AM CDT) 12/21/2024 11:1 2 AM CDT Narrative [facility] - 12/21/2024 3:00 PM CDT Vent Rate: 54 bpm RR Interval: 1094 msec MD Interval: 160 msec QRS Duration: 98 msec QT Interval: 435 msec QTC Interval: 422 msec P-R-T [place]: 33 - 35 - 56 degrees IMPRESSION: SINUS BRADYCARDIA BORDERLINE ECG Electronically Signed By: Dr. Janene Moore [facility] Brittani Hurst ENGINEERING PSYCHOLOGIST ECG ORDERABLES Final Result Performing Organization Address [facility] Phone Number [employer] [facility] * CT Lung Cancer Screening (10/11/2024 12:51 PM DRILLING ENGINEERING MANAGER) Anatomical Region Laterality Modality Chest N/A Computed Tomogra phy 10/11/2024 2:53 PM DRILLING ENGINEERING MANAGER Impressions 10/11/2024 2:53 PM DRILLING ENGINEERING MANAGER 1. LungRADS Category 1 (negative) . Recommend [...] Freddie Morales M.D. Narrative 10/11/2024 2:53 PM DRILLING ENGINEERING MANAGER EXAMINATION: Lung cancer screening CT of the [...] to Health Maintenance Insurance UHC MEDICARE ADVANTAGE [facility] Address: [address] [address] UHC MEDICARE ADVANTAGE [facility] Address[id number] [place] [address] [employer] MEDICARE ADVANTAGE [facility] Address: [address] [address] Advance Directives For more information, please contact: [phone] * Full Code (Latest Code Status on File) Date Activated Date Inactivated Comments 12/30/2024 1:35 PM 01/01/2025 5:36 PM * Full Code Date Activated Date Inactivated Comments 07/27/2023 2:03 PM 08/06/2023 12:02 AM Care Teams Church Official Relationship Specialty Start Date End Date Irais Lock MD [address] [address] PCP - General Internal Medicine 07/28/23 Kortney Wu MD [address] [place] [address] Consulting Physician Cardiology 01/01/25
--- OUTSIDE RECORDS SUMMARY | 2025-03-07 07:03 | XMS_ITS | CONTINUITY OF CARE DOCUMENT ---
Author Name missy louis Address Unknown Organization [facility] Address [address] [place] [address] Phone [phone] Care Team Providers Care Crusher Loader Operator Name Role Phone Jazmin GAONA, Kortney Glez Unavailable [phone] Mo GAONA, Benny Unavailable [phone] KADEN GAONA, DAPHNE Unavailable [phone] PROBLEMS Condition Status Date Provider Notes Carotid artery stenosis active Jennifer del real Preoperative cardiovascular evaluation active Sandra Dakotah Hypercholesterolemia active Kortney gillis MD EKG active Kortney Wu MD Peripheral artery disease active Kortney Wu MD Back pain active Kortney Wu MD Cardiology examination active Nisha Esteban i [employer]ODUCT DEVELOP[employer] INTER[employer] CAD -s/p CABG active Kortney Wu MD Tobacco abuse active Kortney Wu MD ENCOUNTERS Date Type Provider Location Encounter Diag nosis - In-person encounter Office Visit Kortney Wu MD [facility] - In-person encounter Office Visit Kortney Wu MD [facility] - In-person encounter Office Visit Kortney Wu MD [facility] Cardiology examination - In-person encounter Office Visit Kortney Wu MD [place] - In-person encounter Office Visit Kortney Wu MD [facility] CAD -s/p CABG - In-person encounter Office Visit Kortney Wu MD [facility] EKGTobacco abusePeripheral artery diseaseBack pain - In-person encounter Office Visit Kortney Wu MD [facility] - In-person encounter Office Visit Kortney Wu MD [facility] Hypercholesterolemia VITAL SIGNS Date Observation Value Provider Body Mass Index (Ratio) 26.31 kg/m2 Nunu Wu MD blood pressure, diastolic 78 mm[Hg] [facility], [facility] 146 mm[Hg] [facility], oximetry 96 % [facility] pulse rate 64 /min [facility] respiratory rate E&M 12 /min [facility] weight E&M 168 [lb_av] [facility] height E&M 67 [in_i] [facility] blood pressure, cuff size regular [facility] Body Mass Index (Ratio) 26.94 kg/m2 Nunu Wu MD blood pressure, diastolic 81 mm[Hg] An [facility], systolic 145 mm[Hg] pedro [facility], oximetry 95 % [facility] respiratory rate E&M 14 /min [facility] pulse rate 56 /min [facility] weight E&M 172 [lb_av] [facility] height E&M 67 [in_i] [facility] blood pressure, cuff size regular [facility] Body Mass Index (Ratio) 27.69 kg/m2 Nunu Wu MD blood pressure, diastolic 82 mm[Hg] Li nkLogic blood pressure, systolic 158 mm[Hg] Sri kLog blood pressure, cuff size regular [facility], diastolic 82 mm[Hg] Ta bitha [place] blood pressure, systolic 158 mm[Hg] Tab itha [place] oxygen saturation, oximetry 96 % America [place] respiratory rate E&M 12 /min [place] pulse rate 85 /min [facility] [place] weight E&M 176.8 [lb_av] [facility] [place] height E&M 67 [in_i] [facility] [place] Body Mass Index (Ratio) 28.35 kg/m2 Rosales ann Rand blood pressure, diastolic 76 mm[Hg] Li nkLogic blood pressure, systolic 158 mm[Hg] Sri blood pressure, cuff size regular [facility] blood pressure, diastolic 76 mm[Hg] [facility], systolic 158 mm[Hg] Jar ret pulse rate 60 /min Ivan respiratory rate E&M 12 /min Ivan oxygen saturation, oximetry 96 % Ivan weight E&M 181 [lb_av] Ivan er y height E&M 67 [in_i] Ivan y Body Mass Index (Ratio) 26.47 kg/m2 Nunu Wu MD blood pressure, diastolic 57 mm[Hg] Fern nkLogic blood pressure, systolic 106 mm[Hg] Sri kLog weight E&M 169 [lb_av] [facility] blood pressure, diastolic 57 mm[Hg] Fa ith [place] blood pressure, systolic 106 mm[Hg] Conner darline [place] oxygen saturation, oximetry 95 % [facility] respiratory rate E&M 15 /min Julia Soto iller pulse rate 51 /min Julia [place] height E&M 67 [in_i] [facility] Body Mass Index (Ratio) 29.44 kg/m2 Osman thomasseth Shantanu blood pressure, resting Yes Tons [place] oxygen saturation, oximetry 98 % Tonsha [place] blood pressure, diastolic 94 mm[Hg] To nsha Young blood pressure, systolic 190 mm[Hg] Ton [facility] respiratory rate E&M 16 /min [facility] 64 /min [facility] weight E&M 188 [lb_av] [facility] height E&M 67 [in_i] [facility] Body Mass Index (Ratio) 29.29 kg/m2 Nunu Wu MD weight E&M 187 [lb_av] Arely Bonnie blood pressure, diastolic 80 mm[Hg] Kr isty Bonnie blood pressure, systolic 150 mm[Hg] Rogeri stjigna Polo oxygen saturation, oximetry 96 % Arely Polo temperature site 76 Arely Busb y respiratory rate E&M 17 /min Arely Bonnie blood pressure, cuff size regular Kr isty Polo height E&M 67 [in_i] Arely Polo Body Mass Index (Ratio) 26.78 kg/m2 Jordan Plurad blood pressure, diastolic 86 mm[Hg] Da tyesha William blood pressure, systolic 148 mm[Hg] Dac ia William oxygen saturation, oximetry 97 % Lorene William respiratory rate E&M 16 /min Lorene V oss pulse rate 63 /min Lorene William weight E&M 171 [lb_av] Loerne William height E&M 67 [in_i] Lorene William [...] 1 tablet by mouth as needed Dulce Wagner #60, 30 days supply, Filled 10/12/2018 atorvastatin 80 mg tablet active Take 1 tablet by mouth every evening Kortney Wu MD MELOXICAM 15 MG ORAL TABLET completed take one daily - Arely Nicole TRAMADOL HCL 50 MG ORAL TABLET completed take one every 12 hours as needed - Areyl Nicole cyclobenzaprine 5 mg tablet completed Take [...] of years as a smoker 35 a Korntey Wu MD smoking history, tot al pack/day 1 Kortney Wu MD cigarette use yes Kortney murdock MD smoking status Former smoker Kortney aly MD personal history of marijuana use yes Nisha Reyesreri PRODUCT DEVELOPMENT INTERN drug use no Nisha Reyesreri PRODUCT DEVELOPMENT INTERN alcohol use, average drinks per day social Nisha Bonareri PRODUCT DEVELOPMENT INTERN alcohol use yes Nisha Bonareri PRODUCT DEVELOPMENT INTERN smoking, year quit 5 Nisha Moore areri PRODUCT DEVELOPMENT INTERN number of years as a smoker 35 a Nisha Reyesreri PRODUCT DEVELOPMENT INTERN smoking history, tot al pack/day 1 Nisha Reyesreri PRODUCT DEVELOPMENT INTERN cigarette use yes Nisha Reyesreri PRODUCT DEVELOPMENT INTERN smoking status Former smoker Nisha Reyesre ri PRODUCT DEVELOPMENT INTERN alcohol use, average drinks per day social Kortney Wu MD alcohol use yes Kortney gillis MD smoking, year quit 5 Kortney Wu MD number of years as a smoker 35 a Kortney Wu MD smoking history, tot al pack/day 1 Kortney Wu MD cigarette use yes Kortney murdock MD smoking status Former smoker Kortney aly MD smoking, year quit 5 [facility] alcohol use, average drinks per day social Julia Davenport alcohol use yes Julia Daven[place] smoking/tobacco cess ation, patient education and counseling yes Julia [place] number of years as a smoker 35 a Julia Davenport smoking history, tot al pack/day 1 Julia Davenport cigarette use yes Julia Daven[place] smoking status Former smoker Julia Davenport smoking/tobacco cess ation, patient education and counseling [...] of years as a smoker 35 a Tonsha Young smoking history, tot al pack/day 1 Tonsha Young cigarette use yes Tonsha Young social history E&M S moking History: P atient currently smokes every day. P atient has been counseled to quit. Kortney Wu MD social history reviewed E&M revi ewed - no changes required Kortney Wu MD alcohol use, average drinks per day social Arely Bonnie smoking/tobacco cess ation, patient education and counseling yes Arely Bonnie alcohol use yes Arely Bonnie number of years as a smoker 35 a Arely Polo smoking history, tot al pack/day 1 Arely Bonnie cigarette use yes Arely Polo smoking status Current every day smoker Charlie jacob Polo number of grandchildren Kortney Wu MD smoking/tobacco cess ation, patient education and counseling yes Kortney Wu MD social history reviewed E&M revi ewed - no changes required Kortney Wu MD social history E&M S moking History: P atient currently smokes every day. P atient has been counseled to quit. Jordan Plurad alcohol use, average drinks per day social Lorene William alcohol use yes Lorene William number of years as a smoker 35 a Lorene William smoking history, tot al pack/day 1 Lorene William cigarette use yes Lorene William smoking status Current every day smoker D acia [place] FUNCTIONAL STATUS Date Observation Value Provider HRA, CV Assess/Plan, Angina (inactive) Management Plan continue current therapy Kortney Wu MD HRA, CV Assess/Plan, Angina (inactive) Management Plan continue current therapy Nisha Santa MILADY HRA, CV Assess/Plan, Angina (inactive) Management Plan continue current therapy Kortney Wu MD HRA, CV Assess/Plan, Angina (inactive) Management Plan continue current therapy Kortney Wu MD FAMILY HISTORY Family Member Condition First Degree Blood Relative No Known Fam aurora History INSURANCE PROVIDERS Payer name Policy type / Coverage type [place] red green party ID [employer] MEDICARE ADVANTAGE ST 0 003 (HMO POS) Medicare [id number] ADVANCE DIRECTIVES Name Date DISCUSSED - NO DECISION MADE TREATMENT PLAN Date Name Performer Cardiology:Cervical right internal carotid stenosis of 70% by NASCET criteria w ith calcified plaque he had surgery on RIght neck wiht MCKEE at [facility] and is stable on ASA PLAVIX T his visit has been a part [...] 2024 O MADELIN DOING BETTER SINCE SURGERY January 31, 2025 T his visit has been a part of the consistent, comprehensive, and ongoing management of the chronic medical condition(s) listed above for the patient. Kortney Wu MD Cardiology:CONCLUSIO NS: 1 . 50 - 69% stenosis of the right ICA. 2 . <50% stenosis of the left ICA. GRUZOBZOR CAROTID Study Dt:03-15-2024 Page 2 3 . [...] m arginal branches) February 10, 2024 O VERSERVANDO DOING BETTER SINCE SURGERY Kortney Wu MD Cardiology: T his visit has been a part of the consistent, comprehensive, and ongoing management of the chronic medical condition(s) listed above for the patient. 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 O rders: E KG ([id number]) 9 [phone] HIGH Complex ([id number]) Kortney Wu MD Date Name Arterial Duplex [...] Hi Perla MD completed SPECT Images Andres oMore MD complet ed Stress EKG Jayden Gilliland MD complete d
--- OUTSIDE RECORDS SUMMARY | 2025-03-07 07:03 | XMS_ITS | Referral Summary ---
Author Organization [facility] Medical Office Building B Address [address] [place] [address] Care Team Providers Care Vocational Director Name Role Phone Irais Lock MD Primary Care Provide r Kortney Wu MD Unavailable [phone] Encounters Date Type Department Care Team Description 12/30/2024 5:52 AM CDT - 01/01/2025 1:31 PM CDT Hospital Encounter [facility] Cardiac Intensive Care [address] [place] [id number] Benny Hassan MD Bradycardia (Primary Dx); Carotid stenosis, bilateral Discharge Disposition: Discharge to home or self care 12/30/2024 7:30 AM CDT - 12/30/2024 11:00 AM CDT Surgery [facility] Operating Room [address] [place] [id number] Benny Hassan MD RIGHT CAROTID ENDARTERECTOMY 12/30/2024 7:34 AM CDT Anesthesia Event [facility] Operating Room [address] [place] [address] Lorie Dillard Jr., MD Eldin, Ali S., MD 12/22/2024 Telephone [facility] [address] [place] [id number] Rosina Campbell 12/21/2024 9:45 AM CDT Pre-Admission Testing [facility] Pre Anesthesia Testing [address] [place] [address] Preop testing (Primary Dx) from Last 3 [...] 07/31/2022 Assessment & Plan (07/31/2022 4:33 PM PURSE FRAMER): A patent bilateral common femoral artery to popliteal artery bypasses with normal ABIs. Continue ongoing surveillance and risk factor modification with ASA, Plavix, statin therapy. Will follow-up in 6 months with repeat duplex. Neck pain 12/24/2021 Hypertensive disorder 07/01/2020 Assessment & Plan (02/12/2023 4:25 PM CDT): Impression: Chronic stable hypertension. Plan: Continue lisinopril 10 mg. Assessment & Plan (07/31/2022 4:33 PM PURSE FRAMER): Lisinopril Assessment & Plan (07/22/2021 8:35 AM CDT): Followed by his PCP and controlled on his current medications. Assessment & Plan (12/19/2020 3:23 PM CDT): Impression: Stable chronic hypertension. Plan: Medications reviewed and recommend continuing daily antihypertensive regimen as directed by patient's primary care physician. Encounter for screening for cardiovascular disor ders 05/04/2020 Tobacco abuse 05/04/2020 Atherosclerosis of [place] of both lower extremities with [...] surveillance. Assessment & Plan (08/15/2020 2:08 PM PURSE FRAMER): Impression: Patient recover well status post bilateral [...] 05/19/2018 Assessment & Plan (07/31/2022 4:33 PM PURSE FRAMER): Lipitor Dyslipidemia 05/02/2018 Assessment & Plan (02/12/2023 [...] 12/19/2020 Assessment & Plan (09/13/2020 10:57 AM PURSE FRAMER): Patient is status post bilateral lower extremity [...] doctor or pharmacy Never 09/08/[address] [facility] Utilities Answer Date Recorded In the past 12 months has th e [employer], oil, or [employer] threatened to shut off services in your [...] often do you attend chur ch or mormon services? Never 07/28/2023 Do you belong to any clubs o r organizations such as tenriism groups, unions, fraternal or athletic groups, or [...] place to sleep or slept in a fdc (including now)? No 07/28/2023 Personal Safety Answer Date Recorded Have you ever been in or are you currently in a harmful physical or emotional relationship or is someone making you feel afraid or unsafe? Denies 12/30/2024 Sex and Gender Information Value Date Recorded Sex Assigned at Not on file Legal Sex Male 8:24 PM PURSE FRAMER Gender Identity Not on file Sexual Orientation [...] on file Medical Devices Implanted Type Area Continuous Mining [employer] Miner Device Identifier Shelf Expiration Date Model / Serial / Lot [employer] Distal Marker Radiology Stainless Steel Sterile Amgm-D - [id number] Implanted:Qty: 1 on 07/28/2023 by Joe French MD at [facility] N/A: Heart [employer] [place] [id number] 12/20/2025 AMGM-D / / [employer] [employer] Distal Marker Radiology Stainless Steel Sterile Amgm-D - [id number] Implanted:Qty: 1 on 07/28/2023 by Joe French MD at [facility] N/A: Heart [employer] [place] [employer] [id number] 12/20/2025 AMGM-D / / Description:Graft marker Procedures [...] Read Routine (OP Routine) 10/11/2024 12:51 PM PURSE FRAMER Nicotine dependence, cigarettes, uncomplicated from Last 3 [...] plan with the patient's team and other medical/consultant technology staff. This time was in addition to [...] MD LAB BLOOD ORDERABLES Final Res ult [facility] [address] [place] [address] * (ABNORMAL) Differential, auto (01/01/2025 5:20 AM CDT) Neutrophil abs 5.82 1.50 - 6.50 K/cumm Imm gran abs 0.04 0.00 - 0.10 K/cumm [facility] Lymphocyte abs 1.99 0.80 - 3.30 K/cumm [facility] Monocyte abs 1.02(H) 0.20 - 0.80 K/cumm [facility] Eosinophil abs 0.17 0.00 - 0.50 K/cumm [facility] Basophil abs 0.05 0.00 - 0.10 K/cumm [facility] Neutrophil pct 64.0 % [facility] Comment: Interpretive Data Percent cell count [...] revised on 2017. Lymphocyte pct 21.9 % [facility] Comment: Interpretive Data Percent cell count reference ranges are not reported, since discordance with absolute values may lead to misinterpretation of CBC data. Current Interpretive Data was last revised on 2017. Monocyte pct 11.2 % [facility] Comment: Interpretive Data Percent cell count reference ranges are not reported, since discordance with absolute values may lead to misinterpretation of CBC data. Current Interpretive Data was last revised on 2017. Eosinophil pct 1.9 % [facility] Comment: Interpretive Data Percent cell count reference ranges are not reported, since discordance with absolute values may lead to misinterpretation of CBC data. Current Interpretive Data was last revised on 2017. Basophil pct 0.6 % [facility] Comment: Interpretive Data Percent cell count reference ranges are not reported, since discordance with absolute values may lead to misinterpretation of CBC data. Current Interpretive Data was last revised on 2017. Blood 01/01/2025 5:20 AM CDT 01/01/2025 5:45 AM CDT us Benny Hassan MD LAB BLOOD ORDERABLES Final Res ult [facility] [address] Department [place] [address] * (ABNORMAL) CBC with auto differential (01/01/2025 5:20 AM CDT) WBC 9.09 3.80 - 9.90 K/cumm Hgb 8.6(L) 13.0 - 17.5 g/dL [facility] Hct 27.1(L) 38.9 - 50.3 % [facility] Plt 195 150 - 400 K/cumm [facility] MPV 10.5 9.1 - 12.3 fL [facility] RBC 2.91(L) 4.30 - 5.80 M/cumm [facility] MCV 93.1 81.3 - 96.4 fL [facility] MCH 29.6 27.1 - 33.3 pg [facility] MCHC 31.7(L) 32.3 - 35.7 g/dL [facility] RDW CV 14.8 11.1 - 14.9 % [facility] RDW SD 50.1(H) 35.7 - 48.1 fL [facility] NRBC abs 0.00 0.00 - 0.01 K/cumm [facility] Blood 01/01/2025 5:20 AM CDT 01/01/2025 5:45 AM CDT Benny Hassan MD LAB BLOOD ORDERABLES Final Res ult [facility] [address] Department [place] [address] * Basic metabolic panel (01/01/2025 5:20 AM CDT) Sodium 139 135 - 145 mmol/L Potassium, pl 4.2 3.3 - 4.9 mmol/L [facility] Chloride 109 97 - 110 mmol/L [facility] CO2 23 22 - 32 mmol/L [facility] Anion gap 7 2 - 15 mmol/L [facility] BUN 22 6 - 25 mg/dL [facility] Creatinine 1.28 0.80 - 1.30 mg/dL [facility] Glucose 80 70 - 199 mg/dL [facility] Comment: Interpretive Data Fasting glucose [...] BLOOD ORDERABLES Final Res ult [facility] [address] [place] [address] * (ABNORMAL) Calcium, ionized, whole blood (12/31/2024 9:46 PM CDT) Ca, ionized, bld 4.46(L) 4.50 - 5.10 mg/dL Blood 12/31/2024 9:46 PM CDT 12/31/2024 9:49 PM CDT Stephany Isabel MD LAB BLOOD ORDERABLES Brinda l Result Performing Organization Address [facility] Co de Phone Number [facility] [address] Department [place], [place] [id number] * (ABNORMAL) eGFR (12/31/2024 9:46 PM CDT) [...] ORDERABLES Brinda l Result Performing Organization Address City/[facility]/ZIP Co de Phone Number [facility] [address] [address] [place] [address] * Magnesium (12/31/2024 9:46 PM CDT) Magnesium 2.2 1.4 - 2.5 mg/dL Blood 12/31/2024 9:46 PM CDT 12/31/2024 9:50 PM CDT Stephany Isabel MD LAB BLOOD ORDERABLES Brinda harvey Result Performing Organization Address [facility] de Phone Number [facility]O ROSEN[facility] [address] Department [place] [address] * (ABNORMAL) Renal function panel (12/31/2024 9:46 PM CDT) Pathologist [facility] Sodium 140 135 - 145 mmol/L Potassium, pl 4.8 3.3 - 4.9 mmol/L [facility] Comment:Hemolysis present. R esults may be affected. Chloride 108 97 - 110 mmol/L [facility] CO2 23 22 - 32 mmol/L [facility] Anion gap 9 2 - 15 mmol/L [facility] BUN 24 6 - 25 mg/dL [facility] Creatinine 1.27 0.80 - 1.30 mg/dL [facility] Glucose 92 70 - 199 mg/dL [facility] Comment: Interpretive Data Fasting glucose >/= [...] 2022. Calcium 8.4(L) 8.5 - 10.3 mg/dL [facility] Phosphorus, pl 3.2 2.3 - 4.5 mg/dL [facility] Albumin 3.4(L) 3.5 - 5.0 g/dL [facility] Blood 12/31/2024 9:46 PM CDT 12/31/2024 9:50 PM CDT Stephany Isabel MD LAB BLOOD ORDERABLES Brinda l Result DAO [address] Department [place] [address] * Critical Care (12/31/2024 9:42 PM CDT) Narrative Stephany Iasbel MD - 12/31/2024 9:42 PM CDT Stephany [...] plan with the patient's team and other medical/consultant technology staff. This time was in addition to [...] plan with the ICU team and other medical/consultant technology staff, making frequent assessments and decisions regarding [...] AM CDT) 12/31/2024 7:45 AM CDT Narrative [facility] - 12/31/2024 9:27 AM CDT Vent Rate: 40 bpm RR Interval: 1481 msec GA Interval: 149 msec QRS Duration: 102 msec QT Interval: 507 msec QTC Interval: 439 msec P-R-T [place]: 137 - 144 - 131 degrees IMPRESSION: [...] YEARS Electronically Signed By: Dr. Janene Moore [facility] us Satish Alvarado MD ECG ORDERABLES Edited Result - Final [facility] * (ABNORMAL) eGFR (12/31/2024 5:24 AM CDT) [...] MD LAB BLOOD ORDERABLES Final Res ult [facility] [address] Department [place] [address] * (ABNORMAL) Basic metabolic panel (12/31/2024 5:24 AM CDT) Sodium 139 135 - 145 mmol/L Potassium, pl 4.3 3.3 - 4.9 mmol/L [facility] Chloride 108 97 - 110 mmol/L [facility] CO2 21(L) 22 - 32 mmol/L [facility] Anion gap 10 2 - 15 mmol/L [facility] BUN 25 6 - 25 mg/dL [facility] Creatinine 1.49(H) 0.80 - 1.30 mg/dL [facility] Glucose 121 70 - 199 mg/dL [facility] Comment: Interpretive Data Fasting glucose >/= [...] 2022. Calcium 8.2(L) 8.5 - 10.3 mg/dL [facility] Blood 12/31/2024 5:24 AM CDT 12/31/2024 5:24 AM CDT Benny Hassan MD LAB BLOOD ORDERABLES Final Res ult [facility] [address] Department [place] [address] * (ABNORMAL) Differential, auto (12/31/2024 5:22 AM CDT) Neutrophil abs 9.47(H) 1.50 - 6.50 K/cumm Imm gran abs 0.06 0.00 - 0.10 K/cumm [facility] Lymphocyte abs 2.45 0.80 - 3.30 K/cumm [facility] Monocyte abs 1.66(H) 0.20 - 0.80 K/cumm [facility] Eosinophil abs 0.03 0.00 - 0.50 K/cumm [facility] Basophil abs 0.04 0.00 - 0.10 K/cumm [facility] Neutrophil pct 69.1 % [facility] Comment: Interpretive Data Percent cell count reference ranges are not reported, since discordance with absolute values may lead to misinterpretation of CBC data. Current Interpretive Data was last revised on 2017. Imm gran pct 0.4 % [facility] Comment: Interpretive Data Percent cell count [...] MD LAB BLOOD ORDERABLES Final Res ult [facility] [address] Department [place] [address] * (ABNORMAL) CBC with auto differential (12/31/2024 5:22 AM CDT) WBC 13.71(H) 3.80 - 9.90 K/cumm Hgb 8.8(L) 13.0 - 17.5 g/dL [facility] Hct 26.9(L) 38.9 - 50.3 % [facility] Plt 206 150 - 400 K/cumm [facility] MPV 10.3 9.1 - 12.3 fL [facility] RBC 2.90(L) 4.30 - 5.80 M/cumm [facility] MCV 92.8 81.3 - 96.4 fL [facility] MCH 30.3 27.1 - 33.3 pg [facility] MCHC 32.7 32.3 - 35.7 g/dL [facility] RDW CV 14.7 11.1 - 14.9 % [facility] RDW SD 50.0(H) 35.7 - 48.1 fL [facility] NRBC abs 0.00 0.00 - 0.01 K/cumm [facility] Blood 12/31/2024 5:22 AM CDT 12/31/2024 5:22 AM CDT us Benny Hassan MD LAB BLOOD ORDERABLES Final Res ult [facility] [address] Department [place] [address] * Critical Care (12/30/2024 8:17 [...] plan with the ICU team and other medical/consultant technology staff, making frequent assessments and decisions regarding [...] plan with the ICU team and other medical/consultant technology staff, making frequent assessments and decisions regarding [...] PM CDT) 12/30/2024 2:02 PM CDT Narrative [facility] - 12/30/2024 3:57 PM CDT Vent Rate: 46 bpm RR Interval: 1302 msec GA Interval: 156 msec QRS Duration: 93 msec QT Interval: 493 msec QTC Interval: 450 msec P-R-T [place]: 51 - 31 - 60 degrees IMPRESSION: SINUS BRADYCARDIA BORDERLINE ECG Electronically Signed By: Dr. Godfrey Darby Benny Hassan MD ECG ORDERABLES Final Result [facility] * Lactate (12/30/2024 1:58 PM CDT) Lactate 1.1 0.7 - 2.0 mmol/L Blood 12/30/2024 1:58 PM CDT 12/30/2024 2:21 PM CDT us Benny Hassan MD LAB BLOOD ORDERABLES Final Res ult Performing Organization Address City/[facility] Co de Phone Number [facility] [address] Department [place] [address] * (ABNORMAL) eGFR (12/30/2024 1:58 PM CDT) [...] MD LAB BLOOD ORDERABLES Final Res ult [facility] [address] [address] [place] [address] * (ABNORMAL) Differential, auto (12/30/2024 1:58 PM CDT) Neutrophil abs 10.94(H) 1.50 - 6.50 K/cumm Imm gran abs 0.05 0.00 - 0.10 K/cumm [facility] Lymphocyte abs 1.07 0.80 - 3.30 K/cumm [facility] Monocyte abs 0.37 0.20 - 0.80 K/cumm [facility] Eosinophil abs 0.01 0.00 - 0.50 K/cumm [facility] Basophil abs 0.02 0.00 - 0.10 K/cumm [facility] Neutrophil pct 87.7 % [facility] Comment: Interpretive Data Percent cell count reference ranges are not reported, since discordance with absolute values may lead to misinterpretation of CBC data. Current Interpretive Data was last revised on 2017. Imm gran pct 0.4 % [facility] Comment: Interpretive Data Percent cell count reference ranges are not reported, since discordance with absolute values may lead to misinterpretation of CBC data. Current Interpretive Data was last revised on 2017. Lymphocyte pct 8.6 % [facility] Comment: Interpretive Data Percent cell count reference ranges are not reported, since discordance with absolute values may lead to misinterpretation of CBC data. Current Interpretive Data was last revised on 2017. Monocyte pct 3.0 % [facility] Comment: Interpretive Data Percent cell count reference ranges are not reported, since discordance with absolute values may lead to misinterpretation of CBC data. Current Interpretive Data was last revised on 2017. Eosinophil pct 0.1 % [facility] Comment: Interpretive Data Percent cell count reference ranges are not reported, since discordance with absolute values may lead to misinterpretation of CBC data. Current Interpretive Data was last revised on 2017. Basophil pct 0.2 % [facility] Comment: Interpretive Data Percent cell count reference ranges are not reported, since discordance with absolute values may lead to misinterpretation of CBC data. Current Interpretive Data was last revised on 2017. Blood 12/30/2024 1:58 PM CDT 12/30/2024 2:22 PM CDT Benny Hassan MD LAB BLOOD ORDERABLES Final Res ult Performing Organization Address [facility] Co de Phone Number DAO ROSENBER[facility] [address] [place] [address] * (ABNORMAL) CBC with auto differential (12/30/2024 1:58 PM CDT) WBC 12.46(H) 3.80 - 9.90 K/cumm Hgb 9.3(L) 13.0 - 17.5 g/dL [facility] Hct 27.8(L) 38.9 - 50.3 % [facility] Plt 206 150 - 400 K/cumm [facility] MPV 9.8 9.1 - 12.3 fL [facility] RBC 3.03(L) 4.30 - 5.80 M/cumm [facility] MCV 91.7 81.3 - 96.4 fL [facility] MCH 30.7 27.1 - 33.3 pg [facility] MCHC 33.5 32.3 - 35.7 g/dL [facility] RDW CV 14.5 11.1 - 14.9 % [facility] RDW SD 48.8(H) 35.7 - 48.1 fL [facility] NRBC abs 0.00 0.00 - 0.01 K/cumm [facility] Blood 12/30/2024 1:58 PM CDT 12/30/2024 2:22 PM CDT us Benny Hassan MD LAB BLOOD ORDERABLES Final Res ult Performing Organization Address [facility] Co de Phone Number [facility]O [facility] [address] [place] [address] * aPTT (12/30/2024 1:58 PM [...] ORDERABLES Final Res ult Performing Organization Address [facility] Co de Phone Number DAO SHAKIRA [address] [place] [address] * Protime-INR (12/30/2024 1:58 PM [...] ORDERABLES Final Res ult Performing Organization Address [facility] Co de Phone Number DAO [address] [place] [address] * Type and screen (12/30/2024 1:58 PM CDT) David, indirect Negative ABO Rh O Positive DAO Blood 12/30/2024 1:58 PM CDT 12/30/2024 2:29 PM CDT Narrative [facility] - 12/30/2024 3:12 PM CDT Has the patient had Daratumumab or Isatuximab in the past 6 months?->Unknown Benny Hassan MD LAB BLOOD BANK TEST ORDERABLES Final Result Performing Organization Address [facility]/ZIP Co de Phone Number [facility] [address] Department [place] [address] * (ABNORMAL) Basic metabolic panel (12/30/2024 1:58 PM CDT) [facility] Sodium 142 135 - 145 mmol/L Potassium, pl 4.7 3.3 - 4.9 mmol/L [facility] Chloride 109 97 - 110 mmol/L [facility] CO2 21(L) 22 - 32 mmol/L [facility] Anion gap 12 2 - 15 mmol/L [facility] BUN 20 6 - 25 mg/dL [facility] Creatinine 1.34(H) 0.80 - 1.30 mg/dL [facility] Glucose 104 70 - 199 mg/dL [facility] Comment: Interpretive Data Fasting glucose >/= [...] 2022. Calcium 8.2(L) 8.5 - 10.3 mg/dL [facility] Blood 12/30/2024 1:58 PM CDT 12/30/2024 2:21 PM CDT Benny Hassan MD LAB BLOOD ORDERABLES Final Res ult Performing Organization Address [facility]/ZIP Co de Phone Number [facility] [address] [place] [address] * POCT glucose (12/30/2024 1:05 PM CDT) Glucose, POC 108 70 - 199 mg/dL POC Performer [phone] DAO Blood 12/30/2024 1:05 PM CDT 12/30/2024 1:05 PM CDT Benny Hassan MD LAB POCT ORDERABLES - DEVICE F inal Result Performing Organization Address City/State/[facility] Co de Phone Number [facility] [id number] [place] [address] Department [place] [address] * Surgical pathology (12/30/2024 11:56 AM CDT) Tissue (Artery, plaque Atherosclerotic) 12/30/2024 9:51 AM CDT Narrative PATHOLOGY - 01/03/2025 4:09 PM CDT EPIC results best viewed via link to PDF [facility] Department of Pathology [address] [place], [place] [id number] Note to Patients: This report may contain [...] Final Report Patient Name: DEMETRA HOLCOMB Address: [address] [place] [address] Gender: M : 1950 (Age: 74) Service: Surgery Location: [place] Hospital #: [id number] Patient Type: [facility] Taken: 12/30/2024 Received: 12/30/2024 Accessioned: 12/30/2024 Reported: [...] shows a atherosclerotic material in the lumen. Signal Mechanic sections are submitted in 1 cassette following decalcification. Heidi Herring/Greg Casanova M.D. REPORT IMAGES AND SCANNED DOCUMENTS, IF INCLUDED, ONLY VIEWABLE IN PDF VERSION OF REPORT The performance characteristics of some immunohistochemical stains, fluorescence in-situ hybridization tests and immunophenotyping by flow cytometry cited in this report (if any) were determined by the Surgical Pathology Department at [facility] as part of an ongoing air quality manager program and in compliance with federally mandated [...] characteristics determined by the Surgical Pathology Department [facility]. It has not been cleared or approved by the U. S. Food and Drug Administration. Note for decalcified specimens: This assay has not been validated on decalcified tissues. Results should be interpreted with caution given the possibility of false negativity on decalcified specimens Benny Hassan MD LAB PATHOLOGY ORDERABLES Final Result PATHOLOGY [address] [place] [address] * ENDARTERECTOMY - CAROTID (12/30/2024 10:58 AM [...] the physician's procedure / OR operative note. eBnny Hassan MD IMG FLUOROSCOPY PROCEDURES Fin al [...] 12/30/2024 6:35 AM CDT us Yosef Mora SENIOR TEST ANALYST LAB BLOOD ORDERABLES Final Result [facility] [address] [place] [address] * (ABNORMAL) eGFR (12/21/2024 11:48 [...] CDT 12/21/2024 11:48 AM CDT Brittani Hurst SENIOR TEST ANALYST LAB BLOOD ORDERABLES Final Res ult [facility] [address] [place] [address] * Differential, auto (12/21/2024 11:48 AM CDT) Neutrophil abs 5.47 1.50 - 6.50 K/cumm Imm gran abs 0.02 0.00 - 0.10 K/cumm [facility] Lymphocyte abs 2.41 0.80 - 3.30 K/cumm [facility] Monocyte abs 0.75 0.20 - 0.80 K/cumm [facility] Eosinophil abs 0.17 0.00 - 0.50 K/cumm [facility] Basophil abs 0.08 0.00 - 0.10 K/cumm [facility] Neutrophil pct 61.5 % [facility] Comment: Interpretive Data Percent cell count reference ranges are not reported, since discordance with absolute values may lead to misinterpretation of CBC data. Current Interpretive Data was last revised on 2017. Imm gran pct 0.2 % [facility] Comment: Interpretive Data Percent cell count reference ranges are not reported, since discordance with absolute values may lead to misinterpretation of CBC data. Current Interpretive Data was last revised on 2017. Lymphocyte pct 27.1 % [facility] Comment: Interpretive Data Percent cell count reference ranges are not reported, since discordance with absolute values may lead to misinterpretation of CBC data. Current Interpretive Data was last revised on 2017. Monocyte pct 8.4 % [facility] Comment: Interpretive Data Percent cell count reference ranges are not reported, since discordance with absolute values may lead to misinterpretation of CBC data. Current Interpretive Data was last revised on 2017. Eosinophil pct 1.9 % [facility] Comment: Interpretive Data Percent cell count reference ranges are not reported, since discordance with absolute values may lead to misinterpretation of CBC data. Current Interpretive Data was last revised on 2017. Basophil pct 0.9 % [facility] Comment: Interpretive Data Percent cell count reference ranges are not reported, since discordance with absolute values may lead to misinterpretation of CBC data. Current Interpretive Data was last revised on 2017. Blood 12/21/2024 11:4 8 AM CDT 12/21/2024 11:48 AM CDT us Brittani Hurst SENIOR TEST ANALYST LAB BLOOD ORDERABLES Final Res ult DAO ROSENBERG [address] [place] [address] * (ABNORMAL) CBC with auto [...] RDW SD 48.4(H) 35.7 - 48.[address] [facility] NRBC abs 0.00 0.00 - 0.01 K/cumm [facility] Blood 12/21/2024 11:4 8 AM CDT 12/21/2024 11:48 AM CDT us Brittani Hurst SENIOR TEST ANALYST LAB BLOOD ORDERABLES Final Res ult [facility] [address] [place] [address] * (ABNORMAL) Basic metabolic panel (12/21/2024 11:48 AM CDT) Sodium 140 135 - 145 mmol/L Potassium, pl 5.1(H) 3.3 - 4.9 mmol/L [facility] Chloride 102 97 - 110 mmol/L [facility] CO2 27 22 - 32 mmol/L [facility] Anion gap 11 2 - 15 mmol/L [facility] BUN 22 6 - 25 mg/dL [facility] Creatinine 1.32(H) 0.80 - 1.30 mg/dL [facility] Glucose 98 70 - 199 mg/dL [facility] Comment: Interpretive Data Fasting glucose >/= [...] CDT 12/21/2024 11:48 AM CDT Brittani Hurst SENIOR TEST ANALYST LAB BLOOD ORDERABLES Final Res ult [facility] [address] Department [place] [address] * Urinalysis reflex to microscopic [...] tendency for uric acid stone formation. Source: [facility] Current Interpretive Data was last [...] ORD ERABLES Final Result Performing Organization Address [facility] Co de Phone Number DAO ROSENBERG [address] [facility] [place] [address] * Type and screen (12/21/2024 11:28 AM CDT) David, indirect Negative ABO Rh O Positive [facility] Blood 12/21/2024 11:2 8 AM CDT 12/21/2024 11:50 AM CDT Narrative [facility] - 12/21/2024 12:36 PM CDT Is this test being ordered in advance for a procedure?->Yes Expected date of procedure:->12/30/24 Has the patient been transfused in the past 3 months?->Unknown Brittani Hurst NP LAB BLOOD BANK TEST ORDERABLES Final Result Performing Organization Address [facility] Phone Number DAO ROSENBERG [address] [place] [address] * ECG 12 lead (12/21/2024 11:12 AM CDT) 12/21/2024 11:1 2 AM CDT Narrative [facility] - 12/21/2024 3:00 PM CDT Vent Rate: 54 bpm RR Interval: 1094 msec GA Interval: 160 msec QRS Duration: 98 msec QT Interval: 435 msec QTC Interval: 422 msec P-R-T [place]: 33 - 35 - 56 degrees IMPRESSION: SINUS BRADYCARDIA BORDERLINE ECG Electronically Signed By: Dr. Janene Moore [facility] Brittani Hurst NP ECG ORDERABLES Final Result Performing Organization Address [facility] Co de Phone Number [facility] * CT Lung Cancer Screening (10/11/2024 12:51 PM PURSE FRAMER) Anatomical Region Laterality Modality Chest N/A Computed Tomogra phy 10/11/2024 2:53 PM PURSE FRAMER Impressions 10/11/2024 2:53 PM PURSE FRAMER 1. LungRADS Category 1 (negative) . Recommend [...] Freddie Morales M.D. Narrative 10/11/2024 2:53 PM PURSE FRAMER EXAMINATION: Lung cancer screening CT of the [...] Relevant to Health Maintenance Insurance MEDICARE ADVANTAGE [facility] MEDIC[facility] Address: [place] [id number] [place] [address] [facility] MEDICARE ADVANTAGE [facility]IC[facility] Address: [facility] [id number] [place] [phone] [facility] MEDICARE ADVANTAGE [facility] MEDICARE Address: [facility] [id number] [place] [phone] Advance Directives For more information, please contact: [phone] * Full Code (Latest Code Status on File) Date Activated Date Inactivated Comments 12/30/2024 1:35 PM 01/01/2025 5:36 PM * Full Code Date Activated Date Inactivated Comments 07/27/2023 2:03 PM 08/06/2023 12:02 AM Care Teams Vocational Director Relationship Specialty Start Date End Date Irais Lock MD [address]43 [facility] 15 [place] [address] PCP - General Internal Medicine 07/28/23 Kortney Wu MD [address] [place] [address] Consulting Physician Cardiology 01/01/25
[2025-03-07 07:56] LABS: Add Urine Microscopic? NO; Appearance Urine Clear (Clear); Bilirubin Urine Negative (Negative); Blood Urine Negative (Negative); Color Urine Yellow (Yellow); Glucose Urine UA Negative (Negative); Ketones Urine Negative (Negative); Leukocyte Esterase Ur Negative LEU/UL (Negative); Nitrate Urine Negative (Negative); Protein Urine Negative (Negative); Specific Grav Ur 1.019 (1.001-1.035); Urobilinogen Urine 0.2 mg/dL (<2.0); pH Urine 5.5 (5.0-9.0)
[2025-03-07 08:12] LABS: Alanine Aminotransferase 18 U/L (6-50); Albumin Level 4.6 g/dL (3.5-5.1); Alkaline Phosphatase 80 U/L (38-126); Anion Gap 9 mmol/L (4-12); Aspartate Amino Transferase 25 U/L (17-59); Bilirubin,Total 0.4 mg/dL (0.2-1.3); Blood Urea Nitrogen 25 mg/dL (9-20); Calcium 9.3 mg/dL (8.4-10.2); Carbon Dioxide 22 mmol/L (22-30); Chloride 106 mmol/L (98-107); Estimated Glomerular Filt Rate 60; Glucose 101 mg/dL (65-110); Potassium 3.8 mmol/L (3.4-5.0); Sodium 137 mmol/L (137-145); Total Protein 7.8 g/dL (6.3-8.2); Uric Acid 7.1 mg/dL (3.5-8.5)
[2025-03-07 10:12] LABS: Parathyroid Intact 47.1 pg/mL (14.5-75.2)
[2025-03-07 10:33] LABS: MALB Creatinine Ratio 8.1 mg/g (0-30); Microalbumin Urine Random 11.8 mg/L (0-16.7)
[2025-03-07 11:16] LABS: Hemoglobin A1C 5.6 % (<5.7)
== END 2025-03-07 06:57 | disposition home or self-care (01) ==
PROVIDERS: PCP Internal Medicine; Visit Provider Specialist
DX: E21.3 Hyperparathyroidism, unspecified (principal); E55.9 Vitamin D deficiency, unspecified; E78.41 Elevated Lipoprotein(a); E87.20 Acidosis, unspecified; N39.0 Urinary tract infection, site not specified; R35.0 Frequency of micturition; R73.09 Other abnormal glucose; R80.9 Proteinuria, unspecified; R94.6 Abnormal results of thyroid function studies; I12.9 Hypertensive chronic kidney disease with stage 1 through stage 4 chronic kidney disease, or unspecified chronic kidney disease; E87.1 Hypo-osmolality and hyponatremia; N18.30 Chronic kidney disease, stage 3 unspecified
CPT/HCPCS: 36415; 80053; 81003; 82043; 82306; 83036; 83970; 84443; 84550

== ENCOUNTER 2025-05-17 07:32 | Outpatient (CLI) | payer MEDICARE, SELFPAY ==
--- OUTSIDE RECORDS SUMMARY | 2002-01-31 03:15 | XMS_ITS | Continuity of Care Document ---
Author Organization [facility] Address [address] [place] [address] [place] [address] Phone Care Team Providers Care Senior Production Planner Name Role Phone Modesto Jaimes DO Unavailable Unavailable Advance Directives Directive Yes / No Effective Date File Name No Information Encounters Encounter Description Practice Location Reason(s) For Visit Diagnoses Date Provider Providers Copied on Encounter [facility], [address], [place], [place], [id number], tel:[phone] [facility] No Information Fiona Dunne. [address] [place], [address], [place]. tel:[phone] Family History Family Member Type Diagnosis Age At Onset No Information Payers Payer name Insurance type Covered democrat ID Authoriza tion(s) No Information Social History Type Description Quantity Date Captured Comments Sex Male Smoking Status No Information Chief Complaint And Reason For Visit No Information Reason For Referral Reason For Referral No Information History Of Present Illness Encounter Date Complaint History Of Prese nt Illness No Information Functional Status Date Functional Assessmen t No Information Instructions Date Instruction Additional Infor mation No Information Assessments Type Assessment Date No Information Patient Care Teams Name Effective Dates (start - stop) Status Members No Information
--- OUTSIDE RECORDS SUMMARY | 2024-08-31 09:00 | XMS_ITS ---
Author Organization [facility] est[facility] Office Address [address] [facility] [address] [facility] [address] [place] [address] Care Team Providers Care Plastics Design Engineer Name Role Phone Oscar Shakir Unavailable [phone] Medications Medication SIG (Take, Route, Frequency, Duration) Notes Start Date End Date Status Losartan Potassium 25 MG 1 tablet Orally Once a day; Duration: 90 day(s) 09/11/2023 Active Vitamin D (Ergocalciferol) 1.25 MG (54727 UT) TAKE 1 CAPSULE BY MOUTH 1 TIME A WEEK; Duration: 91 Active Losartan Potassium 50 MG 1 tablet Orally Once a day; Duration: 90 11/20/2023 Active Lasix 40 MG 1 tablet Orally Once a day; Duration: 90 days Active Calcitriol 0.25 MCG TAKE ONE CAPSULE BY MOUTH EVERY OTHER DAY; Duration: 90 Active Encounters Encounter Location Date Provider Diagnosis [place] [facility] [address] [facility] [address] [place] [address] 08/31/2024 Shakir Moore Chronic kidney disea se, stage 3a N18.31 ; Type 2 diabetes mellitus with hyperglycemia E11.65 ; Anxiety disorder, unspecified F41.9 ; Essential (primary) hypertension I10 ; Hyperlipidemia, unspecified E78.5 ; Heart failure, unspecified I50.9 and Atherosclerosis of renal artery I70.1 Assessments Encounter Date Diagnosis (ICD Code) Assessment Notes Treatment Notes Treatment Clinical Notes Section Notes 08/31/2024 Chronic kidney disease, stage 3a (ICD-10 - N18.31) 08/31/2024 Type 2 diabetes mellitus with hyperglycemia (ICD-10 - E11.65) 08/31/2024 Anxiety disorder, unspecified (ICD-10 - F41.9) 08/31/2024 Essential (primary) hypertension (ICD-10 - I10) 08/31/2024 Hyperlipidemia, unspecified (ICD-10 - E78.5) 08/31/2024 Heart failure, unspecified (ICD-10 - I50.9) 08/31/2024 Atherosclerosis of renal artery (ICD-10 - I70.1) Plan Of Treatment Next Appt Details Provider Name:Shakir Moore , 05/24/2025 02:15:00 PM, [address] [facility], [address], [place], [place], [facility], Progress Notes * Julio Cesar HOLCOMBDOB:1950 (75 yo M)Acc No.[id number]:08/31/2024 Progress Notes Patient: Julio Cesar VENCES Provider: Harpreet GREGG MD, F.A.C.P, F.A.S.N. :1950 A ge:74 Y S ex:Male Date:08/31/2024 Address:[address] [place] [address] Subjective: * Chief Complaints: * * Medical History: * Medications: T aking Losartan Potassium 25 MG Tablet 1 tablet Orally Once a day , Taking Losartan Potassium 50 MG Tablet 1 tablet Orally Once a day , Taking Vitamin D (Ergocalciferol) 1.25 MG (68132 UT) Capsule TAKE 1 CAPSULE BY MOUTH 1 TIME A WEEK , Taking Calcitriol 0.25 MCG Capsule TAKE ONE CAPSULE BY MOUTH EVERY OTHER DAY , Taking Lasix 40 MG Tablet 1 [...] Treatment: * Billing Information: * Visit Code: 87506 Office Visit, Est Pt., Level 4. * Procedure Codes: * Electronic signature of Levi Moore MD on 05/17/2025 at 07:37 AM CDT Sign off status: Pending * Provider: Harpreet GREGG MD, F.A.C.P, F.A.S.N. Date: 11/01/2023 Generated for Printing/Faxing/eTransmitting on: 0 05/17/2025 07:37 AM CDT
--- OUTSIDE RECORDS SUMMARY | 2024-12-07 09:00 | XMS_ITS ---
Author Organization [facility] Address [address] [place] [address] Care Team Providers Care Machine Trimmer Name Role Phone Oscar Shakir Unavailable [phone] Problems Problem Type SNOMED Code ICD Code Onset Dates Problem Status W/U Status Risk Notes Problem Renal osteodystrophy (49528016) Renal osteodystrophy (N25.0) Active confirmed Problem Secondary hyperparathyroidism of renal origin (39405886) Secondary hyperparathyroidism of renal origin (N25.81) Active confirmed Problem Coronary artery disease (39191221) CAD (coronary artery disease) (I25.10) Active confirmed Problem Disorder of mineral metabolism (59108125) Disorder of mineral metabolism, 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 Problem Proteinuria, unspecified (R80.9) Active confirmed Encounters Encounter Location Date Provider Diagnosis [place] [facility] 2043 [facility] 15 [place] [address] 12/07/2024 Shakir Moore Chronic kidney disea se, [...] unspecified (ICD-10 - R80.9) Plan Of Treatment Next Appt Details Provider Name:Shakir Moore , 05/24/2025 02:15:00 PM, 2043 [facility] [address], [place], [facility], Progress Notes * Julio Cesar HOLCOMBDOB:1950 (75 yo M)Acc No.[id number]:12/07/2024 Progress Notes Patient: Julio Cesar VENCES Provider: Harpreet GREGG MD, F.A.C.P, F.A.S.N. :1950 A ge:74 Y S ex:Male Date:12/07/2024 Address:[address] [place] [address] Subjective: * Chief Complaints: * * Medical [...] Treatment: * Billing Information: * Visit Code: 35888 Office Visit, Est Pt., Level 5. * Procedure Codes: * Electronic signature of Levi Moore MD on 05/17/2025 at 07:37 AM CDT Sign off status: Pending * Provider: Harpreet GREGG MD, F.A.C.P, F.A.S.N. Date: 0 12/07/2024 Generated for Printing/Faxing/eTransmitting on: 05/17/2025 07:37 AM CDT
--- OUTSIDE RECORDS SUMMARY | 2025-03-15 09:15 | XMS_ITS ---
Author Organization [facility] Address [address] [place] [address] Care Team Providers Care Petroleum Production Engineer Name Role Phone Shakir Moore Unavailable [phone] Encounters Encounter Location Date Provider Diagnosis [place] [facility] 2043 [facility] 15 [place] [address] 03/15/2025 Shakir Moore Chronic kidney disea se, stage [...] Treatment Notes Treatment Clinical Notes Section Notes 03/15/2025 Chronic kidney disea se, stage 3a (ICD-10 - N18.31) 03/15/2025 Type 2 diabetes mellitus with hyperglycemia (ICD-10 - E11.65) 03/15/2025 Anxiety disorder, unspecified (ICD-10 - F41.9) 03/15/2025 Essential (primary) hypertension (ICD-10 - I10) 03/15/2025 Hyperlipidemia, unspecified (ICD-10 - E78.5) 03/15/2025 Heart failure, unspecified (ICD-10 - I50.9) 03/15/2025 Atherosclerosis of renal artery (ICD-10 - I70.1) 03/15/2025 Renal osteodystrophy (ICD-10 - N25.0) 03/15/2025 Secondary hyperparathyroidism of renal origin (ICD-10 - N25.81) 03/15/2025 CAD (coronary artery disease) (ICD-10 - I25.10) 03/15/2025 Disorder of mineral metabolism, 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, Progress Notes * Julio Cesar HOLCOMBDOB:1950 (75 yo M)Acc No.[id number]:03/15/2025 Progress Notes Patient: Julio Cesar VENCES Provider: Harpreet GREGG MD, F.A.C.P, F.A.S.N. :1950 A ge:74 Y S ex:Male Date:03/15/2025 Address:[address] [place] [address] Subjective: * Chief Complaints: * * Medical [...] Treatment: * Billing Information: * Visit Code: 78737 Office Visit, Est Pt., Level 4. * Procedure Codes: * Electronic signature of Levi Moore MD on 05/17/2025 at 07:37 AM CDT Sign off status: Pending * Provider: Harpreet GREGG MD, F.A.C.P, F.A.S.N. Date: 0 03/15/2025 Generated for Printing/Faxing/eTransmitting on: 0 05/17/2025 07:37 AM CDT
--- OUTSIDE RECORDS SUMMARY | 2025-05-17 07:38 | XMS_ITS | Patient Health Record ---
Author Organization [facility] Address [address] [place] [address] Care Team Providers Care Welding Lead Burner Name Role Phone Shakir Moore Unavailable [phone] Reason For Referral No Information Medications Medication SIG (Take, Route, Frequency, Duration) Notes Start Date End Date Status Calcitriol 0.25 MCG TAKE 1 CAPSULE BY MO UTH EVERY OTHER DAY; Duration: 90 Active Losartan Potassium 50 MG 1 tablet Orally Once a day; Duration: 90 11/20/2023 Active Furosemide 40 MG TAKE 1 TABLET BY WALI TH DAILY; Duration: 90 Active Vitamin D (Ergocalciferol) 1.25 MG (23014 UT) TAKE 1 CAPSULE BY MOUTH 1 TIME A WEEK; Duration: 91 Active Losartan Potassium 25 MG TAKE 1 TABLET B Y MOUTH TWICE DAILY; Duration: 90 Active Problems Problem Type SNOMED Code ICD Code Onset Dates Problem Status W/U Status Risk Notes Problem Hyperglycemia due to type 2 diabetes mellitus (743161598417218) Type 2 diabetes mellitus with hyperglycemia (E11.65) Active confirmed Problem Hyperlipidemia (66021892) Hyperlipidemia, unspecified (E78.5) Active confirmed Problem Disorder of mineral metabolism (95664629) Disorder of mineral metabolism, 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 Problem Anxiety disorder (525320983) Anxiety disorder, unspecified (F41.9) Active confirmed Problem Essential hypertension (72720361) Essential (primary) hypertension (I10) Active confirmed Problem Heart failure (41104132) Heart failure, unspecified (I50.9) Active confirmed Problem Atherosclerosis of renal artery (81500698) Atherosclerosis of renal artery (I70.1) Active confirmed Problem Renal osteodystrophy (36993315) Renal osteodystrophy (N25.0) Active confirmed Problem Secondary hyperparathyroidism of renal origin (34632813) Secondary hyperparathyroidism of renal origin (N25.81) Active confirmed Problem Proteinuria (65304952) Proteinuria, unspecified (R80.9) Active confirmed Problem Chronic kidney disease stage 3A (disorder) (381306885) Chronic kidney disease, stage 3a (N18.31) Active confirmed Problem Coronary artery disease (54863782) CAD (coronary artery disease) (I25.10) Active confirmed Encounters Encounter Location Date Provider Diagnosis [facility] [address] [address] 08/31/2024 Shakir Moore Chronic kidney disea se, stage 3a N18.31 ; Type 2 diabetes mellitus with hyperglycemia E11.65 ; Anxiety disorder, unspecified F41.9 ; Essential (primary) hypertension I10 ; Hyperlipidemia, unspecified E78.5 ; Heart failure, unspecified I50.9 and Atherosclerosis of renal artery I70.1 [facility] 2043 [place] [address] 12/07/2024 Shakir Moore Chronic kidney disea se, [...] metabolism, unspecified E83.9 and Proteinuria, unspecified R80.9 [facility] [address] [address] 03/15/2025 Shakir Moore Chronic kidney disea se, [...] Clinical Notes Section Notes 08/31/2024 Chronic kidney disea se, stage 3a (ICD-10 - N18.31) 12/07/2024 Chronic kidney disea se, stage 3a (ICD-10 - N18.31) 03/15/2025 Chronic kidney disea se, stage 3a (ICD-10 - N18.31) 03/15/2025 Type 2 diabetes mellitus with hyperglycemia (ICD-10 - E11.65) 12/07/2024 Type 2 diabetes mellitus with hyperglycemia (ICD-10 - E11.65) 08/31/2024 Type 2 diabetes mellitus with hyperglycemia (ICD-10 - E11.65) 08/31/2024 Anxiety disorder, unspecified (ICD-10 - F41.9) 12/07/2024 Anxiety disorder, unspecified (ICD-10 - F41.9) 03/15/2025 Anxiety disorder, unspecified (ICD-10 - F41.9) 03/15/2025 Essential (primary) hypertension (ICD-10 - I10) 12/07/2024 Essential (primary) hypertension (ICD-10 - I10) 08/31/2024 Essential (primary) hypertension (ICD-10 - I10) 08/31/2024 Hyperlipidemia, unspecified (ICD-10 - E78.5) 12/07/2024 Hyperlipidemia, unspecified (ICD-10 - E78.5) 03/15/2025 Hyperlipidemia, unspecified (ICD-10 - E78.5) 12/07/2024 Heart failure, unspecified (ICD-10 - I50.9) 08/31/2024 Heart failure, unspecified (ICD-10 - I50.9) 03/15/2025 Heart failure, unspecified (ICD-10 - I50.9) 03/15/2025 Atherosclerosis of renal artery (ICD-10 - I70.1) 08/31/2024 Atherosclerosis of renal artery (ICD-10 - I70.1) 12/07/2024 Atherosclerosis of renal artery (ICD-10 - I70.1) 12/07/2024 Renal osteodystrophy (ICD-10 - N25.0) 03/15/2025 Renal osteodystrophy (ICD-10 - N25.0) 03/15/2025 Secondary hyperparathyroidism of renal origin (ICD-10 - N25.81) 12/07/2024 Secondary hyperparathyroidism of renal origin (ICD-10 - N25.81) 12/07/2024 CAD (coronary artery disease) (ICD-10 - I25.10) 03/15/2025 CAD (coronary artery disease) (ICD-10 - I25.10) 03/15/2025 Disorder of mineral metabolism, 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
--- OUTSIDE RECORDS SUMMARY | 2025-05-17 07:38 | XMS_ITS | Clinical Summary ---
Author Organization [facility] Building B Address [address] [place] [address] Care Team Providers Care Psychiatric Specialist Name Role Phone Irais Lock MD Primary Care Provide r Kortney Wu MD Unavailable [phone] Allergies Active Allergy Reactions Criticality Noted Date [...] 07/31/2022 Assessment & Plan (07/31/2022 4:33 PM CRIMPER OPERATOR): A patent bilateral common femoral artery to popliteal artery bypasses with normal ABIs. Continue ongoing surveillance and risk factor modification with ASA, Plavix, statin therapy. Will follow-up in 6 months with repeat duplex. Neck pain 12/24/2021 Hypertensive disorder 07/01/2020 Assessment & Plan (02/12/2023 4:25 PM CDT): Impression: Chronic stable hypertension. Plan: Continue lisinopril 10 mg. Assessment & Plan (07/31/2022 4:33 PM CRIMPER OPERATOR): Lisinopril Assessment & Plan (07/22/2021 8:35 AM CDT): Followed by his PCP and controlled on his current medications. Assessment & Plan (12/19/2020 3:23 PM CDT): Impression: Stable chronic hypertension. Plan: Medications reviewed and recommend continuing daily antihypertensive regimen as directed by patient's primary care physician. Encounter for screening for cardiovascular disor ders 05/04/2020 Tobacco abuse 05/04/2020 Atherosclerosis of crow ar [place] of both lower extremities with [...] surveillance. Assessment & Plan (08/15/2020 2:08 PM CRIMPER OPERATOR): Impression: Patient recover well status post bilateral [...] 05/19/2018 Assessment & Plan (07/31/2022 4:33 PM CRIMPER OPERATOR): Lipitor Dyslipidemia 05/02/2018 Assessment & Plan (02/12/2023 [...] 12/19/2020 Assessment & Plan (09/13/2020 10:57 AM CRIMPER OPERATOR): Patient is status post bilateral lower extremity bypasses and doing well from them. Incisions are well healed and his feet are warm and well perfused and he no longer has claudication symptoms. Plan will be for him to follow up in 3 months with repeat ABIs and duplex. Surgical History Surgery Date Site/Laterality Comments NECK [...] low back pain Insomnia Carotid artery stenosis [place] (hard of hearing) Hyperlipidemia Arthritis Family History [...] or pharmacy Never 09/08/[address] [facility] Utilities Answer Date Recorded In the past 12 months has [employer], oil, or water [employer] threatened to shut off services in your home? No 07/28/2023 Social Connection and Isolation Panel Answer Date Recorded In a typical week, how many times do you talk on the phone with family, friends, or neighbors? More than three times a week 07/28/2023 How often do you get togethe r with friends or relatives? More than three times a week 07/28/2023 How often do you attend chur or latter-day services? Never 07/28/2023 Do you belong to any clubs o r organizations such as caodaism groups, unions, fraternal or athletic groups, or [...] place to sleep or slept in a mcc (including now)? No 07/28/2023 Personal Safety Answer Date Recorded Have you ever been in or are you currently in a harmful physical or emotional relationship or is someone making you feel afraid or unsafe? Denies 12/30/2024 Sex and Gender Information Value Date Recorded Sex Assigned at Not on file Legal Sex Male 8:24 PM CRIMPER OPERATOR Gender Identity Not on file Sexual Orientation [...] 01/22/2021, 12/25/2020 Depression Screening 07/27/2024 07/27/2023, 07/27/20 23 Influenza Vaccine (#1) 2025 06/16/2024 Lung Cancer Screening 10/12/2025 10/11/2024 Fall Risk Assessment 01/01/2026 01/01/2025 Medical Devices Implanted Type Area User Experience Lead Device Identifier Shelf Expiration Date Model / Serial / Lot [employer] Distal Marker Radiology Stainless Steel Sterile Amgm-D - [id number] Implanted:Qty: 1 on 07/28/2023 by Joe French MD at [facility] N/A: Heart [employer] [id number] 12/20/2025 AMGM-D / / [employer] [place] Distal Marker Radiology Stainless Steel Sterile Amgm-D - [id number] Implanted:Qty: 1 on 07/28/2023 by Joe French MD at [facility] N/A: Heart [employer] [id number] 12/20/2025 AMGM-D / / Description:Graft marker Procedures Procedure Name Priority Date/Time Associated Diagnosis Comments CT LUNG CANCER SCREENING Schedule Routine, Read Routine (OP Routine) 10/11/2024 12:51 PM CRIMPER OPERATOR Nicotine dependence, cigarettes, uncomplicated from Last 3 Months or Most Recently Relevant to Health Maintenance Results * CT Lung Cancer Screening (10/11/2024 12:51 PM CRIMPER OPERATOR) Anatomical Region Laterality Modality Chest N/A Computed Tomogra phy 10/11/2024 2:53 PM CRIMPER OPERATOR Impressions 10/11/2024 2:53 PM CRIMPER OPERATOR 1. LungRADS Category 1 (negative) . Recommend [...] Freddie Morales M.D. Narrative 10/11/2024 2:53 PM CRIMPER OPERATOR EXAMINATION: Lung cancer screening CT of the [...] by: Freddie Morales M.D. Irais Lock MD IM CT PROCEDURES Fin al Result from Last 3 Months or Most Recently Relevant to Health Maintenance Insurance [facility] MEDICARE ADVANTAGE [id number] [place] [address] MEDICARE ADVANTAGE [id number] [place] [address] MEDICARE ADVANTAGE Member Subscriber Plan / Payer (Ef fective 2022-Present) Name:Julio Cesar Holcomb Relation to Subscriber:Self Name:Julio Cesar Holcomb Payer ID:[id number] (NAIC) Type:UHC MEDICARE Address: [place] [phone] Advance Directives For more information, please contact: [phone] * Full Code (Latest Code Status on File) Date Activated Date Inactivated Comments 12/30/2024 1:35 PM 01/01/2025 5:36 PM * Full Code Date Activated Date Inactivated Comments 07/27/2023 2:03 PM 08/06/2023 12:02 AM Care Teams Psychiatric Specialist Relationship Specialty Start Date End Date Irais Lock MD 2043 [facility] 15 [place] [id number] PCP - General Internal Medicine 07/28/23 Kortney Wu MD [address] [place] [address] Consulting Physician Cardiology 01/01/25
--- OUTSIDE RECORDS SUMMARY | 2025-05-17 07:38 | XMS_ITS | Encounter Summary ---
Author Organization [facility] Address [address] [place] [address] Care Team Providers Care Deputy Manager Name Role Phone Titus Torres MD Primary Care Provider + [phone] Titus Torres MD Primary Care Provider + [phone] Irais Lock MD Primary Care Provide r Kortney Wu MD Unavailable [phone] Encounter Details Date Type Department Care Team (Late st Contact Info) Description 03/08/2020 Telephone [facility] [address] [place] [address] Annel Friedman, EDWARD Social History Tobacco Use Types Packs/Day Years Used Date Smoking Tobacco: Never Smokeless Tobacco: Never Sex and Gender Information Value Date Recorded Sex Assigned at Not on file Legal Sex Male 8:24 PM SIDEWALK REPAIRER Gender Identity Not on file Sexual Orientation Not on file documented as of this encounter Plan of Treatment Not on file documented as of this encounter Visit Diagnoses Not on filedocumented in this encounter Care Teams Deputy Manager Relationship Specialty Start Date End Date Titus Torres MD PCP - General 03/10/19 07/30/20 Titus Torres MD PCP - General 07/31/20 07/27/23 Irais Lock MD [address] [address] PCP - General Internal Medicine 07/28/23 Kortney Wu MD [address] [place] [id number] Consulting Physician Cardiology 01/01/25 documented as of this encounter
[2025-05-17 08:23] LABS: Hematocrit 35.9 % (42.0-52.0); Hemoglobin 11.7 g/dL (14.0-18.0); Immature Granulocyte Percent A 0.4 % (0-0.5); Lymphocytes Absolute Auto 2.99 K/mm3 (0.9-3.2); Mean Corpuscular HGB Conc 32.6 g/dl (32-36); Mean Corpuscular Hemoglobin 29.4 pg (26-34); Mean Corpuscular Volume 90.2 fl (80-100); Nucleated Red Blood Cells Absolute Auto 0.000 K/mm3 (0.0-0.012); Nucleated Red Blood Cells Perc 0.0 % (0.0-0.2); Platelet Count Result 341 k/mm3 (150-375); Red Blood Count 3.98 M/mm3 (4.6-6.20); White Blood Count 10.4 K/mm3 (4.5-10.0)
[2025-05-17 08:25] LABS: Add Urine Microscopic? NO; Appearance Urine Clear (Clear); Glucose Urine UA Negative (Negative); Leukocyte Esterase Ur Negative LEU/UL (Negative); Nitrate Urine Negative (Negative); Specific Grav Ur 1.006 (1.001-1.035)
[2025-05-17 08:49] LABS: Alanine Aminotransferase 17 U/L (6-50); Albumin Level 4.5 g/dL (3.5-5.1); Alkaline Phosphatase 76 U/L (38-126); Anion Gap 11 mmol/L (4-12); Aspartate Amino Transferase 28 U/L (17-59); Bilirubin,Total 0.5 mg/dL (0.2-1.3); Blood Urea Nitrogen 19 mg/dL (9-20); Calcium 9.3 mg/dL (8.4-10.2); Carbon Dioxide 24 mmol/L (22-30); Chloride 103 mmol/L (98-107); Estimated Glomerular Filt Rate 57; Glucose 102 mg/dL (65-110); Potassium 4.1 mmol/L (3.4-5.0); Sodium 138 mmol/L (137-145); Total Protein 7.6 g/dL (6.3-8.2); Uric Acid 6.7 mg/dL (3.5-8.5)
[2025-05-17 08:53] LABS: MALB Creatinine Ratio < 28.0 mg/g (0-30)
[2025-05-17 09:00] LABS: Total Protein Urine Random 10 mg/dL
[2025-05-17 09:20] LABS: Parathyroid Intact 34.8 pg/mL (14.5-75.2)
[2025-05-17 11:46] LABS: Ur Ttl Prot Creatinine Ratio 0.47 mg/mg (0-0.20)
[2025-05-18 09:09] LABS: Chloride, Urine 109 mmol/L (Not Estab.)
[2025-05-18 23:07] LABS: Osmolality, Urine 280 mOsmol/kg (.)
== END 2025-05-17 07:33 | disposition home or self-care (01) ==
LOC: ANHLAB 07:34
PROVIDERS: PCP Internal Medicine; Visit Provider Specialist
DX: N18.30 Chronic kidney disease, stage 3 unspecified (principal); E21.3 Hyperparathyroidism, unspecified; E55.9 Vitamin D deficiency, unspecified; R82.90 Unspecified abnormal findings in urine; N39.0 Urinary tract infection, site not specified; R35.0 Frequency of micturition
CPT/HCPCS: 36415; 80053; 81003; 82043; 82306; 82436; 82570; 83935; 83970; 84133; 84156; 84300; 84550; 85025

== ENCOUNTER 2025-06-06 07:16 | Outpatient (CLI) | payer MEDICARE, SELFPAY ==
[2025-06-06 07:52] LABS: Hematocrit 36.1 % (42.0-52.0); Hemoglobin 11.8 g/dL (14.0-18.0); Immature Granulocyte Percent A 0.3 % (0-0.5); Lymphocytes Absolute Auto 2.84 K/mm3 (0.9-3.2); Mean Corpuscular HGB Conc 32.7 g/dl (32-36); Mean Corpuscular Hemoglobin 29.4 pg (26-34); Mean Corpuscular Volume 89.8 fl (80-100); Nucleated Red Blood Cells Absolute Auto 0.000 K/mm3 (0.0-0.012); Nucleated Red Blood Cells Perc 0.0 % (0.0-0.2); Platelet Count Result 265 k/mm3 (150-375); Red Blood Count 4.02 M/mm3 (4.6-6.20); White Blood Count 10.3 K/mm3 (4.5-10.0)
[2025-06-06 08:09] LABS: Alanine Aminotransferase 16 U/L (6-50); Albumin Level 4.4 g/dL (3.5-5.1); Alkaline Phosphatase 73 U/L (38-126); Anion Gap 7 mmol/L (4-12); Aspartate Amino Transferase 24 U/L (17-59); Bilirubin,Total 0.7 mg/dL (0.2-1.3); Blood Urea Nitrogen 26 mg/dL (9-20); Calcium 8.8 mg/dL (8.4-10.2); Carbon Dioxide 25 mmol/L (22-30); Chloride 102 mmol/L (98-107); Cholesterol 158 mg/dL (0-200); Estimated Glomerular Filt Rate 55; Glucose 95 mg/dL (65-110); HDL Direct 39 mg/dL; Potassium 4.4 mmol/L (3.4-5.0); Sodium 134 mmol/L (137-145); Total Protein 7.4 g/dL (6.3-8.2); Triglycerides 113 mg/dL (<150)
[2025-06-06 08:12] LABS: Hemoglobin A1C 6.1 % (<5.7)
[2025-06-06 08:41] LABS: Thyroid Stimulating Hormone Reflex 0.955 uIU/mL (0.465-4.68)
[2025-06-06 09:03] LABS: MALB Creatinine Ratio 15.8 mg/g (0-30)
== END 2025-06-06 07:17 | disposition home or self-care (01) ==
LOC: ANHLAB 07:18
PROVIDERS: PCP Internal Medicine; Visit Provider Internal Medicine
DX: E78.5 Hyperlipidemia, unspecified (principal); R73.03 Prediabetes
CPT/HCPCS: 36415; 80053; 80061; 82043; 83036; 84443; 85025

== ENCOUNTER 2025-07-12 08:52 | Outpatient (CLI) | payer MEDICARE, SELFPAY ==
--- OUTSIDE RECORDS SUMMARY | 2024-02-03 10:00 | XMS_ITS ---
Author Organization [facility] Address [address] [address] [place] [address] Care Team Providers Care Or Assistant Name Role Phone Oscar Shakir Unavailable [phone] Medications Medication SIG (Take, Route, Frequency, Duration) Notes Start Date End Date Status Losartan Potassium 50 MG 1 tablet Orally Once a day; Duration: 90 11/20/2023 Active Losartan Potassium 25 MG 1 tablet Orally Once a day; Duration: 90 day(s) 09/11/2023 Active Lasix 40 MG 1 tablet Orally Once a day; Duration: 90 days 11/20/2023 Active Calcitriol 0.25 MCG 1 capsule Orally radha ry other day; Duration: 90 09/11/2023 06/07/2024 Active Ergocalciferol 1.25 MG (28021 UT) 1 capsule Orally Once a week; Duration: 90 day(s) 09/11/2023 06/07/2024 Active Encounters Encounter Location Date Provider Diagnosis [place] [facility] [address] [facility] [address] [place] [address] 02/03/2024 Shakir Moore Chronic kidney disea se, stage 3a N18.31 ; Type 2 diabetes mellitus with hyperglycemia E11.65 ; Anxiety disorder, unspecified F41.9 ; Essential (primary) hypertension I10 ; Hyperlipidemia, unspecified E78.5 ; Heart failure, unspecified I50.9 and Atherosclerosis of renal artery I70.1 Assessments Encounter Date Diagnosis (ICD Code) Assessment Notes Treatment Notes Treatment Clinical Notes Section Notes 02/03/2024 Chronic kidney disease, stage 3a (ICD-10 - N18.31) 02/03/2024 Type 2 diabetes mellitus with hyperglycemia (ICD-10 - E11.65) 02/03/2024 Anxiety disorder, unspecified (ICD-10 - F41.9) 02/03/2024 Essential (primary) hypertension (ICD-10 - I10) 02/03/2024 Hyperlipidemia, unspecified (ICD-10 - E78.5) 02/03/2024 Heart failure, unspecified (ICD-10 - I50.9) 02/03/2024 Atherosclerosis of renal artery (ICD-10 - I70.1) Plan Of Treatment No Information Progress Notes * Julio Cesar HOLCOMBDOB:1950 (75 yo M)Acc No.[id number]:02/03/2024 Progress Notes Patient: Julio Cesar VENCES Provider: Harpreet GREGG MD, F.Ziggy.C.P, F.A.S.N. :1950 A ge:73 Y S ex:Male Date:02/03/2024 Address:[address] [place] [address] Subjective: * Chief Complaints: * * Medical History: * Medications: T aking Ergocalciferol 1.25 MG (25928 UT) Capsule 1 capsule Orally Once a week , stop date 06/07/2024, Taking Calcitriol 0.25 MCG Capsule 1 capsule Orally every other day , stop date 06/07/2024, Taking Losartan Potassium 25 MG Tablet 1 tablet Orally Once a day , Taking Losartan Potassium 50 MG Tablet 1 tablet Orally Once a day , Taking Lasix 40 MG Tablet 1 tablet Orally Once a day Objective: * Vitals: Assessment: * Assessment: 1. C hronic kidney disease, stage 3a - N18.31 2 . T ype 2 diabetes mellitus with hyperglycemia - E11.65 3 . A nxiety disorder, unspecified - F41.9 ? 4 . E ssential (primary) hypertension - I10 5 . H yperlipidemia, unspecified - E78.5 6 . H eart failure, unspecified - I50.9 7 .?Atherosclerosis of renal artery - I70.1 Plan: * Treatment: * Billing Information: * Visit Code: 42813 Office Visit, Est Pt., Level 4. * Procedure Codes: * Electronic signature of Levi Moore MD on 07/12/2025 at 09:36 AM CDT Sign off status: Pending * Provider: Harpreet GREGG MD, Nikki.Ziggy.C.P, F.A.S.N. Date: 0 02/03/2024 Generated for Printing/Faneliag/eTransmitting on: 1 09:36 AM CDT
--- OUTSIDE RECORDS SUMMARY | 2024-05-04 10:15 | XMS_ITS ---
Author Organization [facility] Address [address] [address] [place] [address] Care Team Providers Care Electric Golf Cart Repairers Name Role Phone Oscar Shakir Unavailable [phone] Medications Medication SIG (Take, Route, Frequency, Duration) Notes Start Date End Date Status Losartan Potassium 25 MG 1 tablet Orally Once a day; Duration: 90 day(s) 09/11/2023 Active Losartan Potassium 50 MG 1 tablet Orally Once a day; Duration: 90 11/20/2023 Active Calcitriol 0.25 MCG 1 capsule Orally radha ry other day; Duration: 90 09/11/2023 06/07/2024 Active Lasix 40 MG 1 tablet Orally Once a day; Duration: 90 days 11/20/2023 Active Vitamin D (Ergocalciferol) 1.25 MG (73013 UT) TAKE 1 CAPSULE BY MOUTH 1 TIME A WEEK; Duration: 91 Active Encounters Encounter Location Date Provider Diagnosis [place] [facility] [address] [facility] [address] [place] [address] 05/04/2024 Shakir Moore Chronic kidney disea se, stage 3a N18.31 ; Type 2 diabetes mellitus with hyperglycemia E11.65 ; Anxiety disorder, unspecified F41.9 ; Essential (primary) hypertension I10 ; Hyperlipidemia, unspecified E78.5 ; Heart failure, unspecified I50.9 and Atherosclerosis of renal artery I70.1 Assessments Encounter Date Diagnosis (ICD Code) Assessment Notes Treatment Notes Treatment Clinical Notes Section Notes 05/04/2024 Chronic kidney disease, stage 3a (ICD-10 - N18.31) 05/04/2024 Type 2 diabetes mellitus with hyperglycemia (ICD-10 - E11.65) 05/04/2024 Anxiety disorder, unspecified (ICD-10 - F41.9) 05/04/2024 Essential (primary) hypertension (ICD-10 - I10) 05/04/2024 Hyperlipidemia, unspecified (ICD-10 - E78.5) 05/04/2024 Heart failure, unspecified (ICD-10 - I50.9) 05/04/2024 Atherosclerosis of renal artery (ICD-10 - I70.1) Plan Of Treatment No Information Progress Notes * Julio Cesar HOLCOMBDOB:1950 (75 yo M)Acc No.[id number]:05/04/2024 Progress Notes Patient: Julio Cesar VENCES Provider: Harpreet GREGG MD, F.Ziggy.C.P, F.A.S.N. :1950 A ge:74 Y S ex:Male Date:05/04/2024 Address:[address] [place] [address] Subjective: * Chief Complaints: * * Medical History: * Medications: T aking Calcitriol 0.25 MCG Capsule 1 capsule Orally every other day , stop date 06/07/2024, Taking Losartan Potassium 25 MG Tablet 1 tablet Orally Once a day , Taking Losartan Potassium 50 MG Tablet 1 tablet Orally Once a day , Taking Lasix 40 MG Tablet 1 tablet Orally Once a day , Taking Vitamin D (Ergocalciferol) 1.25 MG (02726 UT) Capsule TAKE 1 CAPSULE BY MOUTH 1 TIME A WEEK Objective: * Vitals: Assessment: * Assessment: 1. C hronic kidney disease, stage 3a - N18.31 (Primary) 2 . T ype 2 diabetes mellitus with hyperglycemia - E11.65 3 . A nxiety disorder, unspecified - F41.9 4 . E ssential (primary) hypertension - I10 5 . H yperlipidemia, unspecified - E78.5 6 . H eart failure, unspecified - I50.9 ?7. A therosclerosis of renal artery - I70.1 Plan: * Treatment: * Billing Information: * Visit Code: 60133 Office Visit, Est Pt., Level 4. * Procedure Codes: * Electronic signature of Levi Moore MD on 07/12/2025 at 09:35 AM CDT Sign off status: Pending * Provider: Harpreet GREGG MD, Nikki.Ziggy.C.P, F.A.S.N. Date: 0 05/04/2024 Generated for Printing/Faxing/eTransmitting on: 1 09:35 AM CDT
--- OUTSIDE RECORDS SUMMARY | 2024-08-03 09:45 | XMS_ITS ---
Author Organization [facility] Address [address] [place] [address] Care Team Providers Care Solar Photovoltaic Systems Engineer Name Role Phone Oscar Shakir Unavailable [phone] Encounters Encounter Location Date Provider Diagnosis [place] [facility] [address] [facility] [address] [place] [address] 08/03/2024 Shakir Moore Plan Of Treatment No Information Progress Notes * Julio Cesar HOLCOMBDOB:1950 (75 yo M)Acc No.[id number]:08/03/2024 Progress Notes Patient: Julio Cesar VENCES Provider: Harpreet GREGG MD, Nikki.Ziggy.C.P, F.A.S.N. :1950 A ge:74 Y S ex:Male Date:08/03/2024 Address:[address] [place] [address] Subjective: * Chief Complaints: * * Medical History: Objective: * Vitals: Assessment: Plan: * Treatment: * Billing Information: * Visit Code: * Procedure Codes: * Electronic signature of Levi Moore MD on 07/12/2025 at 09:36 AM CDT Sign off status: Pending * Provider: Harpreet GREGG MD, F.Ziggy.C.P, F.A.S.N. Date: 10/03/2023 Generated for Printing/Faxing/eTransmitting on: 09:36 AM CDT
--- OUTSIDE RECORDS SUMMARY | 2024-08-31 09:00 | XMS_ITS ---
Author Organization [facility] Office Address [address] [facility] [address] [facility] [address] [place] [address] Care Team Providers Care Sales Associate Cashier Name Role Phone Oscar Shakir Unavailable [phone] Medications Medication SIG (Take, Route, Frequency, Duration) Notes Start Date End Date Status Losartan Potassium 25 MG 1 tablet Orally Once a day; Duration: 90 day(s) 09/11/2023 Active Vitamin D (Ergocalciferol) 1.25 MG (12540 UT) TAKE 1 CAPSULE BY MOUTH 1 TIME A WEEK; Duration: 91 Active Losartan Potassium 50 MG 1 tablet Orally Once a day; Duration: 90 11/20/2023 Active Lasix 40 MG 1 tablet Orally Once a day; Duration: 90 days Active Calcitriol 0.25 MCG TAKE ONE CAPSULE BY MOUTH EVERY OTHER DAY; Duration: 90 Active Encounters Encounter Location Date Provider Diagnosis [place] [facility] [address] [facility] [address] [place] [address] 08/31/2024 Shakir Moore Chronic kidney disea se, [...] * Julio Cesar HOLCOMBDOB:1950 (75 yo M)Acc No.[id number]:08/31/2024 Progress Notes Patient: Julio Cesar VENCES Provider: Harpreet GREGG MD, Nikki.Ziggy.C.P, F.A.S.N. :1950 A ge:74 Y S ex:Male Date:08/31/2024 Address:[address] [place] [address] Subjective: * Chief Complaints: * * Medical History: * Medications: T aking Losartan Potassium 25 MG Tablet 1 tablet Orally Once a day , Taking Losartan Potassium 50 MG Tablet 1 tablet Orally Once a day , Taking Vitamin D (Ergocalciferol) 1.25 MG (30115 UT) Capsule TAKE 1 CAPSULE BY MOUTH [...] Treatment: * Billing Information: * Visit Code: 12305 Office Visit, Est Pt., Level 4. * Procedure Codes: * Electronic signature of Levi Moore MD on 07/12/2025 at 09:36 AM CDT Sign off status: Pending * Provider: Harpreet GREGG MD, Nikki.Ziggy.C.P, F.A.S.N. Date: 11/01/2023 Generated for Printing/Faxing/eTransmitting on: 09:36 AM CDT
--- OUTSIDE RECORDS SUMMARY | 2024-12-07 09:00 | XMS_ITS ---
Author Organization [facility] Address [address] [address] [address] [place] [address] Care Team Providers Care Splicing Technician Name Role Phone OscarDamonShakir Unavailable [phone] Problems Problem Type SNOMED Code ICD Code Onset Dates Problem Status W/U Status Risk Notes Problem Renal osteodystrophy (36480538) Renal osteodystrophy (N25.0) Active confirmed Problem Secondary hyperparathyroidism of renal origin (91680757) Secondary hyperparathyroidism of renal origin (N25.81) Active confirmed Problem Coronary artery disease (22007443) CAD (coronary artery disease) (I25.10) Active confirmed Problem Disorder of mineral metabolism (22845409) Disorder of mineral metabolism, 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 Problem Proteinuria (64378253) Proteinuria, unspecified (R80.9) Active confirmed Encounters Encounter Location Date Provider Diagnosis [place] [facility] 2043 [facility] 15 [place] [address] 12/07/2024 Shakir Moore Chronic kidney disea se, stage 3a N18.31 ; Type 2 diabetes mellitus with hyperglycemia E11.65 ; Anxiety disorder, unspecified F41.9 ; Essential (primary) hypertension I10 ; Hyperlipidemia, unspecified E78.5 ; Heart failure, unspecified I50.9 ; Atherosclerosis of renal artery I70.1 ; Renal osteodystrophy N25.0 ; Secondary hyperparathyroidism of renal origin N25.81 ; CAD (coronary artery disease) I25.10 ; Disorder of mineral metabolism, unspecified E83.9 and Proteinuria, unspecified R80.9 Assessments Encounter Date Diagnosis (ICD Code) Assessment Notes Treatment Notes Treatment Clinical Notes Section Notes 12/07/2024 Chronic kidney disea se, stage 3a (ICD-10 - N18.31) 12/07/2024 Type 2 diabetes mellitus with hyperglycemia (ICD-10 - E11.65) 12/07/2024 Anxiety disorder, unspecified (ICD-10 - F41.9) 12/07/2024 Essential (primary) hypertension (ICD-10 - I10) 12/07/2024 Hyperlipidemia, unspecified (ICD-10 - E78.5) 12/07/2024 Heart failure, unspecified (ICD-10 - I50.9) 12/07/2024 Atherosclerosis of renal artery (ICD-10 - I70.1) 12/07/2024 Renal osteodystrophy (ICD-10 - N25.0) 12/07/2024 Secondary hyperparathyroidism of renal origin (ICD-10 - N25.81) 12/07/2024 CAD (coronary artery disease) (ICD-10 - I25.10) 12/07/2024 Disorder of mineral metabolism, unspecified (ICD-10 - E83.9) 12/07/2024 Proteinuria, unspecified (ICD-10 - R80.9) Plan Of Treatment No Information Progress Notes * Julio Cesar HOLCOMBDOB:1950 (75 yo M)Acc No.[id number]:12/07/2024 Progress Notes Patient: Julio Cesar VENCES Provider: Harpreet GREGG MD, F.A.C.P, F.A.S.N. :1950 A ge:74 Y S ex:Male Date:12/07/2024 Address:[address] [place] [address] Subjective: * Chief Complaints: * * Medical History: Objective: * Vitals: Assessment: * Assessment: 1. [...] A therosclerosis of renal artery - I70.1 8 . R enal osteodystrophy - N25.0 9 . S econdary hyperparathyroidism of renal origin - N25.81 10. C AD (coronary artery disease) - I25.10 1 1. D isorder of mineral metabolism, unspecified - E83.9 1 2. P roteinuria, unspecified - R80.9 ? Plan: * Treatment: * Billing Information: * Visit Code: 36040 Office Visit, Est Pt., Level 5. * Procedure Codes: * Electronic signature of Levi Moore MD on 07/12/2025 at 09:36 AM CDT Sign off status: Pending * Provider: Harpreet GREGG MD, F.A.C.P, F.A.S.N. Date: 0 12/07/2024 Generated for Printing/Faxing/eTransmitting on: 1 09:36 AM CDT
--- OUTSIDE RECORDS SUMMARY | 2025-03-15 09:15 | XMS_ITS ---
Author Organization [facility] Address [address] [place] [address] Care Team Providers Care Certified Ophthalmic Assistant Name Role Phone Shakir Moore Unavailable [phone] Encounters Encounter Location Date Provider Diagnosis [place] [facility] 2043 [facility] 15 [place] [address] 03/15/2025 Shakir Moore Chronic kidney disea se, [...] * Julio Cesar HOLCOMBDOB:1950 (75 yo M)Acc No.[id number]:03/15/2025 Progress Notes Patient: Julio Cesar VENCES Provider: Harpreet GREGG MD, F.Ziggy.C.P, F.A.S.N. :1950 A ge:74 Y S ex:Male Date:03/15/2025 Address:[address] [place] [address] Subjective: * Chief Complaints: * * Medical [...] Treatment: * Billing Information: * Visit Code: 82888 Office Visit, Est Pt., Level 4. * Procedure Codes: * Electronic signature of Levi Moore MD on 07/12/2025 at 09:36 AM CDT Sign off status: Pending * Provider: Harpreet GREGG MD, Nikki.Ziggy.C.P, F.A.S.N. Date: 0 03/15/2025 Generated for Printing/Faxing/eTransmitting on: 1 09:36 AM CDT
--- OUTSIDE RECORDS SUMMARY | 2025-05-24 10:30 | XMS_ITS ---
Author Organization [facility] Address [address] [place] [address] Care Team Providers Care Cableman Name Role Phone Shakir Moore Unavailable [phone] Encounters Encounter Location Date Provider Diagnosis [place] [facility] 20[address] [facility] 15 [place] [address] 05/24/2025 Shakir Moore Chronic kidney disea se, stage [...] ; Disorder of mineral metabolism, unspecified E83.9 ; Proteinuria, unspecified R80.9 and Presence of aortocoronary bypass graft Z95.1 Assessments Encounter Date Diagnosis (ICD Code) Assessment Notes Treatment Notes Treatment Clinical Notes Section Notes 05/24/2025 Chronic kidney disea se, stage 3a (ICD-10 - N18.31) 05/24/2025 Type 2 diabetes mellitus with hyperglycemia (ICD-10 - E11.65) 05/24/2025 Anxiety disorder, unspecified (ICD-10 - F41.9) 05/24/2025 Essential (primary) hypertension (ICD-10 - I10) 05/24/2025 Hyperlipidemia, unspecified (ICD-10 - E78.5) 05/24/2025 Heart failure, unspecified (ICD-10 - I50.9) 05/24/2025 Atherosclerosis of renal artery (ICD-10 - I70.1) 05/24/2025 Renal osteodystrophy (ICD-10 - N25.0) 05/24/2025 Secondary hyperparathyroidism of renal origin (ICD-10 - N25.81) 05/24/2025 CAD (coronary artery disease) (ICD-10 - I25.10) 05/24/2025 Disorder of mineral metabolism, 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 :1950 A ge:75 Y S ex:Male Date:05/24/2025 Address:[address] [place] [address] Subjective: * Chief Complaints: Objective: Assessment: * Assessment: 1. C hronic kidney [...] 1 2. P roteinuria, unspecified - R80.9 ?13. P resence of aortocoronary bypass graft - Z95.1 Plan: * Billing Information: * Visit Code: 73786 Office Visit, Est Pt., Level 5. * Procedure Codes: * Electronic signature of Levi Moore MD on 07/12/2025 at 09:36 AM CDT Sign off status: Pending * Provider: Harpreet GREGG MD, F.A.C.P, F.A.S.N. Date: 0 05/24/2025 Generated for Printing/Faxing/eTransmitting on: 1 09:36 AM CDT
[2025-07-12 09:30] LABS: Hematocrit 34.9 % (42.0-52.0); Hemoglobin 11.6 g/dL (14.0-18.0); Immature Granulocyte Percent A 0.2 % (0-0.5); Lymphocytes Absolute Auto 2.64 K/mm3 (0.9-3.2); Mean Corpuscular HGB Conc 33.2 g/dl (32-36); Mean Corpuscular Hemoglobin 30.1 pg (26-34); Mean Corpuscular Volume 90.4 fl (80-100); Nucleated Red Blood Cells Absolute Auto 0.000 K/mm3 (0.0-0.012); Nucleated Red Blood Cells Perc 0.0 % (0.0-0.2); Platelet Count Result 271 k/mm3 (150-375); Red Blood Count 3.86 M/mm3 (4.6-6.20); White Blood Count 8.7 K/mm3 (4.5-10.0)
--- OUTSIDE RECORDS SUMMARY | 2025-07-12 09:37 | XMS_ITS | Clinical Summary ---
Author Organization [facility] [address] Address [address] [place] [address] Care Team Providers Care Senior Talent Management Consultant Name Role Phone Irais Lock MD Primary Care Provide r Kortney Wu MD Unavailable [phone] Allergies Active Allergy Reactions Criticality Noted Date [...] 07/31/2022 Assessment & Plan (07/31/2022 4:33 PM NATURAL GAS TRADER): A patent bilateral common femoral artery to popliteal artery bypasses with normal ABIs. Continue ongoing surveillance and risk factor modification with ASA, Plavix, statin therapy. Will follow-up in 6 months with repeat duplex. Neck pain 12/24/2021 Hypertensive disorder 07/01/2020 Assessment & Plan (02/12/2023 4:25 PM CDT): Impression: Chronic stable hypertension. Plan: Continue lisinopril 10 mg. Assessment & Plan (07/31/2022 4:33 PM NATURAL GAS TRADER): Lisinopril Assessment & Plan (07/22/2021 8:35 AM CDT): Followed by his PCP and controlled on his current medications. Assessment & Plan (12/19/2020 3:23 PM CDT): Impression: Stable chronic hypertension. Plan: Medications reviewed and recommend continuing daily antihypertensive regimen as directed by patient's primary care physician. Encounter for screening for cardiovascular disor ders 05/04/2020 Tobacco abuse 05/04/2020 Atherosclerosis of [place] of both lower extremities with [...] surveillance. Assessment & Plan (08/15/2020 2:08 PM NATURAL GAS TRADER): Impression: Patient recover well status post bilateral [...] 05/19/2018 Assessment & Plan (07/31/2022 4:33 PM NATURAL GAS TRADER): Lipitor Dyslipidemia 05/02/2018 Assessment & Plan (02/12/2023 [...] 12/19/2020 Assessment & Plan (09/13/2020 10:57 AM NATURAL GAS TRADER): Patient is status post bilateral lower extremity bypasses and doing well from them. Incisions are well healed and his feet are warm and well perfused and he no longer has claudication symptoms. Plan will be for him to follow up in 3 months with repeat ABIs and duplex. Encounters Date Type Department Care Team Description 05/30/2025 Orders Only [facility] [address] [place] [address] Benny Hassan MD Carotid stenosis, bilateral (Primary Dx) from Last 3 Months Surgical [...] low back pain Insomnia Carotid artery stenosis MI'KMAQ (hard of hearing) Hyperlipidemia Arthritis Family History [...] materials from doctor or pharmacy Never 09/08/2023 [facility] Utilities Answer Date Recorded In the past 12 months has th e [employer], gas, oil, or water company threatened to [...] often do you attend chur ch or zoroastrianism services? Never 07/28/2023 Do you belong to any clubs o r organizations such as anabaptist groups, unions, fraternal or athletic groups, or [...] on file Legal Sex Male 8:24 PM NATURAL GAS TRADER Gender Identity Not on file Sexual Orientation [...] AA) Screen 2015 Well Visit 65+ 2015 Depression Screening 07/27/2024 07/27/2023, 07/27/20 23 Covid-19 Vaccine ( - season) 2025 07/30/2021, 01/22/2021, 12/25/2020 Influenza Vaccine (#1) 2025 06/16/2024 Lung Cancer Screening 10/12/2025 10/11/2024 Fall Risk Assessment 01/01/2026 01/01/2025 Medical Devices Implanted Type Area Data Mining Analyst Device Identifier Shelf Expiration Date Model / Serial / Lot [employer] [place] Distal Marker Radiology Stainless Steel Sterile Amgm-D - [id number] Implanted:Qty: 1 on 07/28/2023 by Joe French MD at [facility] N/A: Heart [employer] [id number] 12/20/2025 AMGM-D / / [employer] [place] Distal Marker Radiology Stainless Steel Sterile Amgm-D - [id number] Implanted:Qty: 1 on 07/28/2023 by Joe French MD at [facility] N/A: Heart [employer] [id number] 12/20/2025 AM-D / / Description:Graft marker Procedures Procedure Name Priority Date/Time Associated Diagnosis Comments CT LUNG CANCER SCREENING Schedule Routine, Read Routine (OP Routine) 10/11/2024 12:51 PM NATURAL GAS TRADER Nicotine dependence, cigarettes, uncomplicated from Last 3 Months or Most Recently Relevant to Health Maintenance Results * CT Lung Cancer Screening (10/11/2024 12:51 PM NATURAL GAS TRADER) Anatomical Region Laterality Modality Chest N/A Computed Tomogra phy 10/11/2024 2:53 PM NATURAL GAS TRADER Impressions 10/11/2024 2:53 PM NATURAL GAS TRADER 1. LungRADS Category 1 (negative) . Recommend [...] Freddie Morales M.D. Narrative 10/11/2024 2:53 PM NATURAL GAS TRADER EXAMINATION: Lung cancer screening CT of the [...] Most Recently Relevant to Health Maintenance Insurance [id number] MEDICARE ADVANTAGE [employer]HC MEDICARE ADVANTAGE Advance Directives For more information, please contact: [phone] * Full Code (Latest Code Status on File) Date Activated Date Inactivated Comments 12/30/2024 1:35 PM 01/01/2025 5:36 PM * Full Code Date Activated Date Inactivated Comments 07/27/2023 2:03 PM 08/06/2023 12:02 AM Care Teams Senior Talent Management Consultant Relationship Specialty Start Date End Date Irais Lock MD [address] [address] PCP - General Internal Medicine 07/28/23 Kortney Wu MD [address] [place] [address] Consulting Physician Cardiology 01/01/25
--- OUTSIDE RECORDS SUMMARY | 2025-07-12 09:37 | XMS_ITS | Encounter Summary ---
Author Organization [facility] Healthcare Address [address] [place] [address] Care Team Providers Care Marketing Automation Manager Name Role Phone Titus Torres MD Primary Care Provider [phone] Titus Torres MD Primary Care Provider [phone] Irais Lock MD Primary Care Provide r Kortney Wu MD Unavailable [phone] Encounter Details Date Type Department Care Team (Late st Contact Info) Description 03/08/2020 Telephone [facility] [address] [place] [id number] Annel Friedman, EDWARD Social History Tobacco Use Types Packs/Day Years Used Date Smoking Tobacco: Never Smokeless Tobacco: Never Sex and Gender Information Value Date Recorded Sex Assigned at Not on file 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
--- OUTSIDE RECORDS SUMMARY | 2025-07-12 09:37 | XMS_ITS | Patient Health Record ---
Author Organization [facility] Address [address] [place] [address] [place] [address] Care Team Providers Care Corporate Logistics Manager Name Role Phone Shakir Moore Unavailable [phone] Reason For Referral No Information Medications Medication SIG (Take, Route, Frequency, Duration) Notes Start Date End Date Status Losartan Potassium 50 MG 1 tablet Orally Once a day; Duration: 90 11/20/2023 Active Calcitriol 0.25 MCG TAKE 1 CAPSULE BY [place] UTH EVERY OTHER DAY; Duration: 90 Active Furosemide 40 MG TAKE 1 TABLET BY WALI TH DAILY; Duration: 90 Active Vitamin D (Ergocalciferol) 1.25 MG (38853 UT) TAKE 1 CAPSULE BY MOUTH 1 TIME A WEEK; Duration: 91 Active Losartan Potassium 25 MG TAKE 1 TABLET B Y MOUTH TWICE DAILY; Duration: 90 Active Problems Problem Type SNOMED Code ICD Code Onset Dates Problem Status W/U Status Risk Notes Problem Hyperglycemia due to type 2 diabetes mellitus (754471986439702) Type 2 diabetes mellitus with hyperglycemia (E11.65) Active confirmed Problem Hyperlipidemia (45807681) Hyperlipidemia, unspecified (E78.5) Active confirmed Problem Disorder of mineral metabolism (98527139) Disorder of mineral metabolism, 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 Problem Anxiety disorder (294499122) Anxiety disorder, unspecified (F41.9) Active confirmed Problem Essential hypertension (01426289) Essential (primary) hypertension (I10) Active confirmed Problem Heart failure (20302345) Heart failure, unspecified (I50.9) Active confirmed Problem Atherosclerosis of renal artery (35078782) Atherosclerosis of renal artery (I70.1) Active confirmed Problem Renal osteodystrophy (04102415) Renal osteodystrophy (N25.0) Active confirmed Problem Secondary hyperparathyroidism of renal origin (31194575) Secondary hyperparathyroidism of renal origin (N25.81) Active confirmed Problem Proteinuria (81144772) Proteinuria, unspecified (R80.9) Active confirmed Problem Chronic kidney disease stage 3A (disorder) (348054499) Chronic kidney disease, stage 3a (N18.31) Active confirmed Problem Coronary artery disease (88970109) CAD (coronary artery disease) (I25.10) Active confirmed Encounters Encounter Location Date Provider Diagnosis [facility] [address] [address] 08/31/2024 Shakir Moore Chronic kidney disea se, stage 3a N18.31 ; Type 2 diabetes mellitus with hyperglycemia E11.65 ; Anxiety disorder, unspecified F41.9 ; Essential (primary) hypertension I10 ; Hyperlipidemia, unspecified E78.5 ; Heart failure, unspecified I50.9 and Atherosclerosis of renal artery I70.1 [facility] [address] [place] [address] 12/07/2024 Shakir Moore Chronic kidney disea se, [...] metabolism, unspecified E83.9 and Proteinuria, unspecified R80.9 [facility] [address] [address] 03/15/2025 Shakir Moore Chronic kidney disea se, [...] metabolism, unspecified E83.9 and Proteinuria, unspecified R80.9 [facility] [address] [address] 05/24/2025 Shakir Moore Chronic kidney disea se, [...] mellitus with hyperglycemia (ICD-10 - E11.65) 05/24/2025 Chronic kidney disea se, stage 3a (ICD-10 - N18.31) 05/24/2025 Anxiety disorder, unspecified (ICD-10 - F41.9) 03/15/2025 Type 2 diabetes mellitus with hyperglycemia (ICD-10 - E11.65) 12/07/2024 Type 2 diabetes mellitus with hyperglycemia (ICD-10 - E11.65) 08/31/2024 Type 2 diabetes mellitus with hyperglycemia (ICD-10 - E11.65) 08/31/2024 Anxiety disorder, unspecified (ICD-10 - F41.9) 12/07/2024 Anxiety disorder, unspecified (ICD-10 - F41.9) 05/24/2025 Essential (primary) hypertension (ICD-10 - I10) 03/15/2025 Anxiety disorder, unspecified (ICD-10 - F41.9) 03/15/2025 Essential (primary) hypertension (ICD-10 - I10) 05/24/2025 Hyperlipidemia, unspecified (ICD-10 - E78.5) 12/07/2024 Essential (primary) hypertension (ICD-10 - I10) 08/31/2024 Essential (primary) hypertension (ICD-10 - I10) 08/31/2024 Hyperlipidemia, unspecified (ICD-10 - E78.5) 12/07/2024 Hyperlipidemia, unspecified (ICD-10 - E78.5) 03/15/2025 Hyperlipidemia, unspecified (ICD-10 - E78.5) 05/24/2025 Heart failure, unspecified (ICD-10 - I50.9) 05/24/2025 Atherosclerosis of renal artery (ICD-10 - I70.1) 03/15/2025 Heart failure, unspecified (ICD-10 - I50.9) 12/07/2024 Heart failure, unspecified (ICD-10 - I50.9) 08/31/2024 Heart failure, unspecified (ICD-10 - I50.9) 08/31/2024 Atherosclerosis of renal artery (ICD-10 - I70.1) 12/07/2024 Atherosclerosis of renal artery (ICD-10 - I70.1) 03/15/2025 Atherosclerosis of renal artery (ICD-10 - I70.1) 05/24/2025 Renal osteodystrophy (ICD-10 - N25.0) 05/24/2025 Secondary hyperparathyroidism of renal origin (ICD-10 - N25.81) 03/15/2025 Renal osteodystrophy (ICD-10 - N25.0) 12/07/2024 Renal osteodystrophy (ICD-10 - N25.0) 12/07/2024 Secondary hyperparathyroidism of renal origin (ICD-10 - N25.81) 03/15/2025 Secondary hyperparathyroidism of renal origin (ICD-10 - N25.81) 05/24/2025 CAD (coronary artery disease) (ICD-10 - I25.10) 05/24/2025 Disorder of mineral metabolism, unspecified (ICD-10 - E83.9) 03/15/2025 CAD (coronary artery disease) (ICD-10 - I25.10) 12/07/2024 CAD (coronary artery disease) (ICD-10 - I25.10) 03/15/2025 Disorder of mineral metabolism, unspecified (ICD-10 - E83.9) 12/07/2024 Disorder of mineral metabolism, unspecified (ICD-10 - E83.9) 05/24/2025 Proteinuria, unspecified (ICD-10 - R80.9) 05/24/2025 Presence of aortocoronary bypass graft (ICD-10 - Z95.1) 03/15/2025 Proteinuria, unspecified (ICD-10 - R80.9) 12/07/2024 Proteinuria, unspecified (ICD-10 - R80.9) Plan Of Treatment No Information
== END 2025-07-12 08:53 | disposition home or self-care (01) ==
LOC: ANHLAB 08:55
PROVIDERS: PCP Internal Medicine; Visit Provider Internal Medicine
DX: D72.829 Elevated white blood cell count, unspecified (principal)
CPT/HCPCS: 36415; 85025